=== PATIENT | female | born 1940 | race Caucasian/White ===

== ENCOUNTER → 2023-09-13 08:55 | Outpatient (REF) | payer OTHER, SELFPAY | LOC: RAD 08:55 | PROVIDERS: ATTENDING PHYSICIAN Internal Medicine Geriatric Medicine | DX: R74.8 Abnormal levels of other serum enzymes (principal) | CPT/HCPCS: 78306; A9503 ==

== ENCOUNTER → 2023-11-28 10:27 | Outpatient (REF) | payer OTHER, SELFPAY | LOC: RAD 10:27 | PROVIDERS: ATTENDING PHYSICIAN Internal Medicine Rheumatology; FAMILY PHYSICIAN Internal Medicine Geriatric Medicine | DX: M81.0 Age-related osteoporosis without current pathological fracture (principal) | CPT/HCPCS: 77080 ==

== ENCOUNTER → 2024-02-20 12:57 | Outpatient (REF) | payer OTHER, SELFPAY | LOC: WDC 12:57 | PROVIDERS: ATTENDING PHYSICIAN Internal Medicine Geriatric Medicine | DX: Z12.31 Encounter for screening mammogram for malignant neoplasm of breast (principal) | CPT/HCPCS: 77063; 77067 ==

== ENCOUNTER → 2024-06-10 14:03 | Outpatient (REF) | payer OTHER, SELFPAY | LOC: RAD 14:03 | PROVIDERS: ATTENDING PHYSICIAN Internal Medicine Geriatric Medicine | DX: N94.9 Unspecified condition associated with female genital organs and menstrual cycle (principal); I10 Essential (primary) hypertension; I25.10 Atherosclerotic heart disease of native coronary artery without angina pectoris; K21.9 Gastro-esophageal reflux disease without esophagitis; M31.6 Other giant cell arteritis; I35.1 Nonrheumatic aortic (valve) insufficiency; I25.5 Ischemic cardiomyopathy; M81.0 Age-related osteoporosis without current pathological fracture; I34.0 Nonrheumatic mitral (valve) insufficiency; E55.9 Vitamin D deficiency, unspecified; Z13.31 Encounter for screening for depression | CPT/HCPCS: 72193; Q9967 ==

== ENCOUNTER → 2025-01-02 12:07 | Outpatient (REF) | payer OTHER, SELFPAY | LOC: REG 12:07 | PROVIDERS: ATTENDING PHYSICIAN Nurse Practitioner Family; FAMILY PHYSICIAN Internal Medicine Geriatric Medicine | DX: M54.2 Cervicalgia (principal); M41.9 Scoliosis, unspecified; Z12.31 Encounter for screening mammogram for malignant neoplasm of breast | CPT/HCPCS: 72052; 72072 ==

== ENCOUNTER 2025-02-06 06:58 | Inpatient (IN) | payer OTHER, SELFPAY ==
[2025-02-05] VITALS (8 sets, daily range): BP systolic 94–118; BP diastolic 49–71; BMI 20.8
[2025-02-05 10:16] LABS: Hematocrit 33.2 % (37.0-47.0); Hemoglobin 10.6 g/dL (12.0-16.0); Mean Corp Hgb Conc. 31.9 g/dL (33.0-37.0); Mean Corpuscular Volume 84.9 fL (81.0-99.0); Nucleated Red Blood Cells % 0 %; Platelet Count 254 10^3/uL (130-400); Red Cell Dist. Width 14.5 % (11.5-14.5)
--- NOTE | 2025-02-05 10:41 | ED.GENMED ---
History of Present Illness
General
Chief Complaint: Chest Pain
Source: patient and spouse
Time Seen by Provider: 02/05/25 10:21
History of Present Illness
History of Present Illness:
84-year-old female presents emergency department with generalized weakness and nausea that started yesterday and continues today. who is bedside and is a retired cardiac nurse feels that patient is dehydrated, states that patient generally
has poor fluid intake. He noted that she was tachycardic last night although not today. Patient denies fever, chills, abdominal pain, vomiting. She does note that when she tries to lay flat she feels dyspneic sometimes followed by chest
discomfort radiating to the left arm. They are both confident that this is related to her scoliosis which is severe. However, patient states that she has had increasing dyspnea on exertion and chest discomfort with activity over the last few
weeks, greater than baseline. She last saw her agency director about 6 to 7 months ago and reportedly had an echocardiogram and other tests that were unremarkable. She denies new leg swelling and does state that she had a recent procedure on her
right lower extremity. She has a dry cough which she thinks may be related to allergies.
Past History
Past History
ED Past Medical History: Arrthythmia (Atrial fib, SVT), CAD, Cancer (Uterine), Fibromyalgia, GERD, HTN, Hypercholesterolemia, UT and Other (pancreatic mass vs cyst that they are watching, Diverticulitis, Scoliosis, temporal arteritis, Left floating
rib)
ED Past Surgical History: Appendectomy, Gynecological (Total hysterectomy) and Other (cataracts)
Social History
Tobacco: Non-smoker
Alcohol: None
Drug: None
Personal:
Living: with family
Employment: Retired
Family History
Family History: Hypertension
Phy Exam
Physical Exam
Physical Exam:
GENERAL: Alert , in no apparent distress
EYE: pupils equal and reactive
NECK: Supple, no significant adenopathy.
ENT: o/p clr, mmm.
CARDIAC: Regular rate and rhythm .
LUNGS: Equalbreath sounds bilaterally, no acute respiratory distress, no wheezes/rhonchi, ?sl fine rales at base bilat
ABDOMEN: Soft, without focal tenderness, no r/g, no cvat
NEUROLOGICAL: Alert and oriented, no focal neuro deficits
SKIN: Warm and dry, skin intact.
MUSCULOSKELETAL: No edema, well perfused. R LE with dressing intact (pt declines removal)
PSYCH: Normal and appropriate interaction.
Scores
Heart Score for Chest Pain Patients
STEMI patient?: Not applicable
Course
Orders/Labs/Results
Orders:
Orders
02/05/25 09:52
Electrocardiogram (*1) Urgent
Reason for Study: Chest Pain
EKG- Treatment ONCE
02/05/25 10:09
Complete Blood Count/With Diff Urgent
Comprehensive Metabolic Panel Urgent
NT-proBNP Urgent
Comment: ADD ON
Troponin I Urgent
02/05/25 10:39
Cardiac Monitoring- Treatment ONCE
02/05/25 10:40
CR Chest - 2 Views Urgent
Comment:
Reason For Exam: sob
02/05/25 10:41
Add On- LAB Urgent
Tests Added?: probnp
02/05/25 11:54
Aspirin 325 mg PO NOW STA
Furosemide [Lasix] 40 mg IV ONCE ONE
02/05/25 13:20
Admit/Transfer Patient As Directed
Co-Sign Provider:
Level of Care: Observation services
Assign to:: Telemetry
Physician / Group: vanessa
Diagnosis: acute chf exacerbation
Reason for Telemetry: Arrhythmia
Date to Stop Telemetry: 02/08/25
Time to Stop Telemetry: 11:00
PRN Pain Medication Management As Directed
May give lesser potent ordered pain med per pt: Yes
preference::
Protocol:: Medication orders for pain may be administered in a
manner that supports deferring to patient preference
when the pt is:
- Requesting an ordered lesser potent pain medication.
Least to most potent pain medications are defined
as: acetaminophen < NSAID < tramadol < opioids
(morphine, oxycodone, hydromorphone).
- Requesting a lesser dose of the same medication IF
ORDERED.
- Requesting a less intrusive route of administration
if both routes are prescribed by the provider (PO <
IV).
02/05/25 13:21
Code Status As Directed
Resuscitation Status: Do not resuscitate
Reached after discussion with pt or family/Healthcare POA: Yes
DNR Bracelet Application ONCE
02/05/25 14:13
Lidocaine [Lidocaine 4% Patch] 1 patch TOPICAL DAILYPRN PRN left hip
Apply Lidocaine patch(s) to:: LEFT HIP
02/05/25 14:13
Echo 2D MMode Color/Doppler Routine
Reason for Study: chf
CARDIOLOGY CONSULT Routine
Consulting Provider: Anthony Trujillo
Was physician already notified: Yes
Activity As Directed
Activity Level: As Tolerated
I/O [Intake/ Output] As Directed
Frequency: q12h
Vital Signs As Directed
Frequency: Per unit guidelines
Weight As Directed
Frequency: Daily
DX Deep Vein Thrombosis Video Routine
02/05/25 14:38
Butalb/Acetaminophen/Caffeine [Fioricet] 1 tab PO DAILYPRN PRN
02/05/25 Dinner
Cholesterol Lowering
At Your Request: Limited Participation
Cholesterol Lowering: Sodium, 2 Gram
Flush (0.9% Sodium Chloride) [Flush (Nss)] See Dose Instructions IV PER PROTOCOL
02/05/25 16:00
Troponin I Q6H
02/05/25 16:04
Furosemide [Lasix] 20 mg IV NOW STA
02/05/25 18:00
Atorvastatin [Lipitor] 20 mg PO QPM
02/05/25 20:00
Heparin 5,000 units SC Q12
Remove Patch [Remove Lidocaine Patch] See Dose Instructions REMOVE DAILY@1999
02/05/25 20:17
Troponin I Q6H
02/05/25 22:00
Melatonin 5 mg PO HS
02/06/25 04:18
Troponin I Q6H
02/06/25 08:00
Aspirin Low Dose EC [Aspir Low (Enteric Coated)] 81 mg PO DAILY
Calcium Carbonate/Vitamin D3 [Oscal 500 + D] 500 mg PO DAILY
Cyclobenzaprine HCl [Flexeril] 5 mg PO DAILY
Magnesium Oxide 200 mg PO DAILY
Metoprolol Xl [Toprol Xl] 25 mg PO DAILY
Multivitamin [Theragran] 1 tablet PO DAILY
Pantoprazole [Protonix] 40 mg PO DAILY
coenzyme Q10 [CoQ-10] 100 mg PO DAILY
milk thistle 300 mg PO DAILY
02/06/25 08:47
Complete Blood Count/With Diff IN AM
Comprehensive Metabolic Panel IN AM
Troponin I Q6H
02/08/25 11:00
DC Protocol for Telemetry ONCE
02/09/25 08:00
alendronate 70 mg PO MO
Abnormal Lab Results
02/05/25 02/05/25 02/05/25
10: 16:00 20:17
RBC 3.91 L 10^6/uL
(4.20-5.40)
Hgb 10.6 L g/dL
(12.0-16.0)
Hct 33.2 L %
(37.0-47.0)
MCHC 31.9 L g/dL
(33.0-37.0)
Absolute Lymphs (auto) 1.0 L 10^3/uL
(1.2-3.4)
Neutrophils % 78.4 H %
(42.2-75.2)
Lymphocytes % 12.3 L %
(20.5-51.1)
BUN 19 H mg/dl
(7-17)
Glucose 118 H mg/dl
(70-99)
Alkaline Phosphatase 141 H U/L
(38-126)
Troponin I 0.040 H* D ng/ml 0.066 H* D ng/ml
Total Protein 6.2 L g/dl
(6.3-8.2)
02/06/25
04:18
RBC
Hgb
Hct
MCHC
Absolute Lymphs (auto)
Neutrophils %
Lymphocytes %
BUN
Glucose
Alkaline Phosphatase
Troponin I 0.118 H* ng/ml
Total Protein
02/05/25 10:09
02/05/25 10:09
Vital Signs
Initial and Last Documented VS:
Initial Vital Signs
Temp Pulse Resp BP Pulse Ox
97.8 F 105 16 102/61 94
02/05/25 10:01 02/05/25 10:01 02/05/25 10:01 02/05/25 10:01 02/05/25 10:01
Last Documented Vital Signs
Temp Pulse Resp BP Pulse Ox
98.4 F 92 16 95/50 95
02/08/25 22:13 02/08/25 22:13 02/08/25 22:13 02/08/25 22:13 02/08/25 23:28
*Pulse Oximetry
SaO2: 94
Oxygen Mode of Delivery: Room air
Patient hypoxic: no
*Critical Care Note
Total Time (30-74mins, 75-104mins- exclusive of procedures): Not Applicable
Update Note
Update Note:
Patient presents to the Emergency Department with cp, sob, fatigue, n
Number and Complexity of Problems Addressed at the Encounter
� Chronic conditions affecting care:
� Acute Exacerbation and/or Progression of Chronic Illness:
� Differential Diagnosis includes:but not limited to chf, dehydration, acs, lyte abnl, etc etc
Amount and/or Complexity of Data to be Reviewed and Analyzed
� I performed an independent evaluation of and my interpretation is:
EKG:
CT:
Xrays:
Laboratory Studies:hgb 10.6 which is approx 1 gm drop from prior (no hx active bleed, black stool, etc).
Other:
� Review of other/old records reveals:
� Clinical information was obtained by an independent historian:
� Prescriptions/Medications Considered but not given:
� Further testing considered but not performed:
Risk of Complications and/or Morbidity or Mortality of Patient Management
� Social determinants of health affecting care:
� Discussion with other providers (PCP, Hospitalists, Consultants, etc):
� Escalation of care including admission/observation vs risk of discharge considered:
ED Attending Note
-
Portions of this chart may have been created with voice recognition software.� Occasional wrong word or��sound alike� substitutions may have occurred due to the inherent limitations of voice recognition software.
Discharge Plan
Departure
Patient Disposition: Admit
Date of Disposition: 02/05/25
Time of Disposition: 11:54
Admit to: Telemetry
Presentation/result/management discussed w/ accepting MD/DO: Hospitalist
Condition: Fair
Discharge Problem:
Chest pain
Interventions
Interventions:
*Risk Screen - Suicide Last Done: 02/05/25 10:01
*General Assessment Last Done: 02/05/25 13:03
*Neglect/Abuse Screening Last Done: 02/05/25 10:01
*ED- Fall Risk Assessment Last Done: 02/05/25 14:14
*ED COVID-19 Vaccine History Last Done: 02/05/25 13:03
*ED Influenza Vaccine History Last Done: 02/05/25 13:03
*Nursing Disposition Last Done: 02/05/25 14:14
ED- Cardiac Assessment Last Done: 02/05/25 13:15
Discharge Date and Time
Discharge Date/Time: 02/05/25 14:17
[2025-02-05 10:49] LABS: Troponin I 0.026 ng/ml
[2025-02-05] MEDS: ASPIRIN 325 MG PO (12:08)
[2025-02-05 13:05] LABS: ALT (SGPT) 29 U/L (0-35); AST (SGOT) 36 U/L (14-36); Albumin 3.8 g/dl (3.5-5.0); Alkaline Phosphatase 141 U/L (38-126); Blood Urea Nitrogen 19 mg/dl (7-17); Calcium 9.6 mg/dl (8.4-10.2); Carbon Dioxide 30 mmol/L (22-30); Chloride 101 mmol/L (98-107); Glucose 118 mg/dl (70-99); Potassium 4.3 mmol/L (3.5-5.1); Sodium 136 mmol/L (135-145); Total Protein 6.2 g/dl (6.3-8.2); eGFR > 60.00
--- NOTE | 2025-02-05 13:26 | HPS.HSE ---
Family Physician
-
Family Physician: Kelby Souza
Chief Complaint
-
shortness of breath
History of Present Illness
84-year-old female past medical history of CAD, SVT, hypertension, scoliosis, uterine cancer status post hysterectomy, hyperlipidemia, osteoporosis, presenting with generalized weakness and nausea and poor p.o. intake. who is a retired
cardiac nurse feels the patient is dehydrated. She has had decreased p.o. intake. He knows she was tachycardic last night but not today. She denies any fevers or chills or abdominal pain or vomiting.
When she tries to lay down flat she feels shortness of breath followed by chest discomfort radiating to her left arm. The pain has been ongoing for a year and the shortness of breath ongoing for few months. They feel this is related to pain from
her scoliosis and resulting restrictive lung disease which is severe. She sees Dr. Merly Leyva. No weight gain. She does have some trace swelling in her left lower extremity.
She denies some loose stools earlier in the week but this is resolved.
She had skin cancer surgery 2 weeks ago on her right lower extremity. She followed up with the doctor yesterday who did not notice any infection.
She has had increasing shortness of breath with exertion chest discomfort with activity over the past 2 weeks greater than baseline. She saw director communications 6 months ago had an echocardiogram and other tests which were unremarkable. She has a dry
cough.
She does not smoke or drink alcohol.
Medical History
Past Medical History
Past Medical History: Reports Other (CAD, SVT, hypertension, scoliosis, uterine cancer status post hysterectomy, hyperlipidemia, osteoporosis)
Past Surgical History: Reports Other ( Appendectomy, Gynecological (Total hysterectomy) and Other (cataracts))
Social History
Tobacco: Non-smoker
Alcohol: None
Drug: None
Family History
Family History: Not pertinent
Allergies / Home Medications
Allergies reflects when Allergies were last updated in [facility].
Home Medications with original date entered in [facility]
Allergy/Medication List:
Allergies
Allergy/AdvReac Type Severity Reaction Status Date / Time
amoxicillin (From Augmentin) Allergy Nausea Verified 02/05/25 10:01
clavulanic acid (From Allergy Nausea Verified 02/05/25 10:01
Augmentin)
iron Allergy Unknown Verified 02/05/25 10:01
Sulfa (Sulfonamide Allergy Rash Verified 02/05/25 10:01
Antibiotics)
(Sulfa(Sulfonamide
Antibiotics))
tocilizumab (From Actemra) Allergy Syncopal Verified 02/05/25 10:01
episode
codeine (Codeine) AdvReac Intermediate nausea Verified 02/05/25 10:01
Home Medications
aspirin 81 mg tablet,delayed release 81 mg PO DAILY 12/06/11
atorvastatin 40 mg tablet 20 mg PO QPM 02/11/21
utlyekwyxr-yxfqqlj-ieieuxzs 50 mg-325 mg-40 mg capsule 1 cap PO DAILYPRN PRN migraines 06/23/22
alendronate 70 mg/75 mL oral solution 70 mg PO MO 04/30/23
coenzyme Q10 100 mg capsule (CoQ-10) 100 mg PO DAILY 04/30/23
omeprazole 40 mg capsule,delayed release 40 mg PO DAILY 04/30/23
calcium 500 mg (as carbonate)-vitamin D3 10 mcg (400 unit) tablet (Calcium 500 + D) 1 tab PO DAILY 02/05/25
cyclobenzaprine 5 mg tablet 5 mg PO DAILY 02/05/25
lidocaine 5 % topical patch 1 patch topical DAILYPRN PRN left hip 02/05/25
lisinopril 20 mg tablet 20 mg PO DAILY 02/05/25
magnesium oxide 200 mg PO DAILY 02/05/25
metoprolol succinate 25 mg tablet,extended release 24 hr (Toprol XL) 25 mg PO DAILY 02/05/25
milk thistle 150 mg capsule 300 mg PO DAILY 02/05/25
therapeutic multivitamin 1 tab PO DAILY 02/05/25
Review of Systems
-
Constitutional: Reports No Symptoms
EENT: Reports No Symptoms
Respiratory: Reports See HPI
Cardiac: Reports See HPI
Abdomen/GI: Reports No Symptoms
: Reports No Symptoms
Musculoskeletal: Reports No Symptoms
Skin: Reports No Symptoms
Neurological: Reports No Symptoms
Endocrine: Reports No Symptoms
Hematologic/Lymphatic: Reports No Symptoms
Psych: Reports No Symptoms
Physical Exam
Vital Signs
Vital Signs
Temp Pulse Resp BP Pulse Ox
97.8 F 101 18 99/56 94
02/05/25 10:01 02/05/25 13:00 02/05/25 13:00 02/05/25 13:00 02/05/25 10:45
Physical Exam
General: Well Developed, Well Nourished and No Apparent Distress
HEENT: NormoCephalic, Moist mucous membranes and Atraumatic
Respiratory: Clear
Cardiac: S1/S2, Regular Rhythm and Peripheral Edema; No Murmur or Rub
GI: Soft, Non Tender, Non Distended and Normal Bowel Sounds; No Organomegaly
Rectal: Deferred by Provider
Musculoskeletal: No Clubbing, No Cyanosis and No Edema
Skin: No Rash
Neuro: Nonfocal/grossly intact
Laboratory Results
-
02/05/25 10:09
02/05/25 10:09
Laboratory Results
Total Bilirubin 0.5 mg/dl (0.2-1.3) 02/05/25 10:09
AST 36 U/L (14-36) 02/05/25 10:09
ALT 29 U/L (0-35) 02/05/25 10:09
Alkaline Phosphatase 141 U/L (38-126) H 02/05/25 10:09
Troponin I 0.026 ng/ml 02/05/25 10:09
Data Reviewed
-
Lab Data: Labs Reviewed by me
Old Records: Reviewed
Impression/Plan
-
IMPRESSION:
PLAN:
# Acute CHF exacerbation
- Cardiac BNP of 6800
- Chest x-ray unremarkable
- Check I's and O's, daily weights
-Lasix attempted to be given however blood pressure 90s and heart rate of 110 so held off
-Hold lisinopril so diuresis can be attempted
- Check echo
-Some element of dyspnea could be secondary to restrictive lung disease secondary to severe scoliosis
- Cardiology consulted
# Nonischemic myocardial injury
- Troponin 0.026
- Trend troponins
# Ongoing back pain radiating to left arm likely secondary to severe scoliosis
- Given aspirin however unlikely to be cardiac
Chronic anemia
- Hemoglobin of 10.6 from 11.6
History of CAD
- Continue aspirin, statin
- Continue metoprolol
History of SVT
Essential hypertension
-Hold lisinopril
Severe scoliosis
Uterine cancer status post hysterectomy
Hyperlipidemia
Osteoporosis
- Continue alendronate
History of polymyalgia rheumatica/giant cell arteritis
DNR/DNI
DVT prophylaxis�heparin
Cardiac diet
--- NOTE | 2025-02-05 14:32 | CON.CAR ---
Addendum entered and electronically signed by Anthony Trujillo MD 02/05/25 18:29:
84-year-old woman with history of METHODS SPECIALIST of LAD with preserved systolic LV function with scoliosis, admitted for the evaluation of left shoulder/arm and chest discomfort. Not exertional, associated with 'not' over left trapezius. Also with some
orthopnea over the last month with discontinuation of hydrochlorothiazide for hypertension. Echocardiography in 1999 and and notable for mild to moderate mitral regurgitation with pulmonary artery systolic pressure of 35-40 mmHg and EF of 55%.
proBNP
PMH/PSH: METHODS SPECIALIST of LAD 2011 with preserved EF, scoliosis, hypertension, hyperlipidemia, GCA/PMR, history of COVID
Current meds: Subcu heparin, aspirin 81 mg a day, atorvastatin 20 mg a day, Flexeril 5 mg a day, mag oxide, metoprolol ER 25 mg a day, pantoprazole 40 mg a day, lidocaine patch, melatonin
109/65, pulse 109, respiratory rate 16, afebrile, pleasant, petite and frail, head neck exam unremarkable, crackles in left base greater than right, JVD not dramatically elevated, probable S3 gallop, MR murmur that is soft, abdomen benign, right leg
wrapped following dermatologic surgery with some edema, 1+ to 2+ edema on left
Hemoglobin is 10.6, white count is 8.2, BUN and creatinine are 19 and 0.8, proBNP is 6810, initial troponin is 0.040
Chest x-ray with scoliosis, uncoiled aorta, pulmonary vasculature probably normal
ECG sinus tachycardia, left atrial enlargement, possible septal NC, left axis deviation, LVH
Echo 02/05/2025: Global hypokinesis, EF 25-30%, severe hypokinesis in the anteroseptal, anterior, apical and inferolateral segments, severe MR, pulmonary artery systolic pressure 59 mmHg, severe TR, dilated atria
Impression:
Acute heart failure with reduced EF
Chest pain/shoulder pain with detectable troponin
Severe mitral regurgitation
Moderate pulmonary hypertension
CAD, known METHODS SPECIALIST LAD
Hypertension
Hyperlipidemia
Giant cell arteritis/Jessica myalgia rheumatica
History of COVID
Scoliosis
Plan:
She presents with shoulder, chest, and arm symptoms that sound musculoskeletal, and without acute EKG changes, but LV function has dramatically decreased compared to 2022, she has severe mitral and tricuspid regurgitation with pulmonary artery
pressures of 59 mmHg, her proBNP is 6810 and she has a detectable troponin. Symptoms of dyspnea worsened when hydrochlorothiazide was stopped recently. Her resting sinus tachycardia is a concern in the setting of severe LV dysfunction.
It does not seem that she has ACS at present. Suspect troponin is related to non-ACS myocardial injury related to heart failure with underlying CAD.
Based on dramatic changes on her echo associated with symptoms and other findings, will need to consider cardiac catheterization.
We will begin optimization of GDMT in the setting of newly discovered LV dysfunction. Start IV Lasix, will need RYLIE/ARB/beta christine, likely spironolactone and possibly an SGLT 2 antagonist and/or Entresto.
Original Note:
Consultation
Consultation Request
Date/Time Consultation Performed: 02/05/25
Requesting Provider: Dr. Basilio
Performing Provider: Sandra Sutton PA-C for Dr. ALANIS Trujillo
Reason for Consultation: CP
Medical History
-
Chief Complaint: CP
History of Present Illness:
Patient is an 84-year-old female with past medical history of CAD with occluded LAD from 2011 with collaterals, scoliosis, hypertension, hyperlipidemia, giant cell arteritis, PMR who presents to [facility] for evaluation of neck and chest pain. Occasional
radiation down L arm. She reports she was initially evaluated for this in September 2024 with her primary head stock operator, and was felt to be musculoskeletal secondary to her scoliosis as cardiology workup was felt to be unremarkable. She reports since that
time her discomfort has become more frequent. She reports it starts in her left shoulder and radiates down into her chest. She states she then becomes short of breath as a result. She reports she is unable to lay flat due to this or sleep on her
left side. She has been sleeping in a recliner, but even with this has been sleeping poorly especially the last 2 nights. She states ~2 years ago in the setting of COVID she developed giant cell arteritis and was treated with steroids. Reportedly
in the setting of this she has lost approximately 20 pounds and continues with poor appetite. She reports 2 months ago because of hypotension her lisinopril-HCTZ combo pill was changed to just lisinopril 20 mg daily. She reports even with this her
blood pressures have been on the low side as an outpatient. She does report lower extremity edema the last day or 2. She had removal of a squamous cell in her right leg several weeks ago and has bandages in place
PMH:
CAD with occluded LAD from 2011 with collaterals
Scoliosis
Hypertension
Hyperlipidemia
Giant cell arteritis status posttreatment
PMR
Past Medical History
Past Medical History: Other (in HPI)
Social History
Tobacco: Non-Smoker
Alcohol: None
Personal:
Living: With Family
Employment: Retired
Family History
Family History: CAD and Hypertension
Allergies / Home Medications
Allergy/AdvReac Type Severity Reaction Status Date / Time
amoxicillin (From Augmentin) Allergy Nausea Verified 02/05/25 10:01
clavulanic acid (From Allergy Nausea Verified 02/05/25 10:01
Augmentin)
iron Allergy Unknown Verified 02/05/25 10:01
Sulfa (Sulfonamide Allergy Rash Verified 02/05/25 10:01
Antibiotics)
(Sulfa(Sulfonamide
Antibiotics))
tocilizumab (From Actemra) Allergy Syncopal Verified 02/05/25 10:01
episode
codeine (Codeine) AdvReac Intermediate nausea Verified 02/05/25 10:01
�Medication �Instructions �Recorded �Confirmed �Type
aspirin 81 mg tablet,delayed 81 mg PO DAILY 12/06/11 02/05/25 History
release
atorvastatin 40 mg tablet 20 mg PO QPM 02/11/21 02/05/25 History
cqlrfquqdz-eaxwrga-kupugpqb 50 1 cap PO DAILYPRN PRN migraines 06/23/22 02/05/25 History
mg-325 mg-40 mg capsule
alendronate 70 mg/75 mL oral 70 mg PO MO 04/30/23 02/05/25 History
solution
coenzyme Q10 100 mg capsule 100 mg PO DAILY 04/30/23 02/05/25 History
(CoQ-10)
omeprazole 40 mg capsule,delayed 40 mg PO DAILY 04/30/23 02/05/25 History
release
calcium 500 mg (as 1 tab PO DAILY 02/05/25 02/05/25 History
carbonate)-vitamin D3 10 mcg (400
unit) tablet (Calcium 500 + D)
cyclobenzaprine 5 mg tablet 5 mg PO DAILY 02/05/25 02/05/25 History
lidocaine 5 % topical patch 1 patch topical DAILYPRN PRN left 02/05/25 02/05/25 History
hip
lisinopril 20 mg tablet 20 mg PO DAILY 02/05/25 02/05/25 History
magnesium oxide 200 mg PO DAILY 02/05/25 02/05/25 History
metoprolol succinate 25 mg 25 mg PO DAILY 02/05/25 02/05/25 History
tablet,extended release 24 hr
(Toprol XL)
milk thistle 150 mg capsule 300 mg PO DAILY 02/05/25 02/05/25 History
therapeutic multivitamin 1 tab PO DAILY 02/05/25 02/05/25 History
Review of Systems
-
History Source: Patient and Family
All other systems: Negative unless noted
Physical Exam
Vital Signs
Temp Pulse Resp BP Pulse Ox
97.8 F 101 18 99/56 94
02/05/25 10:01 02/05/25 13:00 02/05/25 13:00 02/05/25 13:00 02/05/25 10:45
Lab Results
02/05/25 10:09
02/05/25 10:09
Troponin I 0.026 ng/ml 02/05/25 10:09
Ftw-Y-Onaeudwjnyt Pept Cancelled 02/05/25 10:39
Physical Exam
General: No Apparent Distress and Comfortable
HEENT: Normocephalic, Anicteric and Moist Mucous Membranes
Respiratory: Clear and Non Labored Respirations
Cardiac: S1/S2 and Regular Rhythm
GI: Soft, Non Tender, Non Distended and Normal Bowel Sounds
Musculoskeletal: No Clubbing, No Cyanosis and Edema (1+ of B/L LE)
Skin: Warm, Dry and Other (dressing to RLE)
Impression / Plan
-
Primary Methods Specialist: Dr. Merly Herrera
Assessment:
Presentation with L chest/shoulder pain
Elevated proBNP
CAD with occluded LAD from 2011 with collaterals
Scoliosis
Hypertension
Hyperlipidemia
Giant cell arteritis status posttreatment
PMR
Removal of squamous cell of RLE
Osteoporosis
ECHO 09/28/2022: EF 55%, mild hypokinesis of apical septum, apical inferior segment, and apex, grade 1 diastolic dysfunction, mild to moderate MR, mild AR, mild TR, PAP 35 to 40 mmHg
Plan:
- Patient presents with increasing frequency of left shoulder discomfort which radiates to her left chest and at times down her left arm. She has a history of significant scoliosis which did not improve with epidural or injections
- Cardiology consulted as concern for cardiac etiology of chest/shoulder pain. Initial troponin 0.026, trend
- EKG sinus tach with evidence of prior septal infarct
- She has history of CAD with occluded LAD with collaterals since 2011
- Continue aspirin, statin, beta-christine
- Check echo, last from 2022 with results as above
- Suspicion is that discomfort is secondary to scoliosis/musculoskeletal issues. Defer treatment to primary service
- Blood pressures have also been overall on the low side, and patient reports 20 pound weight loss in the last 2 years. She had been on regimen of Toprol, lisinopril/HCTZ combo pill, however approximately 2 months HCTZ was stopped due to relative
hypotension. She does have some lower extremity edema on exam today and proBNP 6810, but is not grossly volume overloaded and chest x-ray is without acute heart failure.
- Would consider decreasing/stopping lisinopril and resuming HCTZ 12.5 mg daily.
- Of note she does have history of palpitations in past, with brief A. tach by an outpatient monitor. Would continue outpatient Toprol
- Daughter has asked for something to help her sleep. Will order melatonin and defer any additional medications to medical service
- Discussed with patient and family at bedside
Data Reviewed
-
EKG: Tracing Personally Visualized and interpreted
Radiology: Report Reviewed by me
Medical Tests (Nuc Med, Echo etc): Report Reviewed by me
Labs: Labs Reviewed by me
Old Records: Reviewed
--- NOTE | 2025-02-05 15:14 | TRANSFER ---
pt arrived from ED via stretcher accompanied by staff. pt ambulated from stretcher to bed without assistance. VSS, pt AAOx3. call terry within reach.
--- NOTE | 2025-02-05 15:54 | CM ---
Patient seen at bedside with daughter and in ED. Patient here as OBS/BANDA. Form reviewed with patient and signed form placed on chart. Patient states that she lives with her in a 2 story home with no steps to enter and 11 steps to
2nd floor. Patient PCP is Dr. Souza and she uses [facility]. Patient daughter Fede also a nurse and supportive, is a nurse so patient feels that she has good home supports. Patient is anxious about her stay in the hospital due to
complex history per patient . CM will continue to follow for discharge planning needs.
Plan;home with no needs vs home with VN; watch for medical treatment plan.
[2025-02-05 16:46] LABS: Troponin I 0.040 ng/ml
[2025-02-05] MEDS: LIPITOR 20 MG PO (17:42)
[2025-02-05] MEDS: LASIX 20 MG IV (17:45)
[2025-02-05] MEDS: HEPARIN 5000 UNITS SC (19:47)
[2025-02-05] MEDS: REMOVE LIDOCAINE PATCH REMOVE (19:51)
[2025-02-05 20:57] LABS: Troponin I 0.066 ng/ml
[2025-02-05] MEDS: MELATONIN 5 MG PO (21:39)
[2025-02-06] VITALS (23 sets, daily range): BP systolic 86–127; BP diastolic 51–73; BMI 20.4
[2025-02-06 05:03] LABS: Troponin I 0.118 ng/ml
[2025-02-06] MEDS: LIDOCAINE 4% PATCH 1 PATCH TOPICAL (08:05)
[2025-02-06] MEDS: ASPIR LOW (ENTERIC COATED) 81 MG PO (08:05)
[2025-02-06] MEDS: TOPROL XL 25 MG PO (08:08)
[2025-02-06] MEDS: HEPARIN 5000 UNITS SC ×2 (08:09→19:58)
[2025-02-06] MEDS: MAGNESIUM OXIDE PO (08:12)
[2025-02-06] MEDS: OSCAL 500 + D PO (08:12)
[2025-02-06] MEDS: THERAGRAN PO (08:12)
[2025-02-06] MEDS: PROTONIX PO (08:19)
--- NOTE | 2025-02-06 08:26 | W.PN.CARDCBS ---
Today's Communication / Plan
-
Cardiac catheterization
Impression / Plan
-
Primary Triple Drum Operator: Dr. Merly Herrera
Assessment:
Presentation with L chest/shoulder pain
Acute HFrEF
CAD with occluded LAD from 2011 with collaterals
Scoliosis
Hypertension
Hyperlipidemia
Giant cell arteritis
Squamous cell of RLE
Osteoporosis
Resting sinus tachycardia
ECHO 09/28/2022: EF 55%, mild hypokinesis of apical septum, apical inferior segment, and apex, grade 1 diastolic dysfunction, mild to moderate MR, mild AR, mild TR, PAP 35 to 40 mmHg
Echo 02/05/2025: Global hypokinesis, EF 25-30%, severe hypokinesis in the anteroseptal, anterior, apical and inferolateral segments, severe MR, pulmonary artery systolic pressure 59 mmHg, severe TR, dilated atria
ECG today: Pending
Plan:
She appears relatively comfortable, but remains tachycardic. Her troponin has risen to 0.118. ECG is pending. TSH is pending given resting sinus tachycardia
Her echo shows surprising decline in LV function with worsening of MR and pulmonary hypertension. In retrospect, her symptoms of chest discomfort, which sound musculoskeletal may impart be exertional and could be anginal. She also has had symptoms
of CRISTOBAL and orthopnea.
Best option is to proceed with cardiac catheterization. Discussed with patient and daughter who are in agreements.
Patient will also likely need transesophageal echocardiography.
Currently not on GDMT, which may be difficult to optimize given relatively low blood pressure. Will await cardiac catheterization and adjust meds appropriately thereafter.
Progress Note - Triple Drum Operator
Subjective
Date of Service: February 06, 2025:
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 Not exertional, associated with 'not' over left trapezius. Also with some
orthopnea over the last month with discontinuation of hydrochlorothiazide for hypertension. Echocardiography in 1999 and and notable for mild to moderate mitral regurgitation with pulmonary artery systolic pressure of 35-40 mmHg and EF of 55%.
proBNP
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
Current meds: Subcu heparin, aspirin 81 mg a day, atorvastatin 20 mg a day, magnesium, metoprolol ER 25 mg a day, Protonix 40 mg a day, tramadol
118/63, pulse 114, respiratory rate 18, afebrile, weight is 45.9 kg, down 0.8 kg, received furosemide 40 mg IV x 1 yesterday, lungs are relatively clear, MR murmur is surprisingly soft, possible S3, she remains somewhat tachycardic, daughter at
bedside, neck veins okay, right leg is wrapped, edema in left leg is improved
Peak troponin is 0.118, follow-up is pending, was 0.035 on admission, proBNP was 6810
Labs today are pending, BUN and creatinine were 19 and 0.8 yesterday with potassium 4.3, TSH pending
Echo 02/05/2025: Global hypokinesis, EF 25-30%, severe hypokinesis in the anteroseptal, anterior, apical and inferolateral segments, severe MR, pulmonary artery systolic pressure 59 mmHg, severe TR, dilated atria
ECG today: Pending
Objective
Labs:
Labs
Hgb 10.6 g/dL (12.0-16.0) L 02/05/25 10:09
Hct 33.2 % (37.0-47.0) L 02/05/25 10:09
Plt Count 254 10^3/uL (130-400) 02/05/25 10:09
Sodium 136 mmol/L (135-145) 02/05/25 10:09
Potassium 4.3 mmol/L (3.5-5.1) 02/05/25 10:09
BUN 19 mg/dl (7-17) H 02/05/25 10:09
Creatinine 0.8 mg/dL (0.6-1.0) 02/05/25 10:09
Glucose 118 mg/dl (70-99) H 02/05/25 10:09
Troponins
02/05/25 02/05/25 02/05/25
10: 16:00 20:17
Troponin I 0.026 0.040 H* D 0.066 H* D
02/06/25
04:18
Troponin I 0.118 H*
Vital Signs and I&O:
Vital Signs
Temp Pulse Resp BP Pulse Ox
36.6 C 114 18 118/63 93
02/06/25 03:04 02/06/25 03:04 02/06/25 03:04 02/06/25 03:04 02/06/25 03:04
Vital Signs
Temp Pulse Resp BP Pulse Ox
36.6 C 114 18 118/63 93
02/06/25 03:04 02/06/25 03:04 02/06/25 03:04 02/06/25 03:04 02/06/25 03:04
Intake & Output
02/04/25 02/05/25 02/06/25 02/07/25
07:59 07:59 07:59 07:59
Intake Total 720 / 720
Output Total 985 / 985
Balance -265 / -265
Physical Exam
Physical Exam
See above
[2025-02-06 08:59] LABS: Hematocrit 34.0 % (37.0-47.0); Hemoglobin 11.1 g/dL (12.0-16.0); Mean Corp Hgb Conc. 32.6 g/dL (33.0-37.0); Mean Corpuscular Volume 85.0 fL (81.0-99.0); Nucleated Red Blood Cells % 0 %; Platelet Count 259 10^3/uL (130-400); Red Cell Dist. Width 14.5 % (11.5-14.5)
--- NOTE | 2025-02-06 09:21 | W.PN.HOSP.TC ---
Today's Communication/Plan
-
.
Assessment / Plan
Assessment / Plan
Physical Exam
General: Well Developed, Well Nourished and No Apparent Distress
HEENT: NormoCephalic, Moist mucous membranes and Atraumatic
Respiratory: Clear
Cardiac: S1/S2, Regular Rhythm and Peripheral Edema; No Murmur or Rub
GI: Soft, Non Tender, Non Distended and Normal Bowel Sounds; No Organomegaly
Rectal: Deferred by Provider
Musculoskeletal: No Clubbing, No Cyanosis and No Edema
Skin: No Rash
Neuro: Nonfocal/grossly intact
# Acute HFrEF, new onset
# History of CAD
- Continue aspirin, statin
- Continue metoprolol
Positive troponin, possible non ischemic
Plan for [facility], agree and will know more about troponin elevation if NH or non ischemic?
-She irby snot have sob or chest pain
Main complaint is is cervical radiculopathy
Echo on o 02/05/2025: LV Global hypokinesis, EF 25-30%, severe hypokinesis in the anteroseptal, anterior, apical and inferolateral segments, severe MR, pulmonary artery systolic pressure 59 mmHg, severe TR, dilated atria
Appreciate cardiology input
Primary customer service sales consultant Dr Merly Herrera
# Cervical radiculopathy
Upon exam and reviewing prior X ray
d/w pt, doubt Lidocaine patch will help much
I believe it is important to give her some relief at this point, she reports chronic lack of sleep and comfort
Will do Tylenol 1 gm TID
Add HS dose of Tramadol.
Educated about healthy posture
Will follow
# Anemia of chronic disease? at baseline
- Hemoglobin of 10.6 from 11.6
History of SVT
Essential hypertension
-Hold lisinopril
Severe scoliosis
Uterine cancer status post hysterectomy
Hyperlipidemia
Osteoporosis
History of polymyalgia rheumatica/giant cell arteritis
DNR/DNI
DVT prophylaxis�heparin
Cardiac diet
Total time spent to see the patient, examine the patient, review data and lab result, discuss treatment plan with patient, daughter, nursing staff around 55 minutes
Anticipated Discharge: > 48 hours
Subjective/Interval History
-
Date of Service: February 06, 2025
No chest pain
No sob
Chronic neck/ shoulder pain on left side
Objective Data
-
Labs:
Laboratory Results
02/06/25
08:47
WBC 7.6
Hgb 11.1 L
Hct 34.0 L
Plt Count 259
Sodium Pending
Potassium Pending
Chloride Pending
Carbon Dioxide Pending
BUN Pending
Creatinine Pending
Glucose Pending
Calcium Pending
Total Bilirubin Pending
AST Pending
ALT Pending
Alkaline Phosphatase Pending
Vital Signs:
Vital Signs
Temp Pulse Resp BP Pulse Ox
97.5 F 115 16 115/73 96
02/06/25 08:26 02/06/25 08:26 02/06/25 08:26 02/06/25 08:26 02/06/25 08:26
I&O
02/05/25 02/06/25 02/07/25
06:59 06:59 06:59
Intake Total 720 / 720
Output Total 985 / 985
Balance -265 / -265
[2025-02-06 09:30] LABS: Troponin I 0.202 ng/ml
[2025-02-06 09:46] LABS: ALT (SGPT) 27 U/L (0-35); AST (SGOT) 33 U/L (14-36); Albumin 4.0 g/dl (3.5-5.0); Alkaline Phosphatase 144 U/L (38-126); Blood Urea Nitrogen 21 mg/dl (7-17); Calcium 9.5 mg/dl (8.4-10.2); Carbon Dioxide 28 mmol/L (22-30); Chloride 99 mmol/L (98-107); Estimated Creatinine Clearance 36 ml/min; Glucose 98 mg/dl (70-99); Potassium 4.2 mmol/L (3.5-5.1); Sodium 136 mmol/L (135-145); Total Protein 6.7 g/dl (6.3-8.2); eGFR > 60.00
--- NOTE | 2025-02-06 11:47 | CM ---
Chart reviewed. Plan for cardiac cath today
PT attempted eval, will follow up when appropriate
Plan: Anticipate home w/ family support. Will watch for any home care needs
--- NOTE | 2025-02-06 13:45 | PTCARENOTE ---
Report given to label tacker RN's, pt transported to label tacker.
--- NOTE | 2025-02-06 15:44 | ITS.CL.CATH ---
Personal Lines Agent - Catheterization
Cardiac Catheterization
Procedure Report:
LEFT HEART CATHETERIZATION
Date of Procedure: February 06, 2025
Referring: Dr. Anthony Trujillo
PROCEDURES:
1. Left heart catheterization with coronary and single-plane left ventriculography
2. Attempted right heart catheterization with development of rapid SVT associated with profound hypoxia and hypotension. SVT required IV adenosine to break with hinduism of sinus rhythm
3. Abdominal aortography with iliofemoral runoff
INDICATION: This is an 84-year-old female with a prior history of coronary artery disease and known chronically occluded proximal LAD just beyond the first septal clearance center manager by coronary angiogram from December 2011. The distal LAD was noted to fill
via right to left collaterals. She was free of significant anginal symptoms and has been treated medically since that time. She is now admitted with a significant change in exercise capacity and exertional dyspnea. Her troponin was mildly
elevated. She had an echocardiogram performed earlier today notable for severe mitral regurgitation with left atrial dilation. She is referred for right and left heart catheterization.
ACCESS: No right radial pulse. Arterial access was obtained in the right common femoral artery using ultrasound guidance and placement of a 6 Br[place] sheath. Venous access was obtained in the right common femoral vein using ultrasound guidance with
placement of a 6 [place] sheath.
HEMODYNAMICS : (mmHg)
Note: We attempted to perform a right heart catheterization and advanced a [place]-Jonny catheter from the right common femoral vein to the right atrium. The patient developed a supraventricular tachycardia with heart rates of 160-180 bpm. She became
profoundly hypotensive and hypoxic with oxygen saturations falling to the low 70s. Vagal maneuvers and coughing did not improve the SVT and 6 mg of adenosine were administered with hinduism of sinus rhythm. Over the next several minutes
patient's respiratory insufficiency slowly improved and the decision was made to abort additional attempts at obtaining right sided pressures.
AO (s/d) : 105/54, 75
LV (s/d) : 106/21
LVEDP : 34
CORONARY FINDINGS
DOMINANCE: Right
LEFT MAIN: Normal
LEFT ANTERIOR DESCENDING: The LAD arises normally from the left main and becomes 100% occluded just beyond the first septal clearance center manager as was noted on the angiograms from 2012. There are well-developed right to left collaterals noted filling a
medium caliber LAD proximally to the occluded segment.
CIRCUMFLEX: The circumflex is a medium caliber nondominant vessel with a 50% proximal stenosis. The first obtuse marginal branch is large and a 90% proximal stenosis with GONZALO II-GONZALO-3 flow into the distal vessel. The AV continuation of the
circumflex terminates in a moderate-sized posterolateral branch.
RIGHT CORONARY ARTERY: Moderate pressure dampening with engagement of a 6 [place] diagnostic catheter with 40% ostial to proximal RCA stenosis. There is a large RV marginal branch supplying collaterals to the LAD. The mid RCA just beyond the RV
marginal branch has a hazy 80% stenosis with angiographic appearance of a ruptured plaque. The mid to distal RCA has minor irregularities with no focal obstructive stenosis.
VENTRICULOGRAPHY: Left ventriculography is performed in an ROBLEDO projection. The digital single-plane left ventricular ejection fraction is estimated at 30% with severe anterolateral hypokinesis noted. The apex is akinetic. The diaphragmatic
portion of the inferior wall is severely hypokinetic. Mitral regurgitation is +2
ABDOMINAL AORTOGRAPHY WITH ILIOFEMORAL RUNOFF: A pigtail catheter was positioned in the distal abdominal aorta. A small distal abdominal aortic saccular aneurysm is noted. Both the right and left common iliac arteries are widely patent. The
external iliac to common femoral vessels have minor irregularities but no focal obstructive stenosis.
SEDATION: 62 minutes of procedural sedation was utilized. An independent medical engineer was present to assist with and help manage the patient's level of consciousness and physiologic status.
RADIATION SUMMARY: Fluoro Time (min): 6.2, Dose (mGy): 171, DAP (Gy.cm2) : 11.5
Closure Device: None
CONCLUSIONS
1. Severe multivessel coronary artery disease with chronically occluded LAD from angiogram in 2012 and new high-grade mid RCA and OM1 stenosis as described above
2. Moderate left ventricular dysfunction. The estimated ejection fraction is 30%.
3. 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
4. Elevated left ventricular filling pressures
RECOMMENDATIONS
1. Consult CT surgery to consider surgical revascularization of LAD, diagonal, obtuse marginal branch, and distal RCA
2. She tolerated SVT very poorly. I discontinued tjdjdydxis-cnrzqos-fnebwjfj and started amiodarone 200mg bid given drug-drug interaction. I am hopeful we can maintain sinus rhythm
3. IV diuresis with furosemide 40mg IV bid.
4. Planned VIOLA to reassess mitral regurgitation
Copy to: Dr. Merly Herrera
--- NOTE | 2025-02-06 16:16 | PTCARENOTE ---
assumed care of pt, pt oriented to room. rn explained restrictions. pt is ST on the monitor, hr in the 120s, vss. pt right groin is CDI. pt offers no complaints at this time. pt educated on plan of care and pt tolerated well. pt resting in bed
comfortably. call terry within reach.
[2025-02-06] MEDS: LASIX 40 MG IV (17:09)
--- NOTE | 2025-02-06 17:18 | CONSULT.CT ---
Patient History
Physicians
Family Physician: Kelby Souza
Outpatient Banana Carrier: Dr. Merly Herrera
Inpatient Banana Carrier: Dr. Merly Herrera
History of Present Illness
84-year-old female with past medical history of HTN, SERVICES HOST of LAD scoliosis, and remote COVID presented to [facility] with left shoulder and chest discomfort. She was found to have elevated troponins in the emergency room and was taken to the cardiac Cath
Lab today.
Of note, patient had some orthopnea over the past month after discontinuation of hydrochlorothiazide and patient was noted to have shortness of breath in December. Overall, patient is fairly active although reports that the SOB since december has slowed
her down.
Past Medical History
Past Medical History: Other
Acute heart failure with reduced EF
Chest pain/shoulder pain with detectable troponin
Severe mitral regurgitation
Moderate pulmonary hypertension
CAD, known SERVICES HOST LAD
Hypertension
Hyperlipidemia
Giant cell arteritis/Jessica myalgia rheumatica
History of COVID
Scoliosis
Past Surgical History
MOHs of RLE
Cataracts
Dental History
last dental visit in october
Family History
Father: Cause of (NM)
Family Medical History: CAD
Social History
Alcohol: None
Drug: None
Tobacco: Non-Smoker
Personal:
Living: With Family
Employment: Retired
Allergies
Allergy/AdvReac Type Severity Reaction Status Date / Time
amoxicillin (From Augmentin) Allergy Nausea Verified 02/05/25 10:01
clavulanic acid (From Allergy Nausea Verified 02/05/25 10:01
Augmentin)
iron Allergy Unknown Verified 02/05/25 10:01
Sulfa (Sulfonamide Allergy Rash Verified 02/05/25 10:01
Antibiotics)
(Sulfa(Sulfonamide
Antibiotics))
tocilizumab (From Actemra) Allergy Syncopal Verified 02/05/25 10:01
episode
codeine (Codeine) AdvReac Intermediate nausea Verified 02/05/25 10:01
Home Medications
�Medication �Instructions �Recorded �Confirmed �Type
aspirin 81 mg tablet,delayed 81 mg PO DAILY Blood Clot 12/06/11 02/05/25 History
release Prevention/Tx
atorvastatin 40 mg tablet 20 mg PO QPM High Cholesterol 02/11/21 02/05/25 History
ybhjjrexsu-azjixwl-cydnukvw 50 1 cap PO DAILYPRN PRN migraines 06/23/22 02/05/25 History
mg-325 mg-40 mg capsule
alendronate 70 mg/75 mL oral 70 mg PO MO BONE 04/30/23 02/05/25 History
solution
coenzyme Q10 100 mg capsule 100 mg PO DAILY Supplement 04/30/23 02/05/25 History
(CoQ-10)
omeprazole 40 mg capsule,delayed 40 mg PO DAILY GERD 04/30/23 02/05/25 History
release
calcium 500 mg (as 1 tab PO DAILY Supplement 02/05/25 02/05/25 History
carbonate)-vitamin D3 10 mcg (400
unit) tablet (Calcium 500 + D)
cyclobenzaprine 5 mg tablet 5 mg PO DAILY Muscle Spasms 02/05/25 02/05/25 History
lidocaine 5 % topical patch 1 patch topical DAILYPRN PRN left 02/05/25 02/05/25 History
hip
lisinopril 20 mg tablet 20 mg PO DAILY Blood Pressure 02/05/25 02/05/25 History
magnesium oxide 200 mg PO DAILY Supplement 02/05/25 02/05/25 History
metoprolol succinate 25 mg 25 mg PO DAILY Blood Pressure 02/05/25 02/05/25 History
tablet,extended release 24 hr
(Toprol XL)
milk thistle 150 mg capsule 300 mg PO DAILY Supplement 02/05/25 02/05/25 History
therapeutic multivitamin 1 tab PO DAILY Supplement 02/05/25 02/05/25 History
Review of Systems
-
History Source: Patient
General: Reports Fatigue
Respiratory: Reports SOB
Cardiac: Reports Chest Pain and Edema (LE)
Abdomen/GI: Reports No Symptoms
: Reports No Symptoms
Musculoskeletal: Reports Edema
Skin: Reports No Symptoms
Neurological: Reports No Symptoms
Vascular: Reports No Symptoms
Physical Exam
Vital Signs
Temp 97.6 F 02/06/25 15:49
Temp route: Oral 02/06/25 15:49
Pulse 98 02/06/25 15:49
Rhythm: Sinus tachycardia 02/06/25 08:00
Resp Rate 18 02/06/25 15:49
Blood pressure 110/64 02/06/25 11:50
Blood pressure extremity used: Left upper arm 02/06/25 15:49
Position: Lying 02/06/25 15:49
MAP (cuff-Gaby Monitor) 70 02/05/25 13:00
SaO2 99 02/06/25 15:49
Nasal Cannula flow liters per minute 3 02/06/25 15:49
Oxygen Mode of Delivery Room air 02/06/25 11:50
Can the patient verbally communicate their pain? Yes 02/05/25 20:00
Pain scale ratin 02/05/25 20:00
Actual Weight 45.87 kg 02/06/25 06:00
Body Mass Index (BMI) 20.4 02/06/25 06:00
Labs
02/06/25 08:47
02/06/25 08:47
Troponin I 0.202 ng/ml H* D 02/06/25 08:47
Tmp-O-Xiziiwnhadk Pept Cancelled 02/05/25 10:39
Exam
General: Well Developed and Well Nourished
HEENT: Normocephalic
Respiratory: Clear
Cardiac: S1/S2
GI: Soft
Rectal: Deferred by Provider
Skin: Warm and Dry
Neuro: AO x 3
Extremities: Lower Level Edema
Lymph: No Lymphadenopathy
Psych: Calm
Assessment / Plan
-
84 y/o female with PMHx listed above presents to the [facility] with complaints of SOB. She was found to have elevated troponins. [facility] today revealed MVD and CT surgery was consulted for surgical evaluation.
#CAD
#Severe MR
#Severe TR
#Mod AR
- Patient's case will be discussed with attending physician. Further details regarding surgical timing intervention will be determined after attending physicians full evaluation
- Routine preoperative cardiothoracic surgery orders will be initiated.
- STS risk stratification score will be calculated after preoperative testing is complete
- Continue heparin gtt per cardiology
- Repeat VIOLA Sunday
- Continue diureses over the weekend
[2025-02-06] MEDS: TYLENOL 1000 MG PO (19:58)
[2025-02-06] MEDS: LIPITOR 20 MG PO (19:58)
[2025-02-06] MEDS: REMOVE LIDOCAINE PATCH REMOVE (19:59)
[2025-02-06] MEDS: PACERONE 200 MG PO (20:55)
[2025-02-06] MEDS: ULTRAM 25 MG PO (20:55)
[2025-02-06] MEDS: MELATONIN 5 MG PO (20:56)
[2025-02-06] MEDS: TYLENOL PO (20:56)
[2025-02-07] VITALS (13 sets, daily range): BP systolic 92–117; BP diastolic 49–74; PULSE 106–122; O2SAT 95–99; BMI 20.3
[2025-02-07 00:54] LABS: Urine Character Clear (Clear)
[2025-02-07 01:02] LABS: Urine Red Blood Cell 0-2 /HPF (0-2); Urine Squamous Cell 0-2 /LPF (Few); Urine White Cell 0-2 /HPF (0-5)
[2025-02-07 05:23] LABS: Hematocrit 33.5 % (37.0-47.0); Hemoglobin 10.8 g/dL (12.0-16.0); Mean Corp Hgb Conc. 32.2 g/dL (33.0-37.0); Mean Corpuscular Volume 83.5 fL (81.0-99.0); Platelet Count 241 10^3/uL (130-400); Red Cell Dist. Width 14.5 % (11.5-14.5)
[2025-02-07 05:33] LABS: INR 0.94; PT 12.9 Sec (11.4-14.6)
[2025-02-07 05:34] LABS: APTT 37.4 Sec (23.4-35.0)
[2025-02-07 05:52] LABS: ALT (SGPT) 27 U/L (0-35); AST (SGOT) 49 U/L (14-36); Albumin 4.0 g/dl (3.5-5.0); Alkaline Phosphatase 131 U/L (38-126); Blood Urea Nitrogen 27 mg/dl (7-17); Calcium 9.1 mg/dl (8.4-10.2); Carbon Dioxide 25 mmol/L (22-30); Chloride 98 mmol/L (98-107); Estimated Creatinine Clearance 32 ml/min; Glucose 90 mg/dl (70-99); Potassium 4.6 mmol/L (3.5-5.1); Sodium 136 mmol/L (135-145); Total Protein 6.5 g/dl (6.3-8.2); eGFR > 60.00
--- NOTE | 2025-02-07 07:14 | PTCARENOTE ---
Assumed care on pt at 1900, aaox3, able to make needs known.ST on tele, with HR 110 at rest and 137 with ambulation and activities. O2 at 2L via NC, CRISTOBAL. R groin cath site, CDI, free or bruising or swelling, + pulses. Voiding with no issues clear
yellow urine, sample for UA sent to lab. Call terry within reach, updated on POC and in agreement.
--- NOTE | 2025-02-07 07:42 | W.PN.CARDCBS ---
Addendum entered and electronically signed by Leo Herrera MD 02/07/25 15:42:
Discussed with the CT surgery
Will plan for transesophageal echo on Sunday to better evaluate mitral valve.
Addendum entered and electronically signed by Leo Herrera MD 02/07/25 12:02:
Patient seen, interviewed and examined by me.
Well-appearing, no acute distress
Regular rate and rhythm with normal S1 and S2, no S3 no S4. There is a grade 1/6 apical holosystolic murmur and no rubs. PMI is normally placed.
Lungs are clear to auscultation bilaterally without wheezes rales or rhonchi.
Abdomen soft nontender nondistended with normoactive bowel sounds
Extremities show trace pretibial edema bilaterally no clubbing or cyanosis.
Neurologic exam is grossly nonfocal.
Multivessel coronary artery disease as well as severe mitral regurgitation and recent decline in left ventricular systolic function.
CT surgical evaluation has been initiated.
Continue attempts at diuresis as blood pressure tolerates.
Original Note:
Today's Communication / Plan
-
Ongoing attempts at diuresis, LVEDP was 34 by cath yesterday
Hypotension limiting attempts at optimizing GDMT
CABG evaluation
Impression / Plan
-
PCP: Dr. Souza
Primary Atg Architect: Dr. Merly Herrera
Assessment:
Presentation with L chest/shoulder pain 02/05/25
Acute HFrEF
CAD
s/p cath with occluded LAD and collaterals 2011
MV CAD with chronically occluded LAD from angiogram in 2011 and new high-grade mid RCA and OM1 stenosis by cardiac cath 02/06/25
ICM EF 25-30% by echo 02/05/25
Severe MR by echo 02/05/25
SVT treated with adenosine at time of cardiac cath 02/06/2025
Scoliosis
Hypertension
Hyperlipidemia
Giant cell arteritis
Squamous cell of RLE
Osteoporosis
Resting sinus tachycardia
PMR
ECHO 09/28/2022: EF 55%, mild hypokinesis of apical septum, apical inferior segment, and apex, grade 1 diastolic dysfunction, mild to moderate MR, mild AR, mild TR, PAP 35 to 40 mmHg
Echo 02/05/2025: Global hypokinesis, EF 25-30%, severe hypokinesis in the anteroseptal, anterior, apical and inferolateral segments, severe MR, pulmonary artery systolic pressure 59 mmHg, severe TR, dilated atria
Plan:
- Patient was admitted with new CRISTOBAL and change in exercise capacity along with elevated troponin prompting echocardiogram that showed newly reduced EF and severe MR. Cardiac cath showed MV CAD and patient is now being evaluated for possible CABG.
-No recurrence of chest pain, troponin is high 0.2 at last check on 02/06/2025, will recheck troponin in a.m., orders placed by me.
-Outpatient doses of aspirin 81 mg daily has been continued. Patient was not given Plavix or Brilinta
-Check CVE, ordered by me, outpatient dose of atorvastatin 20 mg daily has been continued
-Echo from was reviewed by me and is outlined above, EF is now 25 to 30% with WMA as described.
-Outpatient dose of Toprol XL 25 mg daily has been continued
-Outpatient dose of lisinopril 20 mg daily is on hold due to hypotension
-Patient is not a candidate for cardiac rehab as she is not revascularized yet
-Weight is down as much as 3 lbs this admission with Lasix 20 mg IV BID. Patient was not taking a diuretic prior to admission, HCTZ was stopped 12/2024 due to hypotension
-LVEDP was 34 at cath on 02/06/2025
-EF was 55% in 2022 and is now 25 to 30%, this is presumably ischemic
-GDMT as outlined above
-Consideration for eventual aldosterone antagonist and SGLT2 therapies following possible CABG
-Telemetry reviewed by me on 02/07/2025 and appears to be sinus tachycardia. Beck Tender report from 02/06/2025 reviewed by me and patient had an episode of SVT that required adenosine.
-TSH was low at 0.43, but free T4 was normal at 1.62 on my review of labs 02/07/2025
Progress Note - Atg Architect
Subjective
Date of Service: February 07, 2025
No recurrence of chest pain
Objective
Labs:
02/07/25 05:07
02/07/25 05:07
Labs
Hgb 10.8 g/dL (12.0-16.0) L 02/07/25 05:07
Hct 33.5 % (37.0-47.0) L 02/07/25 05:07
Plt Count 241 10^3/uL (130-400) 02/07/25 05:07
PT 12.9 Sec (11.4-14.6) 02/07/25 05:07
INR 0.94 02/07/25 05:07
APTT 37.4 Sec (23.4-35.0) H 02/07/25 05:07
Sodium 136 mmol/L (135-145) 02/07/25 05:07
Potassium 4.6 mmol/L (3.5-5.1) 02/07/25 05:07
BUN 27 mg/dl (7-17) H 02/07/25 05:07
Creatinine 0.9 mg/dL (0.6-1.0) 02/07/25 05:07
Glucose 90 mg/dl (70-99) 02/07/25 05:07
Troponins
02/05/25 02/05/25 02/05/25
10:09 16:00 20:17
Troponin I 0.026 0.040 H* D 0.066 H* D
02/06/25 02/06/25
04:18 08:47
Troponin I 0.118 H* 0.202 H* D
Vital Signs and I&O:
Vital Signs
Temp Pulse Resp BP Pulse Ox
98.5 F 113 20 102/55 94
02/07/25 06:41 02/07/25 01:00 02/07/25 06:41 02/06/25 21:52 02/07/25 06:41
Vital Signs
Temp Pulse Resp BP Pulse Ox
98.5 F 113 20 102/55 94
02/07/25 06:41 02/07/25 01:00 02/07/25 06:41 02/06/25 21:52 02/07/25 06:41
Intake & Output
02/05/25 02/06/25 02/07/25 02/08/25
06:59 06:59 06:59 06:59
Intake Total 720 / 720 720 / 720
Output Total 985 / 985 600 / 600
Balance -265 / -265 120 / 120
Physical Exam
Physical Exam
GEN: AAOx3
HEENT: EOMI
LUNGS: RA. No wheeze
CV: Sinus tach on tele. Reg, S1/S2, 1/6 AHSM
EXT: Right groin without hematoma or ecchymosis. Trace left greater than right B/L LE edema
NEURO: Gross non-focal
SKIN: No rash
[2025-02-07] MEDS: LASIX 20 MG IV ×2 (08:06→16:57)
[2025-02-07] MEDS: THERAGRAN 1 TABLET PO (08:07)
[2025-02-07] MEDS: HEPARIN 5000 UNITS SC ×2 (08:07→20:47)
[2025-02-07] MEDS: PACERONE 200 MG PO ×2 (08:08→20:51)
[2025-02-07] MEDS: MAGNESIUM OXIDE 200 MG PO (08:08)
[2025-02-07] MEDS: TOPROL XL 25 MG PO (08:08)
[2025-02-07] MEDS: ASPIR LOW (ENTERIC COATED) 81 MG PO (08:08)
[2025-02-07] MEDS: PROTONIX 40 MG PO (08:08)
[2025-02-07] MEDS: OSCAL 500 + D 500 MG PO (08:08)
[2025-02-07] MEDS: TYLENOL 1000 MG PO ×2 (08:09→22:45)
[2025-02-07 08:43] LABS: HDL Cholesterol 55 mg/dl; LDL Cholesterol, Calculated 62 mg/dl; Very Low Density Lipoprotein 18 mg/dl (0-30)
--- NOTE | 2025-02-07 09:01 | W.PN.HOSP.TC ---
Today's Communication/Plan
-
.
Assessment / Plan
Assessment / Plan
Physical Exam
General: Well Developed, Well Nourished and No Apparent Distress
HEENT: Normocephalic, Moist mucous membranes and Atraumatic
Respiratory: Clear
Cardiac: S1/S2, Regular Rhythm and Peripheral Edema; + Murmur
GI: Soft, Non Tender, Non Distended and Normal Bowel Sounds;
Musculoskeletal: No Clubbing, No Cyanosis and No Edema
Skin: No Rash
Neuro: Nonfocal/grossly intact
# Acute HFrEF, new onset
# History of CAD
S/P LHC with multiple vessel disease, consulted CT surgery
- Continue aspirin, statin
- Continue metoprolol
Reduce dose of Lasix due to Low BP.
Echo on o 02/05/2025: LV Global hypokinesis, EF 25-30%, severe hypokinesis in the anteroseptal, anterior, apical and inferolateral segments, severe MR, pulmonary artery systolic pressure 59 mmHg, severe TR, dilated atria
Appreciate cardiology input
Primary pets and pet supplies salesperson Dr Merly Herrera
# SVT
Symptomatic during [facility]
Started on amiodarone
# Cervical radiculopathy
She slept well, less pain
Upon exam and reviewing prior X ray
d/w pt, doubt Lidocaine patch will help much
c/w Tylenol 1 gm TID, HS dose of Tramadol.
Educated about healthy posture
# Anemia of chronic disease? at baseline
- Hemoglobin of 10.6 from 11.6
History of SVT
Essential hypertension
-Hold lisinopril
Severe scoliosis
Uterine cancer status post hysterectomy
Hyperlipidemia
Osteoporosis
History of polymyalgia rheumatica/giant cell arteritis
DNR/DNI
DVT prophylaxis�heparin
Cardiac diet
Total time spent to see the patient, examine the patient, review data and lab result, discuss treatment plan with patient, daughter, nursing staff around 55 minutes
Anticipated Discharge: > 48 hours
Subjective/Interval History
-
Date of Service: February 07, 2025
No chest pain
No sob
Slept well
Objective Data
-
Labs:
Laboratory Results
02/07/25
05:07
WBC 6.4
Hgb 10.8 L
Hct 33.5 L
Plt Count 241
PT 12.9
INR 0.94
APTT 37.4 H
Sodium 136
Potassium 4.6
Chloride 98
Carbon Dioxide 25
BUN 27 H
Creatinine 0.9
Glucose 90
Calcium 9.1
Total Bilirubin 0.8
AST 49 H
ALT 27
Alkaline Phosphatase 131 H
Vital Signs:
Vital Signs
Temp Pulse Resp BP Pulse Ox
98.5 F 128 20 109/57 95
02/07/25 06:41 02/07/25 07:45 02/07/25 06:41 02/07/25 06:41 02/07/25 06:41
I&O
02/06/25 02/07/25 02/08/25
06:59 06:59 06:59
Intake Total 720 / 720 720 / 720
Output Total 985 / 985 600 / 600
Balance -265 / -265 120 / 120
[2025-02-07 12:20] LABS: Glycohemoglobin (HgbA1c) 6.1 % (4.0-5.6)
[2025-02-07] MEDS: LIPITOR 20 MG PO (16:58)
[2025-02-07] MEDS: ULTRAM 25 MG PO (20:46)
[2025-02-07] MEDS: REMOVE LIDOCAINE PATCH REMOVE (20:47)
[2025-02-07] MEDS: MELATONIN 5 MG PO (22:45)
[2025-02-08] VITALS (11 sets, daily range): BP systolic 91–115; BP diastolic 47–65; BMI 20.1
--- NOTE | 2025-02-08 03:56 | PTCARENOTE ---
Assumed care on pt at change of shift, resting in bed at the time with no c/o cp or SOB, at bedside. ST/SR on the tele monitor, HR 95-115, bp remains soft, denied dizziness or lightheadedness. C/o pain from RLE and lower back, salon receptionist STAFF ASSISTANT
made aware and x1 dose of tramadol 25 mg and ES Tylenol given. Call terry within reach, continuing with POC.
[2025-02-08 04:28] LABS: Troponin I 2.300 ng/ml
--- NOTE | 2025-02-08 07:02 | W.PN.UPDATE ---
Update Note
Progress Note Update
Received TT from RN, this morning troponin resulted at 2.3, (previously on 05/09 was 0.202). Vital signs stable. Patient with no complaints of chest pain.
TT'd on-call Filler Spreader, Dr. Leo Herrera to update on troponin result. EKG ordered. He will see patient early this AM.
[2025-02-08] MEDS: LASIX 20 MG IV (08:57)
[2025-02-08] MEDS: PROTONIX 40 MG PO (08:58)
[2025-02-08] MEDS: HEPARIN 5000 UNITS SC ×2 (08:58→20:21)
[2025-02-08] MEDS: MAGNESIUM OXIDE 200 MG PO (08:58)
[2025-02-08] MEDS: THERAGRAN 1 TABLET PO (08:58)
[2025-02-08] MEDS: PACERONE 200 MG PO ×2 (08:58→20:22)
[2025-02-08] MEDS: TOPROL XL 25 MG PO ×2 (08:58→10:14)
[2025-02-08] MEDS: OSCAL 500 + D 500 MG PO (08:58)
[2025-02-08] MEDS: ASPIR LOW (ENTERIC COATED) 81 MG PO (08:58)
[2025-02-08] MEDS: TYLENOL 1000 MG PO ×2 (08:59→22:16)
--- NOTE | 2025-02-08 09:02 | W.PN.UPDATE ---
Update Note
Progress Note Update
I had a long discussion with Mrs. Estevez and her daughter. I quoted her an approximate 10% mortality risk. She is very functional at baseline up until recently. Plan to be to move back with her daughter in the perioperative period. I reviewed the
plan of care which would likely include coronary artery bypass scan x 3-4, possible mitral valve repair replacement, tricuspid valve repair and very likely placement of direct aortic 5 5 Impella for perioperative support given her severely depressed
left ventricular function. I did also discuss hospice with her with the idea that we could potentially try transcatheter interventions to optimize her as best we could to get her home and help to preserve as much quality of life for as long as we
can. She will discuss with her daughter in terms of what their decision making would be. Regardless, she will need a VIOLA tomorrow to inspect her valves. I suspect that her mitral valve is functional in nature and would likely respond to simply a
ring with revascularization and temporary offloading with a 5.5 Impella. I will [place] back around tomorrow after office. If shared decision making is surgery, he would likely be Sunday or with me.
--- NOTE | 2025-02-08 09:02 | W.PN.CARDCBS ---
Today's Communication / Plan
-
Trend troponins
Increase beta-christine
Maintain IV heparin
Plan for VIOLA to evaluate mitral valve tomorrow
Impression / Plan
-
PCP: Dr. Souza
Primary Retail Cosmetics Sales Beauty Advisor: Dr. Merly Herrera
Assessment:
Presentation with L chest/shoulder pain 02/05/25
Acute HFrEF
CAD
s/p cath with occluded LAD and collaterals 2011
MV CAD with chronically occluded LAD from angiogram in 2011 and new high-grade mid RCA and OM1 stenosis by cardiac cath 02/06/25
ICM EF 25-30% by echo 02/05/25
Severe MR by echo 02/05/25
SVT treated with adenosine at time of cardiac cath 02/06/2025
Scoliosis
Hypertension
Hyperlipidemia
Giant cell arteritis
Squamous cell of RLE
Osteoporosis
Resting sinus tachycardia
PMR
ECHO 09/28/2022: EF 55%, mild hypokinesis of apical septum, apical inferior segment, and apex, grade 1 diastolic dysfunction, mild to moderate MR, mild AR, mild TR, PAP 35 to 40 mmHg
Echo 02/05/2025: Global hypokinesis, EF 25-30%, severe hypokinesis in the anteroseptal, anterior, apical and inferolateral segments, severe MR, pulmonary artery systolic pressure 59 mmHg, severe TR, dilated atria
Patient was admitted with new CRISTOBAL and change in exercise capacity along with elevated troponin prompting echocardiogram that showed newly reduced EF and severe MR. Cardiac cath showed MV CAD and patient is now being evaluated for possible CABG as
well as MV intervention given finding of severe MR.
Plan:
Multivessel coronary artery disease and non-ST segment elevation myocardial infarction.
She presented with unstable coronary syndrome and on coronary angiography found to have multivessel coronary artery disease. During the catheterization it was noted that she developed SVT accompanied by hypotension, converted with adenosine. Since
that event there were no further troponins checked until this morning with troponin value of 2.3.
She has had no recurrence of chest pain or shortness of breath both of which prompted her initial evaluation
Her ECG this morning shows no new ST or T abnormality/changes
She remained hemodynamically stable.
It is possible this elevated troponin value is related to her hypotensive event during her coronary angiography.
Will continue to check serial troponin values today to assess trend and if trending upward will initiate intravenous nitroglycerin
Continue IV heparin
Continue aspirin 81 mg, continue beta-christine, continue statin.
RYLIE inhibitor on hold due to borderline blood pressures.
Outpatient doses of aspirin 81 mg daily has been continued. Patient was not given Plavix or Brilinta
She admits to significant anxiety regarding her clinical situation and is mildly tachycardic this morning
Will increase beta-christine, metoprolol to tartrate 25 mg now and then also increase metoprolol succinate to 25 mg twice daily
TSH was low at 0.43, but free T4 was normal at 1.62
She has been evaluated by CT surgery and is planned for transesophageal echocardiogram tomorrow to further assess mitral valve before planning CT surgical intervention
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
Continue metoprolol succinate, increasing dose to 25 mg twice daily
Holding on RYLIE inhibitor/ARB due to relative hypotension
Clinically not volume overloaded, will discontinue Lasix
Consideration for eventual aldosterone antagonist and SGLT2 therapies following possible CABG
Discussed with IVU nursing.
Discussed with hospitalist.
Discussed with patient and all of her questions have been answered.
Total time spent today was 52 minutes in preparing to see the patient, seeing the patient and coordination of care. This included review of recent laboratory evaluations, cardiact testing, imaging studies, primary care rtecords, specialty
consultations, hospital records, as well as personally interviewing and examining the patient, which included discussion of their tests, review/ordering medications, and communicating with other healthcare professionals and also treatment planning
as well as counseling.
Total time does not include separately billed tests performed on this date of service.
Progress Note - Retail Cosmetics Sales Beauty Advisor
Subjective
Date of Service: February 08, 2025
She denies chest pain and shortness of breath. No recurrence of the symptoms that brought her in for evaluation.
He does admit to being a bit anxious about the possibility/likelihood of cardiac surgery
Objective
Labs:
02/07/25 05:07
02/07/25 05:07
Labs
Hgb 10.8 g/dL (12.0-16.0) L 02/07/25 05:07
Hct 33.5 % (37.0-47.0) L 02/07/25 05:07
Plt Count 241 10^3/uL (130-400) 02/07/25 05:07
PT 12.9 Sec (11.4-14.6) 02/07/25 05:07
INR 0.94 02/07/25 05:07
APTT 37.4 Sec (23.4-35.0) H 02/07/25 05:07
Sodium 136 mmol/L (135-145) 02/07/25 05:07
Potassium 4.6 mmol/L (3.5-5.1) 02/07/25 05:07
BUN 27 mg/dl (7-17) H 02/07/25 05:07
Creatinine 0.9 mg/dL (0.6-1.0) 02/07/25 05:07
Glucose 90 mg/dl (70-99) 02/07/25 05:07
Troponins
02/05/25 02/05/25 02/05/25
10:09 16:00 20:17
Troponin I 0.026 0.040 H* D 0.066 H* D
02/06/25 02/06/25 02/08/25
04:18 08:47 03:37
Troponin I 0.118 H* 0.202 H* D 2.300 H*
Vital Signs and I&O:
Vital Signs
Temp Pulse Resp BP Pulse Ox
97.6 F 105 15 107/53 95
02/08/25 06:56 02/08/25 07:30 02/08/25 06:56 02/08/25 06:58 02/08/25 06:56
Vital Signs
Temp Pulse Resp BP Pulse Ox
97.6 F 105 15 107/53 95
02/08/25 06:56 02/08/25 07:30 02/08/25 06:56 02/08/25 06:58 02/08/25 06:56
Intake & Output
02/06/25 02/07/25 02/08/25 02/09/25
06:59 06:59 06:59 06:59
Intake Total 720 / 720 720 / 720
Output Total 985 / 985 600 / 600 350 / 350
Balance -265 / -265 120 / 120 -350 / -350
Physical Exam
Physical Exam
Well-appearing but somewhat anxious appearing resting comfortably in no distress
Regular rate and rhythm normal S1 and S2 no S3 no S4 there is a grade 2/6 apical holosystolic murmur no rubs. PMI is normally placed.
Lungs clear to auscultation bilaterally without wheezes rales or rhonchi
Abdomen soft nontender nondistended with normoactive bowel sounds
Extremities show no clubbing cyanosis or edema
--- NOTE | 2025-02-08 09:25 | W.PN.HOSP.TC ---
Today's Communication/Plan
-
NPO after midnight
Assessment / Plan
Assessment / Plan
84-year-old woman with a past medical history of
CAD,
SVT,
essential hypertension,
scoliosis,
uterine cancer status post hysterectomy,
hyperlipidemia,
osteoporosis,
presents with generalized weakness and nausea and poor p.o. intake. 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 When she tries to lay down flat she feels shortness of breath followed by chest discomfort radiating to her
left arm. The pain has been ongoing for a year and the shortness of breath ongoing for few months. No weight gain.
She had skin cancer surgery 2 weeks ago on her right lower extremity. She has had increasing shortness of breath with exertion chest discomfort with activity over the past 2 weeks greater than baseline. She saw brand recorder 6 months ago had an
echocardiogram and other tests which were unremarkable. She has a dry cough. She does not smoke or drink alcohol.
A/P:
1. Acute HFrEF, new onset, complicated by History of CAD, now with troponin of 2.30
S/P [facility] with multiple vessel disease, consulted CT surgery
- Continue aspirin, statin
- Continue metoprolol
Reduced dose of Lasix due to Low BP.
Echo on o 02/05/2025:
LV Global hypokinesis,
EF 25-30%, severe hypokinesis in the anteroseptal, anterior, apical and inferolateral segments,
severe MR, pulmonary artery systolic pressure 59 mmHg, severe TR, dilated atria
Appreciate cardiology input
Primary brand recorder Dr Merly Herrera, cardiology plan:
Rate control
Ongoing attempts at diuresis, LVEDP was 34 by cath
Hypotension limiting attempts at optimizing GDMT
CABG evaluation
Esophageal echo on 02/09/25
2. SVT
Symptomatic during [facility]
Started on amiodarone
3. Cervical radiculopathy
c/w Tylenol 1 gm TID,
HS dose of Tramadol.
4. Anemia of chronic disease? at baseline
- Hemoglobin of 10.6 from 11.6, now 10.8
5. Essential hypertension
-Hold lisinopril
Other PMH to keep in mind
6. Severe scoliosis
7. Uterine cancer status post hysterectomy
8. Hyperlipidemia
9. Osteoporosis
10. History of polymyalgia rheumatica/giant cell arteritis
DNR/DNI
DVT prophylaxis�heparin
Cardiac diet, npo after MN for echo tomorrow
Total time spent to see the patient, examine the patient, review data and lab result, discuss treatment plan with patient, nursing staff around 55 minutes
Anticipated Discharge: > 48 hours
Subjective/Interval History
-
Date of Service: February 08, 2025
Feels well. No pain, no complaints.
Objective Data
-
Vital Signs:
Vital Signs
Temp Pulse Resp BP Pulse Ox
97.6 F 105 15 107/53 95
02/08/25 06:56 02/08/25 07:30 02/08/25 06:56 02/08/25 06:58 02/08/25 06:56
I&O
02/07/25 02/08/25 02/09/25
06:59 06:59 06:59
Intake Total 720 / 720
Output Total 600 / 600 350 / 350
Balance 120 / 120 -350 / -350
Review of Systems
-
History Source: Patient
All other systems: Reviewed and negative
Constitutional: Reports No Symptoms
Psych: Reports Anxious
Physical Exam
-
General: Well Developed, Well Nourished, No Apparent Distress, Comfortable and Conversant
HEENT: Normocephalic, Atraumatic, Moist Mucous Membranes, Nose Appears Normal and Ears Appear Normal
Respiratory: Crackles
Cardiac: Regular Rhythm, S1/S2 and Tachycardic
GI: Soft, Nontender and Nondistended
Musculoskeletal: No Clubbing, No Cyanosis and No Edema
Skin: Warm, Dry and Other (bandaged right leg)
Neuro: Awake, Alert and Oriented
Psych: Calm
Data Reviewed
-
Labs: Labs Reviewed by me
--- NOTE | 2025-02-08 09:55 | W.PN.UPDATE ---
Update Note
Progress Note Update
She has been running mildly tachycardic, sinus tachycardia
Will increase Toprol XL to 50 mg twice daily starting this morning
[2025-02-08 10:38] LABS: Troponin I 1.830 ng/ml
[2025-02-08 16:14] LABS: Troponin I 1.660 ng/ml
[2025-02-08] MEDS: TYLENOL PO (17:07)
[2025-02-08] MEDS: LIPITOR 20 MG PO (17:07)
[2025-02-08] MEDS: TOPROL XL 50 MG PO (20:22)
[2025-02-08] MEDS: REMOVE LIDOCAINE PATCH REMOVE (20:23)
[2025-02-08] MEDS: MELATONIN 5 MG PO (22:16)
--- NOTE | 2025-02-08 23:22 | PTCARENOTE ---
Rec'd pt at change of shift. PT AAO*3, VSS, and Stach on tele monitor. PT denies any pain or discomfort, however states that she if feeling 'anxious' about upcoming procedures and testing. PT now resting with call terry in reach. See MAR and
flowchart for full pt care and assessment.
Pt asked question about medication that was given around 3-4AM 02/08. MAR, Active, and discontinued medications reviewed with pt. Pt verbalized that medication given was Ultram for pain and requested medication again. Upon administration pt stated
'I would rather wait for right now.' Medication returned with second RN witness.
[2025-02-09] VITALS (17 sets, daily range): BP systolic 71–109; BP diastolic 37–73; BMI 20.1
[2025-02-09 04:37] LABS: Hematocrit 32.0 % (37.0-47.0); Hemoglobin 10.5 g/dL (12.0-16.0); Mean Corp Hgb Conc. 32.8 g/dL (33.0-37.0); Mean Corpuscular Volume 81.8 fL (81.0-99.0); Platelet Count 286 10^3/uL (130-400); Red Cell Dist. Width 14.5 % (11.5-14.5)
[2025-02-09 05:07] LABS: Blood Urea Nitrogen 40 mg/dl (7-17); Calcium 9.3 mg/dl (8.4-10.2); Carbon Dioxide 26 mmol/L (22-30); Chloride 98 mmol/L (98-107); Estimated Creatinine Clearance 26 ml/min; Glucose 100 mg/dl (70-99); Magnesium 2.2 mg/dl (1.6-2.3); Potassium 4.3 mmol/L (3.5-5.1); Sodium 135 mmol/L (135-145); eGFR 49.86
[2025-02-09 05:20] LABS: Troponin I 1.750 ng/ml
--- NOTE | 2025-02-09 07:40 | PTCARENOTE ---
Morning troponin resilted at 1.75 NAIN Serrano notified and made aware. No new orders at this time.
[2025-02-09] MEDS: PACERONE 200 MG PO ×2 (09:17→21:45)
[2025-02-09] MEDS: PROTONIX 40 MG PO (09:17)
[2025-02-09] MEDS: MAGNESIUM OXIDE 200 MG PO (09:19)
[2025-02-09] MEDS: OSCAL 500 + D 500 MG PO (09:19)
[2025-02-09] MEDS: ASPIR LOW (ENTERIC COATED) 81 MG PO (09:19)
[2025-02-09] MEDS: TYLENOL 1000 MG PO ×2 (09:20→21:31)
[2025-02-09] MEDS: THERAGRAN 1 TABLET PO (09:20)
--- NOTE | 2025-02-09 10:15 | W.PN.HOSP.TC ---
Today's Communication/Plan
-
VIOLA today
will need OMFS
wound consult
apprec cards/CT surg
Assessment / Plan
Assessment / Plan
84-year-old woman with shortness of breath followed by chest discomfort radiating to her left arm with trying to lie flat
She had skin cancer surgery 2 weeks ago on her right lower extremity. She has had increasing shortness of breath with exertion chest discomfort with activity over the past 2 weeks greater than baseline. She saw integrity specialist 6 months ago had an
echocardiogram and other tests which were unremarkable. She has a dry cough. She does not smoke or drink alcohol.
Acute HFrEF, new onset, complicated by History of CAD with peak troponin of 2.30 now downtrending--S/P [facility] with multiple vessel disease, apprec cards and CT surgery- Continue aspirin, statin- Continue metoprolol--Reduced dose of Lasix due to Low
BP--ECHO with LV Global hypokinesis, EF 25-30%, severe hypokinesis in the anteroseptal, anterior, apical and inferolateral segments, severe MR, pulmonary artery systolic pressure 59 mmHg, severe TR, dilated atria--Hypotension limiting attempts at
optimizing GDMT--for VIOLA today
dental abscess--noted on panorex by CT surgery--spoke with them--they will order OMFS
recent skin cancer surgery right leg (Moh's with Dr. Noguera)--consult wound care --still with open wound
SVT--Symptomatic during [facility]--Started on amiodarone
Cervical radiculopathy--c/w Tylenol 1 gm TID, HS dose of Tramadol.
Anemia of chronic disease? at baseline - Hemoglobin of 10.6 from 11.6, now 10.8
Essential hypertension--Hold lisinopril
Severe scoliosis
Uterine cancer status post hysterectomy
Hyperlipidemia--on atorvastatin
Osteoporosis
History of polymyalgia rheumatica/giant cell arteritis
DNR/DNI
DVT prophylaxis�heparin
Anticipated Discharge: > 48 hours
Subjective/Interval History
-
Date of Service: February 09, 2025
pt leaning towards surgery
Objective Data
-
Labs:
Laboratory Results
02/09/25
03:34
WBC 6.9
Hgb 10.5 L
Hct 32.0 L
Plt Count 286
Sodium 135
Potassium 4.3
Chloride 98
Carbon Dioxide 26
BUN 40 H
Creatinine 1.1 H
Glucose 100 H
Calcium 9.3
Vital Signs:
max temp for 24 hours
02/08/25
22:13
Temp 98.4 F
Vital Signs
Temp Pulse Resp BP Pulse Ox
98.3 F 92 17 105/56 94
02/09/25 08:13 02/09/25 09:19 02/09/25 08:13 02/09/25 09:19 02/09/25 08:13
I&O
02/08/25 02/09/25 02/10/25
06:59 06:59 06:59
Intake Total 240 / 240
Output Total 350 / 350 500 / 500
Balance -350 / -350 -260 / -260
Review of Systems
-
All other systems: Reviewed and negative
Physical Exam
-
General: No Apparent Distress and Other (frail appearing female)
HEENT: Normocephalic and Atraumatic; Negative Oxygen
Respiratory: Crackles
Cardiac: Regular Rhythm, S1/S2 and Murmur
GI: Soft, Nontender, Nondistended and Normal Bowel Sounds
Musculoskeletal: No Clubbing, No Cyanosis and No Edema
Neuro: Awake and Alert
Psych: Calm
--- NOTE | 2025-02-09 10:27 | W.PN.CARDCBS ---
Addendum entered and electronically signed by Paddy Richard MD 02/09/25 10:52:
I saw and examined the patient.
The [employer] or PA's note was reviewed and I agree with the note.
Comment: General: Well developed, well nourished in NAD.
Neck: Supple, no JVD, HJR, carotids +2 B/L, no bruits bilaterally.
Heart: Non displaced PMI, RRR, 2/6 apical systolic murmur, No S3, S4, no rubs.
Lungs: Scattered rhonchi
Extremities: No clubbing, cyanosis or edema bilaterally.
Neuro: Grossly nonfocal, awake, alert and oriented x3.
Stable cardiology status. Await CT surgery input after VIOLA to assess degree of MR and whether mitral valve repair will be needed. Discussed with patient and granddaughter at bedside.
Original Note:
Today's Communication / Plan
-
VIOLA today
Follow BP on higher dose Toprol-XL
Impression / Plan
-
PCP: Dr. Souza
Primary Surgical Training Specialist: Dr. Merly Herrera
Assessment:
Presentation with L chest/shoulder pain 02/05/25
Acute HFrEF
CAD
s/p cath with occluded LAD and collaterals 2011
MV CAD with chronically occluded LAD from angiogram in 2011 and new high-grade mid RCA and OM1 stenosis by cardiac cath 02/06/25
ICM EF 25-30% by echo 02/05/25
Severe MR by echo 02/05/25
SVT treated with adenosine at time of cardiac cath 02/06/2025
Scoliosis
Hypertension
Hyperlipidemia
Giant cell arteritis
Squamous cell of RLE
Osteoporosis
Resting sinus tachycardia
PMR
Hyperglycemia and prediabetes
ECHO 09/28/2022: EF 55%, mild hypokinesis of apical septum, apical inferior segment, and apex, grade 1 diastolic dysfunction, mild to moderate MR, mild AR, mild TR, PAP 35 to 40 mmHg
Echo 02/05/2025: Global hypokinesis, EF 25-30%, severe hypokinesis in the anteroseptal, anterior, apical and inferolateral segments, severe MR, pulmonary artery systolic pressure 59 mmHg, severe TR, dilated atria
Patient was admitted with new CRISTOBAL and change in exercise capacity along with elevated troponin prompting echocardiogram that showed newly reduced EF and severe MR. Cardiac cath showed MV CAD and patient is now being evaluated for possible CABG as
well as MV intervention given finding of severe MR.
Plan:
-Patient was admitted with new CRISTOBAL and change in exercise capacity along with elevated troponin prompting echocardiogram that showed newly reduced EF and severe MR. Cardiac cath showed MV CAD and patient is now being evaluated for possible CABG.
Echo showed severe MR and now VIOLA is planned
-No recurrence of chest pain, troponin peaked at 2.3
-EF was newly reduced to 25 to 30% by echo on 02-28, there is also severe hypokinesis in the anteroseptal, anterior, apical and inferolateral segments
-Outpatient dose of aspirin 81 mg daily has been continued. Patient was not given Plavix or Brilinta
-LDL 62, outpatient dose of atorvastatin 20 mg daily has been continued
-Outpatient dose of Toprol XL was increased to 50 mg BID
-Outpatient dose of lisinopril 20 mg daily is on hold due to hypotension
-Patient is not a candidate for cardiac rehab as she is not revascularized yet
-HgbA1c was elevated at 6.1% which is consistent with prediabetes
-CT surgery team has evaluated the patient and recommended a VIOLA to assess severe MR that was seen on TTE, VIOLA scheduled for 02/09/2025 and coordinated by me.
-There was an attempt at diuresis earlier this admission, but patient only diuresed as much as 2-3 lbs this admission with Lasix 20 mg IV BID and this has now been stopped. Patient was not taking a diuretic prior to admission, HCTZ was stopped as
an outpatient 12/2024 due to hypotension
-LVEDP was 34 at cath on 02/06/2025
-EF was 55% in 2022 and is now 25 to 30%, this is presumably ischemic
-GDMT as outlined above
-Consideration for eventual aldosterone antagonist and SGLT2 therapies following possible CABG
-Patient developed SVT at time of cardiac cath and required adenosine, she was hypotensive at that time.
-Patient was started on amiodarone 200 mg BID following cath on 02/06/2025, QTc 485 ms on ECG reviewed by me 02/09/2025
-Telemetry reviewed by me 02/09/2025 and no recurrence of SVT, but continues with sinus tachycardia.
-TSH was low at 0.43, but free T4 was normal at 1.62 on my review of labs 02/07/2025
Progress Note - Surgical Training Specialist
Subjective
Date of Service: February 09, 2025
Anxious awaiting VIOLA, but overall in agreement with plan for CABG and possible mitral valve intervention pending results
Objective
Labs:
02/09/25 03:34
02/09/25 03:34
Labs
Hgb 10.5 g/dL (12.0-16.0) L 02/09/25 03:34
Hct 32.0 % (37.0-47.0) L 02/09/25 03:34
Plt Count 286 10^3/uL (130-400) 02/09/25 03:34
PT 12.9 Sec (11.4-14.6) 02/07/25 05:07
INR 0.94 02/07/25 05:07
APTT 37.4 Sec (23.4-35.0) H 02/07/25 05:07
Sodium 135 mmol/L (135-145) 02/09/25 03:34
Potassium 4.3 mmol/L (3.5-5.1) 02/09/25 03:34
BUN 40 mg/dl (7-17) H 02/09/25 03:34
Creatinine 1.1 mg/dL (0.6-1.0) H 02/09/25 03:34
Glucose 100 mg/dl (70-99) H 02/09/25 03:34
Troponins
02/08/25 02/08/25 02/08/25
03:37 10:02 15:35
Troponin I 2.300 H* 1.830 H* 1.660 H*
02/09/25
03:34
Troponin I 1.750 H*
Vital Signs and I&O:
Vital Signs
Temp Pulse Resp BP Pulse Ox
98.3 F 92 17 105/56 94
02/09/25 08:13 02/09/25 09:19 02/09/25 08:13 02/09/25 09:19 02/09/25 08:13
Vital Signs
Temp Pulse Resp BP Pulse Ox
98.3 F 92 17 105/56 94
02/09/25 08:13 02/09/25 09:19 02/09/25 08:13 02/09/25 09:19 02/09/25 08:13
Intake & Output
02/07/25 02/08/25 02/09/25 02/10/25
06:59 06:59 06:59 06:59
Intake Total 720 / 720 240 / 240
Output Total 600 / 600 350 / 350 500 / 500
Balance 120 / 120 -350 / -350 -260 / -260
Physical Exam
Physical Exam
GEN: AAOx3
HEENT: EOMI
LUNGS: RA. No wheeze
CV: Sinus tach on tele.
[2025-02-09] MEDS: TOPROL XL PO ×2 (10:37→11:45)
[2025-02-09] MEDS: HEPARIN 5000 UNITS SC (12:12)
--- NOTE | 2025-02-09 12:30 | WOUNDNOTE ---
BOBBY RN NOTE: Patient off floor for VIOLA, asked nurse Kayla to TT me when returned.
--- NOTE | 2025-02-09 12:40 | W.PN.UPDATE ---
Update Note
Progress Note Update
Scheduled dose of Toprol-XL 50 mg BID was not given this morning due to hypotension, BP 99/42. Will decrease to Toprol XL 25 mg BID and follow BP and telemetry. Orders placed by me.
--- NOTE | 2025-02-09 15:37 | WOUNDNOTE ---
R MEDIAL LOWER LEG
--- NOTE | 2025-02-09 15:40 | WOUNDNOTE ---
BOBBY RN note: Patient admitted with chest pain.
See H&P for complete history.
PMH: Past Medical History: Reports Other (CAD, SVT, hypertension, scoliosis, uterine cancer status post hysterectomy, hyperlipidemia, osteoporosis)
Past Surgical History: Reports Other ( Appendectomy, Gynecological (Total hysterectomy) and Other (cataracts))
Wound Location and type/assessment: Patient admitted with: Healing R medial lower leg full thickness surgical wound s/p Moh's procedure by Dr. Noguera, 3 wks ago. Base red, no odor, serous drainage. Unna boot and dressing has been changed weekly at
Dr. Noguera's office and next apt is . Wound care has been Vaseline, Telfa and gauze under unna boot. Daughter at bedside confirmed the above and notified Dr. Noguera's office of her admission, will re schedule after surgery. Patient able to
turn self to side, sacrum and heels are intact, blanchable.
Appetite: Good.
Pressure redistribution devices in place: On Accumax, patient is ad jose. Pillow placed under calves.
Plan: Cleaned R leg and moisturized. Cleaned wound with saline, skin prep to periwound, Vaseline to base of wound, adaptic, abd pad and trey. Nirav wrap knee high. Applied protective heel foams and offloaded. Pressure ulcer prevention measures
reviewed with patient and family, states they understand.
Will confirm orders with hospitalist and updated nurse Kayla. TT Dr. Noguera to confirm the above.
Updated care plan and will follow as needed.
Note to case management of equipment requested for discharge: TBD.
Recommend follow up with Dr. Noguera.
[2025-02-09] MEDS: TOPROL XL 25 MG PO ×2 (15:46→21:44)
[2025-02-09] MEDS: SENOKOT PO (16:55)
[2025-02-09] MEDS: TYLENOL PO (18:07)
[2025-02-09] MEDS: LIPITOR PO (18:07)
--- NOTE | 2025-02-09 18:21 | PTCARENOTE ---
pt st on the monitor, hr in the 100s, vss. pt offers no complaints throughout the day. pt back and forth for testing and stefania. pt now off unit to OR. at bedside. both educated on plan of care for the evening and verbalized understanding. call
terry within reach.
--- NOTE | 2025-02-09 18:22 | PTCARENOTE ---
pt asked rn to be a full code. notified hospitalist. dnr bracelet removed.
--- NOTE | 2025-02-09 19:37 | CON.ORS ---
Consultation - Oral Surgery
Subjective
84 year old female with plan for TAVR. Consult for apical abscess found on panorex. Patient reports recent discomfort from the teeth. Patient denies symptoms of acute infection. No nausea, vomiting, fever or chills.
Past Medical History
Past Medical History: Other (chart reviewed)
Past Surgical History: Other (chart reviewed)
Family History: Not Pertinent
Alcohol: None
Drug: None
Tobacco: Non-smoker
Medications / Allergies
Allergies
Allergy/AdvReac Type Severity Reaction Status Date / Time
amoxicillin (From Augmentin) Allergy Nausea Verified 02/05/25 10:01
clavulanic acid (From Allergy Nausea Verified 02/05/25 10:01
Augmentin)
iron Allergy Unknown Verified 02/05/25 10:01
Sulfa (Sulfonamide Allergy Rash Verified 02/05/25 10:01
Antibiotics)
(Sulfa(Sulfonamide
Antibiotics))
tocilizumab (From Actemra) Allergy Syncopal Verified 02/05/25 10:01
episode
codeine (Codeine) AdvReac Intermediate nausea Verified 02/05/25 10:01
Active Medications
Generic Name Dose Route Start Last Admin
Trade Name Freq PRN Reason Stop Dose Admin
Acetaminophen 1,000 mg 02/07/25 22:00 02/09/25 18:07
Acetaminophen 500 Mg Tablet PO 03/07/25 21:59 Not Given
TID AIDEE
Amiodarone HCl 200 mg 02/06/25 20:00 02/09/25 09:17
Amiodarone 200 Mg Tablet PO 03/06/25 19:59 200 mg
BID AIDEE Administration
Aspirin 81 mg 02/06/25 08:00 02/09/25 09:19
Aspirin 81 Mg (Enteric Coated) Tablet PO 03/06/25 07:59 81 mg
DAILY AIDEE Administration
Atorvastatin Calcium 20 mg 02/05/25 18:00 02/09/25 18:07
Atorvastatin (Lipitor) 20 Mg Tablet PO 03/05/25 17:59 Not Given
QPM AIDEE
Calcium/Vitamin D 500 mg 02/06/25 08:00 02/09/25 09:19
Calcium Carbonate 500 Mg/Vitamin D 5 Mcg (200 Units) Tablet PO 03/06/25 07:59 500 mg
DAILY AIDEE Administration
Fentanyl Citrate 25 mcg 02/09/25 16:45
Fentanyl (50 Mcg/Ml) 100 Mcg/2 Ml Ampul IV 02/10/25 16:45
[id number] PRN
shivers
Heparin Sodium 5,000 units 02/05/25 20:00 02/09/25 12:12
Heparin 5,000 Units/Ml 1 Ml Vial SC 03/05/25 19:59 5,000 units
Q12 AIDEE Administration
Hydromorphone HCl 0.25 mg 02/09/25 16:45
Hydromorphone 0.25 Mg/0.5 Ml Syringe IV 02/10/25 16:45
PACU-Q5MPRN PRN
severe pain
Parenteral Electrolytes 1,000 mls @ 100 mls/hr 02/09/25 16:45
Normosol-R/Plasmalyte-A IV 02/10/25 16:45
PER PROTOCOL AIDEE
Lidocaine 1 patch 02/05/25 14:13 02/06/25 08:05
Lidocaine 4% Topical Patch TOPICAL 03/05/25 14:12 1 patch
DAILYPRN PRN Administration
left hip
Protocol
Magnesium Oxide 200 mg 02/06/25 08:00 02/09/25 09:19
Magnesium Oxide 400 Mg Tablet PO 03/06/25 07:59 200 mg
DAILY AIDEE Administration
Melatonin 5 mg 02/05/25 22:00 02/08/25 22:16
Melatonin 5 Mg Tablet PO 03/05/25 21:59 5 mg
HS AIDEE Administration
Metoprolol Succinate 25 mg 02/09/25 13:00 02/09/25 15:46
Metoprolol 25 Mg Extended Release Tablet PO 03/09/25 12:59 25 mg
BID AIDEE Administration
Morphine Sulfate 1 mg 02/09/25 16:45
Morphine 2 Mg/Ml Syringe IV 02/10/25 16:45
PACU-Q5MPRN PRN
moderate pain
Multivitamins Therapeutic 1 tablet 02/06/25 08:00 02/09/25 09:20
Multivitamin Tablet PO 03/06/25 07:59 1 tablet
DAILY AIDEE Administration
Ondansetron HCl 4 mg 02/09/25 16:45
Ondansetron 4 Mg/2 Ml Vial IV 02/10/25 16:45
PACU-ONCEPRN PRN
nausea/vomiting
Pantoprazole Sodium 40 mg 02/06/25 08:00 02/09/25 09:17
Pantoprazole 40 Mg Delayed Release Tablet PO 03/06/25 07:59 40 mg
DAILY AIDEE Administration
Patch Removal 0 patch 02/05/25 20:00 02/08/25 20:23
Remove Lidocaine Patch REMOVE 03/05/25 19:59 Not Given
DAILY@2000 AIDEE
Prochlorperazine Edisylate 5 mg 02/09/25 16:45
Prochlorperazine 10 Mg/2 Ml Vial IV 02/10/25 16:45
PACU-ONCEPRN PRN
nausea/vomiting
Sennosides 8.6 mg 02/09/25 12:00 02/09/25 16:55
Sennosides (Senokot) 8.6 Mg Tablet PO 03/09/25 11:59 Not Given
BID AIDEE
Sodium Chloride 0 flush 02/05/25 15:00
Sodium Chloride 0.9% (Flush) Syringe IV 03/05/25 14:59
PER PROTOCOL AIDEE
Tramadol HCl 25 mg 02/08/25 10:16
Tramadol Hcl 50 Mg Tablet PO 03/08/25 10:15
Q6HPRN PRN
back pain
Review of Systems
Constitutional: Reports No Symptoms
Eyes: Reports No Symptoms
ENT: Reports No Symptoms
Cardiovascular: Reports No Symptoms
Respiratory: Reports No Symptoms
Gastrointestinal: Reports No Symptoms
Genitourinary: Reports No Symptoms
Musculoskeletal: Reports No Symptoms
Neurological: Reports No Symptoms
Psychological: Reports No Symptoms
Endocrine: Reports No Symptoms
Hematological: Reports No Symptoms
Vital Signs
Temp Pulse Resp BP Pulse Ox
97.3 F 92 13 96/53 99
02/09/25 15:10 02/09/25 19:30 02/09/25 19:30 02/09/25 19:30 02/09/25 19:30
Physical Exam
General: Awake, Alert and Oriented x 3
Extra-oral Exam: Other (tenderness to palpation #30,31 area)
Intra-oral Exam: Other (tenderness to palpation #30,31 area)
Imaging Results
Panorex shows apical abscess #30,31
Assessment / Plan
84 year old female consulted for pre TAVR dental extractions Based on physical and radiographic examination, I have recommended extraction of teeth #30,31. We have discussed all risks, benefits, complications and alternatives including but not
limited to bleeding, pain, infection, swelling, oroantral communication, temporary or permanent damage to inferior alveolar nerve resulting in paresthesia, hypoesthesia, anesthesia, dysesthesia, or loss of taste, fracture of jaw, damage to adjacent
teeth or tissues, dislodgement of adjacent crowns or fillings etc. Patient is aware and understands all risks and complications. Consent signed and in chart.
- Encouraged oral hygiene maintenance daily
- Recommended extraction of teeth #30,31 today
Data Reviewed
Diagnostic Imaging: Image personally visualized and interpreted, Report Reviewed by me and Discussed with Patient
--- NOTE | 2025-02-09 19:42 | OR.RPT ---
Operative Report
Operative Report
Pre-op Diagnosis: Periapical Abscess
Post-op Diagnosis: Same
Anesthesia: MAC Sedation with local
Procedure: Extraction of teeth #30,31
Procedure details: The patient was identified in the holding area and transported to the OR where she was transferred to the OR table and monitors attached. Sedation was initiated by the anesthesia staff and local anesthetic was administered in the
standard fashion. A throat screen was placed. Teeth #30,31 were then extracted surgically in the standard fashion. The sockets were curetted and irrigated. They were then packed with gelfoam and closed with 3-0 chromic. Hemostasis was achieved. She
tolerated the procedure well and was transported to the PACU in stable condition.
Primary Surgeon:Saulo Parra DMD, MD, FACS
Assisting Surgeons: none
Specimen: None
Cultures: None
Complications / Blood Loss: None
Findings: periapical abscess
[2025-02-09] MEDS: MELATONIN 5 MG PO (21:44)
[2025-02-09] MEDS: SENOKOT 8.6 MG PO (21:45)
[2025-02-09] MEDS: REMOVE LIDOCAINE PATCH REMOVE (21:47)
[2025-02-09] MEDS: ULTRAM 25 MG PO (23:48)
[2025-02-10] VITALS (7 sets, daily range): BP systolic 93–111; BP diastolic 48–71; BMI 20.2
[2025-02-10 04:41] LABS: Hematocrit 30.7 % (37.0-47.0); Hemoglobin 9.9 g/dL (12.0-16.0); Mean Corp Hgb Conc. 32.2 g/dL (33.0-37.0); Mean Corpuscular Volume 84.1 fL (81.0-99.0); Platelet Count 255 10^3/uL (130-400); Red Cell Dist. Width 14.6 % (11.5-14.5)
[2025-02-10 05:08] LABS: ALT (SGPT) 26 U/L (0-35); AST (SGOT) 39 U/L (14-36); Albumin 3.7 g/dl (3.5-5.0); Alkaline Phosphatase 110 U/L (38-126); Blood Urea Nitrogen 43 mg/dl (7-17); Calcium 9.1 mg/dl (8.4-10.2); Carbon Dioxide 23 mmol/L (22-30); Chloride 98 mmol/L (98-107); Estimated Creatinine Clearance 26 ml/min; Glucose 67 mg/dl (70-99); Magnesium 2.3 mg/dl (1.6-2.3); Potassium 4.4 mmol/L (3.5-5.1); Sodium 135 mmol/L (135-145); Total Protein 6.2 g/dl (6.3-8.2); eGFR 49.86
--- NOTE | 2025-02-10 05:15 | PTCARENOTE ---
Pt returned from procedure. Pt AAOx 4, VSS. NSR on monitor. C/o mild pain on surgical side. PRN meds given, ice applied. Pt ambulates with x 1 assist. Call terry within reach
[2025-02-10] MEDS: TYLENOL 1000 MG PO ×2 (07:16→21:26)
[2025-02-10] MEDS: TOPROL XL 25 MG PO ×2 (07:57→20:18)
[2025-02-10] MEDS: PROTONIX 40 MG PO (07:59)
[2025-02-10] MEDS: PACERONE 200 MG PO ×2 (07:59→20:19)
[2025-02-10] MEDS: MAGNESIUM OXIDE 200 MG PO (07:59)
[2025-02-10] MEDS: ASPIR LOW (ENTERIC COATED) 81 MG PO (07:59)
[2025-02-10] MEDS: OSCAL 500 + D 500 MG PO (08:00)
[2025-02-10] MEDS: THERAGRAN 1 TABLET PO (08:00)
[2025-02-10] MEDS: SENOKOT 8.6 MG PO ×2 (08:00→20:18)
--- NOTE | 2025-02-10 08:35 | W.PN.HOSP.TC ---
Addendum entered and electronically signed by Beti Schuler MD 02/10/25 13:26:
pt had NSTEMI with elevated troponins and cath supporting multivessel disease--for CABG
creatinine clinically insignificant in my view with decreased EF and need for CABG--would NOT call CARLO in this setting
Original Note:
Today's Communication/Plan
-
for CT surgery
Assessment / Plan
Assessment / Plan
84-year-old woman with shortness of breath followed by chest discomfort radiating to her left arm with trying to lie flat
Acute HFrEF, new onset, complicated by History of CAD with peak troponin of 2.30 now downtrending--S/P LHC with multiple vessel disease, apprec cards and CT surgery- Continue aspirin, statin- Continue metoprolol--Reduced dose of Lasix due to Low
BP--ECHO with LV Global hypokinesis, EF 25-30%, severe hypokinesis in the anteroseptal, anterior, apical and inferolateral segments, severe MR, pulmonary artery systolic pressure 59 mmHg, severe TR, dilated atria--Hypotension limiting attempts at
optimizing GDMT--s/p VIOLA and carotid US
dental abscess--noted on panorex by CT surgery--spoke with them--apprec OMFS s/p 2 teeth removal
recent skin cancer surgery right leg (Moh's with Dr. Noguera)--apprec wound care --still with open wound
SVT--Symptomatic during [facility]--Started on amiodarone
Cervical radiculopathy--c/w Tylenol 1 gm TID, HS dose of Tramadol.
Anemia of chronic disease? at baseline - Hemoglobin of 10.6 from 11.6, now 10.8
Essential hypertension--Hold lisinopril
Severe scoliosis
Uterine cancer status post hysterectomy
Hyperlipidemia--on atorvastatin
Osteoporosis
History of polymyalgia rheumatica/giant cell arteritis
DNR/DNI
DVT prophylaxis�heparin
Anticipated Discharge: > 48 hours
Subjective/Interval History
-
Date of Service: February 10, 2025
pt had [address] surgery
Objective Data
-
Labs:
Laboratory Results
02/10/25
03:59
WBC 6.5
Hgb 9.9 L
Hct 30.7 L
Plt Count 255
Sodium 135
Potassium 4.4
Chloride 98
Carbon Dioxide 23
BUN 43 H
Creatinine 1.1 H
Glucose 67 L
Calcium 9.1
Total Bilirubin 0.6
AST 39 H
ALT 26
Alkaline Phosphatase 110
Vital Signs:
max temp for 24 hours
02/09/25
20:24
Temp 98.4 F
Vital Signs
Temp Pulse Resp BP Pulse Ox
97.9 F 81 16 108/53 94
02/10/25 06:43 02/10/25 07:59 02/10/25 06:43 02/10/25 07:59 02/10/25 06:43
I&O
02/09/25 02/10/25 02/11/25
06:59 06:59 06:59
Intake Total 240 / 240 200 / 200
Output Total 500 / 500
Balance -260 / -260 200 / 200
Review of Systems
-
All other systems: Reviewed and negative
Physical Exam
-
General: Well Developed, Well Nourished and No Apparent Distress
HEENT: Normocephalic and Atraumatic; Negative Oxygen
Respiratory: Crackles
Cardiac: Regular Rhythm, S1/S2 and Murmur
GI: Soft, Nontender, Nondistended and Normal Bowel Sounds
Musculoskeletal: No Clubbing, No Cyanosis and No Edema
Neuro: Awake
Psych: Calm
--- NOTE | 2025-02-10 08:41 | W.PN.CARDCBS ---
Addendum entered and electronically signed by Paddy Richard MD 02/10/25 10:27:
I saw and examined the patient.
The DIE KEEPER or PA's note was reviewed and I agree with the note.
Comment: General: Well developed, well nourished in NAD.
Neck: Supple, no JVD, HJR, carotids +2 B/L, no bruits bilaterally.
Heart: Non displaced PMI, RRR, no murmurs, No S3, S4, no rubs.
Lungs: Clear to auscultation bilaterally, no wheeze, rhonchi, rubs bilaterally,
normal expiratory phase.
Abdomen: Normal bowel sounds, soft, non-tender, non-distended.
Extremities: No clubbing, cyanosis or edema bilaterally.
Neuro: Grossly nonfocal, awake, alert and oriented x3.
Stable cardiology status. For CABG and likely mitral valve ring repair later this week. Timing to be decided by CT surgery
Original Note:
Today's Communication / Plan
-
CABG +/- MV ring repair later this week
Impression / Plan
-
PCP: Dr. Souza
Primary Feather Mixer: Dr. Merly Herrera
Assessment:
Presentation with L chest/shoulder pain 02/05/25
Acute HFrEF
CAD
s/p cath with occluded LAD and collaterals 2011
MV CAD with chronically occluded LAD from angiogram in 2011 and new high-grade mid RCA and OM1 stenosis by cardiac cath 02/06/25
ICM EF 25-30% by echo 02/05/25
Severe MR by echo 02/05/25
SVT treated with adenosine at time of cardiac cath 02/06/2025
Scoliosis
Hypertension
Hyperlipidemia
Giant cell arteritis
Squamous cell of RLE
Osteoporosis
Resting sinus tachycardia
PMR
Hyperglycemia and prediabetes
Dental extractions x2 02/09/25
ECHO 09/28/2022: EF 55%, mild hypokinesis of apical septum, apical inferior segment, and apex, grade 1 diastolic dysfunction, mild to moderate MR, mild AR, mild TR, PAP 35 to 40 mmHg
Echo 02/05/2025: Global hypokinesis, EF 25-30%, severe hypokinesis in the anteroseptal, anterior, apical and inferolateral segments, severe MR, pulmonary artery systolic pressure 59 mmHg, severe TR, dilated atria
Plan:
-Patient was admitted with new CRISTOBAL and change in exercise capacity along with elevated troponin prompting echocardiogram that showed newly reduced EF and severe MR. Cardiac cath showed MV CAD and patient is now being evaluated for possible CABG.
Echo showed severe MR and now VIOLA is planned
-No recurrence of chest pain, troponin peaked at 2.3
-EF was newly reduced to 25 to 30% by echo on 02/05/25, there is also severe hypokinesis in the anteroseptal, anterior, apical and inferolateral segments
-Outpatient dose of aspirin 81 mg daily has been continued. Patient was not given Plavix or Brilinta
-LDL 62, outpatient dose of atorvastatin 20 mg daily has been continued
-Outpatient dose of Toprol XL was increased to 50 mg BID, but patient was hypotensive on 02/09/2025 and dose lowered to 25 mg BID with hold parameters for SBP less than 95. Patient was taking Toprol XL 25 mg daily prior to admission.
-Outpatient dose of lisinopril 20 mg daily is on hold due to hypotension
-Patient is not a candidate for cardiac rehab as she is not revascularized yet
-HgbA1c was elevated at 6.1% which is consistent with prediabetes
-CT surgery team is following and plan is for CABG and possible MV ring repair this week.
-Patient had dental extractions x 2 on 02/09/2025
-There was an attempt at diuresis earlier this admission, but patient only diuresed as much as 2-3 lbs this admission with Lasix 20 mg IV BID and this has now been stopped. Patient was not taking a diuretic prior to admission, HCTZ was stopped as
an outpatient 12/2024 due to hypotension
-Cre 1.1 on my review of labs 02/10/25
-LVEDP was 34 at cath on 02/06/2025
-EF was 55% in 2022 and is now 25 to 30%, this is presumably ischemic
-GDMT as outlined above
-Consideration for eventual aldosterone antagonist and SGLT2 therapies following possible CABG
-Patient developed SVT at time of cardiac cath and required adenosine, she was hypotensive at that time.
-Patient was started on amiodarone 200 mg BID following cath on 02/06/2025, QTc 485 ms on ECG 02/09/2025
-Telemetry reviewed by me 02/10/2025 and no recurrence of SVT, but continues with sinus tachycardia.
-TSH was low at 0.43, but free T4 was normal at 1.62 on my review of labs 02/07/2025
Progress Note - Feather Mixer
Subjective
Date of Service: February 10, 2025
Mouth pain following dental extractions
Objective
Labs:
02/10/25 03:59
02/10/25 03:59
Labs
Hgb 9.9 g/dL (12.0-16.0) L 02/10/25 03:59
Hct 30.7 % (37.0-47.0) L 02/10/25 03:59
Plt Count 255 10^3/uL (130-400) 02/10/25 03:59
PT 12.9 Sec (11.4-14.6) 02/07/25 05:07
INR 0.94 02/07/25 05:07
APTT 37.4 Sec (23.4-35.0) H 02/07/25 05:07
Sodium 135 mmol/L (135-145) 02/10/25 03:59
Potassium 4.4 mmol/L (3.5-5.1) 02/10/25 03:59
BUN 43 mg/dl (7-17) H 02/10/25 03:59
Creatinine 1.1 mg/dL (0.6-1.0) H 02/10/25 03:59
Glucose 67 mg/dl (70-99) L 02/10/25 03:59
Troponins
02/08/25 02/08/25 02/08/25
03:37 10:02 15:35
Troponin I 2.300 H* 1.830 H* 1.660 H*
02/09/25
03:34
Troponin I 1.750 H*
Vital Signs and I&O:
Vital Signs
Temp Pulse Resp BP Pulse Ox
97.9 F 81 16 108/53 94
02/10/25 06:43 02/10/25 07:59 02/10/25 06:43 02/10/25 07:59 02/10/25 06:43
Vital Signs
Temp Pulse Resp BP Pulse Ox
97.9 F 81 16 108/53 94
02/10/25 06:43 02/10/25 07:59 02/10/25 06:43 02/10/25 07:59 02/10/25 06:43
Intake & Output
02/08/25 02/09/25 02/10/25 02/11/25
06:59 06:59 06:59 06:59
Intake Total 240 / 240 200 / 200
Output Total 350 / 350 500 / 500
Balance -350 / -350 -260 / -260 200 / 200
Physical Exam
Physical Exam
GEN: AAOx3
HEENT: EOMI
LUNGS: RA. No wheeze
CV: Sinus tach on tele.
[2025-02-10] MEDS: LIDOCAINE 4% PATCH 1 PATCH TOPICAL (11:59)
--- NOTE | 2025-02-10 13:15 | PN.CDI ---
CDI
- -
CDI:
Physician Documentation Request
Admit Date: 02/06/25 06:58
Dear Doctor Ganga,
Patient admitted for new onset systolic heart failure complicated by history of CAD.
Cariology progress note states '...new CRISTOBAL and change in exercise capacity along with elevated troponin prompting echocardiogram that showed newly reducted EF and severe MR.
Please provide a diagnosis that supports the elevated troponin and additional evaluation/ monitoring:
Nonischemic myocardial injury
Type II PR demand ischemia
Other
Use of terms such as suspected, likely, concern for, or probable (associated with a specific diagnosis that is being evaluated, monitored, or treated as if it exists) are acceptable and can be coded in the inpatient setting, when documented at the
time of discharge.
Thank you,
Martha Garay RN, BSN
CDI Specialist
tiger text
Please use your independent medical judgment in providing your response.
--- NOTE | 2025-02-10 13:20 | PN.CDI ---
CDI
- -
CDI:
Physician Documentation Request
Admit Date: 02/06/25 06:58
Dear Doctor Ganga,
Patient admitted with new onset HFrEF.
Creatinine results:
Laboratory Tests
02/06/25 02/07/25 02/09/25
08:47 05:07 03:34
Creatinine 0.8 0.9 1.1 H
02/10/25
03:59
Creatinine 1.1 H
Please provide a diagnosis that supports the above lab abnormalities and additional evaluation/ monitoring:
CARLO
Abnormal lab value clinically insignificant
Other
Use of terms such as suspected, likely, concern for, or probable (associated with a specific diagnosis that is being evaluated, monitored, or treated as if it exists) are acceptable and can be coded in the inpatient setting, when documented at the
time of discharge.
Thank you,
Martha Garay RN, BSN
CDI Specialist
tiger text
Please use your independent medical judgment in providing your response.
--- NOTE | 2025-02-10 16:35 | CM ---
spoke to pt in room, we discussed preop instructions including driving and lifting restrictions, she is prev indep, lives with her husb in a 2 story home with no steps to enter. she has the ct surgery book. she is agreeable to a f/u visit form the
ct transitional care nurses after dc. cm role explained and all questions answered. plan is for dc to home when medically stable.
[2025-02-10] MEDS: TYLENOL PO (16:38)
--- NOTE | 2025-02-10 16:42 | PTCARENOTE ---
Pt AAOx3, ambulatory in room. Awaiting CABG, pain 2/2 tooth extraction minimal. Continue to monitor.
[2025-02-10] MEDS: LIPITOR 20 MG PO (17:21)
[2025-02-10] MEDS: REMOVE LIDOCAINE PATCH 1 PATCH REMOVE (20:28)
[2025-02-10] MEDS: MELATONIN PO (23:06)
[2025-02-10] MEDS: COLACE 100 MG PO (23:08)
[2025-02-10] MEDS: XANAX 0.25 MG PO (23:08)
[2025-02-11] VITALS (14 sets, daily range): BP systolic 75–131; BP diastolic 44–74; BMI 20.3
--- NOTE | 2025-02-11 00:36 | PTCARENOTE ---
Assumed care of patient at change of shift w/ family at bedside. Tele monitor NSR. Ambulates self in room. C/o SOB w/ exertion. SOB alleviates after resting in bed after a few mins. Pulse ox 96-97% RA. Offered O2 for comfort, patient refused. Pt w/
crackles 1/2 up on left posterior and bilateral crackles in the bases. Melisa GALLAGHER aware and at bedside. Patient c/o right shoulder discomfort. Scheduled Tylenol administered. Reviewed plan of care w/ patient. Patient anxious with upcoming
surgery. Emotional support provided. Melisa GALLAGHER ordered a one time dose of Xanax 0.25mg PO, administered at 23:08. Call terry in reach.
[2025-02-11 05:12] LABS: Hematocrit 30.7 % (37.0-47.0); Hemoglobin 10.2 g/dL (12.0-16.0); Mean Corp Hgb Conc. 33.2 g/dL (33.0-37.0); Mean Corpuscular Volume 82.1 fL (81.0-99.0); Platelet Count 248 10^3/uL (130-400); Red Cell Dist. Width 14.3 % (11.5-14.5)
[2025-02-11 05:36] LABS: ALT (SGPT) 20 U/L (0-35); AST (SGOT) 32 U/L (14-36); Albumin 3.6 g/dl (3.5-5.0); Alkaline Phosphatase 105 U/L (38-126); Blood Urea Nitrogen 58 mg/dl (7-17); Calcium 8.9 mg/dl (8.4-10.2); Carbon Dioxide 24 mmol/L (22-30); Chloride 97 mmol/L (98-107); Estimated Creatinine Clearance 18 ml/min; Glucose 86 mg/dl (70-99); Magnesium 2.5 mg/dl (1.6-2.3); Potassium 4.1 mmol/L (3.5-5.1); Sodium 132 mmol/L (135-145); Total Protein 6.2 g/dl (6.3-8.2); eGFR 31.80
[2025-02-11] MEDS: PROTONIX 40 MG PO (08:35)
[2025-02-11] MEDS: MAGNESIUM OXIDE 200 MG PO (08:35)
[2025-02-11] MEDS: THERAGRAN 1 TABLET PO (08:36)
[2025-02-11] MEDS: TYLENOL 1000 MG PO ×3 (08:36→22:36)
[2025-02-11] MEDS: SENOKOT 8.6 MG PO (08:36)
[2025-02-11] MEDS: OSCAL 500 + D 500 MG PO (08:36)
[2025-02-11] MEDS: PACERONE 200 MG PO ×2 (08:36→20:28)
[2025-02-11] MEDS: TOPROL XL 25 MG PO (08:36)
[2025-02-11] MEDS: ASPIR LOW (ENTERIC COATED) 81 MG PO (08:36)
[2025-02-11] MEDS: COLACE 100 MG PO ×2 (08:36→20:29)
--- NOTE | 2025-02-11 09:01 | W.PN.HOSP.TC ---
Today's Communication/Plan
-
consult nephro--CARLO possible due to intermittent hypotension
Assessment / Plan
Assessment / Plan
84-year-old woman with shortness of breath followed by chest discomfort radiating to her left arm with trying to lie flat
Acute HFrEF, new onset, complicated by History of CAD with peak troponin of 2.30 now downtrending--S/P LHC with multiple vessel disease, apprec cards and CT surgery- Continue aspirin, statin- Continue metoprolol--Reduced dose of Lasix due to Low
BP--ECHO with LV Global hypokinesis, EF 25-30%, severe hypokinesis in the anteroseptal, anterior, apical and inferolateral segments, severe MR, pulmonary artery systolic pressure 59 mmHg, severe TR, dilated atria--Hypotension limiting attempts at
optimizing GDMT--s/p VIOLA with EF 30-35%, global hypokinesis, mod mitral regurg and carotid US < 50% stenosis bilaterally--for CT surgery likely tomorrow....
dental abscess--noted on panorex by CT surgery--spoke with them--apprec OMFS s/p 2 teeth removal
CARLO--previously did not feel the creat bump to 1.1 qualified BUT NOW creat 1.6, therefore CARLO--no diuretics, no RYLIE, no ARBs--will consult nephrology
recent skin cancer surgery right leg (Moh's with Dr. Noguera)--apprec wound care --still with open wound
SVT--Symptomatic during [facility]--Started on amiodarone
Cervical radiculopathy--c/w Tylenol 1 gm TID, HS dose of Tramadol.
Anemia of chronic disease? at baseline - Hemoglobin of 10.6 from 11.6, now 10.8
Essential hypertension--Hold lisinopril
Severe scoliosis
Uterine cancer status post hysterectomy
Hyperlipidemia--on atorvastatin
Osteoporosis
History of polymyalgia rheumatica/giant cell arteritis
DNR/DNI
DVT prophylaxis�heparin
Anticipated Discharge: > 48 hours
Subjective/Interval History
-
Date of Service: February 11, 2025
pt getting ECHO
Objective Data
-
Labs:
Laboratory Results
02/11/25
04:56
WBC 6.1
Hgb 10.2 L
Hct 30.7 L
Plt Count 248
Sodium 132 L
Potassium 4.1
Chloride 97 L
Carbon Dioxide 24
BUN 58 H
Creatinine 1.6 H
Glucose 86
Calcium 8.9
Total Bilirubin 0.8
AST 32
ALT 20
Alkaline Phosphatase 105
Vital Signs:
max temp for 24 hours
02/10/25
19:24
Temp 98.6 F
Vital Signs
Temp Pulse Resp BP Pulse Ox
97.8 F 85 16 104/74 98
02/11/25 07:20 02/11/25 08:00 02/11/25 07:20 02/11/25 07:21 02/11/25 07:20
I&O
02/10/25 02/11/25 02/12/25
06:59 06:59 06:59
Intake Total 200 / 200 360 / 360
Balance 200 / 200 360 / 360
Review of Systems
-
All other systems: Reviewed and negative
Physical Exam
-
General: Well Developed, Well Nourished and No Apparent Distress
HEENT: Normocephalic and Atraumatic
Respiratory: Clear to Auscultation; Negative Wheezes or Rhonchi
Cardiac: Regular Rhythm and S1/S2; Negative Murmur
GI: Soft, Nontender, Nondistended and Normal Bowel Sounds
Musculoskeletal: No Clubbing, No Cyanosis and No Edema
Neuro: Awake
--- NOTE | 2025-02-11 09:11 | W.PN.CARDCBS ---
Today's Communication / Plan
-
Remains compensated for CABG and likely MV ring repair 02/12/2025 AM
Reviewed cath with multivessel CAD
No recurrent cp, trop peak at 2.3
Reviewed EF newly reduced to 25 to 30% by echo on 02/05/25, with severe hypokinesis in the anteroseptal, anterior, apical and inferolateral segments
Cont ASA, pt did not receive Plavix or Brilinta
Continue GDMT:
Cont atorvastatin, LDL 62.
Continue Toprol 25 mg twice daily (was taking 25 mg daily prior to admission)
Outpatient dose of lisinopril 20 mg daily is on hold due to hypotension
Impression / Plan
-
.
PCP: Dr. Souza
Primary Parts Product Analyst: Dr. Merly Herrera
Impression:
Presentation with L chest/shoulder pain 02/05/25
Acute HFrEF
Multivessel CAD
s/p cath with occluded LAD and collaterals 2011
MV CAD with chronically occluded LAD from angiogram in 2011 and new high-grade mid RCA and OM1 stenosis by cardiac cath 02/06/25
ICM EF 25-30% by echo 02/05/25
Moderate MR by VIOLA 02/09/2025 and severe MR by echo 02/05/25
SVT treated with adenosine at time of cardiac cath 02/06/2025
Scoliosis
Hypertension
Hyperlipidemia
Giant cell arteritis
Squamous cell of RLE
Osteoporosis
Resting sinus tachycardia
PMR
Hyperglycemia and prediabetes
Dental extractions x2 02/09/25
ECHO 09/28/2022: EF 55%, mild hypokinesis of apical septum, apical inferior segment, and apex, grade 1 diastolic dysfunction, mild to moderate MR, mild AR, mild TR, PAP 35 to 40 mmHg
Echo 02/05/2025: Global hypokinesis, EF 25-30%, severe hypokinesis in the anteroseptal, anterior, apical and inferolateral segments, severe MR, pulmonary artery systolic pressure 59 mmHg, severe TR, dilated atria
VIOLA Feb 09 2025: SUMMARY
1. Moderate to severely reduced left ventricular systolic function with estimated ejection fraction of 30 to 35%.
2. Global hypokinesis with more prominent apical, anterior, anteroseptal and septal hypokinesis.
3. Moderate mitral regurgitation.
4. Mild to moderate tricuspid regurgitation.
5. Mild aortic regurgitation.
Plan:
-HPI: Patient was admitted with new CRISTOBAL and change in exercise capacity along with elevated troponin prompting echocardiogram that showed newly reduced EF and severe MR. Cardiac cath showed MV CAD and patient is now being evaluated for possible
CABG. Echo showed severe MR and pt to undergo VIOLA
Remains compensated for CABG and likely MV ring repair 02/12/2025 AM
Reviewed cath with multivessel CAD
No recurrent cp, trop peak at 2.3
Reviewed EF newly reduced to 25 to 30% by echo on 02/05/25, with severe hypokinesis in the anteroseptal, anterior, apical and inferolateral segments
Cont ASA, pt did not receive Plavix or Brilinta
Continue GDMT:
Cont atorvastatin, LDL 62.
Continue Toprol 25 mg twice daily (was taking 25 mg daily prior to admission)
Outpatient dose of lisinopril 20 mg daily is on hold due to hypotension
HgbA1c was elevated at 6.1% which is consistent with prediabetes
Additional hx:
-Patient had dental extractions x 2 on 02/09/2025
-There was an attempt at diuresis earlier this admission, but patient only diuresed as much as 2-3 lbs this admission with Lasix 20 mg IV BID and this has now been stopped. Patient was not taking a diuretic prior to admission, HCTZ was stopped as
an outpatient 12/2024 due to hypotension
-LVEDP was 34 at cath on 02/06/2025
-EF was 55% in 2022 and is now 25 to 30%, this is presumably ischemic
-Consideration for eventual aldosterone antagonist and SGLT2 therapies following possible CABG
-Patient developed SVT at time of cardiac cath and required adenosine, she was hypotensive at that time.
-Patient was started on amiodarone 200 mg BID following cath on 02/06/2025, QTc 485 ms on ECG 02/09/2025
Progress Note - Parts Product Analyst
Subjective
Date of Service: February 11, 2025
Pt seen and examined. No complaints. No chest pain or shortness of breath.
Objective
Labs:
02/11/25 04:56
02/11/25 04:56
Labs
Hgb 10.2 g/dL (12.0-16.0) L 02/11/25 04:56
Hct 30.7 % (37.0-47.0) L 02/11/25 04:56
Plt Count 248 10^3/uL (130-400) 02/11/25 04:56
PT 12.9 Sec (11.4-14.6) 02/07/25 05:07
INR 0.94 02/07/25 05:07
APTT 37.4 Sec (23.4-35.0) H 02/07/25 05:07
Sodium 132 mmol/L (135-145) L 02/11/25 04:56
Potassium 4.1 mmol/L (3.5-5.1) 02/11/25 04:56
BUN 58 mg/dl (7-17) H 02/11/25 04:56
Creatinine 1.6 mg/dL (0.6-1.0) H 02/11/25 04:56
Glucose 86 mg/dl (70-99) 02/11/25 04:56
Troponins
02/08/25 02/08/25 02/09/25
10:02 15:35 03:34
Troponin I 1.830 H* 1.660 H* 1.750 H*
Vital Signs and I&O:
Vital Signs
Temp Pulse Resp BP Pulse Ox
97.8 F 85 16 104/74 99
02/11/25 07:20 02/11/25 08:00 02/11/25 07:20 02/11/25 07:21 02/11/25 08:00
Vital Signs
Temp Pulse Resp BP Pulse Ox
97.8 F 85 16 104/74 99
02/11/25 07:20 02/11/25 08:00 02/11/25 07:20 02/11/25 07:21 02/11/25 08:00
Intake & Output
02/09/25 02/10/25 02/11/25 02/12/25
06:59 06:59 06:59 06:59
Intake Total 240 / 240 200 / 200 360 / 360
Output Total 500 / 500
Balance -260 / -260 200 / 200 360 / 360
Physical Exam
Physical Exam
General: No acute distress, AAOX3
Neck: Negative JVD
Heart: Regular, Negative S3 positive S1/S2, Negative S4, No murmur
Lungs: CTA b/l, negative wheezes/rales/rhonchi
Abd: Positive BS, NT/ND, neg rebound/rigidity/guarding
Ext: Negative cyanosis/clubbing/edema
Neuro: nonfocal
--- NOTE | 2025-02-11 11:40 | W.CON.NEPH ---
Consultation
-
Date/Time Consultation Requested: 02/11/25 0712
Date/Time Consultation Performed: 02/11/25 1130
Requesting Provider: Beti Sigala
Performing Provider: Juany Rosen
Reason for Consultation: CARLO
Medical History
-
Chief Complaint: SOB
History of Present Illness:
84-year-old female past medical history of CAD on Asa, SVT, hypertension on metoprolol, lisinopril, scoliosis, uterine cancer status post hysterectomy, hyperlipidemia on statin, osteoporosis on Fosamax, giant cell arteritis, presenting on 02/05 with
generalized weakness , also shortness of breath followed by chest discomfort radiating to her left arm on climbing stairs. NOted with acute CHF with r EF 30-35%, and LHC on 02/06 shows MVD. Seen by CT surg and plan to have CABG tomorrow. Due ot
soft Bps her GDMT and lasix dosing is limited. Meantime her cr on was at 0.8 now up trended to 1.6 hence nephrology consulted. She offers no dysuria. No vomiting but poor appetite. She has lost wt in last months. No active CP ro sob. No abd pain. No
edema.
She had skin cancer surgery 2 weeks ago on her right lower extremity. Has some swelling from it.
Past Medical History
CAD, SVT, hypertension, scoliosis, uterine cancer status post hysterectomy, hyperlipidemia, osteoporosis
Past Surgical History: Other (Appendectomy, Gynecological (Total hysterectomy) and Other (cataracts)), rigth leg skin cancer surg)
Social History
Tobacco: Non-Smoker
Alcohol: None
Drug: None
Personal:
Living: With Family
Family History
no CKD
Family History: Not Pertinent
Allergies / Home Medications
Allergy/AdvReac Type Severity Reaction Status Date / Time
amoxicillin (From Augmentin) Allergy Nausea Verified 02/05/25 10:01
clavulanic acid (From Allergy Nausea Verified 02/05/25 10:01
Augmentin)
iron Allergy Unknown Verified 02/05/25 10:01
Sulfa (Sulfonamide Allergy Rash Verified 02/05/25 10:01
Antibiotics)
(Sulfa(Sulfonamide
Antibiotics))
tocilizumab (From Actemra) Allergy Syncopal Verified 02/05/25 10:01
episode
codeine (Codeine) AdvReac Intermediate nausea Verified 02/05/25 10:01
�Medication �Instructions �Recorded �Confirmed �Type
aspirin 81 mg tablet,delayed 81 mg PO DAILY Blood Clot 12/06/11 02/05/25 History
release Prevention/Tx
atorvastatin 40 mg tablet 20 mg PO QPM High Cholesterol 02/11/21 02/05/25 History
pfipxhuniy-nlmyhwh-[id number] 50 1 cap PO DAILYPRN PRN migraines 06/23/22 02/05/25 History
mg-325 mg-40 mg capsule
alendronate 70 mg/75 mL oral 70 mg PO MO BONE 04/30/23 02/05/25 History
solution
coenzyme Q10 100 mg capsule 100 mg PO DAILY Supplement 04/30/23 02/05/25 History
(CoQ-10)
omeprazole 40 mg capsule,delayed 40 mg PO DAILY GERD 04/30/23 02/05/25 History
release
calcium 500 mg (as 1 tab PO DAILY Supplement 02/05/25 02/05/25 History
carbonate)-vitamin D3 10 mcg (400
unit) tablet (Calcium 500 + D)
cyclobenzaprine 5 mg tablet 5 mg PO DAILY Muscle Spasms 02/05/25 02/05/25 History
lidocaine 5 % topical patch 1 patch topical DAILYPRN PRN left 02/05/25 02/05/25 History
hip
lisinopril 20 mg tablet 20 mg PO DAILY Blood Pressure 02/05/25 02/05/25 History
magnesium oxide 200 mg PO DAILY Supplement 02/05/25 02/05/25 History
metoprolol succinate 25 mg 25 mg PO DAILY Blood Pressure 02/05/25 02/05/25 History
tablet,extended release 24 hr
(Toprol XL)
milk thistle 150 mg capsule 300 mg PO DAILY Supplement 02/05/25 02/05/25 History
therapeutic multivitamin 1 tab PO DAILY Supplement 02/05/25 02/05/25 History
Review of Systems
-
All other systems: Negative unless noted
Physical Exam
Vital Signs
Vital Signs
Temp Pulse Resp BP Pulse Ox
97.8 F 85 26 104/74 97
02/11/25 11:12 02/11/25 08:00 02/11/25 11:12 02/11/25 07:21 02/11/25 11:12
Lab Results
WBC 6.1 10^3/uL (4.8-10.8) 02/11/25 04:56
RBC 3.74 10^6/uL (4.20-5.40) L 02/11/25 04:56
Hgb 10.2 g/dL (12.0-16.0) L 02/11/25 04:56
Hct 30.7 % (37.0-47.0) L 02/11/25 04:56
Plt Count 248 10^3/uL (130-400) 02/11/25 04:56
Sodium 132 mmol/L (135-145) L 02/11/25 04:56
Potassium 4.1 mmol/L (3.5-5.1) 02/11/25 04:56
Chloride 97 mmol/L (98-107) L 02/11/25 04:56
Carbon Dioxide 24 mmol/L (22-30) 02/11/25 04:56
BUN 58 mg/dl (7-17) H 02/11/25 04:56
Creatinine 1.6 mg/dL (0.6-1.0) H 02/11/25 04:56
eGFR 31.80 02/11/25 04:56
Glucose 86 mg/dl (70-99) 02/11/25 04:56
Calcium 8.9 mg/dl (8.4-10.2) 02/11/25 04:56
Fng-X-Zmkifpjymkr Pept Cancelled 02/05/25 10:39
Albumin 3.6 g/dl (3.5-5.0) 02/11/25 04:56
Physical Exam
General: Awake, Alert, Oriented, AOx3 and No Distress
HEENT: Anicteric, Conjunctivae Clear and Facial Symmetry
Respiratory: Crackels, Normal Excursion, Nonlabored Respirations and Other
Cardiac: S1/S2 and Regular Rate/Rhythm
Breast: Deferred by me
Abdomen: Soft, Nontender and Nondistended
Musculoskeletal: Other (rt leg edema, left none)
Skin: No Rash
Neuro: Nonfocal/Grossly Intact
Psych: Mood/afflect pleasant, Insight/judgement good and Appropriate
Data Reviewed
-
Labs: Labs Reviewed by me, Discussed with Patient and Discussed with Family
Assessment/Plan
-
IMP:
CARLO
Acute HFrEF, new onset
CAD multiple vessel disease
dental abscess--OMFS s/p 2 teeth removal
recent skin cancer surgery right leg (Moh's with Dr. Noguera)
SVT--Symptomatic during [facility]-- on amiodarone
Moderate MR by [facility] 02/09/2025 and severe MR by echo 02/05/25
Cervical radiculopathy
Anemia of chronic disease
Essential hypertension
Severe scoliosis
Uterine cancer status post hysterectomy
Hyperlipidemia
Osteoporosis
History of polymyalgia rheumatica/giant cell arteritis
mild hyponatremia
Echo 02/05/2025: Global hypokinesis, EF 25-30%, severe hypokinesis in the anteroseptal, anterior, apical and inferolateral segments, severe MR, pulmonary artery systolic pressure 59 mmHg, severe TR, dilated atria
PLan:
A/w new CHD, [facility] shows MVD now plan CABG tomorrow
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
baselien UA bland, recheck UA with FEna
also check bladder scan
risk of further CARLO with planned CABG also discussed
no sig vol overload currently, holding lasix
avoid nephrotoxins and hold ACEI
avoid hypotension, on low dose BB
d/w pt, family and surg
--- NOTE | 2025-02-11 14:09 | PTCARENOTE ---
Patient comfortable at rest. AO X3. NSR, VSS, murmur. Appetite fair, recent right tooth extraction. Tylenol given earlier with relief of pain in right jaw. Voiding in the bathroom, yellow urine. Call terry in reach
[2025-02-11 15:52] LABS: Urine Character Clear (Clear)
[2025-02-11 16:00] LABS: Urine Red Blood Cell 0-2 /HPF (0-2); Urine Squamous Cell 0-2 /LPF (Few); Urine White Cell 0-2 /HPF (0-5)
[2025-02-11] MEDS: LACTATED RINGERS 250 IV (16:31)
[2025-02-11] MEDS: LIPITOR 20 MG PO (17:50)
--- NOTE | 2025-02-11 18:35 | PTCARENOTE ---
LR bolus infused. New IV placed in right forearm, BMP collected
[2025-02-11 19:08] LABS: Blood Urea Nitrogen 58 mg/dl (7-17); Calcium 9.0 mg/dl (8.4-10.2); Carbon Dioxide 27 mmol/L (22-30); Chloride 95 mmol/L (98-107); Estimated Creatinine Clearance 17 ml/min; Glucose 131 mg/dl (70-99); Potassium 3.6 mmol/L (3.5-5.1); Sodium 131 mmol/L (135-145); eGFR 29.57
--- NOTE | 2025-02-11 20:10 | PTCARENOTE ---
Tsf patient to room 2265. Report given to CHRIS Coleman. Personal belongings sent to new room. Family at bedside.
[2025-02-11] MEDS: DOBUTREX 500 MG 250 IV (20:27)
[2025-02-11] MEDS: TOPROL XL PO (20:29)
[2025-02-11] MEDS: SENOKOT PO (20:29)
[2025-02-11] MEDS: REMOVE LIDOCAINE PATCH REMOVE (20:29)
--- NOTE | 2025-02-11 21:00 | PTCARENOTE ---
Report received from IVU nurse. Pt transported to room 2265 from IVU. Pt and family oriented to new room. AAOx3. SR on the tele monitor. HR 80s. BP 90-100s/50s-60s. Palpable pulses throughout. Trace B/L LE edema. Fine crackles auscultated in B/L
bases. Diminished throughout. 96% on RA. Abdomen soft/nontender. +BSx4. Pt voiding. RYLIE wrap w/ mohs procedure dressing underneath intact. Right groin cath site [employer]. R forearm 22 intact. Dobutamine started upon arrival to CVICU. Pt clipped and given
full CHG bath. Gown/linens changed. Updated w/ plan. See worklist for full nursing assessment and interventions. Call terry within reach.
--- NOTE | 2025-02-11 22:15 | W.PN.UPDATE ---
Update Note
Progress Note Update
-preop B-christine is contraindicated due to hypotension. Currently, on Dobutamine. Reviewed with Dr. Cochran.
[2025-02-11] MEDS: XANAX 0.25 MG PO (22:36)
[2025-02-12] VITALS (19 sets, daily range): BP systolic 32–111; BP diastolic 20–65; BMI 20.3
[2025-02-12] MEDS: LR 250 IV (01:38)
--- NOTE | 2025-02-12 01:48 | PTCARENOTE ---
Dobut increased to 2.5 ~2330 for soft BPs. HR tolerated. HR 70-80s. BP remains soft, 80-90s/40-50s. CT PA aware. 250 LR bolus ordered. Assessment otherwise unchanged. NPO starting at midnight. Call terry within reach.
[2025-02-12 05:24] LABS: ALT (SGPT) 16 U/L (0-35); AST (SGOT) 26 U/L (14-36); Albumin 3.3 g/dl (3.5-5.0); Alkaline Phosphatase 96 U/L (38-126); Blood Urea Nitrogen 52 mg/dl (7-17); Calcium 8.7 mg/dl (8.4-10.2); Carbon Dioxide 26 mmol/L (22-30); Chloride 99 mmol/L (98-107); Estimated Creatinine Clearance 19 ml/min; Glucose 85 mg/dl (70-99); Magnesium 2.4 mg/dl (1.6-2.3); Potassium 3.6 mmol/L (3.5-5.1); Sodium 135 mmol/L (135-145); Total Protein 5.6 g/dl (6.3-8.2); eGFR 34.36
--- NOTE | 2025-02-12 05:24 | PTCARENOTE ---
No change in assessment. Labs drawn and sent. VSS. CHG bath #2 complete. Gown/linens changed. Pt OOB to void and then repositioned back into bed. B/L BP's complete. Updated w/ plan for AM. NPO since midnight. Dressing on R lower leg from Mohs
procedure left intact per CTPA. Call terry within reach.
[2025-02-12 06:05] LABS: Hematocrit 30.5 % (37.0-47.0); Hemoglobin 10.2 g/dL (12.0-16.0); Mean Corp Hgb Conc. 33.4 g/dL (33.0-37.0); Mean Corpuscular Volume 84.0 fL (81.0-99.0); Platelet Count 237 10^3/uL (130-400); Red Cell Dist. Width 14.5 % (11.5-14.5)
[2025-02-12] MEDS: PROTONIX 40 MG PO (06:24)
[2025-02-12] MEDS: KCL 40 MEQ PO (06:24)
[2025-02-12] MEDS: BACTROBAN 2% OINTMENT 1 APPLIC NASAL ×2 (06:25→20:32)
[2025-02-12] MEDS: MAGNESIUM OXIDE 400 MG PO (06:25)
--- NOTE | 2025-02-12 06:32 | W.CVOR.SURPR ---
CVOR Surgeon Immed Pre Op
-
I have examined this patient prior to performance of the scheduled procedure.
The patient's condition is unchanged from the time of the dictated/written History and
Physical and the patient is able to undergo the scheduled procedure.
Seems to be responding to inotropic support, raising BP, and some volume overnight. I believe her CARLO is multi factorial and there is some component of HF here and soft BPs adding to the picture. I discussed this with her and her family. Plan is to
move forward.
[2025-02-12 07:34] LABS: Urine Character Clear (Clear)
[2025-02-12 07:41] LABS: ACT+ - POC 109 Seconds (82-134)
--- NOTE | 2025-02-12 07:50 | W.PN.UPDATE ---
Update Note
Progress Note Update
Pt having CT surgery. Transferring to CT surg service.
[2025-02-12 08:15] LABS: Urine Red Blood Cell 0-2 /HPF (0-2); Urine White Cell 0-2 /HPF (0-5)
--- NOTE | 2025-02-12 08:25 | CM ---
Reviewed chart. Mrs. Estevez is in the operating room today. Prior to admission she resides with her spouse in a two a She has story home without any steps to enter. She has eleven steps to the second floor. Prior to admission she was independent
with ambulation and adls. She has a prescription plan and uses [facility]. Will need to see her functional status after surgery to see if she will have any skilled care needs. Medical work-up in progress. The discharge plan is to return home
with her spouse and a home visit by the Transitional Care Nurse when medically stable.
[2025-02-12 09:04] LABS: ACT+ - POC 599 Seconds (82-134)
[2025-02-12 09:49] LABS: B.E. - POC 0.4 mmol/L; Glucose - POC 83 mg/dl (70-99); HCO3 - POC 26 mmol/L (21-28); Hematocrit - POC 25 % PCV (37-47); Hemodilution- POC No; Hemoglobin Calculated - POC 8.4; Ionized Calcium - POC 1.16 mmol/L (1.15-1.33); Lactate - POC < 0.30 mmol/L (0.36-0.75); O2 Saturation %Calculated-POC 99.9 % (94-98); PCO2 - POC 44 mmHg (35-48); PO2 - POC 337 mmHg (83-108); POC Comment PRE; Potassium - POC 3.3 mmol/L (3.5-5.1); Sodium - POC 134 mmol/L (136-145); Specimen Type - POC Arterial; pH - POC 7.37 (7.35-7.45)
[2025-02-12 09:51] LABS: ACT+ - POC 555 Seconds (82-134)
[2025-02-12 10:10] LABS: ACT+ - POC 510 Seconds (82-134)
[2025-02-12 10:32] LABS: B.E. - POC -5.2 mmol/L; Glucose - POC 171 mg/dl (70-99); HCO3 - POC 23 mmol/L (21-28); Hematocrit - POC 25 % PCV (37-47); Hemodilution- POC Yes; Hemoglobin Calculated - POC 8.5; Ionized Calcium - POC 1.00 mmol/L (1.15-1.33); Lactate - POC < 0.30 mmol/L (0.36-0.75); O2 Saturation %Calculated-POC 100.0 % (94-98); PCO2 - POC 56 mmHg (35-48); PO2 - POC 473 mmHg (83-108); POC Comment CPB; Potassium - POC 4.9 mmol/L (3.5-5.1); Sodium - POC 134 mmol/L (136-145); Specimen Type - POC Arterial; pH - POC 7.21 (7.35-7.45)
[2025-02-12 10:33] LABS: B.E. - POC 2.7 mmol/L; Glucose - POC 174 mg/dl (70-99); HCO3 - POC 27 mmol/L (21-28); Hematocrit - POC 21 % PCV (37-47); Hemodilution- POC Yes; Hemoglobin Calculated - POC 7.3; Ionized Calcium - POC 0.97 mmol/L (1.15-1.33); Lactate - POC < 0.30 mmol/L (0.36-0.75); O2 Saturation %Calculated-POC 100.0 % (94-98); PCO2 - POC 38 mmHg (35-48); PO2 - POC 378 mmHg (83-108); POC Comment CPB; Potassium - POC 4.5 mmol/L (3.5-5.1); Sodium - POC 133 mmol/L (136-145); Specimen Type - POC Arterial; pH - POC 7.46 (7.35-7.45)
[2025-02-12 10:43] LABS: ACT+ - POC 654 Seconds (82-134)
[2025-02-12 11:12] LABS: B.E. - POC -0.1 mmol/L; Glucose - POC 186 mg/dl (70-99); HCO3 - POC 24 mmol/L (21-28); Hematocrit - POC 27 % PCV (37-47); Hemodilution- POC Yes; Hemoglobin Calculated - POC 9.3; Ionized Calcium - POC 0.97 mmol/L (1.15-1.33); Lactate - POC 1.01 mmol/L (0.36-0.75); O2 Saturation %Calculated-POC 99.9 % (94-98); PCO2 - POC 37 mmHg (35-48); PO2 - POC 307 mmHg (83-108); POC Comment CPB; Potassium - POC 4.6 mmol/L (3.5-5.1); Sodium - POC 131 mmol/L (136-145); Specimen Type - POC Arterial; pH - POC 7.42 (7.35-7.45)
[2025-02-12 11:39] LABS: B.E. - POC -0.9 mmol/L; Glucose - POC 144 mg/dl (70-99); HCO3 - POC 24 mmol/L (21-28); Hematocrit - POC 26 % PCV (37-47); Hemodilution- POC Yes; Hemoglobin Calculated - POC 8.9; Ionized Calcium - POC 0.95 mmol/L (1.15-1.33); Lactate - POC 1.36 mmol/L (0.36-0.75); O2 Saturation %Calculated-POC 99.9 % (94-98); PCO2 - POC 38 mmHg (35-48); PO2 - POC 257 mmHg (83-108); POC Comment CPB; Potassium - POC 4.3 mmol/L (3.5-5.1); Sodium - POC 135 mmol/L (136-145); Specimen Type - POC Arterial; pH - POC 7.40 (7.35-7.45)
[2025-02-12] MEDS: ASPIR LOW (ENTERIC COATED) PO (11:40)
[2025-02-12] MEDS: COLACE PO (11:40)
[2025-02-12] MEDS: PROTONIX PO (11:41)
[2025-02-12] MEDS: THERAGRAN PO (11:41)
[2025-02-12] MEDS: PACERONE PO ×3 (11:41→21:28)
[2025-02-12] MEDS: MAGNESIUM OXIDE PO (11:41)
[2025-02-12] MEDS: SENOKOT PO ×2 (11:41→19:44)
[2025-02-12] MEDS: TYLENOL PO ×4 (11:41→21:28)
[2025-02-12] MEDS: OSCAL 500 + D PO (11:41)
[2025-02-12 11:53] LABS: ACT+ - POC 571 Seconds (82-134)
[2025-02-12 12:40] LABS: B.E. - POC -1.2 mmol/L; Glucose - POC 129 mg/dl (70-99); HCO3 - POC 21 mmol/L (21-28); Hematocrit - POC 27 % PCV (37-47); Hemodilution- POC Yes; Hemoglobin Calculated - POC 9.3; Ionized Calcium - POC 0.94 mmol/L (1.15-1.33); Lactate - POC 1.82 mmol/L (0.36-0.75); O2 Saturation %Calculated-POC 100.0 % (94-98); PCO2 - POC 28 mmHg (35-48); PO2 - POC 344 mmHg (83-108); POC Comment WARM; Potassium - POC 4.6 mmol/L (3.5-5.1); Sodium - POC 137 mmol/L (136-145); Specimen Type - POC Arterial; pH - POC 7.50 (7.35-7.45)
[2025-02-12 12:44] LABS: ACT+ - POC 189 Seconds (82-134)
[2025-02-12 13:09] LABS: B.E. - POC -3.3 mmol/L; Glucose - POC 121 mg/dl (70-99); HCO3 - POC 22 mmol/L (21-28); Hematocrit - POC 25 % PCV (37-47); Hemodilution- POC Yes; Hemoglobin Calculated - POC 8.5; Ionized Calcium - POC 1.11 mmol/L (1.15-1.33); Lactate - POC 2.43 mmol/L (0.36-0.75); O2 Saturation %Calculated-POC 99.9 % (94-98); PCO2 - POC 42 mmHg (35-48); PO2 - POC 378 mmHg (83-108); POC Comment POST; Potassium - POC 4.2 mmol/L (3.5-5.1); Sodium - POC 135 mmol/L (136-145); Specimen Type - POC Arterial; pH - POC 7.34 (7.35-7.45)
[2025-02-12 13:09] LABS: ACT+ - POC 140 Seconds (82-134)
[2025-02-12 13:26] LABS: B.E. - POC -4.5 mmol/L; Glucose - POC 117 mg/dl (70-99); HCO3 - POC 23 mmol/L (21-28); Hematocrit - POC 26 % PCV (37-47); Hemodilution- POC Yes; Hemoglobin Calculated - POC 8.7; Ionized Calcium - POC 1.00 mmol/L (1.15-1.33); Lactate - POC 2.54 mmol/L (0.36-0.75); O2 Saturation %Calculated-POC 99.9 % (94-98); PCO2 - POC 51 mmHg (35-48); PO2 - POC 380 mmHg (83-108); POC Comment POST; Potassium - POC 3.8 mmol/L (3.5-5.1); Sodium - POC 137 mmol/L (136-145); Specimen Type - POC Arterial; pH - POC 7.26 (7.35-7.45)
--- NOTE | 2025-02-12 14:05 | W.PN.CT.SURG ---
CT Surgery Operative Note
-
CARDIAC SURGERY OPERATIVE REPORT
Preoperative Diagnosis: NSTEMI with heart failure and severe functional mitral valve insufficiency with acute on chronic congestive heart failure with depressed EF of 20%
Postoperative Diagnosis: Same
Procedure(s) Performed:
1. Standard sternotomy with aortic and bicaval cannulation
2. Direct aortic 5.5 Impella LVAD placement via 10 mm straight graft tunneled to the left supraclavicular region
3. Coronary artery bypass grafting x 3 [initially the ADAMS was grafted to a very atretic LAD that required patch repair, ultimately there was significant hemorrhaging from here and I opted to ligate the ADAMS and perform a vein patch repair of the
RV/anastomosis, Ao to RSVG to OM 1, RSVG off of the rdz of OM1 to a large diagonal vessel, Ao to RSVG to mid to distal RCA]
4. Chordal sparing mitral valve replacement [27 mm bioprosthesis]
5. Left atrial appendage exclusion [35 mm device]
6. Placement of temporary atrial ventricular pacing wires
7. Transesophageal echocardiography
8. Endoscopic left and right thigh vein harvest
Date of Surgery: 02/12/2025
Comorbidities:
1. NSTEMI with cath on this admission
2. Multivessel coronary disease
3. Acute on chronic congestive heart failure with LVEF of 20%
4. Functional mitral valve insufficiency, type IIIb, severe
5. Functional tricuspid valve insufficiency, moderate to severe
6. Malnourished
7. SVT
8. CARLO
9. Osteoporosis
10. History of chronic steroid use
11. Hypertension
Attending Surgeon: Otto Cochran MD, MS
Assistants: Otto Jarrett PA-C (present and necessary to restaurant assistant manager, retraction, suction, exposure, suture management, and wound closure under my direction)
Anesthesiology: Goldy Pearson MD and Amarilys Goldstein CRNA
Scrub and Circulating RNs: Mariya Calvin, CHRIS, Evelyne Anderson RN
Pediatric Critical Care Nurse: Corey Rick CCP
Anesthesia: GETA
EBL: per perfusion records
Products: 5 PRBCS and 3 plts
CPB Time: 171 minutes
Aortic Cross Clamp Time: 150 minutes
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 She also has new multivessel disease involving the proximal RCA and proximal circumflex. She came into the hospital with an NSTEMI was found to be in acute
heart failure with a EF 20% and severe mitral valve insufficiency. Given her multivessel coronary disease and functional severe MR, CT surgery was consulted for possible surgical intervention. Her PCI options were limited. Given her robust
baseline functional status and independence, shared decision making between cardiology, myself, the patient and her family was to pursue high risk intervention.
Mitral Valve Description: Thickened and scarred leaflets, there was retraction of the cords towards the papillary muscle heads, I ultimately decided to replace this valve as I felt he would not be a durable repair and she could not withstand a
second pump run.
Findings: Of note, tissue was extremely friable. Her left ventricular ejection fraction preoperatively was 20% with severe LV dysfunction and dilation. There was global hypokinesis. RV function was normal RV size was normal. Following surgery EF
was approximate 10% with no new regional wall motion abnormalities. I initially had performed a total of 4 distal bypass grafts, the ADAMS itself was of good quality. The LAD was I initially thought good quality until I attempted to dissected out.
Attempts at gaining intraluminal access was difficult and ultimately ended up in the RV resulting in a long laceration. Once I was able to identify the lumen of the vessel, multiple tacking sutures were placed in order to splayed open. I had
spatulated the ADAMS graft to approximately 3 cm I performed a very long distal anastomosis with 7-0 Prolene. Upon removal of the bulldog clamp, there was significant dissection of the rdz of the graft and hemorrhaging around the anastomosis. This
was not acceptable and so a piece of vein of approximate 3.5 cm was spatulated and sewn over top as a patch repair over the RV. A second attempt at removal of the bulldog clamp resulted in good hemostasis however there was a spreading hematoma
underneath the patch along the RV side. I ultimately decided to ligate the ADAMS graft and placed a hemostatic topical patch with biological glue to secure this area. This was fortunately effective. The other distals were performed uneventfully
and test dosing antegrade cardioplegia down the grafts yielded good hemostasis and flow. Ultimately she has a vein graft that leads to the large diagonal vessel, a vein graft that leads to a large bifurcating OM, and a vein graft at least to the
distal RCA which is collateralized to the grand traverse LAD. The mitral valve was thickened and scarred and despite its 3B appearance and functional nature, I felt that the repair here would not be durable especially with an EF of 20%. I ultimately
decided to perform a chordal sparing mitral valve replacement after transecting the anterior leaflet at its base I relocated the cords to the posterior annulus as part of plication of the leaflet. A total of 10 pledgeted 2 Ethibond sutures were
placed from LV through leaflet tissue then through annulus through atrial tissue and sewing cuff of a 27 mm bioprosthesis. This was oriented in order to not obstruct the LVOT with the struts. At the beginning of the case I had sewn a 10 limited
graft using a partial clamp that was tunneled out to the left supraclavicular fossa. After completing the proximal anastomoses I then threaded under direct vision and through a small aortotomy the 5.5 LVAD Impella into the LV across the grand traverse
aortic valve. Given that she was small in stature and already anemic starting off, we preemptively gave her to units of blood on pump and ultimately she received a total of 5 units of PRBCs and 3 of platelets. Flow probe assessment of the graft
demonstrated a mean flow of 25 cc a minute down the graft leading to the OM as well as the diagonal with a low pulsatility index. The vein graft leading to the RCA had a mean flow of 30 cc a minute with a pulse index of 1.8. Cardiac index was
around 2.0 however this is likely erroneous. She required P6-P7 support on the Impella device was also required troubleshooting mid case as the maps were falsely low. She is ultimately transferred to the ICU in stable but guarded condition. The
left atrial appendage was verified to be free of any thrombus or debris preoperatively and found to be totally occlusive postoperatively. I ultimately did not intervene on the tricuspid valve as it had a moderate degree of insufficiency and I felt
it was functional. I also wanted to reduce pump time and felt that this was not necessary.
Specimen(s): None.
Prosthesis:
1. 27 mm Srivastava Mitris Resilia mitral valve, serial #[id number]
2. 10 mm Hemashield [place] graft, serial #[id number]
3. 35 mm left atrial appendage clip, serial #[id number]
4. Biological glue adhesive, serial number [id number]
5. 5.5 Impella LVAD serial #[id number]
Description of Procedure: The patient was taken to the operating room. Their identity and procedure to be performed were verified and they were positioned supine on the operating table. Induction via general anesthesia with endotracheal intubation
was performed and central venous access and arterial monitoring were inserted. A preoperative transesophageal echocardiogram was performed to assess cardiac function and valvular function. The patient was then prepped and draped from chin to feet in
a sterile fashion. A preoperative time-out was performed with all members of the team present. A midline chest incision was performed along with median sternotomy. After obtaining bone hemostasis, Rultract retractor was placed in order to elevate
the left hemidiaphragm. The ADAMS graft was harvested in a skeletonized fashion and transected after placing 2 clips and giving 5000 heparin. Simultaneous access to the right and left lower extremities were performed in order to obtain endoscopic
vein harvest. The ADAMS had excellent flow and it was doubly clipped and placed inside a papaverine soaked Ray-Lyndsay back to the left hemithorax. The Rultract was then exchanged for a median sternotomy retractor. The innominate vein was isolated.
Full heparinization was given (a total of 40,000 units). We created a pericardial well. The aortic cannulation site was chosen where it was soft, pliable, and free of calcium. This was done high up in the mid arch. With a partial clamp I then
clamped the distal ascending thoracic aorta and then performed a small aortotomy and enlarged it with a 4.0 mm punch. The 10 mm graft was then beveled accordingly and the distal anastomosis was sewn with 4-0 Prolene in a running fashion.
Biological glue was then placed around the base of the graft and the graft was tunneled out to the left supraclavicular fossa. Cannulation was performed with an arterial cannula in the ascending aorta using VIOLA guided Seldinger technique with
serial dilations, angled metal tip cannular in the superior vena cava and straight bendable cannula in the inferior vena cava. The arterial cannula line had an appropriate bounce and correlating pressures. Next, a root vent/antegrade cannula was
inserted into the ascending aorta. The ACT was confirmed to be over 400 and retrograde autologous priming was performed before commencing cardiopulmonary bypass. The pulmonary artery was away from the aorta to facilitate a clamp site.
Sondergaard�s groove was developed after creating the oblique sinus. The aortic cross-clamp was placed after decreasing the flow on the bypass and mean arterial pressure. A total of 1.2L initial dose of antegrade Del-Nido cardioplegia solution was
given and planned for re-dosing every 60 minutes as necessary. There was rapid electro-mechanical arrest of the heart at 410 cc of cardioplegia. The left ventricle was observed for distention on echocardiogram and manual palpation. Cold slush was
placed into a lap on the RV and we systemically cooled to 34 degrees centigrade.
Once I was fully arrested is rotated medially and the left atrial appendage was ligated. The first distal anastomosis was performed prepared in the OM graft. This was done with a Nobles blade and a small coronary pterion was then created with
large with Mendoza scissors. The vein graft was then beveled at the distal end and an end-to-side anastomosis was created 7-0 Prolene. Test dose of antegrade cardioplegia demonstrated good flow and acceptable hemostasis. It was then measured to
length of the aorta and then cut. A diagonal vessel was then identified in a similar fashion was prepared. The vein graft was then beveled and an end to side anastomosis was created with yielded acceptable flows. The LAD was then dissected
initially I thought that I was intraluminal however found that the vessel was very atretic and actually was intraventricular I then attempted to spatulate the vessel and tack it back into place. A very long distal anastomosis was graded with 7-0
Prolene using the ADAMS graft. This however resulted in significant hemorrhaging and dissection of the rdz of the ADAMS graft and so we ultimately abandoned this vessel after performing a vein patch over top and securing the area with biological
glue and EVARREST topical hemostatic agent. I then turned my attention towards the distal RCA. This vessel was identified and prepared in a similar fashion. The end of the vein graft was then beveled and end to side anastomosis was created with
7-0 Prolene. This was met the length to reach the ascending thoracic aorta. I then used carbon dioxide was used to flood the field. The mitral valve was access via the Sondergaard's groove followed by valve analysis. The mitral valve was replaced
as described above. Deairing maneuvers were performed while the left atrium was closed with a 3-0 prolene in a single layer.
The aortic root was then filled up and 2 aortotomies were then performed and enlarged with 4.0 mm punches. The arm graft was then sewn onto here with 6-0 Prolene and the RCA graft was also sewn in a similar fashion. The diagonal graft was very
small and so I opted to perform a vein to vein anastomosis with 7-0 Prolene off of the OM occluded. A small 1.5 to 2 cm aortotomy was then performed in the ascending thoracic aorta and the 5.5 Impella was inserted under direct vision across the
aortic valve. There was significant torquing in the line and required multiple attempts manipulation oriented directed in the appropriate position. The aortotomy was closed in 2 layers with 4-0 Prolene in a running fashion.
Additional de-airing maneuvers were performed and temporary bipolar ventricular pacing wires were placed on the base of the right ventricle along with temporary atrial pacing wires at the SVC right atrial junction. The patient was placed in a
Trendelenburg position and flows on bypass were lowered. The aortic cross clamp was removed and flows were slowly brought back up. Simultaneous increase in Impella support was performed to a level of P5 and escalated accordingly.. The left atrial
suture line was hemostatic. Transesophageal echocardiography revealed no evidence of paravalvular leak across the mitral valve prosthesis. Flows in all grafts were verified. The ADAMS was ligated as I described above. It took several attempts in
order to position the Impella device with the tip directed towards the apex. Once this was done the device was secured in the place. Once de-airing was satisfactory the root vent was removed. After verifying acceptable parameters, we initiated
weaning from cardiopulmonary bypass with slight escalation of the Impella support. There was a discrepancy between flows and arterial tracings at the radial, our aortic line, and Impella device using Seldinger technique and ultrasound guidance, the
left common femoral artery was with micropuncture and ultimately a 5 [place] sheath. This had much better tracing. We did look at the ascending arch and ascending thoracic aorta and there was no dissection . Once we were off cardiopulmonary bypass,
the venous cannulas was clamped and removed sequentially. A test dose of protamine was administered and the patient was monitored for any adverse reaction before resuming protamine. Once half of the protamine dose was delivered, pump suckers were
turned off and the systolic blood pressure was lowered for aortic decannulation. The aortic cannula was removed and purse strings were tied down. All cannulation sites were oversewn with a 4-0 prolene. The left atrial suture line was inspected and
hemostasis was confirmed. Mediastinal hemostasis was obtained. Two #24 Dereje drains were placed within the pericardium and 2 #19 Dereje drains into each hemithorax. The sternum was approximated with 4 #7 single and 3 #8 double stainless steel wires.
Fascia was approximated with #1 vicryl suture. The subcutaneous, dermis and epidermis were closed in layers in a running fashion. The skin wound was cleansed and dressed.
All instrument, sponge, and needle counts were confirmed to be correct x 2 at the end of the operation. The patient was transferred to the cardiac intensive care unit in critical but stable condition.
I, Dr. Otto Cochran, was present, scrubbed for, and performed all critical elements of this procedure.
Otto Cochran MD, MS
Cardiothoracic Surgeon
[facility]
This dictation was created using the [employer] dictation system. Please excuse any grammatical, typographical, or 'sound alike' errors
[2025-02-12] MEDS: NSS 500 IV (14:10)
[2025-02-12 14:29] LABS: Glucose - Point of Care 160 mg/dl (70-99)
--- NOTE | 2025-02-12 14:30 | PTCARENOTE ---
Received patient from [facility] at 1410. Patient intubated and sedated. SR BBB on CM, rates 90's-100's, pulses weakly palpable, no edema noted, heart tones audible, rub heard over Impella, capillary refill <2 seconds. Impella 5.5 to ascending aorta via
the L neck, dressing CDI, 'Impella position unknown' message showing on monitor; Dr. Cochran aware, 3 point fixation intact, per Dr. Cochran keep MAPs > 50. Initially the patient's pressures were 50's/40's and then with some improvement were 60-70/50-60.
Initially no BP cuff able to be obtained. 8.0 ETT 21@ the R lip, SIMV on ventilator, see worklist for settings, lungs clear anteriorly, no cough. Abdomen SNT, normoactive BS. Coulter catheter in place draining clear, yellow urine, UOP sufficient. All
surgical sites CD; skin friable, MSI TARUN, B/L knee with reanna wrap intact, R lower leg squamous cell removal site with dressing under the reanna, CDI; R groin oozing, no hematoma, 4x4 gauze placed over the site. RIJ cordis/[place]-kristian cath @ 40, L femoral
art line, R forearm PIV; all applicable lines leveled, zeroed and flushed. See nursing worklist or additional intervention details.
[2025-02-12 14:46] LABS: Hematocrit 31.3 % (37.0-47.0); Hemoglobin 10.9 g/dL (12.0-16.0); Platelet Count 155 10^3/uL (130-400)
[2025-02-12 14:49] LABS: B.E. -3.1 mmol/L; HCO3 24.0 mmol/L (21-28); O2 Saturation % 99.3 % (94-98); PCO2 51 mmHg (32-35); PO2 150 mmHg (83-108); Potassium 3.8 mMOL/L (3.5-5.1); Sodium 136 mMOL/L (136-145)
[2025-02-12 14:50] LABS: INR 2.02; O2 Therapy vent/40%; PT 23.3 Sec (11.4-14.6)
[2025-02-12 14:51] LABS: APTT 48.1 Sec (23.4-35.0)
[2025-02-12 14:57] LABS: ACT+ - POC > 1003 Seconds (82-134)
--- NOTE | 2025-02-12 15:05 | CON.INTV ---
Consultation
Consultation Request
Date/Time Consultation Requested: 02/12/2025
Date/Time Consultation Performed: 02/12/2025
Requesting Provider: Dr. Cochran
Performing Provider: Dr. Frank Weiss
Reason for Consultation: Status post coronary artery bypass, mitral valve replacement
Medical History
-
History of Present Illness:
84-year-old woman with past medical history significant for coronary artery disease, SVT, hypertension, uterine cancer status post hysterectomy, hyperlipidemia, osteoporosis who presents initially to the hospital on 02/05/2025 for evaluation of
progressive shortness of breath-ultimately found to be on heart failure with increased proBNP. Also mild troponin leak.
On echocardiogram this admission found to be an acute heart failure-global hypokinesis, ejection fraction significantly decreased from prior down to 25-30% with severe TR and pulmonary hypertension.
Underwent cardiac catheterization 02/06/2025: Demonstrated multivessel severe coronary artery disease.
Patient was stabilized medically initially. Subsequently seen by Dr. Otto Cochran from CT surgery.
Ultimately underwent coronary artery bypass, mitral valve replacement and Impella LVAD placement on 02/12/2025.
Currently in the critical care unit, intubated mechanical ventilation.
Records reviewed.
Past Medical History
Past Medical History: Other (See assessment and plan)
Social History
Tobacco: Non-smoker
Alcohol: None
Drug: None
Family History
Family History: Unable to Obtain
Allergies / Home Medications
Allergies
Allergy/AdvReac Type Severity Reaction Status Date / Time
amoxicillin (From Augmentin) Allergy Nausea Verified 02/05/25 10:01
clavulanic acid (From Allergy Nausea Verified 02/05/25 10:01
Augmentin)
iron Allergy Unknown Verified 02/05/25 10:01
Sulfa (Sulfonamide Allergy Rash Verified 02/05/25 10:01
Antibiotics)
(Sulfa(Sulfonamide
Antibiotics))
tocilizumab (From Actemra) Allergy Syncopal Verified 02/05/25 10:01
episode
codeine (Codeine) AdvReac Intermediate nausea Verified 02/05/25 10:01
Home Medications
�Medication �Instructions �Recorded �Confirmed �Last Taken �Type
aspirin 81 mg tablet,delayed 81 mg PO DAILY Blood Clot 12/06/11 02/05/25 02/04/25 History
release Prevention/Tx
atorvastatin 40 mg tablet 20 mg PO QPM High Cholesterol 02/11/21 02/05/25 02/04/25 History
ybgajdkwbe-[id number]-buckdpcj 50 1 cap PO DAILYPRN PRN migraines 06/23/22 02/05/25 02/01/25 History
mg-325 mg-40 mg capsule
alendronate 70 mg/75 mL oral 70 mg PO MO BONE 04/30/23 02/05/25 02/02/25 History
solution
coenzyme Q10 100 mg capsule 100 mg PO DAILY Supplement 04/30/23 02/05/25 02/04/25 History
(CoQ-10)
omeprazole 40 mg capsule,delayed 40 mg PO DAILY GERD 04/30/23 02/05/25 02/04/25 History
release
calcium 500 mg (as 1 tab PO DAILY Supplement 02/05/25 02/05/25 02/04/25 History
carbonate)-vitamin D3 10 mcg (400
unit) tablet (Calcium 500 + D)
cyclobenzaprine 5 mg tablet 5 mg PO DAILY Muscle Spasms 02/05/25 02/05/25 02/04/25 History
lidocaine 5 % topical patch 1 patch topical DAILYPRN PRN left 02/05/25 02/05/25 Unknown History
hip
lisinopril 20 mg tablet 20 mg PO DAILY Blood Pressure 02/05/25 02/05/25 02/04/25 History
magnesium oxide 200 mg PO DAILY Supplement 02/05/25 02/05/25 02/04/25 History
metoprolol succinate 25 mg 25 mg PO DAILY Blood Pressure 02/05/25 02/05/25 02/04/25 History
tablet,extended release 24 hr
(Toprol XL)
milk thistle 150 mg capsule 300 mg PO DAILY Supplement 02/05/25 02/05/25 02/04/25 History
therapeutic multivitamin 1 tab PO DAILY Supplement 02/05/25 02/05/25 02/04/25 History
Review of Systems
-
History Source: Patient
All other systems: Negative unless noted
Vitals / Labs / Diagnostic Testing
Vital Signs
Temp Pulse Resp BP Pulse Ox
96.1 F L 97 12 111/57 94
02/12/25 14:44 02/12/25 14:40 02/12/25 14:10 02/12/25 06:30 02/12/25 14:10
Laboratory Results
02/12/25
14:22
PT 23.3 H
INR 2.02
APTT 48.1 H
pH 7.28 L
pCO2 51 H
pO2 150 H
HCO3 24.0
O2 Delivery Level vent/40%
Diagnostic Testing:
Physical Exam
-
HEENT: Normocephalic and Other ( ET tube in place without secretion)
Cardiovascular: S1/S2
Respiratory: Non-Labored Respirations and Other (Chest tube in place without excessive drainage. No airleak)
GI: Soft
Neurology: Other (Sedated on mechanical ventilation)
Skin: Warm
General: Comfortable
Assessment
-
Status post: Dr. Cochran 02/12/2025-coronary artery bypass grafting x 3 [initially the ADAMS was grafted to a very atretic LAD that required patch repair, ultimately there was significant hemorrhaging from here and I opted to ligate the ADAMS and perform
a vein patch repair of the RV/anastomosis, Ao to RSVG to OM 1, RSVG off of the rdz of OM1 to a large diagonal vessel, Ao to RSVG to mid to distal RCA]
Chordal sparing mitral valve replacement
Impella LVAD placement
Postoperative mechanical ventilation
Conditions present prior admission:
Scoliosis
Chronic anemia
History of coronary artery disease
Moderate MR
History of SVT
Hypertension
Uterine cancer status post hysterectomy
Hyperlipidemia
Osteoporosis
History of polymyalgia rheumatica/giant cell arteritis
Recent skin cancer status post right leg Mohs surgery with Dr. Noguera
Cervical radiculopathy
Assessment and plan:
She is doing well postop-currently on mechanical ventilation and appears comfortable.
ABG reviewed:
Continue SIMV mode with no [id number] status should improve as sedation wears off.
Spontaneous breathing trial per protocol once sedation wears off.
Anemia noted-no evidence of acute bleeding
Follow H&H serially
Hemodynamics -currently Levophed/epinephrine and dobutamine-wean down as able
PA catheter in place will follow hemodynamics.
LVAD Impella device in place
Follow urinary output-Coulter in place
Creatinine has improved postsurgery.Likely had cardiorenal syndrome coming into surgery.
Chest tube with no excessive drainage-no air leak.
Chest x-ray reviewed: With no pneumothorax or fluid collections.
Remain nothing by mouth
Head of the bed elevation
Glycemic control per protocol
DVT prophylaxis when safe from the surgical perspective.
Critical care statement: A total of 32��minutes of critical care time was provided for this patient today. This includes management of unstable vital signs, evaluation of the patient at bedside, reviewing the patient�s pertinent medical records
including ventilator settings, arterial blood gases, radiographs, microbiology, laboratory evaluations and��discussion with primary team, critical care nursing, and respiratory therapy.
[2025-02-12 15:13] LABS: Blood Urea Nitrogen 37 mg/dl (7-17); Estimated Creatinine Clearance 29 ml/min; Glucose 146 mg/dl (70-99); Magnesium 3.0 mg/dl (1.6-2.3)
[2025-02-12 15:19] LABS: Glucose - Point of Care 233 mg/dl (70-99)
[2025-02-12] MEDS: ANCEF 10 IV ×2 (15:38→15:39)
[2025-02-12] MEDS: SODIUM BICARBONATE 50 MEQ IV (15:41)
[2025-02-12] MEDS: NEURONTIN PO ×2 (15:50→21:28)
[2025-02-12] MEDS: LIPITOR PO (15:56)
--- NOTE | 2025-02-12 15:57 | ECGCV ---
Addendum entered by Ines Naranjo RN 02/12/25 22:17:
EKG repeated after initial from OR because the tracing on pt tele appeared altered.
Original Note:
DIMITRI Pardo at the bedside when ECG critical value identified by electronic interpretation on ECG completed on 02/12/2025, at 1554.
[2025-02-12 16:04] LABS: Glucose - Point of Care 222 mg/dl (70-99)
--- NOTE | 2025-02-12 16:24 | W.PN.CARDCBS ---
Addendum entered and electronically signed by Sarwat Marshall MD 02/12/25 17:32:
I saw and examined the patient.
The Head Lineman's note was reviewed and I agree with the note.
Comment:
GEN: No distress, intubated/sedated
HEENT: supple, anicteric, mmm
LUNGS: CTA, no wheezes/rales
CV: Reg, S1/S2, no rub
ABD: soft, BS+, NT/ND
EXT: No edema
NEURO: Gross non-focal
SKIN: sternotomy
Plan:
Reviewed EKGs with Dr. Cochran. She has a left bundle branch block with persistent ST elevation in the anterior leads.
Reviewed coronary anatomy status post bypass. Unable to bypass with ADAMS. Saphenous vein graft to OM1, diagonal, and RCA
Clinically continues to remain stable. Wean pressors and follow rhythm.
Wean to extubate. Continue Impella support for today.
Creatinine overall stable at 1.0
Original Note:
Today's Communication / Plan
-
post op care
follow serial EKGs
Impression / Plan
-
PCP: Dr. Souza
Primary Binding Stitcher: Dr. Merly Herrera
Impression:
Presentation with L chest/shoulder pain 02/05/25
Acute HFrEF
CAD
s/p cath with occluded LAD and collaterals 2011
MV CAD with chronically occluded LAD from angiogram in 2011 and new high-grade mid RCA and OM1 stenosis by cardiac cath 02/06/25
ICM EF 25-30% by echo 02/05/25
Severe MR by echo 02/05/25
SVT treated with adenosine at time of cardiac cath 02/06/2025
Scoliosis
Hypertension
Hyperlipidemia
Giant cell arteritis
Squamous cell of RLE
Osteoporosis
Resting sinus tachycardia
PMR
Hyperglycemia and prediabetes
Dental extractions x2 02/09/25
ECHO 09/28/2022: EF 55%, mild hypokinesis of apical septum, apical inferior segment, and apex, grade 1 diastolic dysfunction, mild to moderate MR, mild AR, mild TR, PAP 35 to 40 mmHg
Echo 02/05/2025: Global hypokinesis, EF 25-30%, severe hypokinesis in the anteroseptal, anterior, apical and inferolateral segments, severe MR, pulmonary artery systolic pressure 59 mmHg, severe TR, dilated atria
VIOLA Feb 09 2025: SUMMARY
1. Moderate to severely reduced left ventricular systolic function with estimated ejection fraction of 30 to 35%.
2. Global hypokinesis with more prominent apical, anterior, anteroseptal and septal hypokinesis.
3. Moderate mitral regurgitation.
4. Mild to moderate tricuspid regurgitation.
5. Mild aortic regurgitation.
Plan:
- Presented with dyspnea on exertion and elevated troponin (peak 2.3) with echocardiogram that showed newly reduced EF and severe MR. Cardiac catheterization showed multivessel CAD and underwent VIOLA with moderate MR
- She underwent difficult case including CABG x 3 with attempted ADAMS graft requiring patch repair with significant hemorrhage status post ligation and vein patch repair, ao to RSVG to OM1, RSVG off of the rdz of OM1 to large diagonal, AO to RSVG
to mid to distal RCA, chordal sparing bioprosthetic MVR, AXEL clip 02/12/2025
- critically ill
- Impella 5.[address] at P8
- Currently on 4 of epi and 5 of dobutamine with CI 1.4 and blood pressures on low side by invasive monitoring but unable to obtain cuff pressure. She has just been weaned off of levo. If blood pressures remain low, would consider restarting
- post op EKGs with some anterior ST elevation noted, also noted to lesser degree on prior EKGs. Will follow clinically, felt to be most likely due to attempted ADAMS graft, plan for medical mgmt
- hgb 10.9. eventual asa, plavix given NSTEMI presentation
- was on toprol 25mg BID and lisinopril 20mg daily prior to admission, resume post op as able. consider addition of SGLT2 and aldactone as able given ICM.
- LDL 62. continue lipitor
- HgbA1c 6.1% consistent with prediabetes
- of note, patient developed SVT at time of cardiac cath and required adenosine, she was hypotensive at that time. Patient was started on amiodarone 200 mg BID following cath, continue post op. follow QTc
- continue post op care
- will have echo prior to DC to reeval MR. will also need follow up echo as OP at 3 month christiano to reeval EF
- d/w nursing
Progress Note - Binding Stitcher
Subjective
Date of Service: February 12, 2025
intubated, sedated
Objective
Labs:
02/12/25 14:22
Labs
Hgb 10.9 g/dL (12.0-16.0) L 02/12/25 14:22
Hct 31.3 % (37.0-47.0) L 02/12/25 14:22
Plt Count 155 10^3/uL (130-400) D 02/12/25 14:22
PT 23.3 Sec (11.4-14.6) H 02/12/25 14:22
INR 2.02 02/12/25 14:22
APTT 48.1 Sec (23.4-35.0) H 02/12/25 14:22
Sodium 135 mmol/L (135-145) 02/12/25 04:45
Potassium 3.6 mmol/L (3.5-5.1) 02/12/25 04:45
BUN 37 mg/dl (7-17) H 02/12/25 14:22
Creatinine 1.0 mg/dL (0.6-1.0) 02/12/25 14:22
Glucose 146 mg/dl (70-99) H 02/12/25 14:22
Vital Signs and I&O:
Vital Signs
Temp Pulse Resp BP Pulse Ox
97.2 F 103 16 32/20 96
02/12/25 16:00 02/12/25 16:20 02/12/25 16:15 02/12/25 15:31 02/12/25 16:15
Vital Signs
Temp Pulse Resp BP Pulse Ox
97.2 F 103 16 32/20 96
02/12/25 16:00 02/12/25 16:20 02/12/25 16:15 02/12/25 15:31 02/12/25 16:15
Intake & Output
02/10/25 02/11/25 02/12/25 02/13/25
07:59 07:59 07:59 07:59
Intake Total 200 / 200 360 / 360 1250.1 / 1250.1 1289.6 / 1289.6
Output Total 1025 / 1025 245 / 245
Balance 200 / 200 360 / 360 225.1 / 225.1 1044.6 / 1044.6
Physical Exam
Physical Exam
GEN: No distress, intubated, sedated. on zach hugger
HEENT: supple, mmm
LUNGS: CTA B/L, no wheezes/rales
CV: Reg, S1/S2, no murmur
ABD: soft, ND
EXT: No cyanosis, clubbing, edema
NEURO: Gross non-focal
SKIN: Warm, pink, dry. No rash. Sternotomy incision c/d/i. CTs in place.
: dianna
--- NOTE | 2025-02-12 16:44 | W.PN.NEPH.PH ---
Today's Communication / Plan
-
follow labs
Assessment/Plan
-
IMP:
CARLO
Acute HFrEF, new onset
CAD multiple vessel disease
s/p Coronary artery bypass grafting x 3 [initially the ADAMS was grafted to a very atretic LAD that required patch repair, ultimately there was significant hemorrhaging from here and ligate the ADAMS s/p a vein patch repair of the RV/anastomosis 02/12
dental abscess--OMFS s/p 2 teeth removal
recent skin cancer surgery right leg (Moh's with Dr. Noguera)
SVT--Symptomatic during [facility]-- on amiodarone
Moderate MR by VIOLA 02/09/2025 and severe MR by echo 02/05/25
Cervical radiculopathy
Anemia of chronic disease
Essential hypertension
Severe scoliosis
Uterine cancer status post hysterectomy
Hyperlipidemia
Osteoporosis
History of polymyalgia rheumatica/giant cell arteritis
mild hyponatremia
Echo 02/05/2025: Global hypokinesis, EF 25-30%, severe hypokinesis in the anteroseptal, anterior, apical and inferolateral segments, severe MR, pulmonary artery systolic pressure 59 mmHg, severe TR, dilated atria
PLan:
A/w new CHF, [facility] shows MVD now s/p CABGx3 today , complex case
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
UA bland, low FEna
noted labs cr 1 post multiple transfusions
pressors to keep MAP>65
hyponatremia better this am
possible extubation today
cont supportive care as per post op care
d/w nursing and family
-
-
Date of Service: February 12, 2025
CC / HPI / ROS
-
Chief Complaint:
CARLO
History of Present Illness:
cr better at 1 post op today
on pressors for hypotension-already weaning post op
complex CABG today s/p 5 PRBC and 3Plts
pressors-epi , dobutamine on , off levo
Review of Systems:
intuabated and sedated
FIo2 40%
on wram blanket
Labs
-
Labs:
WBC 5.4 10^3/uL (4.8-10.8) 02/12/25 05:42
RBC 3.63 10^6/uL (4.20-5.40) L 02/12/25 05:42
Sodium 135 mmol/L (135-145) 02/12/25 04:45
Potassium 3.6 mmol/L (3.5-5.1) 02/12/25 04:45
Chloride 99 mmol/L (98-107) 02/12/25 04:45
Carbon Dioxide 26 mmol/L (22-30) 02/12/25 04:45
BUN 37 mg/dl (7-17) H 02/12/25 14:22
Creatinine 1.0 mg/dL (0.6-1.0) 02/12/25 14:22
eGFR 34.36 02/12/25 04:45
Glucose 146 mg/dl (70-99) H 02/12/25 14:22
Calcium 8.7 mg/dl (8.4-10.2) 02/12/25 04:45
Gon-S-Eomdtfbmfiq Pept Cancelled 02/05/25 10:39
Albumin 3.3 g/dl (3.5-5.0) L 02/12/25 04:45
Physical Exam
-
Vital Signs:
Vital Signs
Temp Pulse Resp BP Pulse Ox
97.2 F 105 16 97
02/12/25 16:00 02/12/25 16:35 02/12/25 16:15 02/12/25 15:31 02/12/25 16:35
Cardiovascular:: Regular rate and rhythm
Respiratory:: Bilateral: Coarse
Lung Excursion:: Abnormal
Abdomen:: Nontender and Soft
Extremity Edema:: None: Bilateral:
Coulter Catheter: Yes
[2025-02-12 17:05] LABS: Glucose - Point of Care 162 mg/dl (70-99)
--- NOTE | 2025-02-12 17:50 | PTCARENOTE ---
Patient awake, following commands, eyes open to voice, respiratory at bedside attempting CPAP
[2025-02-12 18:02] LABS: Hematocrit 25.6 % (37.0-47.0); Hemoglobin 8.9 g/dL (12.0-16.0); Platelet Count 139 10^3/uL (130-400)
[2025-02-12 18:06] LABS: B.E. 2.3 mmol/L; HCO3 27.8 mmol/L (21-28); O2 Saturation % 100.0 % (94-98); PCO2 47 mmHg (32-35); PO2 125 mmHg (83-108); Potassium 3.6 mMOL/L (3.5-5.1); Sodium 139 mMOL/L (136-145)
[2025-02-12 18:19] LABS: Glucose - Point of Care 126 mg/dl (70-99)
--- NOTE | 2025-02-12 18:29 | PTCARENOTE ---
Patient unable to tolerate CPAP and was placed back on SIMV. Reattempt CPAP at 1825
[2025-02-12] MEDS: CALCIUM GLUCONATE 100 IV (18:59)
[2025-02-12 19:06] LABS: Glucose - Point of Care 109 mg/dl (70-99)
[2025-02-12 19:10] LABS: B.E. 1.4 mmol/L; HCO3 26.6 mmol/L (21-28); O2 Saturation % 98.6 % (94-98); PCO2 44 mmHg (32-35); PO2 87 mmHg (83-108)
--- NOTE | 2025-02-12 19:26 | PTCARENOTE ---
Patient extubated to 6LNC without incident at 1925
[2025-02-12] MEDS: OFIRMEV 100 IV (19:50)
--- NOTE | 2025-02-12 20:05 | PTCARENOTE ---
Pt desatting to 87-88% on 6LNC, placed on midflow by RT.
[2025-02-12] MEDS: ANCEF 5 IV (20:30)
[2025-02-12] MEDS: KCL 50 IV ×2 (20:42→21:49)
[2025-02-12 21:06] LABS: Glucose - Point of Care 87 mg/dl (70-99)
[2025-02-12] MEDS: ASPIRIN 300 MG RECTAL (21:29)
[2025-02-12] MEDS: DILAUDID 0.5 MG IV (21:29)
[2025-02-12 23:09] LABS: Glucose - Point of Care 95 mg/dl (70-99)
--- NOTE | 2025-02-12 23:50 | PTCARENOTE ---
Addendum entered by Rachael Godinez RN 02/13/25 02:37:
Impella is at P8
Original Note:
assumed care of pt from previous shift RN, sinus tachycardia w BBB on tele w HR 102, + peripheral pulses, no edema noted. Left radial arleen and left femoral arleen leveled and zeroed, BP 71/66 (67), goal MAP 50. Lungs diminished, pox 98% on 8L
midflow. Coughing and deep breathing encouraged. Right IJ cordis w swan floated to 40, CO 2.73 CI 1.45, PAP 24/13, CVP 12. PIV flush easily. MSI approximated w surgical glue intact, bilateral legs w RYLIE wraps. Impella 5.[address] w minimal
amount of red drainage, bustamante draining yellow.
DRIPS:
Dobutamine 5mcg/kg/min
Epi 4mcg/min
Insulin titrated per glycemic protocol
[2025-02-13] VITALS (10 sets, daily range): BP systolic 33–69; BP diastolic 13–60; PULSE 101; BMI 23.3
--- NOTE | 2025-02-13 00:32 | PTCARENOTE ---
CI reported to CT VERA. Instructed to maintained dobutamine 5mcg and epi 4mcg/min.
[2025-02-13 01:05] LABS: Glucose - Point of Care 97 mg/dl (70-99)
--- NOTE | 2025-02-13 01:06 | W.PN.CT ---
Addendum entered and electronically signed by Otto Cochran MD 02/14/25 11:27:
I saw and examined the patient.
The PA's note was reviewed and I agree with the note.
Comment:
DAILY IMPELLA MANAGEMENT NOTE:
Maintained at P8 overnight, marginal improvement in MAPS, urine output continues to be low. No Suction alarms, still waiting to see some pulsatility over the pump.
- down to P7, given her BSA and BMI, doesn't need 4.5L of flow support, and concern will be causing RV failure.
- Start 2 of Bumex GTT and see response
- keep Hgb > 9 and Plt count >100k
- Bipap if needed - aggressive pulm toilet
- Maintain DTX at 5, epi can come down if tolerates
Critical Care Time: 35mins
Original Note:
Today's Communication / Plan
-
Impella 5.5 setting of P8 =�4.5 liters flow�
Blood products given 5 RBC, 3�PLats,�3�FFP��
Drips:�Epi @ 4 Dobutamine @�5�with Map goal > 50, with SBP < 110�
Extubated�to 8�mid�flow, wean�to�maintain�O2 Sat�>�90�
Maintain cordis and�2�AV wires��
CT =� CT *2�=�70/145 (480)�PL*2�=�170/195 (365)�in�04/29��
Voided�=�175/305 (480)�
Echo for AM��
Assessment / Plan
-
S/P coronary artery bypass grafting x 3 [initially the ADAMS was grafted to a very atretic LAD that required patch repair, ultimately there was significant hemorrhaging from here and I opted to ligate the ADAMS and perform a vein patch repair of the
RV/anastomosis, Ao to RSVG to OM 1, RSVG off of the rdz of OM1 to a large diagonal vessel, Ao to RSVG to mid to distal RCA], Chordal sparing mitral valve replacement, Impella LVAD placement POD 1
PMH:�
ICM EF 25-30%,�
Scoliosis
Chronic anemia
CAD
Severe�MR
Hx�of SVT
HTN
Uterine cancer status hysterectomy�
Hyperlipidemia�
Osteoporosis�
Hx�of�polymyalgia�rheumatica/giant cell arteritis�skin cancer�(right leg Mohs surgery)�
Cervical radiculopathy�
Subjective
-
Date of Service: February 13, 2025
Objective Data
-
PT 23.3 Sec (11.4-14.6) H 02/12/25 14:22
INR 2.02 02/12/25 14:22
APTT 48.1 Sec (23.4-35.0) H 02/12/25 14:22
Vital Signs
Vital Signs
Temp Pulse Resp BP Pulse Ox
99.5 F 101 23 63/51 98
02/13/25 00:00 02/13/25 00:15 02/13/25 00:15 02/12/25 21:37 02/13/25 00:55
CT Intake/Output/Weight
02/12/25 02/12/25 02/13/25
06:59 18:59 06:59
Intake Total 280.1 / 1250.1 1386.1 / 1950.1 564.0 / 1950.1
Output Total 575 / 1025 415 / 790 375 / 790
Balance -294.9 / 225.1 971.1 / 1160.1 189.0 / 1160.1
SaO2: 98
Physical Exam
-
General: Awake
Cardiovascular: Regular rate & rhythm
Respiratory: Clear and Equal
Sternum: Stable
Incision: Clean, Dry and Intact
Extremities: Edema +1
--- NOTE | 2025-02-13 01:13 | PTCARENOTE ---
pt c/o extremely dry mouth, mouth care preformed, mouth moisturizer utilized and petroleum jelly applied to lips. Ice chips provided.
--- NOTE | 2025-02-13 01:15 | PTCARENOTE ---
pox 98% on 8L midflow, weaned to 6L midflow.
[2025-02-13] MEDS: DILAUDID 0.25 MG IV (02:20)
--- NOTE | 2025-02-13 02:37 | PTCARENOTE ---
pt medicated for pain, mouth care repeated.
[2025-02-13 03:17] LABS: Glucose - Point of Care 111 mg/dl (70-99)
[2025-02-13 03:36] LABS: Hematocrit 26.1 % (37.0-47.0); Hemoglobin 9.2 g/dL (12.0-16.0); Mean Corp Hgb Conc. 35.2 g/dL (33.0-37.0); Mean Corpuscular Volume 84.2 fL (81.0-99.0); Platelet Count 152 10^3/uL (130-400); Red Cell Dist. Width 14.9 % (11.5-14.5)
[2025-02-13 04:07] LABS: Blood Urea Nitrogen 41 mg/dl (7-17); Calcium 9.1 mg/dl (8.4-10.2); Carbon Dioxide 29 mmol/L (22-30); Chloride 105 mmol/L (98-107); Estimated Creatinine Clearance 22 ml/min; Glucose 88 mg/dl (70-99); Magnesium 3.0 mg/dl (1.6-2.3); Potassium 4.9 mmol/L (3.5-5.1); Sodium 139 mmol/L (135-145); eGFR 40.80
[2025-02-13] MEDS: ADRENALIN 250 IV ×2 (04:07→23:15)
[2025-02-13] MEDS: ANCEF 5 IV ×2 (04:11→12:18)
[2025-02-13] MEDS: TYLENOL PO ×3 (04:11→23:17)
--- NOTE | 2025-02-13 04:26 | PTCARENOTE ---
pt tolerated ice chips, ekg and routine labs obtained.
[2025-02-13 05:12] LABS: Glucose - Point of Care 71 mg/dl (70-99)
[2025-02-13] MEDS: ZOFRAN 4 MG IV (05:23)
[2025-02-13] MEDS: ALBUMIN 5% 250 IV (05:46)
[2025-02-13] MEDS: DILAUDID 0.5 MG IV (06:24)
[2025-02-13 06:25] LABS: Glucose - Point of Care 89 mg/dl (70-99)
[2025-02-13 07:01] LABS: INR 1.37; PT 17.4 Sec (11.4-14.6)
[2025-02-13 07:02] LABS: APTT 33.6 Sec (23.4-35.0)
[2025-02-13 07:06] LABS: LDH 473 U/L (120-246)
[2025-02-13 07:10] LABS: Glucose - Point of Care 102 mg/dl (70-99)
[2025-02-13 08:00] LABS: Glucose - Point of Care 98 mg/dl (70-99)
--- NOTE | 2025-02-13 08:00 | PTCARENOTE ---
Patient received from roll tube setter resting in bed, sleepy but arousable, AAO x 3. Daughter at bedside. RIJ Cordis/Norman-Jonny catheter, L radial arterial line, L femoral arterial lines present - leveled, flushed, and calibrated. Impella 5.5 via L neck
at P7. Dr. Cochran bedside, P-level adjusted, echo at bedside. Mediastinal chest tubes x 2, L and R pleural chest tubes, to separate pleurevacs - no air leaks appreciated on -20cm suction. Coulter catheter to gravity. All procedural sites stable. See
work list for full assessment, interventions performed, and intravenous infusions and titrations.
--- NOTE | 2025-02-13 08:03 | W.PN.ANS.POP ---
Anesthesia Post Operative
- Anesthesia Post Op Note
Vital Signs Stable-See Nursing Note: Yes (impella in situ)
Airway Patent: Yes
Adequate Pain Control: Yes
Change in Mental Status: No
Current Postoperative Nausea & Vomiting: No
Anesthesia Complications: No
General Anesthetic Recall: No
Unplanned Admission: No
Post Op Hydration Adequate: Yes
--- NOTE | 2025-02-13 08:40 | PN.DE.MGMTRT ---
Insulin Management
- -
02/13/2025: Diabetes Management Consult
84 year old female with PMH: CAD, SVT, HTN, HLD, Uterine cancer s/p hysterectomy and Osteoporosis who presents initially to the hospital on 02/05/2025 for evaluation of progressive shortness of breath-ultimately found to be on heart failure with
increased proBNP. Was found to be in acute HF with global hypokinesis, EF significantly decreased to 25-30% with severe TR and pulmonary hypertension. Patient underwent cardiac catheterization 02/06/2025: Demonstrated multivessel severe coronary
artery disease, was stabilized medically initially. Subsequently underwent CABG x 3, mitral valve replacement and Impella LVAD placement on 02/12/2025. A1C 6.1%, Cr 1.3, eGFR 40.80. 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
Patient awake, alert, oriented, resting in bed, c/o thirst and asking for water. Dtr at bedside, very supportive, providing ice chips.
POD # 1 s/p CABG x3. Currently on the critical care glycemic protocol. Glucose range 71 to 111, requiring 0.1 to 2.3 units of insulin/hr
Will cont insulin infusion today and reassess in AM for readiness to transition off drip.
Discussed with Nurse. Will cont to monitor
Diabetes History
- -
Pre-Admission Diabetes Regimen
02/12/25 02/13/25
14:22 03:12
Creatinine 1.0 1.3 H
Lab Results
Hemoglobin A1c 6.1 % (4.0-5.6) H 02/07/25 05:07
Insulin Pump Settings
IP Diabetes Regimen
02/12/25 02/12/25 02/12/25
14:19 14:22 15:17
Glucose 146 H
POC Glucose 160 H 233 H
02/12/25 02/12/25 02/12/25
16:03 17:04 18:18
Glucose
POC Glucose 222 H 162 H 126 H
02/12/25 02/12/25 02/12/25
19:02 21:05 23:08
Glucose
POC Glucose 109 H 87 95
02/13/25 02/13/25 02/13/25
01:04 03:11 03:12
Glucose 88
POC Glucose 97 111 H
02/13/25 02/13/25 02/13/25
05:09 06:20 07:08
Glucose
POC Glucose 71 89 102 H
02/13/25
07:59
Glucose
POC Glucose 98
Patient Education
--- NOTE | 2025-02-13 08:52 | W.PN.NEPH.PH ---
Today's Communication / Plan
-
follow BMP
Assessment/Plan
-
IMP:
CARLO
Acute HFrEF, new onset
CAD multiple vessel disease
s/p Coronary artery bypass grafting x 3 [initially the ADAMS was grafted to a very atretic LAD that required patch repair, ultimately there was significant hemorrhaging from here and ligate the ADAMS s/p a vein patch repair of the RV/anastomosis 02/12
dental abscess--OMFS s/p 2 teeth removal
recent skin cancer surgery right leg (Moh's with Dr. Noguera)
SVT--Symptomatic during [facility]-- on amiodarone
Moderate MR by VIOLA 02/09/2025 and severe MR by echo 02/05/25
Cervical radiculopathy
Anemia of chronic disease
Essential hypertension
Severe scoliosis
Uterine cancer status post hysterectomy
Hyperlipidemia
Osteoporosis
History of polymyalgia rheumatica/giant cell arteritis
mild hyponatremia
Echo 02/05/2025: Global hypokinesis, EF 25-30%, severe hypokinesis in the anteroseptal, anterior, apical and inferolateral segments, severe MR, pulmonary artery systolic pressure 59 mmHg, severe TR, dilated atria
Plan:
follow BMP trend
wean pressors as allowed
dobutamine per cardiology
lasix prn
diet to clears
maintain bustamante
prognosis guarded
d/w daughter (RN)
critical care time 31 minutes
-
-
Date of Service: February 13, 2025
CC / HPI / ROS
-
Chief Complaint:
CARLO
History of Present Illness:
Cr up at 1.3
critically ill in CVICU, on pressors
remains on Impella support
remains on dobutamine
good UOP
legs wrapped
Review of Systems:
? pain with swallowing
no CP/SOB
Labs
-
Labs:
eGFR 40.80 02/13/25 03:12
Hcf-V-Ryojwrxhwsn Pept Cancelled 02/05/25 10:39
Albumin 3.3 g/dl (3.5-5.0) L 02/12/25 04:45
Physical Exam
-
Vital Signs:
Vital Signs
Temp Pulse Resp BP Pulse Ox
98.4 F 97 19 36/22 92
02/13/25 08:00 02/13/25 08:00 02/13/25 08:00 02/13/25 06:04 02/13/25 08:35
Cardiovascular:: Regular rate and rhythm
Respiratory:: Bilateral: Coarse
Lung Excursion:: Normal
Abdomen:: Nontender and Soft
Bowel Sounds:: Decreased
Extremity Edema:: +3: Bilateral:
[2025-02-13] MEDS: FLEXBUMIN 100 IV ×2 (08:56→16:15)
[2025-02-13] MEDS: FLEXERIL 5 MG PO (08:57)
[2025-02-13] MEDS: OSCAL 500 + D 500 MG PO (08:57)
[2025-02-13] MEDS: SENOKOT 8.6 MG PO (08:57)
[2025-02-13] MEDS: FEOSOL 325 MG PO (08:57)
[2025-02-13] MEDS: VITAMIN C 500 MG PO (08:58)
[2025-02-13] MEDS: NEURONTIN 100 MG PO (08:58)
[2025-02-13] MEDS: PLAVIX 75 MG PO (08:58)
[2025-02-13] MEDS: LOW STRENGTH ASPIRIN 81 MG PO (08:58)
[2025-02-13] MEDS: MAGNESIUM OXIDE 400 MG PO (08:58)
[2025-02-13] MEDS: PROTONIX 40 MG PO (08:58)
[2025-02-13] MEDS: PACERONE 200 MG PO ×3 (08:58→23:17)
[2025-02-13] MEDS: THERAGRAN 1 TABLET PO (08:58)
[2025-02-13] MEDS: LIDOCAINE 4% PATCH TOPICAL (08:59)
[2025-02-13] MEDS: BACTROBAN 2% OINTMENT 1 APPLIC NASAL ×2 (08:59→23:19)
[2025-02-13 09:08] LABS: Glucose - Point of Care 98 mg/dl (70-99)
--- NOTE | 2025-02-13 09:11 | W.PN.CARDCBS ---
Addendum entered and electronically signed by Sarwat Marshall MD 02/13/25 11:23:
I saw and examined the patient.
The Zigzag Elastic Attacher's note was reviewed and I agree with the note.
Comment:
GEN: Anxious, awake, Ox3
HEENT: supple, anicteric, mmm
LUNGS: rhonchi
CV: Reg, S1/S2, 1/6 syst LSB, + rub
ABD: soft, BS+, NT/ND
EXT: No edema
NEURO: Gross non-focal
SKIN: No rash
Plan:
Awake and remains on multiple pressors including dobutamine and epinephrine. Continues with Impella support at P8
Creatinine at 1.3. I suspect she is somewhat volume overloaded and agree with IV Lasix.
For repeat echo over next 24 hours.
She does have a rub on exam suggesting some level of pericarditis.
EKG with persistent anterior ST elevation which is in the setting of left bundle branch block.
Hemoglobin at 9.2.
Continue supportive care. Remains critically ill.
Original Note:
Today's Communication / Plan
-
continue post op care
in SR
echo in AM
follow EKG
Impression / Plan
-
PCP: Dr. Souza
Primary Ssrs Report Developer: Dr. Merly Herrera
Impression:
Presentation with L chest/shoulder pain 02/05/25
Acute HFrEF
CAD
s/p cath with occluded LAD and collaterals 2011
MV CAD with chronically occluded LAD from angiogram in 2011 and new high-grade mid RCA and OM1 stenosis by cardiac cath 02/06/25
ICM EF 25-30% by echo 02/05/25
Severe MR by echo 02/05/25
SVT treated with adenosine at time of cardiac cath 02/06/2025
Scoliosis
Hypertension
Hyperlipidemia
Giant cell arteritis
Squamous cell of RLE
Osteoporosis
Resting sinus tachycardia
PMR
Hyperglycemia and prediabetes
Dental extractions x2 02/09/25
ECHO 09/28/2022: EF 55%, mild hypokinesis of apical septum, apical inferior segment, and apex, grade 1 diastolic dysfunction, mild to moderate MR, mild AR, mild TR, PAP 35 to 40 mmHg
Echo 02/05/2025: Global hypokinesis, EF 25-30%, severe hypokinesis in the anteroseptal, anterior, apical and inferolateral segments, severe MR, pulmonary artery systolic pressure 59 mmHg, severe TR, dilated atria
VIOLA Feb 09 2025: SUMMARY
1. Moderate to severely reduced left ventricular systolic function with estimated ejection fraction of 30 to 35%.
2. Global hypokinesis with more prominent apical, anterior, anteroseptal and septal hypokinesis.
3. Moderate mitral regurgitation.
4. Mild to moderate tricuspid regurgitation.
5. Mild aortic regurgitation.
Plan:
- Presented with dyspnea on exertion and elevated troponin (peak 2.3) with echocardiogram that showed newly reduced EF and severe MR. Cardiac catheterization showed multivessel CAD and underwent VIOLA with moderate MR
- She underwent difficult case including CABG x 3 with attempted ADAMS graft requiring patch repair with significant hemorrhage status post ligation and vein patch repair, ao to RSVG to OM1, RSVG off of the rdz of OM1 to large diagonal, AO to RSVG
to mid to distal RCA, chordal sparing bioprosthetic MVR, AXEL clip 02/12/2025
-Extubated overnight. Wean supplemental oxygen as able
- Main complaint this morning is feeling as though she cannot swallow. She is swallowing water. We discussed this was likely secondary to intubation as well as presence of Cordis and inflammation.
- Remains critically ill on Impella 5.5 at P8
- on dobut@5, epi@3, insulin@0.5
- Hemoglobin 9.2 on 02/13. Status post 5 units packed red blood cells, 3 platelets, 3 FFP thus far. eventual asa, plavix given NSTEMI presentation
- EKG 02/13 reviewed by me, appears similar to yesterday. Continue to monitor
- Plan for echo in a.m. per CT surgical notes
- was on toprol 25mg BID and lisinopril 20mg daily prior to admission, resume post op as able. consider addition of SGLT2 and aldactone as able given ICM.
- LDL 62. continue lipitor
- HgbA1c 6.1% consistent with prediabetes
- of note, patient developed SVT at time of cardiac cath and required adenosine, she was hypotensive at that time. Patient was started on amiodarone 200 mg BID following cath, continue post op. follow QTc
- continue post op care
- will also need follow up echo as OP at 3 month christiano to reeval EF
- d/w nursing. d/w daughter at bedside. 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
Progress Note - Ssrs Report Developer
Subjective
Date of Service: February 13, 2025
reports feeling as though she cannot swallow.
Objective
Labs:
Labs
Hgb 9.2 g/dL (12.0-16.0) L 02/13/25 03:12
Hct 26.1 % (37.0-47.0) L 02/13/25 03:12
Plt Count 152 10^3/uL (130-400) 02/13/25 03:12
PT 17.4 Sec (11.4-14.6) H 02/13/25 06:20
PT Cancelled 02/13/25 06:20
INR 1.37 02/13/25 06:20
INR Cancelled 02/13/25 06:20
APTT 33.6 Sec (23.4-35.0) 02/13/25 06:20
Sodium 139 mmol/L (135-145) 02/13/25 03:12
Potassium 4.9 mmol/L (3.5-5.1) D 02/13/25 03:12
BUN 41 mg/dl (7-17) H 02/13/25 03:12
Creatinine 1.3 mg/dL (0.6-1.0) H 02/13/25 03:12
Glucose 88 mg/dl (70-99) 02/13/25 03:12
Vital Signs and I&O:
Vital Signs
Temp Pulse Resp BP Pulse Ox
98.4 F 97 19 73/65 92
02/13/25 08:00 02/13/25 08:58 02/13/25 08:00 02/13/25 08:58 02/13/25 08:35
Vital Signs
Temp Pulse Resp BP Pulse Ox
98.4 F 97 19 73/65 92
02/13/25 08:00 02/13/25 08:58 02/13/25 08:00 02/13/25 08:58 02/13/25 08:35
Intake & Output
02/11/25 02/12/25 02/13/25 02/14/25
07:59 07:59 07:59 07:59
Intake Total 360 / 360 1250.1 / 1250.1 2916.2 / 2975.3 59.1 / 59.1
Output Total 1025 / 1025 1130 / 1180 50 / 50
Balance 360 / 360 225.1 / 225.1 1786.2 / 1795.3 9.1 / 9.1
Physical Exam
Physical Exam
GEN: No distress, awake but lethargic, oriented x3. Frail. On supplemental oxygen
HEENT: supple, anicteric, mmm
LUNGS: CTA bilaterally, no wheezes/rales
CV: Reg, S1/S2, no murmur, + rub
ABD: soft, BS+, NT/ND
EXT: No cyanosis, clubbing, edema
NEURO: Gross non-focal
SKIN: Warm, pink, dry. No rash. Sternotomy incision c/d/i. CTs in place. cordis in place.
[2025-02-13 10:04] LABS: Glucose - Point of Care 97 mg/dl (70-99)
--- NOTE | 2025-02-13 10:13 | PTCARENOTE ---
L femoral arterial line d/c'd by VERA, hemostasis achieved. Patient repositioned. VERA updated to hemodynamics.
[2025-02-13] MEDS: MYLICON 80 MG PO (10:17)
[2025-02-13] MEDS: NOVOLIN R INSULIN INFUSION 100 IV (10:17)
[2025-02-13] MEDS: LASIX 40 MG IV (10:17)
[2025-02-13] MEDS: DOBUTREX 500 MG 250 IV (11:24)
--- NOTE | 2025-02-13 12:00 | CM ---
Reviewed chart. Briefly met with Mrs. Estevez to review discharge plans. Case Management with continue to follow to assist with any discharge planning needs. Will need to see her fuctional level when ready to see if she will have any skilled care.
If she need any inpatient rehab. she will need pre-cert with her insurance. Prior to admission she resides with her spouse in a two a She has story home without any steps to enter. She has eleven steps to the second floor. Prior to admission she
was independent with ambulation and adls. She has a prescription plan and uses [facility]. Medical work-up in progress. The discharge plan is undetermined at this time. Home with spouse and home visit by the Transitional Care Nurse verses
some level of inpatient rehab. when medically stable.
[2025-02-13 12:02] LABS: Glucose - Point of Care 97 mg/dl (70-99)
[2025-02-13] MEDS: ROXICODONE 2.5 MG PO ×2 (12:05→18:12)
--- NOTE | 2025-02-13 12:15 | PTCARENOTE ---
VERA, Surgeon updated to hemodynamics. Assessment stable. Family at bedside. Impella remains at P7.
[2025-02-13] MEDS: REGLAN 5 MG IV ×2 (12:18→18:12)
[2025-02-13] MEDS: NSS 500 IV (12:18)
[2025-02-13 13:14] LABS: Hematocrit 23.6 % (37.0-47.0); Hemoglobin 8.0 g/dL (12.0-16.0); Mean Corp Hgb Conc. 33.9 g/dL (33.0-37.0); Mean Corpuscular Volume 85.5 fL (81.0-99.0); Red Cell Dist. Width 15.7 % (11.5-14.5)
[2025-02-13 13:21] LABS: Blood Urea Nitrogen 42 mg/dl (7-17); Calcium 8.4 mg/dl (8.4-10.2); Carbon Dioxide 28 mmol/L (22-30); Chloride 102 mmol/L (98-107); Estimated Creatinine Clearance 19 ml/min; Glucose 92 mg/dl (70-99); LDH 440 U/L (120-246); Potassium 4.8 mmol/L (3.5-5.1); Sodium 137 mmol/L (135-145); eGFR 34.36
[2025-02-13 13:38] LABS: Platelet Count 111 10^3/uL (130-400)
[2025-02-13] MEDS: SODIUM BICARBONATE 1025 MEQ INF CATH (13:59)
[2025-02-13 14:01] LABS: Glucose - Point of Care 120 mg/dl (70-99)
[2025-02-13] MEDS: TYLENOL 975 MG PO (14:34)
--- NOTE | 2025-02-13 14:34 | PTCARENOTE ---
Dr. Cochran to bedside, updated to hemodynamics. Repeat echo performed. Impella decreased to P5 by surgeon.
--- NOTE | 2025-02-13 14:47 | W.PN.INTV ---
Today's Communication / Plan
Recommendations
Continue hemodynamic support
Wean down vasopressors as able
Follow hemoglobin and transfuse as necessary.
Impella device in place
Daily chest x-ray
Follow hemoglobin
Analgesia as able
Incentive spirometry
Assessment
-
Status post: Dr. Cochran 02/12/2025-coronary artery bypass grafting x 3 [initially the ADAMS was grafted to a very atretic LAD that required patch repair, ultimately there was significant hemorrhaging from here and I opted to ligate the ADAMS and perform
a vein patch repair of the RV/anastomosis, Ao to RSVG to OM 1, RSVG off of the rdz of OM1 to a large diagonal vessel, Ao to RSVG to mid to distal RCA]
Chordal sparing mitral valve replacement
Impella LVAD placement
Postoperative mechanical ventilation
dental abscess--OMFS s/p 2 teeth removal-this admission
Conditions present prior admission:
Scoliosis
Chronic anemia
History of coronary artery disease
Moderate MR
History of SVT
Hypertension
Uterine cancer status post hysterectomy
Hyperlipidemia
Osteoporosis
History of polymyalgia rheumatica/giant cell arteritis
Recent skin cancer status post right leg Mohs surgery with Dr. Noguera
Cervical radiculopathy
Assessment and plan:
Postoperative day 1
Extubated to mid flow oxygen
Encourage incentive spirometry
Increase activity per protocol-when able.
-
Anemia noted-no evidence of acute bleeding
Transfuse as necessary
Follow H&H serially
Hemodynamics -remains on multiple vasoactive drugs-dobutamine/epinephrine.
Impella support in place
PA catheter in place will follow hemodynamics.
Echocardiogram to be repeated
Follow urinary output-Coulter in place
Follow renal function
Nephrology following as well
Continue hemodynamic support
Chest tube with no excessive drainage-no air leak.
Chest x-ray reviewed: With no pneumothorax or fluid collections.
Advance diet as able
Head of the bed elevation
Glycemic control per protocol
DVT prophylaxis when safe from the surgical perspective.
Critical care statement: A total of 31��minutes of critical care time was provided for this patient today. This includes management of unstable vital signs, evaluation of the patient at bedside, reviewing the patient�s pertinent medical records
including ventilator settings, arterial blood gases, radiographs, microbiology, laboratory evaluations and��discussion with primary team, critical care nursing, and respiratory therapy.
Subjective Dataa
Subjective Data
Date of Service:
Date of Service: February 13, 2025
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
Subjective:
Extubated to mid flow
Pain is relatively controlled
Remains on multiple vasoactive drug
Objective Data
Data Reviewed
Vital Signs / I&O / Oxygen:
Vital Signs
Temp Pulse Resp BP Pulse Ox
98.5 F 96 17 75/68 96
02/13/25 14:00 02/13/25 14:05 02/13/25 14:05 02/13/25 10:17 02/13/25 14:05
Intake and Output
02/12/25 02/13/25 02/14/25
06:59 06:59 06:59
Intake Total 1250.1 / 1250.1 2878.0 / 2916.2 932.1 / 932.1
Output Total 1025 / 1025 1090 / 1130 325 / 325
Balance 225.1 / 225.1 1788.0 / 1786.2 607.1 / 607.1
SaO2 [CPAP/PSV] 97
SaO2 [SIMV] 96
SaO2 96
Nasal Cannula flow liters per 4
minute
Physical Exam
General: Comfortable
HEENT: Normocephalic
Cardiovascular: S1-S2
Respiratory: Clear and Chest Tube (No excessive drainage, no air leak)
GI: Soft and Non Distended
Neurology: Awake
Skin: Warm
Labs/Micro/Reports
Laboratory Results
02/12/25 02/12/25 02/12/25
14:22 17:57 19:04
PT 23.3 H
INR 2.02
APTT 48.1 H
pH 7.28 L 7.38 7.39
pCO2 51 H 47 H 44 H
pO2 150 H 125 H 87
HCO3 24.0 27.8 26.6
O2 Delivery Level vent/40%
02/13/25 02/13/25 02/13/25
06:20 06:20 06:20
PT 17.4 H Cancelled
INR 1.37 Cancelled
APTT 33.6
pH
pCO2
pO2
HCO3
O2 Delivery Level
[2025-02-13] MEDS: PITRESSIN 100 IV (14:53)
[2025-02-13] MEDS: HEPARIN 25000 UNITS/250 ML IV (15:47)
[2025-02-13 16:03] LABS: Glucose - Point of Care 94 mg/dl (70-99)
[2025-02-13] MEDS: NEURONTIN PO ×2 (16:17→20:15)
[2025-02-13] MEDS: BUMEX 100 IV (16:17)
[2025-02-13] MEDS: OASIS 2 SPRAY PO (16:34)
[2025-02-13] MEDS: SOLU-CORTEF 150 MG IV (17:13)
[2025-02-13 18:02] LABS: Glucose - Point of Care 97 mg/dl (70-99)
[2025-02-13 18:09] LABS: B.E. -1.2 mmol/L; HCO3 25.2 mmol/L (21-28); O2 Saturation % 99.5 % (94-98); PCO2 49 mmHg (32-35); PO2 132 mmHg (83-108); Potassium 4.7 mMOL/L (3.5-5.1); Sodium 134 mMOL/L (136-145)
[2025-02-13] MEDS: LIPITOR 20 MG PO (18:12)
[2025-02-13 18:26] LABS: Hematocrit 27.5 % (37.0-47.0); Hemoglobin 9.4 g/dL (12.0-16.0); Mean Corp Hgb Conc. 34.2 g/dL (33.0-37.0); Mean Corpuscular Volume 85.7 fL (81.0-99.0); Platelet Count 109 10^3/uL (130-400); Red Cell Dist. Width 15.3 % (11.5-14.5)
[2025-02-13] MEDS: CALCIUM GLUCONATE 100 IV (18:32)
[2025-02-13 18:34] LABS: Blood Urea Nitrogen 42 mg/dl (7-17); Calcium 8.4 mg/dl (8.4-10.2); Carbon Dioxide 26 mmol/L (22-30); Chloride 101 mmol/L (98-107); Estimated Creatinine Clearance 16 ml/min; Glucose 86 mg/dl (70-99); LDH 417 U/L (120-246); Potassium 4.8 mmol/L (3.5-5.1); Sodium 136 mmol/L (135-145); eGFR 27.61
--- NOTE | 2025-02-13 19:00 | PTCARENOTE ---
Assumed care of patient @ 1900. recieved pt laying in bed
Neuro-Aox3. Pupils equal round and reactive, moves all extremeties. Very anxious, c/o dry mouth. ice chips and mouth care provided.
CV- St in the low 100s, BP very low, map goal >50. currently 60, BPs 70s/50s, whole team is aware of low BP, hold off on levo per Dr. Cochran. CVP ~ 10, PAPs 30s/20s. Cardiac index is ~ 1.3, team aware. Pulses found on doppler, very weak but legs and
feet are warm and well perfused. AV wires are insulated. 5.5 impella is present through ascending aorta and right neck on p6 with good placement and motor signals, no alarms.
Lungs- Lungs are diminished throughout with scattered rhonci. ABG showed respiratory acidocis so pt was started on NIPV shortly before shift change. satting mid 90s on mask. 4 chest tubes are present to wall suction draining serosang fluid, no air
leak, tidaling or crepitus noted.
GI- Poor appetite reportedly. BS are present but hypoactive.
- Temp sensing bustamante draining low amounts of clear yellow urine. CT team is aware of UO trending down
Skin- Sternum is DIRECTOR OF VIDEO ANALYTICS and aproximated with surgical glue. B/L knees and groin sites are CDI and DIRECTOR OF VIDEO ANALYTICS.
Lines- R IJ cordis with [place], L radial a line, PIV x2 all patent. central lines zeroed, flushed.
Meds-Recieved on 4 of epi, 5 dobut, heparin at 500, insulin per protocol. precedex started to help anxiety and to help tolerate mask
[2025-02-13] MEDS: PRECEDEX 100 IV (19:37)
[2025-02-13 19:54] LABS: Glucose - Point of Care 90 mg/dl (70-99)
[2025-02-13] MEDS: SENOKOT PO (20:14)
[2025-02-13] MEDS: REMOVE LIDOCAINE PATCH REMOVE (20:15)
[2025-02-13 21:02] LABS: B.E. -1.6 mmol/L; HCO3 24.7 mmol/L (21-28); O2 Saturation % 97.8 % (94-98); PCO2 48 mmHg (32-35); PO2 83 mmHg (83-108); Potassium 4.6 mMOL/L (3.5-5.1); Sodium 134 mMOL/L (136-145)
[2025-02-13 21:14] LABS: INR 2.61; PT 27.9 Sec (11.4-14.6)
[2025-02-13 21:15] LABS: APTT 90.8 Sec (23.4-35.0)
--- NOTE | 2025-02-13 21:30 | PTCARENOTE ---
1 unit of platelets hanging per order
[2025-02-13 21:58] LABS: ALT (SGPT) 18 U/L (0-35); AST (SGOT) 90 U/L (14-36); Albumin 3.7 g/dl (3.5-5.0); Alkaline Phosphatase 57 U/L (38-126); Total Protein 5.4 g/dl (6.3-8.2)
[2025-02-13 22:35] LABS: Glucose - Point of Care 107 mg/dl (70-99)
[2025-02-13 23:16] LABS: B.E. -2.9 mmol/L; HCO3 22.7 mmol/L (21-28); O2 Saturation % 99.4 % (94-98); PCO2 42 mmHg (32-35); PO2 102 mmHg (83-108)
[2025-02-13] MEDS: OASIS 1 SPRAY PO (23:18)
--- NOTE | 2025-02-13 23:39 | PTCARENOTE ---
Addendum entered by Franck Felton RN 02/13/25 23:40:
1st unit of FFP also hanging
Original Note:
pt having trouble tolerating mask even with precedex infusion. Pt took break from mask for ~ 45 minutes, ABG rechecked and gas looks good. OK to keep mask off for now per CTPA and to recheck ABG.
[2025-02-14] VITALS (7 sets, daily range): BP systolic 61–95; BP diastolic 48–66; PULSE 2–105; BMI 24.4
--- NOTE | 2025-02-14 | PTCARENOTE ---
pt with >100 out from pleural chest tubes in one hour, CTPA notified. Drainage is very thin watery serosang, possibly diuresing from chest tubes per ctpa. will monitor
[2025-02-14 00:09] LABS: Glucose - Point of Care 106 mg/dl (70-99)
[2025-02-14] MEDS: FLEXBUMIN 100 IV (00:17)
[2025-02-14] MEDS: SOLU-CORTEF 50 MG IV ×4 (00:17→23:48)
[2025-02-14] MEDS: REGLAN 5 MG IV ×4 (00:17→17:50)
--- NOTE | 2025-02-14 00:45 | PTCARENOTE ---
2nd unit of FFP hanging
[2025-02-14 00:58] LABS: B.E. -1.5 mmol/L; HCO3 23.7 mmol/L (21-28); O2 Saturation % 100.0 % (94-98); PCO2 41 mmHg (32-35); PO2 175 mmHg (83-108); Potassium 4.7 mMOL/L (3.5-5.1)
[2025-02-14] MEDS: CALCIUM GLUCONATE 100 IV ×2 (01:13→21:42)
[2025-02-14 01:48] LABS: Hematocrit 24.7 % (37.0-47.0); Hemoglobin 8.5 g/dL (12.0-16.0); Mean Corp Hgb Conc. 34.4 g/dL (33.0-37.0); Mean Corpuscular Volume 84.9 fL (81.0-99.0); Platelet Count 122 10^3/uL (130-400); Red Cell Dist. Width 15.7 % (11.5-14.5)
[2025-02-14 02:02] LABS: INR 1.65; PT 19.7 Sec (11.4-14.6)
[2025-02-14 02:02] LABS: Glucose - Point of Care 90 mg/dl (70-99)
[2025-02-14 02:03] LABS: APTT 52.8 Sec (23.4-35.0)
[2025-02-14 02:08] LABS: Blood Urea Nitrogen 44 mg/dl (7-17); Calcium 9.5 mg/dl (8.4-10.2); Carbon Dioxide 27 mmol/L (22-30); Chloride 101 mmol/L (98-107); Estimated Creatinine Clearance 15 ml/min; Glucose 91 mg/dl (70-99); LDH 406 U/L (120-246); Potassium 4.4 mmol/L (3.5-5.1); Sodium 139 mmol/L (135-145); eGFR 25.88
[2025-02-14] MEDS: OFIRMEV 100 IV (03:05)
[2025-02-14] MEDS: BUMEX 100 IV (03:18)
[2025-02-14] MEDS: VENTOLIN NEBULES 2.5 MG INH ×2 (03:41→14:21)
[2025-02-14] MEDS: MUCOMYST 20% 2 ML INH ×2 (03:41→14:21)
--- NOTE | 2025-02-14 03:50 | PTCARENOTE ---
pt with increased work of breathing, lungs with loud rhonci all throughout. pt c/o not being able to breathe. CTPA at bedside, RT texted to come provide treatment. RR >40 and pt is becoming more tachycardic. 02 sat remains 99-100
[2025-02-14 04:09] LABS: B.E. -1.5 mmol/L; HCO3 23.7 mmol/L (21-28); O2 Saturation % 99.8 % (94-98); PCO2 41 mmHg (32-35); PO2 180 mmHg (83-108); Potassium 4.2 mMOL/L (3.5-5.1)
[2025-02-14 04:14] LABS: Glucose - Point of Care 88 mg/dl (70-99)
[2025-02-14] MEDS: DILAUDID 0.25 MG IV (04:54)
[2025-02-14] MEDS: ZOFRAN 4 MG IV (04:57)
--- NOTE | 2025-02-14 05:11 | PTCARENOTE ---
pt still c/o not being able to breathe, moist cough not able to bring anything up. decision made to place patient back on BIPAP 02/08, pt agreeable but anxious, Dilaudid given pre to help with anxiety about mask and severe back pain.
[2025-02-14 06:17] LABS: Glucose - Point of Care 99 mg/dl (70-99)
[2025-02-14 06:33] LABS: B.E. -2.9 mmol/L; HCO3 23.6 mmol/L (21-28); O2 Saturation % 98.9 % (94-98); PCO2 48 mmHg (32-35); PO2 105 mmHg (83-108); Potassium 4.6 mMOL/L (3.5-5.1); Sodium 134 mMOL/L (136-145)
[2025-02-14 06:38] LABS: Hematocrit 26.3 % (37.0-47.0); Hemoglobin 8.8 g/dL (12.0-16.0); Mean Corp Hgb Conc. 33.5 g/dL (33.0-37.0); Mean Corpuscular Volume 86.8 fL (81.0-99.0); Platelet Count 128 10^3/uL (130-400); Red Cell Dist. Width 15.9 % (11.5-14.5)
[2025-02-14 06:41] LABS: INR 1.97; PT 22.6 Sec (11.4-14.6)
[2025-02-14 06:42] LABS: APTT 64.1 Sec (23.4-35.0)
[2025-02-14 06:44] LABS: D-Dimer 0.50 ug/mlFEU (0.00-0.50)
[2025-02-14 07:03] LABS: ALT (SGPT) 24 U/L (0-35); AST (SGOT) 101 U/L (14-36); Albumin 3.9 g/dl (3.5-5.0); Alkaline Phosphatase 72 U/L (38-126); Blood Urea Nitrogen 46 mg/dl (7-17); Calcium 9.5 mg/dl (8.4-10.2); Carbon Dioxide 25 mmol/L (22-30); Chloride 101 mmol/L (98-107); Estimated Creatinine Clearance 13 ml/min; Glucose 88 mg/dl (70-99); LDH 403 U/L (120-246); Magnesium 2.9 mg/dl (1.6-2.3); Potassium 4.8 mmol/L (3.5-5.1); Sodium 137 mmol/L (135-145); Total Protein 5.7 g/dl (6.3-8.2); eGFR 21.70
[2025-02-14] MEDS: TYLENOL PO ×2 (07:32→22:09)
[2025-02-14] MEDS: PACERONE 200 MG PO ×2 (08:39→16:49)
[2025-02-14] MEDS: ROBITUSSIN 100 MG PO ×3 (08:39→17:50)
[2025-02-14] MEDS: NEURONTIN 100 MG PO (08:39)
[2025-02-14] MEDS: PLAVIX 75 MG PO (08:39)
[2025-02-14] MEDS: LOW STRENGTH ASPIRIN 81 MG PO (08:39)
[2025-02-14] MEDS: PROTONIX 40 MG PO (08:39)
[2025-02-14] MEDS: FEOSOL PO (08:40)
[2025-02-14] MEDS: MIRALAX TUBE (08:40)
[2025-02-14] MEDS: LIDOCAINE 4% PATCH 1 PATCH TOPICAL (08:40)
[2025-02-14] MEDS: BACTROBAN 2% OINTMENT 1 APPLIC NASAL ×2 (08:40→20:39)
[2025-02-14] MEDS: VITAMIN C PO (08:41)
[2025-02-14] MEDS: THERAGRAN PO (08:41)
[2025-02-14] MEDS: SENOKOT PO ×2 (08:41→21:02)
[2025-02-14] MEDS: OSCAL 500 + D PO (08:41)
[2025-02-14] MEDS: OASIS 1 SPRAY PO ×2 (08:41→16:49)
--- NOTE | 2025-02-14 08:43 | W.PN.CARDCBS ---
Today's Communication / Plan
-
Remains critically ill and volume overloaded with creatinine rising
Agree with increasing BiPAP and continuing diuresis
Wean Impella, pressors as tolerated
Impression / Plan
-
PCP: Dr. Souza
Primary Education Program Associate: Dr. Merly Herrera
Impression:
Presentation with L chest/shoulder pain 02/05/25
Acute HFrEF
CAD
s/p cath with occluded LAD and collaterals 2011
MV CAD with chronically occluded LAD from angiogram in 2011 and new high-grade mid RCA and OM1 stenosis by cardiac cath 02/06/25
ICM EF 25-30% by echo 02/05/25
Severe MR by echo 02/05/25
SVT treated with adenosine at time of cardiac cath 02/06/2025
Scoliosis
Hypertension
Hyperlipidemia
Giant cell arteritis
Squamous cell of RLE
Osteoporosis
Resting sinus tachycardia
PMR
Hyperglycemia and prediabetes
Dental extractions x2 02/09/25
ECHO 09/28/2022: EF 55%, mild hypokinesis of apical septum, apical inferior segment, and apex, grade 1 diastolic dysfunction, mild to moderate MR, mild AR, mild TR, PAP 35 to 40 mmHg
Echo 02/05/2025: Global hypokinesis, EF 25-30%, severe hypokinesis in the anteroseptal, anterior, apical and inferolateral segments, severe MR, pulmonary artery systolic pressure 59 mmHg, severe TR, dilated atria
Limited echo 02/13/2025: Normal LV size, Impella present, EF 20-25% by visual estimation, normal RV size and function, no pericardial effusion.
VIOLA Feb 09 2025: SUMMARY
1. Moderate to severely reduced left ventricular systolic function with estimated ejection fraction of 30 to 35%.
2. Global hypokinesis with more prominent apical, anterior, anteroseptal and septal hypokinesis.
3. Moderate mitral regurgitation.
4. Mild to moderate tricuspid regurgitation.
5. Mild aortic regurgitation.
Plan:
- Presented with dyspnea on exertion and elevated troponin (peak 2.3) with echocardiogram that showed newly reduced EF and severe MR. Cardiac catheterization showed multivessel CAD and underwent VIOLA with moderate MR
- She underwent difficult case including CABG x 3 with attempted ADAMS graft requiring patch repair with significant hemorrhage status post ligation and vein patch repair, ao to RSVG to OM1, RSVG off of the rdz of OM1 to large diagonal, AO to RSVG
to mid to distal RCA, chordal sparing bioprosthetic MVR, AXEL clip 02/12/2025
- BiPAP overnight and intermittently through the day, wean supplemental oxygen as able
- Remains critically ill on Impella 5.5 at P6
- on dobut@5, epi@3, insulin@0.5
- Hemoglobin 9.2 on 02/13, stable at 8.8 today 02/14/2025. Status post 5 units packed red blood cells, 3 platelets, 3 FFP thus far. eventual asa, plavix given NSTEMI presentation
- was on toprol 25mg BID and lisinopril 20mg daily prior to admission, resume post op as able. consider addition of SGLT2 and aldactone as able given ICM.
- LDL 62. continue lipitor
- HgbA1c 6.1% consistent with prediabetes
- of note, patient developed SVT at time of cardiac cath and required adenosine, she was hypotensive at that time. Patient was started on amiodarone 200 mg BID following cath, continue post op. follow QTc
- continue post op care
- will also need follow up echo as OP at 3 month christiano to reeval EF
- d/w nursing. d/w CT surgical ETYMOLOGY PROFESSOR
Progress Note - Education Program Associate
Subjective
Date of Service: February 14, 2025
Patient seen and examined this morning. Placed on BiPAP overnight. Reports shortness of breath. Denies chest pain, palpitations, weakness. Telemetry shows sinus rhythm/sinus tachycardia.
Objective
Labs:
02/14/25 06:08
02/14/25 06:08
Labs
Hgb 8.8 g/dL (12.0-16.0) L 02/14/25 06:08
Hct 26.3 % (37.0-47.0) L 02/14/25 06:08
Plt Count 128 10^3/uL (130-400) L 02/14/25 06:08
PT 22.6 Sec (11.4-14.6) H 02/14/25 06:08
INR 1.97 02/14/25 06:08
APTT 64.1 Sec (23.4-35.0) H 02/14/25 06:08
Sodium 137 mmol/L (135-145) 02/14/25 06:08
Potassium 4.8 mmol/L (3.5-5.1) 02/14/25 06:08
BUN 46 mg/dl (7-17) H 02/14/25 06:08
Creatinine 2.2 mg/dL (0.6-1.0) H 02/14/25 06:08
Glucose 88 mg/dl (70-99) 02/14/25 06:08
Vital Signs and I&O:
Vital Signs
Temp Pulse Resp BP Pulse Ox
100.5 F H 116 33 66/59 96
02/14/25 07:00 02/14/25 07:15 02/14/25 07:15 02/13/25 21:16 02/14/25 07:15
Vital Signs
Temp Pulse Resp BP Pulse Ox
100.5 F H 116 33 66/59 96
02/14/25 07:00 02/14/25 07:15 02/14/25 07:15 02/13/25 21:16 02/14/25 07:15
Intake & Output
02/12/25 02/13/25 02/14/25 02/15/25
06:59 06:59 06:59 06:59
Intake Total 1250.1 / 1250.1 2878.0 / 2916.2 2640.1 / 2694.4 54.3 / 54.3
Output Total 1025 / 1025 1090 / 1130 1480 / 1490 10
Balance 225.1 / 225.1 1788.0 / 1786.2 1160.1 / 1204.4 44.3 / 44.3
Physical Exam
Physical Exam
GEN: No distress, awake but lethargic, oriented x3. Frail, ill-appearing. On supplemental oxygen
HEENT: supple, anicteric, mmm
LUNGS: Bilateral rales, rhonchi
CV: Reg, S1/S2, no murmur, + rub
ABD: soft, BS+, NT/ND
EXT: No cyanosis, clubbing; trace lower extremity edema, right lower extremity ulceration
NEURO: Gross non-focal
SKIN: Warm, pink, dry. No rash. Sternotomy incision c/d/i. CTs in place. cordis in place.
[2025-02-14 08:44] LABS: Glucose - Point of Care 101 mg/dl (70-99)
--- NOTE | 2025-02-14 09:06 | W.PN.CT ---
Today's Communication / Plan
-
-pod #2
-mVO2 64.3. Drips: Epi 4, Dobut 5, Heparin 400 u/hr, Bumex 2, Precedex 0.1-0.3, Insulin
-CT outputs: 2 meds 105/230, 2 pleur 730/910 (serosang.) in 12/24 hrs
-c/o of difficulty breathing, although, O2 sat was 99-100 on ABG overnight
-tried Mucomyst with acapella, IS, chest PT for thick secretions. Difficulty to clear secretions d/t pain/frailty. Will need percussion chest PT. Started Robitussin qid
-difficulty tolerating CPAP or biPAP mask d/t claustrophobia, required Precedex
-remains hypotensive, on Impella support
-2FFPs and 1 platelet overnight for coagulopathy/thrombocytopenia
-Cr is trending up - 2.2 today (1.5-1.8 on 02/13, 1.5 preop). Nephrology following
-no significant response to Bumex drip overnight - UO 145/340 in 12/24 hrs
-per Dr. Cochran, pw will need to be cut at discharge
-appreciate everyone's input
-continue IS, acapella, chest PT
Assessment / Plan
-
S/P coronary artery bypass grafting x 3 [initially the ADAMS was grafted to a very atretic LAD that required patch repair, ultimately there was significant hemorrhaging from here and I opted to ligate the ADAMS and perform a vein patch repair of the
RV/anastomosis, Ao to RSVG to OM 1, RSVG off of the rdz of OM1 to a large diagonal vessel, Ao to RSVG to mid to distal RCA], Chordal sparing mitral valve replacement, Impella LVAD placement by Dr. Cochran on 02/12/25, pod #2
PMH:�
ICM EF 25-30%,�
Scoliosis
Chronic anemia
CAD
Severe�MR
Hx�of SVT
HTN
Uterine cancer status hysterectomy�
Hyperlipidemia�
Osteoporosis�
Hx�of�polymyalgia�rheumatica/giant cell arteritis�skin cancer�(right leg Mohs surgery)�
Cervical radiculopathy�
Acute postop blood loss anemia
CARLO on CKD
Acute postop coagulopathy/thrombocytopenia
Acute postop atelectasis/ pulmonary insufficiency
Acute postop hypovolemia with subsequent hypervolemia
Acute postop cardiogenic shock, requiring Impella and inotropic support
Discussed patient care with: Nursing and Care Team
Subjective
-
Date of Service: February 14, 2025
Objective Data
-
Lab Results
02/14/25 06:08
02/14/25 06:08
PT 22.6 Sec (11.4-14.6) H 02/14/25 06:08
INR 1.97 02/14/25 06:08
APTT 64.1 Sec (23.4-35.0) H 02/14/25 06:08
Vital Signs
Vital Signs
Temp Pulse Resp BP Pulse Ox
99.9 F 104 25 66/59 95
02/14/25 08:00 02/14/25 08:45 02/14/25 08:45 02/13/25 21:16 02/14/25 08:45
CT Intake/Output/Weight
02/13/25 02/14/25 02/14/25
18:59 06:59 18:59
Intake Total 1206.3 / 2694.4 1433.8 / 2694.4 148.8 / 148.8
Output Total 500 / 1490 980 / 1490 45 / 45
Balance 706.3 / 1204.4 453.8 / 1204.4 103.8 / 103.8
SaO2: 95
Physical Exam
-
General: Awake and AOx3
Cardiovascular: Regular rate & rhythm, No Murmurs and No Rub
Respiratory: Decreased Breath Sounds
Sternum: Stable
Incision: Clean, Dry and Intact
Extremities: Edema +1 (DPs by Doppler) and Other
Abdomen: soft, decreased bowel sounds
Data Reviewed
-
Lab Results: Results Reviewed
Medications: Active Meds Reviewed
Chest X-Ray: Report Reviewed and Image Reviewed
ECG: Report Reviewed and Image Reviewed
--- NOTE | 2025-02-14 09:16 | PTCARENOTE ---
assumed care of pt from previous shift RN, sinus tachycardia on tele w HR 102, epicardial pacing wire insulated, lungs course throughout, pox 94% on 4L midflow. Pt transitioned to bipap 12/5/6L, pox 95%, RR 18-22. Left radial arleen leveled and
zeroed, BP 73/59. Right IJ cordis w swan floated to 40, CO/CI 2.95/ 1.56, CVP 21, PAP 36/22. CT x4 w minimal amount of drainage, bustamante draining minimal amount of yellow. PIV x2 to right arm. CT dressing changed, right leg dressing changed. Foam
placed on sacrum, MSI approximated w surgical glue intact. Bustamante care, mouth care and CHG bath completed. Pt tolerated turning from side to side with max assist. Plan of care reviewed w the pt and questions encouraged.
--- NOTE | 2025-02-14 09:59 | W.PN.NEPH.PH ---
Today's Communication / Plan
-
CRRT
Assessment/Plan
-
IMP:
CARLO
Acute HFrEF, new onset
CAD multiple vessel disease
s/p Coronary artery bypass grafting x 3 [initially the ADAMS was grafted to a very atretic LAD that required patch repair, ultimately there was significant hemorrhaging from here and ligate the ADAMS s/p a vein patch repair of the RV/anastomosis 02/12
dental abscess--OMFS s/p 2 teeth removal
recent skin cancer surgery right leg (Moh's with Dr. Noguera)
SVT--Symptomatic during [facility]-- on amiodarone
Moderate MR by VIOLA 02/09/2025 and severe MR by echo 02/05/25
Cervical radiculopathy
Anemia of chronic disease
Essential hypertension
Severe scoliosis
Uterine cancer status post hysterectomy
Hyperlipidemia
Osteoporosis
History of polymyalgia rheumatica/giant cell arteritis
mild hyponatremia
Echo 02/05/2025: Global hypokinesis, EF 25-30%, severe hypokinesis in the anteroseptal, anterior, apical and inferolateral segments, severe MR, pulmonary artery systolic pressure 59 mmHg, severe TR, dilated atria
Plan:
follow BMP trend
wean pressors as allowed
dobutamine per cardiology
maintain bustamante
d/w daughter Fede (RN, ). Pt will need CRRT at this time. She understands and agrees with starting CRRT. She says she is trying to decide how much should be pursued and is worried about undue suffering her mother may have to endure with
this complicated course.
critical care time 50 minutes
-
-
Date of Service: February 14, 2025
CC / HPI / ROS
-
Chief Complaint:
CARLO
History of Present Illness:
Cr up at 2.2
critically ill in CVICU, on pressors, slightly higher Epi dose
remains on Impella support
remains on dobutamine
oligoanuric despite bumex gtt 2mg/hr
legs wrapped
Review of Systems:
no CP/SOB
Labs
-
Labs:
WBC 9.4 10^3/uL (4.8-10.8) 02/14/25 06:08
RBC 3.03 10^6/uL (4.20-5.40) L 02/14/25 06:08
Hgb 8.8 g/dL (12.0-16.0) L 02/14/25 06:08
Hct 26.3 % (37.0-47.0) L 02/14/25 06:08
Plt Count 128 10^3/uL (130-400) L 02/14/25 06:08
Sodium 137 mmol/L (135-145) 02/14/25 06:08
Potassium 4.8 mmol/L (3.5-5.1) 02/14/25 06:08
Chloride 101 mmol/L (98-107) 02/14/25 06:08
Carbon Dioxide 25 mmol/L (22-30) 02/14/25 06:08
BUN 46 mg/dl (7-17) H 02/14/25 06:08
Creatinine 2.2 mg/dL (0.6-1.0) H 02/14/25 06:08
eGFR 21.70 02/14/25 06:08
Glucose 88 mg/dl (70-99) 02/14/25 06:08
Calcium 9.5 mg/dl (8.4-10.2) 02/14/25 06:08
Dos-E-Ioircphfoul Pept Cancelled 02/05/25 10:39
Albumin 3.9 g/dl (3.5-5.0) 02/14/25 06:08
Physical Exam
-
Vital Signs:
Vital Signs
Temp Pulse Resp BP Pulse Ox
99.8 F 105 23 66/59 95
02/14/25 09:00 02/14/25 09:04 02/14/25 09:04 02/13/25 21:16 02/14/25 09:23
Cardiovascular:: Regular rate and rhythm
Respiratory:: Bilateral: Coarse
Lung Excursion:: Normal
Abdomen:: Nontender and Soft
Bowel Sounds:: Normal
Extremity Edema:: +2: Bilateral:
--- NOTE | 2025-02-14 10:27 | W.PN.INTV ---
Today's Communication / Plan
Recommendations
Continue hemodynamic support
Nephrology recommending CRRT- to be started.
Wean off dobutamine and epinephrine as able.
Follow H&H
Follow chest tube output
Assessment
-
Status post: Dr. Cochran 02/12/2025-coronary artery bypass grafting x 3 [initially the ADAMS was grafted to a very atretic LAD that required patch repair, ultimately there was significant hemorrhaging from here and I opted to ligate the ADAMS and perform
a vein patch repair of the RV/anastomosis, Ao to RSVG to OM 1, RSVG off of the rdz of OM1 to a large diagonal vessel, Ao to RSVG to mid to distal RCA]
Chordal sparing mitral valve replacement
Impella LVAD placement
Postoperative mechanical ventilation
dental abscess--OMFS s/p 2 teeth removal-this admission
Conditions present prior admission:
Scoliosis
Chronic anemia
History of coronary artery disease
Moderate MR
History of SVT
Hypertension
Uterine cancer status post hysterectomy
Hyperlipidemia
Osteoporosis
History of polymyalgia rheumatica/giant cell arteritis
Recent skin cancer status post right leg Mohs surgery with Dr. Noguera
Cervical radiculopathy
Assessment and plan:
Postoperative day 2
Fortunately, complicated course with worsening renal failure, increased work of breathing
Claustrophobic-unable to tolerate BiPAP
Chest x-ray:Reviewed, postoperative changes.
-
Overnight on Bumex drip without significant response-possible cardiorenal syndrome
Remains on dobutamine/epinephrine-continue hemodynamic support.
CRRT may be needed
-
Extubated to mid flow oxygen
Continues to report difficulty breathing
Okay to continue nebulizers as needed
Incentive spirometry
Acapella
-
Acute kidney injury:
Follow urinary output-Coulter in place
Follow renal function
Nephrology following as well-correspondence reviewed recommending CRRT. - to be started today 02/14/2025
Family thinking about the.
Continue hemodynamic support
-
Anemia noted-no evidence of acute bleeding
Transfuse as necessary
Follow H&H serially
Hemodynamics -remains on multiple vasoactive drugs-dobutamine/epinephrine-unable to wean.
Impella support in place
PA catheter in place will follow hemodynamics.
Echocardiogram: 02/13/2025 normal LVEF. Impella device in place. Ejection fraction 20 to 25%. Right ventricular size and function normal. No pericardial effusion
Chest tube with no excessive drainage-no air leak.
Chest x-ray reviewed: With no pneumothorax or fluid collections.
Advance diet as able
Head of the bed elevation
Glycemic control per protocol
Prognosis guarded
DVT prophylaxis when safe from the surgical perspective.
Critical care statement: A total of 32��minutes of critical care time was provided for this patient today. This includes management of unstable vital signs, evaluation of the patient at bedside, reviewing the patient�s pertinent medical records
including ventilator settings, arterial blood gases, radiographs, microbiology, laboratory evaluations and��discussion with primary team, critical care nursing, and respiratory therapy.
Subjective Dataa
Subjective Data
Date of Service:
Date of Service: February 14, 2025
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
Subjective:
Complaining of difficulty breathing
Overnight did not tolerate BiPAP due to claustrophobia
Remains hypoxemic
Patient feels uncomfortable
Review of Systems
Cardiopulmonary: Dyspnea and Dyspnea on Exertion
GI: Abdominal Pain (n) and Nausea (n)
Objective Data
Data Reviewed
Vital Signs / I&O / Oxygen:
Vital Signs
Temp Pulse Resp BP Pulse Ox
99.7 F 101 14 66/59 95
02/14/25 10:00 02/14/25 10:00 02/14/25 10:00 02/13/25 21:16 02/14/25 10:22
Intake and Output
02/13/25 02/14/25 02/15/25
06:59 06:59 06:59
Intake Total 2878.0 / 2916.2 2640.1 / 2694.4 286.1 / 286.1
Output Total 1090 / 1130 1480 / 1490 110 / 110
Balance 1788.0 / 1786.2 1160.1 / 1204.4 176.1 / 176.1
SaO2 [CPAP/PSV] 97
SaO2 [SIMV] 96
SaO2 95
Nasal Cannula flow liters per 2
minute
Physical Exam
General: Comfortable
HEENT: Normocephalic
Cardiovascular: S1-S2
Respiratory: Clear and Chest Tube (No excessive drainage, no air leak)
GI: Soft and Non Distended
Neurology: Awake and Alert
Skin: Warm
Labs/Micro/Reports
Lab Data
02/14/25 06:08
02/14/25 06:08
Laboratory Results
02/13/25 02/13/25 02/13/25
17:58 20:56 23:06
PT 27.9 H
INR 2.61
APTT 90.8 H
pH 7.32 L 7.32 L 7.34 L
pCO2 49 H 48 H 42 H
pO2 132 H 83 102
HCO3 25.2 24.7 22.7
O2 Delivery Level
02/14/25 02/14/25 02/14/25
00:00 00:49 01:36
PT 19.7 H
INR 1.65
APTT 52.8 H
pH Cancelled 7.37
pCO2 Cancelled 41 H
pO2 Cancelled 175 H
HCO3 Cancelled 23.7
O2 Delivery Level Cancelled
02/14/25 02/14/25
04:01 06:08
PT 22.6 H
INR 1.97
APTT 64.1 H
pH 7.37 7.30 L
pCO2 41 H 48 H
pO2 180 H 105
HCO3 23.7 23.6
O2 Delivery Level
--- NOTE | 2025-02-14 10:30 | PTCARENOTE ---
pt switched to sport bed, moved from 2264 to 2263 in preparation for CRRT.
[2025-02-14] MEDS: NITROGLYCERIN PREMIX 250 IV (11:00)
--- NOTE | 2025-02-14 11:13 | PTCARENOTE ---
nitro initiated as ordered. Dialysis catheter placed by CT VERA and .
[2025-02-14 11:18] LABS: Glucose - Point of Care 103 mg/dl (70-99)
[2025-02-14 12:41] LABS: B.E. 0 mmol/L; HCO3 25.4 mmol/L (21-28); O2 Saturation % 96.4 % (94-98); PCO2 44 mmHg (32-35); PO2 70 mmHg (83-108); Potassium 4.4 mMOL/L (3.5-5.1); Sodium 135 mMOL/L (136-145)
--- NOTE | 2025-02-14 12:42 | W.PN.UPDATE ---
Update Note
Progress Note Update
Central line insertion A time-out was completed verifying correct patient, procedure, site, patient positioning, and special equipment. Patient was monitored with continuous bedside EKG, blood pressure, pulse ox readings.
The patient was placed in a dependent position appropriate for central line placement based on the vein to be cannulated. The patient's right chest was prepped and draped in sterile fashion using chlorhexidine, maximum barrier precautions, sterile
gloves, Gown drapes and mask.
1% Lidocaine was used to anesthetize the surrounding skin area. Ultrasound was used in real time to localize vein and guide introducer needle. An introducer needle was placed into the left internal jugular vein using ultrasound guidance. A
guidewire was introduced without resistance. Under ultrasound guidance, confirmation of guidewire in vein was performed before dilation. Dilation was done over guidewire without complications. The 7 Kiswahili 15cm Trialysis catheter was then threaded
smoothly over the guide wire and into the central venous system. The guidewire was removed and appropriate blood return was obtained from each lumen. Each lumen of the catheter was evacuated of any remaining air and flushed freely with sterile
saline. The catheter was then secured with a stat lock to the skin and a sterile occlusive dressing with Biopatch applied. An upright chest film was obtained after the procedure to assess for complications of insertion.
Estimated blood loss: 0 mL
Patient tolerated procedure well. Remains in critical condition.
Pre-procedure diagnosis acute kidney failure
post procedure diagnosis acute kidney failure
CPT code 22152
[2025-02-14 12:44] LABS: O2 Therapy nasal cannula
[2025-02-14 12:47] LABS: APTT 40.1 Sec (23.4-35.0); INR 2.20; PT 24.6 Sec (11.4-14.6)
[2025-02-14 12:50] LABS: Hematocrit 24.7 % (37.0-47.0); Hemoglobin 8.6 g/dL (12.0-16.0); Mean Corp Hgb Conc. 34.8 g/dL (33.0-37.0); Mean Corpuscular Volume 86.4 fL (81.0-99.0); Platelet Count 108 10^3/uL (130-400); Red Cell Dist. Width 16.0 % (11.5-14.5)
[2025-02-14 12:53] LABS: Magnesium 2.8 mg/dl (1.6-2.3)
[2025-02-14 13:18] LABS: Glucose - Point of Care 87 mg/dl (70-99)
--- NOTE | 2025-02-14 13:20 | PTCARENOTE ---
CRRT pump primed, therapy successfully initiated.
[2025-02-14] MEDS: TYLENOL 975 MG PO (13:29)
[2025-02-14] MEDS: NSS 500 IV (13:29)
[2025-02-14] MEDS: SODIUM BICARBONATE 1025 MEQ INF CATH (13:30)
--- NOTE | 2025-02-14 14:19 | PTCARENOTE ---
mediastinal CTs removed without incident.
[2025-02-14] MEDS: MYLICON 80 MG PO (14:25)
--- NOTE | 2025-02-14 15:18 | PTCARENOTE ---
Core temp dropping to 95.3 with initiation of CRRT. Barehugger applied.
--- NOTE | 2025-02-14 15:47 | W.PN.UPDATE ---
Addendum entered and electronically signed by Nikunj Gonzalez MD 02/14/25 15:50:
access right SC HD CVC
Original Note:
Update Note
Progress Note Update
Pt seen on CRRT. UF 100ml/hr. no machine issues
BP slightly better with less epi.
mediastinal chest tube removed
bumex gtt off
continue CRRT
--- NOTE | 2025-02-14 16:15 | PTCARENOTE ---
nitro restarted at 5mcg/min
[2025-02-14] MEDS: DOBUTREX 500 MG 250 IV (16:49)
[2025-02-14] MEDS: ADRENALIN 250 IV (17:02)
[2025-02-14 17:15] LABS: Glucose - Point of Care 126 mg/dl (70-99)
[2025-02-14 17:15] LABS: Glucose - Point of Care 119 mg/dl (70-99)
[2025-02-14 17:26] LABS: B.E. -4.2 mmol/L; HCO3 22.1 mmol/L (21-28); O2 Saturation % 96.7 % (94-98); PCO2 45 mmHg (32-35); PO2 75 mmHg (83-108); Potassium 4.0 mMOL/L (3.5-5.1); Sodium 135 mMOL/L (136-145)
[2025-02-14 17:34] LABS: Hematocrit 29.4 % (37.0-47.0); Hemoglobin 9.8 g/dL (12.0-16.0); Mean Corp Hgb Conc. 33.3 g/dL (33.0-37.0); Mean Corpuscular Volume 86.5 fL (81.0-99.0); Platelet Count 98 10^3/uL (130-400); Red Cell Dist. Width 15.7 % (11.5-14.5)
[2025-02-14 17:38] LABS: INR 2.53; PT 27.3 Sec (11.4-14.6)
[2025-02-14 17:40] LABS: APTT 62.0 Sec (23.4-35.0)
[2025-02-14 17:47] LABS: Magnesium 2.5 mg/dl (1.6-2.3)
[2025-02-14] MEDS: LIPITOR 20 MG PO (17:50)
[2025-02-14] MEDS: SODIUM BICARBONATE 50 MEQ IV (17:55)
--- NOTE | 2025-02-14 18:04 | PTCARENOTE ---
lab results reviewed w CT VERA, pt placed back on bipap by RT, bicarb & vit k administered as ordered.
[2025-02-14 18:05] LABS: ALT (SGPT) 22 U/L (0-35); AST (SGOT) 95 U/L (14-36); Albumin 3.6 g/dl (3.5-5.0); Alkaline Phosphatase 74 U/L (38-126); Blood Urea Nitrogen 41 mg/dl (7-17); Calcium 8.7 mg/dl (8.4-10.2); Carbon Dioxide 22 mmol/L (22-30); Chloride 103 mmol/L (98-107); Estimated Creatinine Clearance 15 ml/min; Glucose 117 mg/dl (70-99); Potassium 4.1 mmol/L (3.5-5.1); Sodium 138 mmol/L (135-145); Total Protein 5.4 g/dl (6.3-8.2); eGFR 24.33
[2025-02-14] MEDS: MEPHYTON 5 MG PO (18:11)
--- NOTE | 2025-02-14 18:51 | PTCARENOTE ---
Pt tachypneic and desating on bipap, switched to high flow 50L 100% pOX 94%. CXR ordered.
[2025-02-14 19:02] LABS: Glucose - Point of Care 103 mg/dl (70-99)
--- NOTE | 2025-02-14 19:30 | PTCARENOTE ---
Assumed care of the patient at 1900. Patient in bed, oriented but drowsy, downtrodden and anxious. SR with BBB on CM, rates 80's, radial pulses palpable, DP pulses present with Doppler, heart tones distant, AV wires insulated; Impella 5.5 via
ascending aorta present in the L neck at 32 cm, dressing CDI, see work list for hourly evaluations. Hi flow NC 50LPM 100% O2 present, O2 sats 95%+, lungs with coarse crackles and rhonchi bilateral throughout anteriorly, moist weak nonproductive
cough effort, CTx2 in L/R pleural to -20 cm wall suction, no air leak, tidaling, or crepitus noted. Abdomen distended and firm, nontender, hypoactive BS. Coulter present draining small amounts of cloudy yellow urine; CRRT currently being performed on
the patient via R subclavian nontunneled dialysis port, see work list for hourly readings and balances. RIJ cordis/Naila-kristian catheter @ 40, PIV x2, and subclavian port as previously mentioned; all applicable lines leveled, zeroed, and flushed. Pt
on Precedex, insulin, heparin, epi, dobut, and nitro. See nursing work list for titration details.
[2025-02-14] MEDS: SUBLIMAZE 55 MCG IV (20:12)
[2025-02-14] MEDS: VERSED 2 MG IV (20:12)
[2025-02-14] MEDS: SUBLIMAZE 100 IV (20:29)
--- NOTE | 2025-02-14 20:31 | W.PN.ANESINT ---
Anesthesia Intubation Note
- Intubation Note
Intubation Note:
Diagnosis: Respiratory Distress
Blade: MAC 3
Tube Size: 8.0
Depth: 21
Side Taped: Right
Drugs Used: Versed 2 mg IV, Rocuronium 50 mg IV, Levophed 16 mcg IV
Grade View: I
EtCO2 Present: Yes
Atraumatic: Yes
Attempts: 1
Insertion Start and Stop Time: 2013, 2014
SaO2 Pre: 98
SaO2 Post: 98
Glidescope Used: Yes
Other Airway Adjustments: None
Pre-Oxygenated: Yes
Portable Chest X-Ray: Pending
RSI: Yes
Suctioned: No
Bilateral Breath Sounds Confirmed: Yes
Vent Settings:
Settings per ICU Attending Physician
Levophed infusion initiated prior to induction meds at 5 mcg/min
[2025-02-14] MEDS: REMOVE LIDOCAINE PATCH 1 PATCH REMOVE (20:39)
[2025-02-14] MEDS: KCL 100 IV (20:44)
[2025-02-14] MEDS: CORDARONE 103 MG IV (21:00)
[2025-02-14 21:10] LABS: Glucose - Point of Care 110 mg/dl (70-99)
--- NOTE | 2025-02-14 21:24 | PTCARENOTE ---
Pt unstable. Leave ultrafiltration rate at 100 until stabilized her CVPA Ronald
[2025-02-14] MEDS: OASIS PO (21:54)
[2025-02-14] MEDS: PACERONE PO (21:55)
[2025-02-14 22:04] LABS: Magnesium 2.4 mg/dl (1.6-2.3)
[2025-02-14] MEDS: ROBITUSSIN PO (22:40)
[2025-02-14 23:09] LABS: Glucose - Point of Care 89 mg/dl (70-99)
[2025-02-14] MEDS: RFP-400 HD Soln (K+ 2 mEq/L) 5000 ML CRRT-IRR (23:22)
[2025-02-14] MEDS: SUBLIMAZE 50 MCG IV (23:54)
[2025-02-15] MEDS: PRECEDEX 100 IV ×3 (00:19→18:13)
--- NOTE | 2025-02-15 00:30 | PTCARENOTE ---
Addendum entered by Ines Naranjo RN 02/15/25 06:27:
OGT also inserted by anesthesia after intubation.
Original Note:
Pt switched from Hi Flow NC to BiPAP 15 L at 1940 - pt not tolerating. VERA discussed with pt and family about reintubation as patient has become increasingly fatigued. Anesthesia to bedside and reintubated patient with an 8.0 ETT 21 cm @ the R lip
at 2014. Prior to the procedure, pt received 2 of versed, 55 of Fentanyl, and 50 rocuronium per anesthesia. Pt became hypotensive to the 50/40's immediately following intubation; Levophed 16 mcgs IVP administered by anesthesia and titrated up to 12;
Impella switched to P8 and ultrafiltration paused on CRRT temporarily awaiting patient stabilization. At 2034, patient began to have ventricular bigeminy on CM; subsequently had a long run of SVT at 2043 rates 130-140s. At that time, Amiodarone 150
mg IVP administered, additional 150 mg bolus, and a drip at 1mg/min was initiated. K+ and Ca were repleted. Epi increased to 3 per CVPA. Pt appeared to be desatting on the monitor to the 80's, difficult to obtain a good pleth. EKG showed an
accelerated junctional rhythm, CVPA aware. Lidocaine bolus ordered but not administered per CVPA after ectopy improved following amio administration. CRRT restarted at an ultrafiltration rate of 100 at 2100. Increased to 150 at 2240, await to see if
patient tolerates. Pressures stabilized 60/60's - CRRT continued at a rate of 150 until 2300 and adjusted per flowsheet to 114. SpO2 reading 90% with a poor pleth. Amio, epi, dobut, heparin, fentanyl, and KVO continued, see work list for titration
details.
Patient fully alert at 2354 - oriented x3, answered questions accurately and appropriately. See MAR and flow sheet. Precedex restarted. Per CVPA, use Impella placement signal for more accurate BPs.
[2025-02-15 00:41] LABS: B.E. 0.1 mmol/L; HCO3 25.4 mmol/L (21-28); O2 Saturation % 99.9 % (94-98); PCO2 43 mmHg (32-35); PO2 159 mmHg (83-108); Potassium 4.5 mMOL/L (3.5-5.1); Sodium 135 mMOL/L (136-145)
[2025-02-15 00:51] LABS: Hematocrit 29.9 % (37.0-47.0); Hemoglobin 9.7 g/dL (12.0-16.0); Mean Corp Hgb Conc. 32.4 g/dL (33.0-37.0); Mean Corpuscular Volume 89.0 fL (81.0-99.0); Platelet Count 102 10^3/uL (130-400); Red Cell Dist. Width 15.9 % (11.5-14.5)
[2025-02-15 00:52] LABS: INR 1.88; PT 21.8 Sec (11.4-14.6)
[2025-02-15 00:53] LABS: APTT 64.3 Sec (23.4-35.0)
[2025-02-15] MEDS: TYLENOL PO (01:00)
[2025-02-15 01:06] LABS: Glucose - Point of Care 127 mg/dl (70-99)
[2025-02-15 01:11] LABS: Blood Urea Nitrogen 34 mg/dl (7-17); Calcium 8.9 mg/dl (8.4-10.2); Carbon Dioxide 27 mmol/L (22-30); Chloride 104 mmol/L (98-107); Estimated Creatinine Clearance 18 ml/min; Glucose 98 mg/dl (70-99); Magnesium 2.3 mg/dl (1.6-2.3); Potassium 4.6 mmol/L (3.5-5.1); Sodium 137 mmol/L (135-145); eGFR 31.80
[2025-02-15 01:58] LABS: LDH 366 U/L (120-246)
[2025-02-15] MEDS: SUBLIMAZE 50 MCG IV ×3 (03:01→10:11)
[2025-02-15 03:07] LABS: B.E. 0.2 mmol/L; HCO3 24.6 mmol/L (21-28); O2 Saturation % 98.9 % (94-98); PCO2 38 mmHg (32-35); PO2 93 mmHg (83-108)
[2025-02-15 03:08] LABS: Glucose - Point of Care 128 mg/dl (70-99)
[2025-02-15] MEDS: LEVOPHED 250 IV (04:00)
[2025-02-15] MEDS: CORDARONE 103 MG IV ×2 (04:52→09:07)
[2025-02-15 04:57] LABS: Glucose - Point of Care 70 mg/dl (70-99)
--- NOTE | 2025-02-15 05:15 | PTCARENOTE ---
Patient had additional vent bigeminy/PVCs on the monitor at 0100 - resolved without intervention. Labs drawn and sent, pt given fent bolus and gtt titrated up per protocol, see work list. Unable to get a SpO2 read with clip, but O2 on ABG
sufficient. Amio dose adjusted. Gtts continued as ordered. Impella position unknown since 2300 - CVPA aware. Levo titrated per protocol based on placement signal of Impella. More ectopy at 0437 - fentanyl reduced. Additional amio bolus given, gtt
increased back up to 1. 250 LR bolus per CVPA. Labs drawn and sent.
[2025-02-15 05:35] LABS: B.E. 2.0 mmol/L; HCO3 26.5 mmol/L (21-28); O2 Saturation % 98.4 % (94-98); PCO2 40 mmHg (32-35); PO2 79 mmHg (83-108); Potassium 4.1 mMOL/L (3.5-5.1); Sodium 134 mMOL/L (136-145)
[2025-02-15] MEDS: ALBUMIN 5% 250 IV (05:50)
[2025-02-15 05:52] LABS: Hematocrit 28.4 % (37.0-47.0); Hemoglobin 9.4 g/dL (12.0-16.0); Mean Corp Hgb Conc. 33.1 g/dL (33.0-37.0); Mean Corpuscular Volume 88.8 fL (81.0-99.0); Platelet Count 90 10^3/uL (130-400); Red Cell Dist. Width 15.8 % (11.5-14.5)
[2025-02-15 05:54] LABS: APTT 50.2 Sec (23.4-35.0)
[2025-02-15 05:56] LABS: D-Dimer 0.69 ug/mlFEU (0.00-0.50)
[2025-02-15 05:58] LABS: ALT (SGPT) 20 U/L (0-35); AST (SGOT) 81 U/L (14-36); Albumin 2.9 g/dl (3.5-5.0); Alkaline Phosphatase 56 U/L (38-126); Blood Urea Nitrogen 29 mg/dl (7-17); Calcium 8.5 mg/dl (8.4-10.2); Carbon Dioxide 26 mmol/L (22-30); Chloride 106 mmol/L (98-107); Estimated Creatinine Clearance 19 ml/min; Glucose 85 mg/dl (70-99); Magnesium 2.1 mg/dl (1.6-2.3); Potassium 4.0 mmol/L (3.5-5.1); Sodium 135 mmol/L (135-145); Total Protein 4.7 g/dl (6.3-8.2); eGFR 34.36
[2025-02-15 06:00] VITALS: BMI 24.9
[2025-02-15 06:51] LABS: B.E. -0.4 mmol/L; HCO3 24.1 mmol/L (21-28); O2 Saturation % 99.8 % (94-98); PCO2 38 mmHg (32-35); PO2 108 mmHg (83-108)
[2025-02-15 06:54] LABS: O2 Therapy peep 8, fiO2 70
[2025-02-15 07:03] LABS: Folate 13.7 ng/ml (2.76-20); Vitamin B12 826 pg/ml (239-931)
[2025-02-15 07:05] LABS: Glucose - Point of Care 89 mg/dl (70-99)
[2025-02-15 07:16] LABS: LDH 352 U/L (120-246)
[2025-02-15] MEDS: BACTROBAN 2% OINTMENT 1 APPLIC NASAL ×2 (07:53→20:19)
[2025-02-15] MEDS: PROTONIX PO (07:53)
[2025-02-15] MEDS: THERAGRAN PO (07:54)
[2025-02-15] MEDS: VITAMIN C PO (07:54)
--- NOTE | 2025-02-15 07:57 | W.PN.CT ---
Today's Communication / Plan
-
-pod #3
-current drips: Epi 2.5, Dobut 5, Levo 2, Amio 0.5, Heparin 350, Fentanyl is off, Precedex 0.8, Insulin
-Impella @ p6
-CRRT started 02/14 (output 2309 total). Gave 250 of LR and 250 Albumin this am for hypotension/suction alarm. Reviewed with Dr. Cochran
-intubated electively yesterday evening 02/14. AC 24/350/8/70% fiO2. ABG 7.41/38/108/24.1/99% O2 (pOx is inaccurate)
-SVT runs and frequent PVCs after intubation- tx with Amio boluses x3 total and drip, gave K and Ca
-INR 50.2 this am
-A-line is positional
-L pleur CT 235/285 in 12/24 hrs
-Cr improved - 1.5 today (peak 2.2 on 02/14 and 1.5 preop)
-follow platelets - 90K today, Hg is stable - 9.4
-Echo today per Dr. Cochran (spoke with supervisor sunglasses to arrange)
Assessment / Plan
-
S/P coronary artery bypass grafting x 3 [initially the ADAMS was grafted to a very atretic LAD that required patch repair, ultimately there was significant hemorrhaging from here and I opted to ligate the ADAMS and perform a vein patch repair of the
RV/anastomosis, Ao to RSVG to OM 1, RSVG off of the rdz of OM1 to a large diagonal vessel, Ao to RSVG to mid to distal RCA], Chordal sparing mitral valve replacement, Impella LVAD placement by Dr. Cochran on 02/12/25, pod #3
PMH:�
ICM EF 25-30%,�
Scoliosis
Chronic anemia
CAD
Severe�MR
Hx�of SVT
HTN
Uterine cancer status hysterectomy�
Hyperlipidemia�
Osteoporosis�
Hx�of�polymyalgia�rheumatica/giant cell arteritis�skin cancer�(right leg Mohs surgery)�
Cervical radiculopathy�
Pre-existing LBBB
SVT treated with adenosine at time of cardiac cath 02/06/2025
Acute postop blood loss anemia
CARLO on CKD
Acute postop coagulopathy/thrombocytopenia
Acute postop atelectasis/ pulmonary insufficiency
Acute postop hypovolemia with subsequent hypervolemia
Acute postop cardiogenic shock, requiring Impella and inotropic support
Intubated electively on 02/14 d/t increased work of breathing
CRRT started 02/14
Discussed patient care with: Nursing and Care Team
Subjective
-
Date of Service: February 15, 2025
Objective Data
-
PT 21.8 Sec (11.4-14.6) H 02/15/25 00:26
INR 1.88 02/15/25 00:26
APTT 50.2 Sec (23.4-35.0) H 02/15/25 05:27
Vital Signs
Vital Signs
Temp Pulse Resp BP Pulse Ox
96.2 F L 74 24 95/66 99
02/15/25 07:00 02/15/25 07:00 02/15/25 07:00 02/14/25 16:06 02/15/25 04:18
CT Intake/Output/Weight
02/14/25 02/15/25 02/15/25
18:59 06:59 18:59
Intake Total 1292.7 / 3283.3 1724.3 / 3283.3 266.3 / 266.3
Output Total 861 / 2952 2017 / 2 73 / 73
Balance 431.7 / 331.3 -293.7 / 331.3 193.3 / 193.3
SaO2: 99
Physical Exam
-
General: Other (intubated, sedated. Responds appropriately when wakes up)
Cardiovascular: Regular rate & rhythm, No Murmurs and No Rub
Respiratory: Decreased Breath Sounds
Sternum: Stable
Incision: Clean, Dry and Intact
Extremities: Edema +1
Data Reviewed
-
Lab Results: Results Reviewed
Medications: Active Meds Reviewed
Chest X-Ray: Report Reviewed and Image Reviewed
ECG: Report Reviewed and Image Reviewed
[2025-02-15 07:59] VITALS: BP 70/65
[2025-02-15] MEDS: LIDOCAINE 4% PATCH TOPICAL (08:10)
[2025-02-15] MEDS: FEOSOL PO (08:10)
--- NOTE | 2025-02-15 08:10 | PTCARENOTE ---
assumed care of pt from previous shift RN, afib on tele w HR 110-120 w occasional epicardial AV pacing, + doppler DP pulses, +1 edema to bilateral lower extremities. Right IJ cordis w swan floated to 40, CO/CI 2.29/ 1.21, CVP 32, PAP 43/25. Left
radial arleen w poor waveform, new line being placed by CT VERA. Right subclavian dialysis catheter w CCRT running. #8 ETT/22cm left lip, VENT SETTINGS: 70/350/24/+8, pox NANCY, ABGs being trended. Left chest impella set P6. PIV x2 flush easily. Pleural
CTs w minimal amount of drainage. Bustamante w minimal yellow urine output, +bs, OGT to LIS. Mouth and bustamante care completed. Pt does wake to tactile stimuli, CPOT 0, RASS-1.
DRIPS:
EPI 2.5 mcg/min
Dobutamine 5 mcg/kg/min
Amiodarone 0.5 mg/min
Levophed 4mcg/min
Precedex 0.1mcg/kg/hr
Insulin titrated per glycemic protocol
[2025-02-15] MEDS: ROBITUSSIN PO (08:11)
[2025-02-15 08:12] VITALS: BP 75/70
[2025-02-15] MEDS: VENTOLIN NEBULES 2.5 MG INH ×2 (08:17→17:46)
[2025-02-15] MEDS: MUCOMYST 20% 2 ML INH ×2 (08:17→17:46)
--- NOTE | 2025-02-15 09:11 | W.PN.CARDCBS ---
Today's Communication / Plan
-
Remains critically ill
Wean drips as tolerated
Replete electrolytes goal K greater than 4, mag greater than 2
Continue amiodarone; AF likely secondary to acute medical illness
Daily EKG
Impression / Plan
-
PCP: Dr. Souza
Primary Priming Mixture Carrier: Dr. Merly Herrera
Impression:
Presentation with L chest/shoulder pain 02/05/25
Acute HFrEF
CAD
s/p cath with occluded LAD and collaterals 2011
MV CAD with chronically occluded LAD from angiogram in 2011 and new high-grade mid RCA and OM1 stenosis by cardiac cath 02/06/25
Atrial fibrillation, paroxysmal, likely postoperative in the setting of acute medical illness
ICM EF 25-30% by echo 02/05/25
Severe MR by echo 02/05/25
SVT treated with adenosine at time of cardiac cath 02/06/2025
Scoliosis
Hypertension
Hyperlipidemia
Giant cell arteritis
Squamous cell of RLE
Osteoporosis
Resting sinus tachycardia
PMR
Hyperglycemia and prediabetes
Dental extractions x2 02/09/25
ECHO 09/28/2022: EF 55%, mild hypokinesis of apical septum, apical inferior segment, and apex, grade 1 diastolic dysfunction, mild to moderate MR, mild AR, mild TR, PAP 35 to 40 mmHg
Echo 02/05/2025: Global hypokinesis, EF 25-30%, severe hypokinesis in the anteroseptal, anterior, apical and inferolateral segments, severe MR, pulmonary artery systolic pressure 59 mmHg, severe TR, dilated atria
Limited echo 02/13/2025: Normal LV size, Impella present, EF 20-25% by visual estimation, normal RV size and function, no pericardial effusion.
VIOLA Feb 09 2025: SUMMARY
1. Moderate to severely reduced left ventricular systolic function with estimated ejection fraction of 30 to 35%.
2. Global hypokinesis with more prominent apical, anterior, anteroseptal and septal hypokinesis.
3. Moderate mitral regurgitation.
4. Mild to moderate tricuspid regurgitation.
5. Mild aortic regurgitation.
Plan:
- Presented with dyspnea on exertion and elevated troponin (peak 2.3) with echocardiogram that showed newly reduced EF and severe MR. Cardiac catheterization showed multivessel CAD and underwent VIOLA with moderate MR
- She underwent difficult case including CABG x 3 with attempted ADAMS graft requiring patch repair with significant hemorrhage status post ligation and vein patch repair, ao to RSVG to OM1, RSVG off of the rdz of OM1 to large diagonal, AO to RSVG
to mid to distal RCA, chordal sparing bioprosthetic MVR, AXEL clip 02/12/2025
- BiPAP overnight and intermittently through the day, wean supplemental oxygen as able
- Remains critically ill on Impella 5.5 at P6
- on dobut@5, epi@2.5, levo at 4 and Amio at 0.5; heparin drip and patient currently on CRRT
- Hemoglobin 9.2 on 02/13, stable at 8.8 today 02/14/2025. Status post 5 units packed red blood cells, 3 platelets, 3 FFP thus far. eventual asa, plavix given NSTEMI presentation
- was on toprol 25mg BID and lisinopril 20mg daily prior to admission, resume post op as able. consider addition of SGLT2 and aldactone as able given ICM.
- LDL 62. continue lipitor
- HgbA1c 6.1% consistent with prediabetes
� Echocardiogram pending for this morning
- of note, patient developed SVT at time of cardiac cath and required adenosine, she was hypotensive at that time. Patient was started on amiodarone 200 mg BID following cath, continue post op. follow QTc
- will also need follow up echo as OP at 3 month christiano to reeval EF
- d/w nursing. d/w CT surgical DIRECTOR OF PUBLIC RELATIONS
Progress Note - Priming Mixture Carrier
Subjective
Date of Service: February 15, 2025
Patient seen and examined. Yesterday, patient intubated due to respiratory function. Additionally, CRRT started due to worsening renal function and lack of diuresis. Patient remains critically ill with Impella in place. Overnight, patient with
episodes of sinus rhythm, sinus tach with PVCs. Additionally, in a.m., patient went into AF.
Objective
Labs:
Labs
Hgb 9.4 g/dL (12.0-16.0) L 02/15/25 05:28
Hct 28.4 % (37.0-47.0) L 02/15/25 05:28
Plt Count 90 10^3/uL (130-400) L 02/15/25 05:28
PT 21.8 Sec (11.4-14.6) H 02/15/25 00:26
INR 1.88 02/15/25 00:26
APTT 50.2 Sec (23.4-35.0) H 02/15/25 05:27
Sodium 135 mmol/L (135-145) 02/15/25 05:28
Potassium 4.0 mmol/L (3.5-5.1) 02/15/25 05:28
BUN 29 mg/dl (7-17) H 02/15/25 05:28
Creatinine 1.5 mg/dL (0.6-1.0) H 02/15/25 05:28
Glucose 85 mg/dl (70-99) 02/15/25 05:28
Vital Signs and I&O:
Vital Signs
Temp Pulse Resp BP Pulse Ox
96.0 F L 115 24 75/70 84
02/15/25 09:00 02/15/25 09:00 02/15/25 09:00 02/15/25 08:12 02/15/25 08:41
Vital Signs
Temp Pulse Resp BP Pulse Ox
96.0 F L 115 24 75/70 84
02/15/25 09:00 02/15/25 09:00 02/15/25 09:00 02/15/25 08:12 02/15/25 08:41
Intake & Output
02/13/25 02/14/25 02/15/25 02/16/25
06:59 06:59 06:59 06:59
Intake Total 2878.0 / 2916.2 2640.1 / 2694.4 3017.0 / 3283.3 710.6 / 710.6
Output Total 1090 / 1130 1480 / 1490 2879 / 2952 217 / 217
Balance 1788.0 / 1786.2 1160.1 / 1204.4 138.0 / 331.3 493.6 / 493.6
Physical Exam
Physical Exam
GEN: Intubated, sedated, mechanical ventilation frail, ill-appearing.
HEENT: supple, anicteric, mmm
LUNGS: Mechanical breath sounds, bilateral rales, rhonchi
CV: Reg, S1/S2, no murmur, + rub, Impella mechanical sound
ABD: soft, BS+, NT/ND
EXT: No cyanosis, clubbing; trace lower extremity edema, right lower extremity ulceration
NEURO: Gross non-focal
SKIN: Warm, pink, dry. No rash. Sternotomy incision c/d/i. CTs in place. cordis in place. Right subclavian CRRT line
[2025-02-15] MEDS: SENOKOT 8.6 MG PO ×2 (09:12→20:19)
[2025-02-15] MEDS: PACERONE 200 MG PO ×3 (09:12→22:59)
[2025-02-15] MEDS: MIRALAX 17 GRAMS TUBE (09:12)
[2025-02-15] MEDS: PLAVIX 75 MG PO (09:12)
[2025-02-15 09:13] LABS: Glucose - Point of Care 95 mg/dl (70-99)
[2025-02-15] MEDS: FLEXBUMIN 100 IV ×2 (09:13→16:06)
[2025-02-15] MEDS: LOW STRENGTH ASPIRIN 81 MG PO (09:13)
[2025-02-15] MEDS: OASIS PO ×3 (09:13→22:57)
--- NOTE | 2025-02-15 10:28 | PTCARENOTE ---
Pt cardioverted at beside with 200J to Paced rhythm at 70.
[2025-02-15] MEDS: VELETRI 50 MCG INH ×2 (11:15→21:37)
[2025-02-15] MEDS: VELETRI 50 ML INH ×2 (11:15→21:37)
[2025-02-15 11:19] LABS: Glucose - Point of Care 125 mg/dl (70-99)
--- NOTE | 2025-02-15 11:19 | PTCARENOTE ---
routine labs obtained, family at bedside, updated, emotional support provided. Flolan started by RT as ordered by CT VERA.
[2025-02-15 11:28] LABS: Hematocrit 26.3 % (37.0-47.0); Hemoglobin 9.0 g/dL (12.0-16.0); Mean Corp Hgb Conc. 34.2 g/dL (33.0-37.0); Mean Corpuscular Volume 86.5 fL (81.0-99.0); Platelet Count 127 10^3/uL (130-400); Red Cell Dist. Width 15.8 % (11.5-14.5)
[2025-02-15 11:29] LABS: B.E. 0.5 mmol/L; HCO3 25.4 mmol/L (21-28); O2 Saturation % 96.7 % (94-98); PCO2 41 mmHg (32-35); PO2 74 mmHg (83-108); Potassium 4.1 mMOL/L (3.5-5.1); Sodium 134 mMOL/L (136-145)
[2025-02-15 11:31] LABS: O2 Therapy nc
[2025-02-15 11:37] LABS: APTT 45.8 Sec (23.4-35.0)
--- NOTE | 2025-02-15 11:43 | RESPNOTE ---
at 11:30am epoprostenol started via continuous nebulizer. rate 4.32mL/hr.
[2025-02-15 11:59] LABS: Blood Urea Nitrogen 25 mg/dl (7-17); Calcium 8.6 mg/dl (8.4-10.2); Carbon Dioxide 24 mmol/L (22-30); Chloride 103 mmol/L (98-107); Estimated Creatinine Clearance 22 ml/min; Glucose 118 mg/dl (70-99); LDH 343 U/L (120-246); Magnesium 2.0 mg/dl (1.6-2.3); Potassium 4.0 mmol/L (3.5-5.1); Sodium 135 mmol/L (135-145); eGFR 40.80
[2025-02-15 12:14] LABS: B.E. -0.5 mmol/L; HCO3 24.2 mmol/L (21-28); O2 Saturation % 99.5 % (94-98); PCO2 39 mmHg (32-35); PO2 111 mmHg (83-108); Potassium 3.8 mMOL/L (3.5-5.1); Sodium 134 mMOL/L (136-145)
[2025-02-15 12:15] LABS: O2 Therapy vent
--- NOTE | 2025-02-15 13:30 | W.PN.INTV ---
Today's Communication / Plan
Recommendations
Continue mechanical ventilation without change
Continue hemodynamic support
Titrate epoprostenol as needed
Continue CRRT
Sedation to maintain RASS score 0 to -1
Follow chest tube output
Prognosis guarded
Assessment
-
Status post: Dr. Cochran 02/12/2025-coronary artery bypass grafting x 3 [initially the ADAMS was grafted to a very atretic LAD that required patch repair, ultimately there was significant hemorrhaging from here and I opted to ligate the ADAMS and perform
a vein patch repair of the RV/anastomosis, Ao to RSVG to OM 1, RSVG off of the rdz of OM1 to a large diagonal vessel, Ao to RSVG to mid to distal RCA]
Chordal sparing mitral valve replacement
Impella LVAD placement
Postoperative mechanical ventilation
dental abscess--OMFS s/p 2 teeth removal-this admission
Conditions present prior admission:
Scoliosis
Chronic anemia
History of coronary artery disease
Moderate MR
History of SVT
Hypertension
Uterine cancer status post hysterectomy
Hyperlipidemia
Osteoporosis
History of polymyalgia rheumatica/giant cell arteritis
Recent skin cancer status post right leg Mohs surgery with Dr. Noguera
Cervical radiculopathy
Assessment and plan:
Postoperative day 3
Overnight unfortunately reintubated 02/14/2025-increased work of breathing-hypercapnia.
Continue mechanical ventilation without change.
ABG 7.4/39/111. Adequate ventilation and oxygenation
Pulmonary mechanics acceptable
Chest x-ray 02/15/2025: Improved bibasilar atelectasis and effusions.
-
Continue sedation for RASS score 0 to -1.
-
Unfortunately remain on multiple vasoactive drugs
Levophed/dobutamine/epinephrine/amiodarone drip.
Impella device in place
Repeat VIOLA: Ejection fraction 20-25%. Moderate RV dysfunction. Severe TR.
Epoprostenol started for RV support
-
Atrial fibrillation-persistent. Amiodarone drip continues
Cardiology following patient.
-
Continue CRRT to hopefully achieve negative fluid balance
Follow renal function and electrolytes
-
Acute kidney injury:
Follow urinary output-Coulter in place
Follow renal function
Nephrology-CRRT continues started on 02/14/2025
-
Anemia noted-no evidence of acute bleeding
Transfuse as necessary
Follow H&H serially
Chest tube with no excessive drainage-no air leak.
Chest x-ray reviewed: With no pneumothorax or fluid collections.
N.p.o.-on mechanical ventilation.
Head of the bed elevation
Glycemic control per protocol
Prognosis guarded
DVT prophylaxis when safe from the surgical perspective.
Critical care statement: A total of 36�minutes of critical care time was provided for this patient today. This includes management of unstable vital signs, evaluation of the patient at bedside, reviewing the patient�s pertinent medical records
including ventilator settings, arterial blood gases, radiographs, microbiology, laboratory evaluations and��discussion with primary team, critical care nursing, and respiratory therapy.
Subjective Dataa
Subjective Data
Date of Service:
Date of Service: February 15, 2025
Chief Complaint: Human Services Manager Follow Up (Status post coronary artery bypass, mitral valve replacement)
Subjective:
Reintubated overnight due to increased work of breathing and hypercapnia
Remains in shock with multiple pressors
Impella device in place
Review of Systems
General: Unobtainable - Sedation
Objective Data
Data Reviewed
Vital Signs / I&O / Oxygen:
Vital Signs
Temp Pulse Resp BP Pulse Ox
98.5 F 81 24 75/70 84
02/15/25 13:00 02/15/25 13:20 02/15/25 13:20 02/15/25 08:12 02/15/25 13:00
Intake and Output
02/14/25 02/15/25 02/16/25
06:59 06:59 06:59
Intake Total 2640.1 / 2694.4 3017.0 / 3283.3 1292.8 / 1292.8
Output Total 1480 / 1490 2879 / 2952 513 / 513
Balance 1160.1 / 1204.4 138.0 / 331.3 779.8 / 779.8
SaO2 [A/C] 88
SaO2 [CPAP/PSV] 97
SaO2 [SIMV] 96
SaO2 84
Nasal Cannula flow liters per 50
minute
Physical Exam
General: Comfortable (On sedation)
HEENT: Normocephalic and Other (ET tube in place)
Cardiovascular: S1-S2
Respiratory: Clear and Chest Tube (No excessive drainage, no air leak)
GI: Soft and Non Distended
Neurology: Other (Sedated on mechanical ventilation)
Skin: Warm
Labs/Micro/Reports
Laboratory Results
02/14/25 02/14/25 02/15/25
17:11 17:12 00:23
PT 27.3 H
INR 2.53
APTT 62.0 H
pH 7.30 L 7.38
pCO2 45 H 43 H
pO2 75 L 159 H
HCO3 22.1 25.4
O2 Delivery Level
02/15/25 02/15/25 02/15/25
00:26 02:59 05:22
PT 21.8 H
INR 1.88
APTT 64.3 H
pH 7.42 7.43
pCO2 38 H 40 H
pO2 93 79 L
HCO3 24.6 26.5
O2 Delivery Level
02/15/25 02/15/25 02/15/25
05:27 06:27 07:20
PT
INR
APTT 50.2 H Cancelled
pH 7.41
pCO2 38 H
pO2 108
HCO3 24.1
O2 Delivery Level peep 8, fio2 70
02/15/25 02/15/25
11:11 12:01
PT
INR
APTT 45.8 H
pH 7.40 7.40
pCO2 41 H 39 H
pO2 74 L 111 H
HCO3 25.4 24.2
O2 Delivery Level nc vent
[2025-02-15] MEDS: SODIUM BICARBONATE 1025 MEQ INF CATH (13:43)
--- NOTE | 2025-02-15 13:44 | W.PN.NEPH.PH ---
Today's Communication / Plan
-
CRRT
Assessment/Plan
-
IMP:
CARLO
Acute HFrEF, new onset
CAD multiple vessel disease
s/p Coronary artery bypass grafting x 3 [initially the ADAMS was grafted to a very atretic LAD that required patch repair, ultimately there was significant hemorrhaging from here and ligate the ADAMS s/p a vein patch repair of the RV/anastomosis 02/12
dental abscess--OMFS s/p 2 teeth removal
recent skin cancer surgery right leg (Moh's with Dr. Noguera)
SVT--Symptomatic during [facility]-- on amiodarone
Moderate MR by VIOLA 02/09/2025 and severe MR by echo 02/05/25
Cervical radiculopathy
Anemia of chronic disease
Essential hypertension
Severe scoliosis
Uterine cancer status post hysterectomy
Hyperlipidemia
Osteoporosis
History of polymyalgia rheumatica/giant cell arteritis
mild hyponatremia
Echo 02/05/2025: Global hypokinesis, EF 25-30%, severe hypokinesis in the anteroseptal, anterior, apical and inferolateral segments, severe MR, pulmonary artery systolic pressure 59 mmHg, severe TR, dilated atria
Plan:
follow BMP trend q6h
wean pressors as allowed
dobutamine per cardiology
maintain bustamante
now on vent on more pressors.
overall prognosis is guarded
will continue CRRT for now, UF rate reduced to 75 after development of Afib yesterday
d/w daughter
critical care time 31 minutes
-
-
Date of Service: February 15, 2025
CC / HPI / ROS
-
Chief Complaint:
CARLO
History of Present Illness:
CARLO/Cr now on CRRT
critically ill in CVICU, on pressors, Epi, levo
remains on Impella support
remains on dobutamine
oligoanuric
now on vent since 02/14
Review of Systems:
no CP/SOB
Labs
-
Labs:
eGFR 40.80 02/15/25 11:11
Tav-B-Uufemvryaek Pept Cancelled 02/05/25 10:39
Albumin 2.9 g/dl (3.5-5.0) L 02/15/25 05:28
Physical Exam
-
Vital Signs:
Vital Signs
Temp Pulse Resp BP Pulse Ox
98.5 F 81 24 75/70 84
02/15/25 13:00 02/15/25 13:20 02/15/25 13:20 02/15/25 08:12 02/15/25 13:00
Cardiovascular:: Regular rate and rhythm
Respiratory:: Bilateral: Coarse
Lung Excursion:: Normal
Abdomen:: Nontender and Soft
Bowel Sounds:: None
Extremity Edema:: +2: Bilateral:
--- NOTE | 2025-02-15 13:49 | W.PN.UPDATE ---
Update Note
Progress Note Update
Seen on CRRT. minor alarm issues overnight.
remains on heparin gtt
UF 75ml/hr
Qb stable
unfortunately BP requiring more pressors at this time
Continue CRRT
Right SC HD CVC ok
[2025-02-15 13:59] LABS: Glucose - Point of Care 97 mg/dl (70-99)
[2025-02-15] MEDS: TYLENOL 975 MG PO ×2 (14:04→22:56)
[2025-02-15] MEDS: ROBITUSSIN 100 MG PO ×3 (14:04→22:57)
[2025-02-15] MEDS: NSS IV (15:09)
[2025-02-15 16:04] LABS: Glucose - Point of Care 96 mg/dl (70-99)
[2025-02-15] MEDS: LIPITOR 20 MG PO (16:06)
[2025-02-15 18:07] LABS: Glucose - Point of Care 101 mg/dl (70-99)
[2025-02-15] MEDS: ADRENALIN 250 IV (18:13)
[2025-02-15 18:16] LABS: B.E. 1.5 mmol/L; HCO3 25.9 mmol/L (21-28); O2 Saturation % 98.9 % (94-98); PCO2 39 mmHg (32-35); PO2 83 mmHg (83-108); Potassium 3.5 mMOL/L (3.5-5.1); Sodium 134 mMOL/L (136-145)
[2025-02-15 18:26] LABS: Hematocrit 25.9 % (37.0-47.0); Hemoglobin 8.8 g/dL (12.0-16.0); Mean Corp Hgb Conc. 34.0 g/dL (33.0-37.0); Mean Corpuscular Volume 86.3 fL (81.0-99.0); Platelet Count 117 10^3/uL (130-400); Red Cell Dist. Width 15.9 % (11.5-14.5)
[2025-02-15 18:28] LABS: APTT 45.2 Sec (23.4-35.0)
[2025-02-15 18:45] LABS: Blood Urea Nitrogen 21 mg/dl (7-17); Calcium 8.8 mg/dl (8.4-10.2); Carbon Dioxide 25 mmol/L (22-30); Chloride 103 mmol/L (98-107); Estimated Creatinine Clearance 24 ml/min; Glucose 94 mg/dl (70-99); LDH 278 U/L (120-246); Magnesium 2.0 mg/dl (1.6-2.3); Potassium 3.6 mmol/L (3.5-5.1); Sodium 134 mmol/L (135-145); eGFR 44.91
[2025-02-15] MEDS: REMOVE LIDOCAINE PATCH REMOVE (20:19)
[2025-02-15 20:23] LABS: Glucose - Point of Care 91 mg/dl (70-99)
--- NOTE | 2025-02-15 20:44 | PTCARENOTE ---
assumed care of pt from previous shift RN, Pt does wake to tactile stimuli, follows simple commands. CPOT 0, RASS-1. NSR on tele w HR 80s. A/V wires set to back up of DDI 60/10/15. +1 edema to bilateral lower extremities. + doppler DP pulses, R
radial & L brachial pulse + via doppler. Right IJ cordis w swan floated to 40, CO/CI 2.94/ 1.55, CVP 20s, PAP 30s/20s. Left radial arleen w poor waveform, all lines leveled, zeroed and flushed. Right subclavian dialysis catheter w CRRT running. #8
ETT/22cm left lip, VENT SETTINGS: 60/350/24/+5, pox 91%, lungs coarse and diminished throughout . Left chest impella set P6. PIV x2 flush easily. Pleural CTs w minimal amount of drainage. Bustamante w minimal yellow urine output, +bs, OGT to LIS. Mouth
and bustamante care completed. see worklist for full nursing assessment and interventions.
DRIPS:
Heparin 500 units/hr
EPI 2.5 mcg/min
Dobutamine 5 mcg/kg/min
Amiodarone 0.5 mg/min
Levophed 4mcg/min
Precedex 0.8 mcg/kg/hr
Insulin titrated per glycemic protocol
[2025-02-15] MEDS: CORDARONE 518 MG IV (21:12)
[2025-02-15] MEDS: POTASSIUM PHOSPHATE 259.0909 MEQ IV (21:19)
[2025-02-15 22:02] LABS: Glucose - Point of Care 87 mg/dl (70-99)
[2025-02-15] MEDS: ADRENALIN 258 MG IV (22:14)
[2025-02-15] MEDS: LEVOPHED 258 MG IV (22:16)
[2025-02-15] MEDS: DOBUTREX 250 MG IV (22:21)
[2025-02-15] MEDS: RFP-400 HD Soln (K+ 2 mEq/L) 5000 ML CRRT-IRR ×4 (22:47→22:50)
[2025-02-16 00:29] LABS: Glucose - Point of Care 101 mg/dl (70-99)
[2025-02-16 00:33] LABS: B.E. -0.8 mmol/L; HCO3 23.2 mmol/L (21-28); O2 Saturation % 98.6 % (94-98); PCO2 35 mmHg (32-35); PO2 88 mmHg (83-108); Potassium 4.2 mMOL/L (3.5-5.1); Sodium 133 mMOL/L (136-145)
--- NOTE | 2025-02-16 00:33 | PTCARENOTE ---
pt reassessed. no acute changed in assessment. NSR per tele monitor HR 80s. Vent settings unchanged pox 94%. Dialysate bags changed. Levo/Dobutamine/Epinephrine gtts changed to double concentrated. refer to flowsheet for VS, I&Os and nursing
interventions.
[2025-02-16 00:45] LABS: APTT 57.3 Sec (23.4-35.0)
[2025-02-16 00:47] LABS: Hematocrit 25.8 % (37.0-47.0); Hemoglobin 8.8 g/dL (12.0-16.0); Mean Corp Hgb Conc. 34.1 g/dL (33.0-37.0); Mean Corpuscular Volume 86.6 fL (81.0-99.0); Platelet Count 113 10^3/uL (130-400); Red Cell Dist. Width 15.9 % (11.5-14.5)
[2025-02-16 00:55] LABS: Blood Urea Nitrogen 17 mg/dl (7-17); Calcium 8.3 mg/dl (8.4-10.2); Carbon Dioxide 22 mmol/L (22-30); Chloride 103 mmol/L (98-107); Estimated Creatinine Clearance 26 ml/min; Glucose 92 mg/dl (70-99); LDH 267 U/L (120-246); Magnesium 1.9 mg/dl (1.6-2.3); Potassium 4.2 mmol/L (3.5-5.1); Sodium 134 mmol/L (135-145); eGFR 49.86
[2025-02-16] MEDS: CALCIUM GLUCONATE 130 MG IV (01:53)
[2025-02-16] MEDS: MAGNESIUM SULFATE 100 IV ×2 (02:02→18:10)
[2025-02-16 02:15] LABS: Glucose - Point of Care 90 mg/dl (70-99)
[2025-02-16] MEDS: FLEXBUMIN 100 IV ×2 (03:12→19:45)
[2025-02-16] MEDS: HEPARIN 25000 UNITS/250 ML IV (03:19)
[2025-02-16] MEDS: PRECEDEX 100 IV ×3 (03:56→21:14)
--- NOTE | 2025-02-16 04:00 | PTCARENOTE ---
Pt reassessed. no acute changes at this time. NSR per tele monitor HR 80s. Vent settings unchanged pox 98-100%. CRRT cartridge changed. Sputum culture sent.
[2025-02-16 04:20] LABS: Glucose - Point of Care 99 mg/dl (70-99)
[2025-02-16 06:00] VITALS: BMI 26.9
[2025-02-16 06:21] LABS: Glucose - Point of Care 94 mg/dl (70-99)
[2025-02-16] MEDS: TYLENOL 975 MG PO ×2 (06:22→13:12)
[2025-02-16 06:32] LABS: B.E. -0.1 mmol/L; HCO3 23.6 mmol/L (21-28); O2 Saturation % 99.6 % (94-98); PCO2 34 mmHg (32-35); PO2 111 mmHg (83-108); Potassium 3.6 mMOL/L (3.5-5.1); Sodium 133 mMOL/L (136-145)
[2025-02-16 06:52] LABS: APTT 73.2 Sec (23.4-35.0)
[2025-02-16 06:54] LABS: D-Dimer 1.10 ug/mlFEU (0.00-0.50)
[2025-02-16 07:15] LABS: ALT (SGPT) 18 U/L (0-35); AST (SGOT) 52 U/L (14-36); Alkaline Phosphatase 49 U/L (38-126); Blood Urea Nitrogen 16 mg/dl (7-17); Calcium 9.1 mg/dl (8.4-10.2); Carbon Dioxide 22 mmol/L (22-30); Chloride 104 mmol/L (98-107); Estimated Creatinine Clearance 31 ml/min; Glucose 87 mg/dl (70-99); LDH 277 U/L (120-246); Magnesium 2.1 mg/dl (1.6-2.3); Potassium 3.6 mmol/L (3.5-5.1); Sodium 135 mmol/L (135-145); eGFR 49.86
[2025-02-16 07:25] LABS: Albumin 3.6 g/dl (3.5-5.0); Total Protein 5.1 g/dl (6.3-8.2)
--- NOTE | 2025-02-16 07:28 | W.PN.INTV ---
Today's Communication / Plan
Recommendations
- Continue to wean pressors as tolerated
- Goals of care discussions, poor prognosis with biventricular failure.
Assessment
-
Status post: Dr. Cochran 02/12/2025-coronary artery bypass grafting x 3 [initially the ADAMS was grafted to a very atretic LAD that required patch repair, ultimately there was significant hemorrhaging from here and Dr. Cochran opted to ligate the ADAMS and
perform a vein patch repair of the RV/anastomosis, Ao to RSVG to OM 1, RSVG off of the rdz of OM1 to a large diagonal vessel, Ao to RSVG to mid to distal RCA]
NSTEMI with CAD, s/p CABG 02/2025
Severe MR, s/p Chordal sparing mitral valve replacement
s/p Impella LVAD placement
Respiratory failure, reintubated 02/14
Cardiogenic shock
Acute HFrEF, LV EF 24% with RV dysfunction and severe TR
dental abscess--OMFS s/p 2 teeth removal-this admission
Conditions present prior admission:
Scoliosis
Chronic anemia
History of coronary artery disease
Moderate MR
History of SVT
Hypertension
Uterine cancer status post hysterectomy
Hyperlipidemia
Osteoporosis
History of polymyalgia rheumatica/giant cell arteritis
Recent skin cancer status post right leg Mohs surgery with Dr. Noguera
Cervical radiculopathy
Assessment and plan:
Postoperative day 4
Reintubated 02/14/2025-increased work of breathing-hypercapnia.
Continue mechanical ventilation without change.
ABG 7.40 534/111, currently on volume assist-control 350/20/60%/5, peak pressure 26.
Pulmonary mechanics acceptable
Chest x-ray 02/15/2025: Improved bibasilar atelectasis and effusions.
-
Continue sedation for RASS score 0 to -1. Currently on Precedex at 0.8.
-
Unfortunately remain on multiple vasoactive drugs
Levophed 3/dobutamine 5/epinephrine 2.5/amiodarone drip.
Impella device in place @ 3.6 l/min
Repeat VIOLA: Ejection fraction 20-25%. Moderate RV dysfunction. Severe TR.
Epoprostenol started for RV support
CI 1.5, CO 2.9
Patient essentially in biventricular failure with decreased LVEF as well as RV dysfunction. Poor prognosis
-
Atrial fibrillation-persistent. Amiodarone drip continues
Cardiology following patient.
Heparin infusing
-
Continue CRRT to hopefully achieve negative fluid balance
Follow renal function and electrolytes
Current UF 125/h
-
Acute kidney injury:
Follow urinary output-Coulter in place
Follow renal function
Nephrology-CRRT continues started on 02/14/2025
-
Anemia noted-no evidence of acute bleeding
Transfuse as necessary
Follow H&H serially
Chest tube with no excessive drainage-no air leak.
Chest x-ray reviewed: With no pneumothorax or fluid collections.
N.p.o.-on mechanical ventilation.
Head of the bed elevation
Glycemic control per protocol
Prognosis guarded
DVT prophylaxis when safe from the surgical perspective.
Critical care statement: A total of 38�minutes of critical care time was provided for this patient today. This includes management of unstable vital signs, evaluation of the patient at bedside, reviewing the patient�s pertinent medical records
including ventilator settings, arterial blood gases, radiographs, microbiology, laboratory evaluations and��discussion with primary team, critical care nursing, and respiratory therapy.
Subjective Dataa
Subjective Data
Date of Service:
Date of Service: February 16, 2025
Chief Complaint: Equities Trader Follow Up (Status post coronary artery bypass, mitral valve replacement)
Subjective:
Patient currently intubated, mechanically ventilated and sedated
Review of Systems
General: Unobtainable - Sedation
Objective Data
Data Reviewed
Vital Signs / I&O / Oxygen:
Vital Signs
Temp Pulse Resp BP Pulse Ox
97 F 82 24 75/70 91
02/16/25 06:00 02/16/25 07:00 02/16/25 07:00 02/15/25 08:12 02/16/25 07:00
Intake and Output
02/15/25 02/16/25 02/17/25
06:59 06:59 06:59
Intake Total 3017.0 / 3283.3 3390.1 / 3459.6 69.5 / 69.5
Output Total 2879 / 2952 2465 / 2540 75 / 75
Balance 138.0 / 331.3 925.1 / 919.6 -5.5 / -5.5
SaO2 [A/C] 98
SaO2 [CPAP/PSV] 97
SaO2 [SIMV] 96
SaO2 91
Nasal Cannula flow liters per 84
minute
Physical Exam
General: Comfortable (On sedation)
HEENT: Normocephalic and Other (ET tube in place)
Cardiovascular: S1-S2 and Peripheral Edema
Respiratory: Rhonchi (bilateral) and Chest Tube (No excessive drainage, no air leak)
GI: Soft and Non Distended
Neurology: Other (Sedated on mechanical ventilation)
Skin: Warm
Labs/Micro/Reports
Laboratory Results
02/15/25 02/15/25 02/15/25
00:14 07:20 11:11
APTT Cancelled 45.8 H
pH Cancelled 7.40
pCO2 Cancelled 41 H
pO2 Cancelled 74 L
HCO3 Cancelled 25.4
O2 Delivery Level Cancelled nc
02/15/25 02/15/25 02/16/25
12:01 18:08 00:22
APTT 45.2 H 57.3 H
pH 7.40 7.43 7.43
pCO2 39 H 39 H 35
pO2 111 H 83 88
HCO3 24.2 25.9 23.2
O2 Delivery Level vent
02/16/25
06:23
APTT 73.2 H
pH 7.45
pCO2 34
pO2 111 H
HCO3 23.6
O2 Delivery Level
[2025-02-16] MEDS: VENTOLIN NEBULES 2.5 MG INH (07:34)
[2025-02-16] MEDS: MUCOMYST 20% 2 ML INH ×2 (07:34→19:26)
--- NOTE | 2025-02-16 07:46 | W.PN.CT ---
Today's Communication / Plan
-
-pod #4
-remains intubated, on CRRT and Impella. Pt is alert and oriented, responds appropriately.
-current drips: Epi 2.5, Dobut 5, Levo 3, Amio 0.5, Heparin 550, Precedex 0.8, Insulin and Aerosolized Epoprostenol (aEPO)
-Impella @ p6
-CRRT started 02/14. Filtration rate increased this am from 100 to 125 cc/hr by Dr. Cochran
-am labs pending. Sputum cx pending - follow
-intubated electively on 02/14. AC 24/350/5/60% fiO2. ABG at midnt: 7.43/35/88/23.2/98.6
-mVO2 58.0, CI 1.54, CO 2.90.
-b/l pleur CT 295/340 serosang in 12/24 hrs
-Cr is improving - 1.1 today (peak 2.2 on 02/14 and 1.5 preop)
-platelets stable - 113 K today, Hg is 8.8 today (8.8 on 02/15)
Assessment / Plan
-
S/P coronary artery bypass grafting x 3 [initially the ADAMS was grafted to a very atretic LAD that required patch repair, ultimately there was significant hemorrhaging from here and I opted to ligate the ADAMS and perform a vein patch repair of the
RV/anastomosis, Ao to RSVG to OM 1, RSVG off of the rdz of OM1 to a large diagonal vessel, Ao to RSVG to mid to distal RCA], Chordal sparing mitral valve replacement, Impella LVAD placement by Dr. Cochran on 02/12/25, pod #4
PMH:�
ICM EF 25-30%,�
Scoliosis
Chronic anemia
CAD
Severe�MR
Hx�of SVT
HTN
Uterine cancer status hysterectomy�
Hyperlipidemia�
Osteoporosis�
Hx�of�polymyalgia�rheumatica/giant cell arteritis�skin cancer�(right leg Mohs surgery)�
Cervical radiculopathy�
Pre-existing LBBB
SVT treated with adenosine at time of cardiac cath 02/06/2025
Acute postop blood loss anemia
CARLO on CKD- improving
Acute postop coagulopathy/thrombocytopenia
Acute postop atelectasis/ pulmonary insufficiency
Acute postop hypovolemia with subsequent hypervolemia
Acute postop cardiogenic shock, requiring Impella and inotropic support
Intubated electively on 02/14 d/t increased work of breathing
CRRT started 02/14
Echo 02/15/25:
1. Left ventricular ejection fraction is severely reduced with an ejection fraction of 24 % by Rodriguez's biplane method of discs.
2. Normal right ventricle size with moderately reduced function.
3. Severe tricuspid regurgitation by gross assessment.
4. Impella device is present.
5. When compared to prior study, tricuspid regurgitation and right ventricle dysfunction are now present.
Discussed patient care with: Nursing and Care Team
Subjective
-
Date of Service: February 16, 2025
Objective Data
-
PT 21.8 Sec (11.4-14.6) H 02/15/25 00:26
INR 1.88 02/15/25 00:26
APTT 57.3 Sec (23.4-35.0) H 02/16/25 00:22
Vital Signs
Vital Signs
Temp Pulse Resp BP Pulse Ox
99.0 F 88 22 75/70 97
02/16/25 03:00 02/16/25 03:10 02/16/25 03:10 02/15/25 08:12 02/16/25 03:10
CT Intake/Output/Weight
02/15/25 02/15/25 02/16/25
06:59 18:59 06:59
Intake Total 1724.3 / 3283.3 1871.2 / 3017.2 1146.0 / 3017.2
Output Total 2017 98 / 1989
Balance -293.7 / 331.3 869.2 / 1027.2 158.0 / 1027.2
SaO2: 97
Physical Exam
-
General: Other (intubated, sedated. Responds appropriately when wakes up)
Cardiovascular: Regular rate & rhythm, No Murmurs and No Rub
Respiratory: Decreased Breath Sounds
Sternum: Stable
Incision: Clean, Dry and Intact
Abdomen: soft, nontender, nondistended, + decreased bowel sounds
Extremities: Edema +2 b/l
Data Reviewed
-
Lab Results: Results Reviewed
Medications: Active Meds Reviewed
Chest X-Ray: Report Reviewed and Image Reviewed
ECG: Report Reviewed and Image Reviewed
[2025-02-16 07:55] LABS: Hematocrit 26.5 % (37.0-47.0); Hemoglobin 8.8 g/dL (12.0-16.0); Mean Corp Hgb Conc. 33.2 g/dL (33.0-37.0); Mean Corpuscular Volume 91.1 fL (81.0-99.0); Platelet Count 97 10^3/uL (130-400); Red Cell Dist. Width 16.5 % (11.5-14.5)
[2025-02-16 08:06] LABS: Glucose - Point of Care 92 mg/dl (70-99)
--- NOTE | 2025-02-16 08:09 | PN.DE.MGMTRT ---
Insulin Management
- -
02/16/2025: Diabetes Management Follow up
84 year old female with PMH: CAD, SVT, HTN, HLD, Uterine cancer s/p hysterectomy and Osteoporosis who presents initially to the hospital on 02/05/2025 for evaluation of progressive shortness of breath-ultimately found to be in acute HF with global
hypokinesis, EF significantly decreased to 25-30% with severe TR and pulmonary hypertension. Patient underwent cardiac catheterization 02/06/2025: Demonstrated multivessel severe coronary artery disease, was stabilized medically initially.
Subsequently underwent CABG x 3, mitral valve replacement and Impella LVAD placement on 02/12/2025.
A1C 6.1%, Cr 1.3, eGFR 40.80. 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
Patient was started on CRRT on 02/14 and intubated electively on 02/14.
She remains intubated, on Impella and CRRT, Cr 1.1, eGFR 49.86 today. Dtr and at bedside, very supportive.
POD # 4 s/p CABG x3. Currently on the critical care glycemic protocol. Glucose range 90 to 101, requiring 0.4 to 0.7 units of insulin/hr
Will transition off insulin infusion today. Give low dose Lantus 5 units now and drip off 1 hr after giving Lantus
start moderate corrective insulin Q6 hrs.
Discussed with Nurse. Will cont to monitor
Diabetes History
- -
Pre-Admission Diabetes Regimen
02/15/25 02/15/25 02/16/25
11:11 18:08 00:22
Creatinine 1.3 H 1.2 H 1.1 H
02/16/25
06:23
Creatinine 1.1 H
Lab Results
Hemoglobin A1c 6.1 % (4.0-5.6) H 02/07/25 05:07
Insulin Pump Settings
IP Diabetes Regimen
02/15/25 02/15/25 02/15/25
09:11 11:11 11:13
Glucose 118 H
POC Glucose 95 125 H
02/15/25 02/15/25 02/15/25
13:57 16:03 18:04
Glucose
POC Glucose 97 96 101 H
02/15/25 02/15/25 02/15/25
18:08 20:21 22:01
Glucose 94
POC Glucose 91 87
02/16/25 02/16/25 02/16/25
00:22 00:27 02:14
Glucose 92
POC Glucose 101 H 90
02/16/25 02/16/25 02/16/25
04:18 06:19 06:23
Glucose 87
POC Glucose 99 94
02/16/25
08:05
Glucose
POC Glucose 92
Meal type: Breakfast
Patient Education
[2025-02-16] MEDS: PROTONIX PO (08:21)
[2025-02-16] MEDS: OASIS PO ×3 (08:21→21:34)
[2025-02-16] MEDS: THERAGRAN PO (08:21)
[2025-02-16] MEDS: FEOSOL PO (08:22)
--- NOTE | 2025-02-16 08:22 | PTCARENOTE ---
Received pt from night time nanny RN; pt intubated and sedated; Pupils +1 and reactive; pt following verbal and simple commands, squeezes hands and moves toes; NSR on monitor and VSS; RIJ Cordis, [place] floated to 40, Left A-line, RIJ HD cath, and PIV x2;
all lines leveled and zeroed; Levo, Dobutamine, Insulin, Precedex, Epi, Amiodarone and Heparin infusing see flow sheet for details; Impella 5.5 at p6 marked at 32cm, in Left neck dressing C/D/I; Epicardial A/V wires connected to box and box turned
off; Lungs diminished/coarse throughout; ETT 8 22 @ Lip; A/C 50%/350/5/24; [place] infusing via vent see respiratory documentation for further details CT x2 to -20 wall suction, no air leak and no crepitus noted; Cast tube draining thick braswell sputum;
hypoactive bowel sounds; OGT to low intermittent suction marked at 55; Coulter Catheter draining minimal yellow urine; CRRT K 2 bath infusing through Right IJ HD catheter, dressing C/D/I, see flow sheet for details; pulses present via Doppler
throughout; +2 generalized edema; all surgical sites C/D/I; see nursing documentation for further details.
CI 1.59
CO 3.00
SVR 1279
[2025-02-16] MEDS: VELETRI 50 MCG INH ×2 (08:26→18:47)
[2025-02-16] MEDS: VELETRI 50 ML INH ×2 (08:26→18:47)
[2025-02-16] MEDS: SUBLIMAZE 50 MCG IV ×5 (09:00→23:22)
[2025-02-16] MEDS: MIRALAX 17 GRAMS TUBE (09:01)
[2025-02-16] MEDS: SENOKOT 8.6 MG PO (09:06)
[2025-02-16] MEDS: ROBITUSSIN 100 MG PO ×3 (09:06→16:59)
[2025-02-16] MEDS: LOW STRENGTH ASPIRIN 81 MG PO (09:06)
[2025-02-16] MEDS: PLAVIX 75 MG PO (09:06)
[2025-02-16] MEDS: VITAMIN C 500 MG PO (09:07)
[2025-02-16] MEDS: PACERONE 200 MG PO ×2 (09:07→16:48)
[2025-02-16] MEDS: LIDOCAINE 4% PATCH TOPICAL (09:07)
[2025-02-16] MEDS: BACTROBAN 2% OINTMENT 1 APPLIC NASAL (09:08)
--- NOTE | 2025-02-16 09:44 | PN.CDI ---
CDI
- -
CDI:
Physician Documentation Request
Admit Date: 02/06/25 06:[address] Team,
Please review the following and provide your response in the progress notes.
Clinical Indicators:
Pt status post CABG X 3.
02/15 [place]er Note: '...Overnight unfortunately reintubated 02/14/2025-increased work of breathing-hypercapnia. Continue mechanical ventilation without change...'
Laboratory Tests
02/14/25 02/14/25
06:08 17:12
pH 7.30 L 7.30 L
pCO2 48 H 45 H
pO2 105 75 L
Clarify which of the following accurately represents the patient's respiratory status:
Acute Hypercapnia respiratory failure
Acute Hypoxic respiratory failure
Acute postop pulmonary insufficiency only
Other
Additional information for Respiratory Failure:
Recognized criteria for Respiratory Failure (Source: Rodney Schmidt. 2018March 26.
Documentation tips: Acute Respiratory Failure, The Hospitalist.)
ABGs: (1 or more) Symptoms Please indicate type if known
1. p)2 <60 or RA SPO2 <91% on RA 1. Tachypnea, SOB, dyspnea Hypoxic
2. pCO2 >45 and pH <7.35 2. Use of accessory muscles Hypercapnic
3. pO2 decrease of pCO2 increase by 3. Pallor or cyanosis Hypoxic and Hypercapnic
10 mmHg from baseline if known 4. Anxiety or restlessness Unable to determine
4. P/F Ratio (pO2/FiO2)nless than 300 5. Unable to speak in full sentences
Use of terms such as suspected, likely, concern for, or probable (associated with a specific diagnosis that is being evaluated, monitored, or treated as if it exists) are acceptable and can be coded in the inpatient setting, when documented at the
time of discharge.
Thank you,
Vianey Amato RN, BSN
CDI Specialist
[place] [facility]
Please use your independent medical judgment in providing your response.
[2025-02-16 09:56] LABS: Urine Character Slightly Cloudy (Clear)
[2025-02-16 10:11] LABS: Urine Red Blood Cell 0-2 /HPF (0-2)
[2025-02-16 10:12] LABS: Urine White Cell 30-40 /HPF (0-5)
[2025-02-16 10:23] LABS: Glucose - Point of Care 93 mg/dl (70-99)
--- NOTE | 2025-02-16 10:31 | W.PN.UPDATE ---
Update Note
Progress Note Update
CDI query:
Acute Hypercapnia respiratory failure
--- NOTE | 2025-02-16 10:31 | W.PN.UPDATE ---
Update Note
Progress Note Update
#Acute Cardiogenic shock requiring MCS
#RV failure
- continue impella 5.5 @ P6
- continue dobutamine and epi
- Goal CI >1.5
- trend CO/CI and CVP
- uptitrate heparin for impella. target ptt 60-90
- continue inhaled epo; do not wean.
Critical Care time 63mins
CPT 74771
[2025-02-16] MEDS: RFP-400 HD Soln (K+ 2 mEq/L) 20000 ML CRRT-IRR (11:20)
--- NOTE | 2025-02-16 11:20 | CM ---
Chart reviewed. Patient remains in critical condition, intubated, on pressors, impella support and CRRT. Patient is independent of ADLS, lives with her in a 2 [address], 0 JAMEL, 0 DME. Patient will need functional assessment when stable to
determine discharge plan. Plan is for the patient to return home with CT Transitional RN vs Rehab. CM to follow
--- NOTE | 2025-02-16 11:24 | W.PN.NEPH.HD ---
Assessment
-
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
Progress Note - Hemodialysis
-
Date of Service: February 16, 2025
--- NOTE | 2025-02-16 11:25 | PTCARENOTE ---
Assessment unchanged; NSR on monitor and VSS; CRRT IV fluids changed; Dobutamine, Insulin, Heparin, Levo, Epi and Amiodarone infusing see flow sheet for details; labs collected; family at bedside and updated by MD.
--- NOTE | 2025-02-16 11:26 | W.PN.NEPH.PH ---
Today's Communication / Plan
-
FURNACE CARETAKER
Assessment/Plan
-
IMP:
CARLO
Acute HFrEF, new onset
CAD multiple vessel disease
s/p Coronary artery bypass grafting x 3 [initially the ADAMS was grafted to a very atretic LAD that required patch repair, ultimately there was significant hemorrhaging from here and ligate the ADAMS s/p a vein patch repair of the RV/anastomosis 02/12
dental abscess--OMFS s/p 2 teeth removal
recent skin cancer surgery right leg (Moh's with Dr. Noguera)
SVT--Symptomatic during [facility]-- on amiodarone
Moderate MR by VIOLA 02/09/2025 and severe MR by echo 02/05/25
Cervical radiculopathy
Anemia of chronic disease
Essential hypertension
Severe scoliosis
Uterine cancer status post hysterectomy
Hyperlipidemia
Osteoporosis
History of polymyalgia rheumatica/giant cell arteritis
mild hyponatremia
Echo 02/05/2025: Global hypokinesis, EF 25-30%, severe hypokinesis in the anteroseptal, anterior, apical and inferolateral segments, severe MR, pulmonary artery systolic pressure 59 mmHg, severe TR, dilated atria
Plan:
follow BMP trend q6h
wean pressors as allowed
dobutamine per cardiology
maintain bustamante
overall prognosis is guarded
will continue CRRT
Anuric
CVP 16
critical care time 31 minutes
-
-
Date of Service: February 16, 2025
CC / HPI / ROS
-
Chief Complaint:
CARLO
History of Present Illness:
CARLO/Cr now on CRRT
critically ill in CVICU, on pressors, Epi, levo
remains on Impella support
remains on dobutamine
oligoanuric
now on vent since 02/14
Review of Systems:
Vent support, 50% FiO2, CVP 16.
UF 2 L
Labs
-
Labs:
Sodium Cancelled 02/16/25 18:00
Potassium Cancelled 02/16/25 18:00
Chloride Cancelled 02/16/25 18:00
Carbon Dioxide Cancelled 02/16/25 18:00
BUN Cancelled 02/16/25 18:00
Creatinine Cancelled 02/16/25 18:00
eGFR Cancelled 02/16/25 18:00
Glucose Cancelled 02/16/25 18:00
Calcium Cancelled 02/16/25 18:00
Jrp-S-Jwavruohnkb Pept Cancelled 02/05/25 10:39
Albumin 3.6 g/dl (3.5-5.0) 02/16/25 06:23
Physical Exam
-
Vital Signs:
Vital Signs
Temp Pulse Resp BP Pulse Ox
97.4 F 85 24 75/70 94
02/16/25 11:00 02/16/25 11:00 02/16/25 11:00 02/15/25 08:12 02/16/25 11:00
[2025-02-16 11:29] LABS: B.E. -0.7 mmol/L; HCO3 22.3 mmol/L (21-28); O2 Saturation % 98.6 % (94-98); PCO2 30 mmHg (32-35); PO2 106 mmHg (83-108); Potassium 3.6 mMOL/L (3.5-5.1); Sodium 132 mMOL/L (136-145)
[2025-02-16] MEDS: NSS (PRESERVATIVE FREE) 10 ML IV (11:34)
[2025-02-16] MEDS: PROTONIX IV 40 MG IV (11:34)
[2025-02-16] MEDS: NOVOLOG FLEXPEN-LOW RESISTANCE SC ×2 (11:40→17:14)
[2025-02-16 11:42] LABS: Blood Urea Nitrogen 14 mg/dl (7-17); Calcium 8.8 mg/dl (8.4-10.2); Carbon Dioxide 24 mmol/L (22-30); Chloride 104 mmol/L (98-107); Estimated Creatinine Clearance 34 ml/min; Glucose 89 mg/dl (70-99); LDH 245 U/L (120-246); Magnesium 2.0 mg/dl (1.6-2.3); Potassium 3.5 mmol/L (3.5-5.1); Sodium 134 mmol/L (135-145); eGFR 55.90
[2025-02-16] MEDS: ROXICODONE 5 MG PO ×2 (11:46→18:17)
[2025-02-16 12:02] LABS: INR 1.67; PT 19.9 Sec (11.4-14.6)
--- NOTE | 2025-02-16 12:13 | PTCARENOTE ---
Tube feedings started per CTNP orders.
[2025-02-16 12:15] LABS: Glucose - Point of Care 89 mg/dl (70-99)
[2025-02-16] MEDS: LANTUS 0.05 UNITS SC (12:15)
[2025-02-16 12:39] LABS: APTT 49.7 Sec (23.4-35.0)
[2025-02-16] MEDS: DOBUTREX 250 MG IV (14:08)
[2025-02-16] MEDS: LEVOPHED 258 MG IV (14:09)
[2025-02-16] MEDS: SODIUM BICARBONATE 1025 MEQ INF CATH (14:09)
[2025-02-16] MEDS: ADRENALIN 258 MG IV (14:10)
[2025-02-16] MEDS: RFP-401 HD Soln (K+ 4 mEq/L) 20000 ML CRRT-IRR (14:15)
[2025-02-16] MEDS: NSS 500 IV (14:27)
--- NOTE | 2025-02-16 14:37 | PTCARENOTE ---
1 unit PRBCs infusing per CTNP order; CRRT IVF changed to 4 K Bath; assessment unchanged; NSR on monitor and VSS.
[2025-02-16] MEDS: LIPITOR 20 MG PO (16:48)
[2025-02-16 17:15] LABS: Glucose - Point of Care 139 mg/dl (70-99)
--- NOTE | 2025-02-16 17:20 | PTCARENOTE ---
Assessment unchanged; NSR on monitor and VSS; Dobutamine, Levo, Epi, Heparin and Precedex infusing see flow sheet for details; CRRT infusing without issues; labs collected; family at bedside.
[2025-02-16 17:26] LABS: B.E. -2.5 mmol/L; HCO3 21.4 mmol/L (21-28); O2 Saturation % 99.2 % (94-98); O2 Therapy vent; PCO2 33 mmHg (32-35); PO2 96 mmHg (83-108); Potassium 3.8 mMOL/L (3.5-5.1); Sodium 131 mMOL/L (136-145)
[2025-02-16 17:37] LABS: INR 1.62; PT 19.4 Sec (11.4-14.6)
[2025-02-16 17:38] LABS: APTT 96.6 Sec (23.4-35.0)
[2025-02-16 17:53] LABS: Blood Urea Nitrogen 14 mg/dl (7-17); Calcium 8.6 mg/dl (8.4-10.2); Carbon Dioxide 22 mmol/L (22-30); Chloride 104 mmol/L (98-107); Estimated Creatinine Clearance 34 ml/min; Glucose 131 mg/dl (70-99); LDH 299 U/L (120-246); Magnesium 1.9 mg/dl (1.6-2.3); Potassium 3.7 mmol/L (3.5-5.1); Sodium 132 mmol/L (135-145); eGFR 55.90
[2025-02-16] MEDS: SODIUM PHOSPHATE 260 MEQ IV (18:24)
[2025-02-16] MEDS: REMOVE LIDOCAINE PATCH REMOVE (19:46)
[2025-02-16] MEDS: SENNA SYRUP 8.8 MG TUBE (19:47)
--- NOTE | 2025-02-16 20:45 | PTCARENOTE ---
Assumed care of pt from previous shift RN. Pt following simple commands. SERRANO. Pupils +2 and reactive. CPOT 4. RASS-1. NSR on tele w HR 80s. A/V wires set to back up of DDI 60/10/15. Unplugged from box at this time. +1 edema to bilateral lower and
upper extremities. DP pulses weak on palpation, R radial & L brachial pulse + via Doppler. CO/CI 2.94/ 1.55, CVP 20s, PAP 40s/20s. Right IJ cordis w swan floated to 40, left radial arleen, and PIV x2 intact. All lines leveled, zeroed and flushed.
Right subclavian dialysis catheter w CRRT running intact - see worklist for settings. Impella 5.5 at p6 marked at 32cm, in Left neck C/D/I. #8 ETT/22cm left lip, VENT SETTINGS: 40/350/24/+5, pox 90%, lungs coarse and diminished throughout. Flolan
infusing via vent see respiratory documentation for further details. Pleural CTs w minimal amount of drainage. Abdomen round. +BS x4. Coulter w minimal yellow urine output. No BM. OGT w tube feeds running. Repositioned as documented. Fent boluses as
needed - see MAR. See worklist for full nursing assessment and interventions. CBC drawn and sent as ordered.
DRIPS:
EPI 2.5 mcg/min
Dobutamine 5 mcg/kg/min
Amiodarone 0.5 mg/min
Levophed 3mcg/min
Precedex 0.8 mcg/kg/hr
Heparin 600 units/hr
[2025-02-16 20:59] LABS: Hematocrit 29.4 % (37.0-47.0); Hemoglobin 9.7 g/dL (12.0-16.0); Mean Corp Hgb Conc. 33.0 g/dL (33.0-37.0); Mean Corpuscular Volume 89.4 fL (81.0-99.0); Platelet Count 81 10^3/uL (130-400); Red Cell Dist. Width 16.1 % (11.5-14.5)
[2025-02-16] MEDS: ROBITUSSIN 100 MG TUBE (21:34)
[2025-02-16] MEDS: TYLENOL 975 MG TUBE (21:34)
[2025-02-16] MEDS: PACERONE 200 MG TUBE (21:34)
[2025-02-16] MEDS: CORDARONE 518 MG IV (22:06)
[2025-02-16] MEDS: DILAUDID 0.25 MG IV (23:48)
--- NOTE | 2025-02-17 00:34 | PTCARENOTE ---
pt reassessed. no acute changes at this time. pt increasingly restless. see MAR for fentanyl bolus. NSR per tele monitor. Vent settings unchanged.
[2025-02-17 00:41] LABS: Glucose - Point of Care 163 mg/dl (70-99)
[2025-02-17 00:56] LABS: B.E. -1.3 mmol/L; HCO3 22.6 mmol/L (21-28); O2 Saturation % 98.7 % (94-98); PCO2 34 mmHg (32-35); PO2 97 mmHg (83-108); Potassium 3.7 mMOL/L (3.5-5.1); Sodium 131 mMOL/L (136-145)
[2025-02-17 00:59] LABS: O2 Therapy VENT
[2025-02-17] MEDS: NOVOLOG FLEXPEN-LOW RESISTANCE 1 UNITS SC ×4 (01:12→23:19)
[2025-02-17 01:17] LABS: INR 1.63; PT 19.6 Sec (11.4-14.6)
[2025-02-17 01:19] LABS: APTT 87.2 Sec (23.4-35.0)
[2025-02-17 01:24] LABS: Blood Urea Nitrogen 13 mg/dl (7-17); Calcium 8.6 mg/dl (8.4-10.2); Carbon Dioxide 24 mmol/L (22-30); Chloride 103 mmol/L (98-107); Estimated Creatinine Clearance 37 ml/min; Glucose 142 mg/dl (70-99); LDH 298 U/L (120-246); Magnesium 2.7 mg/dl (1.6-2.3); Potassium 3.6 mmol/L (3.5-5.1); Sodium 134 mmol/L (135-145); eGFR > 60.00
[2025-02-17] MEDS: KCL 100 IV (02:34)
[2025-02-17] MEDS: SODIUM BICARBONATE 50 MEQ IV (02:34)
[2025-02-17] MEDS: SUBLIMAZE 50 MCG IV ×4 (02:45→12:56)
[2025-02-17] MEDS: CALCIUM GLUCONATE 130 MG IV (02:50)
[2025-02-17] MEDS: DILAUDID 0.25 MG IV ×2 (03:21→23:07)
[2025-02-17] MEDS: PRECEDEX 100 IV ×2 (03:26→08:46)
[2025-02-17] MEDS: FLEXBUMIN 100 IV ×2 (03:53→12:11)
--- NOTE | 2025-02-17 04:10 | PTCARENOTE ---
pt reassessed. NSR per tele monitor HR 80s. Ultrafiltration reduced from 180 to 160 on CRRT. Tube feedings stopped at 0200. blood in ET tube, resp notified via tiger text. CTPA at bedside. pox stable throughout 95%, pt suctioned by CTPA.
--- NOTE | 2025-02-17 04:10 | PTCARENOTE ---
pt reassessed. NSR per tele monitor HR 80s. Impella maintained at P-6. CRRT running without issue. Ultrafiltration reduced from 180 to 160 per CTPA d/t low BPs. Dialysate bags changed. Minimal UO from Coulter. Tube feedings stopped at 0200. blood in
ET tube ~0450, resp notified via tiger text. CTPA at bedside. pox stable throughout 95%, pt suctioned by CTPA. all lines leveled,zeroed, flushed. Pt remains restless and tachypneic at times. Electrolytes replaced, See MAR.
[2025-02-17 04:40] VITALS: BMI 27.0
--- NOTE | 2025-02-17 05:27 | W.PN.CT ---
Addendum entered and electronically signed by NAIN Pagan 02/17/25 15:59:
CDI QUERY RESPONSE:
Hemoptysis is related to/associated with/exacerbated by Heparin
Original Note:
Today's Communication / Plan
-
Plan:
-Pt currently on intubated and receiving IV Fentanyl push PRN for agitation
-On Dobutamine @ 5, Levophed @ 2, Epinephrine @ 2.5, Heparin gtt currently on hold, Precedex @ 0.08, Amiodarone @ 0.5, Flolan @ 0.03
-Impella 5.5 intact @ P-6
-Developed hemoptysis at around 3 AM this AM. PTT note to be 12 this AM, Heparin gtt placed on hold. INR 1.64
-Weaning off Flolan, Pulm to bronch with plan to extubate post bronchoscopy
-Receiving CRRT, with ultrafiltration rate @ 160 currently. Creatinine has improved, 0.9, peaked to 2.2. 24hrs u/o 40 mL
-Monitor chest tube drainage: Left pleural 220/805
-Maintain bustamante catheter
Assessment / Plan
-
S/P coronary artery bypass grafting x 3 [initially the ADAMS was grafted to a very atretic LAD that required patch repair, ultimately there was significant hemorrhaging from here and I opted to ligate the ADAMS and perform a vein patch repair of the
RV/anastomosis, Ao to RSVG to OM 1, RSVG off of the rdz of OM1 to a large diagonal vessel, Ao to RSVG to mid to distal RCA], Chordal sparing mitral valve replacement, Impella LVAD placement by Dr. Cochran on 02/12/25, pod #5
PMH:�
ICM EF 25-30%,�
Scoliosis
Chronic anemia
CAD
Severe�MR
Hx�of SVT
HTN
Uterine cancer status hysterectomy�
Hyperlipidemia�
Osteoporosis�
Hx�of�polymyalgia�rheumatica/giant cell arteritis�skin cancer�(right leg Mohs surgery)�
Cervical radiculopathy�
Pre-existing LBBB
SVT treated with adenosine at time of cardiac cath 02/06/2025
Acute postop blood loss anemia
CARLO on CKD- improving
Acute postop coagulopathy/thrombocytopenia
Acute postop atelectasis/ pulmonary insufficiency
Acute postop hypovolemia with subsequent hypervolemia
Acute postop cardiogenic shock, requiring Impella and inotropic support
Intubated electively on 02/14 d/t increased work of breathing
CRRT started 02/14
Echo 02/15/25:
1. Left ventricular ejection fraction is severely reduced with an ejection fraction of 24 % by Rodriguez's biplane method of discs.
2. Normal right ventricle size with moderately reduced function.
3. Severe tricuspid regurgitation by gross assessment.
4. Impella device is present.
5. When compared to prior study, tricuspid regurgitation and right ventricle dysfunction are now present.
Discussed patient care with: Cardiology, Nursing, Respiratory Therapy, Pharmacy and Care Team
Subjective
-
Date of Service: February 17, 2025
Pt intubated and following simple commands
Objective Data
-
PT 19.6 Sec (11.4-14.6) H 02/17/25 00:33
INR 1.63 02/17/25 00:33
APTT 87.2 Sec (23.4-35.0) H 02/17/25 00:33
Vital Signs
Vital Signs
Temp Pulse Resp BP Pulse Ox
97.5 F 83 24 75/70 95
02/17/25 04:00 02/17/25 05:20 02/17/25 05:20 02/15/25 08:12 02/17/25 05:20
CT Intake/Output/Weight
02/16/25 02/16/25 02/17/25
06:59 18:59 06:59
Intake Total 1518.9 / 3459.6 1349.9 / 2865.5 1515.6 / 2865.5
Output Total 1463 / 2540 2287 / 4180 1893 / 4180
Balance 55.9 / 919.6 -937.1 / -1314.5 -377.4 / -1314.5
SaO2: 95 (CMV)
Physical Exam
-
General: Awake, Oriented and AOx3
Cardiovascular: Regular rate & rhythm, No Murmurs and No Gallop
Respiratory: Decreased Breath Sounds
Sternum: Stable
Incision: Clean, Dry, Intact and Dressing Intact
Extremities: Edema +2
Data Reviewed
-
Lab Results: Results Reviewed
Medications: Active Meds Reviewed
Chest X-Ray: Report Reviewed and Image Reviewed
ECG: Report Reviewed and Image Reviewed
[2025-02-17] MEDS: NOVOLOG FLEXPEN-LOW RESISTANCE SC (05:28)
[2025-02-17 05:29] LABS: Glucose - Point of Care 122 mg/dl (70-99)
[2025-02-17] MEDS: TYLENOL 975 MG TUBE ×3 (05:33→21:15)
[2025-02-17 05:43] LABS: INR 1.64; PT 19.6 Sec (11.4-14.6)
[2025-02-17 05:44] LABS: Fibrinogen 451 MG/DL (199-459); Hematocrit 27.6 % (37.0-47.0); Hemoglobin 9.4 g/dL (12.0-16.0); Mean Corp Hgb Conc. 34.1 g/dL (33.0-37.0); Mean Corpuscular Volume 86.8 fL (81.0-99.0); Platelet Count 76 10^3/uL (130-400); Red Cell Dist. Width 16.0 % (11.5-14.5)
[2025-02-17 05:47] LABS: D-Dimer 2.40 ug/mlFEU (0.00-0.50)
[2025-02-17 05:56] LABS: B.E. -0.8 mmol/L; HCO3 23.2 mmol/L (21-28); O2 Saturation % 97.9 % (94-98); PCO2 35 mmHg (32-35); PO2 85 mmHg (83-108); Potassium 4.6 mMOL/L (3.5-5.1); Sodium 132 mMOL/L (136-145)
[2025-02-17 06:01] LABS: ALT (SGPT) 15 U/L (0-35); AST (SGOT) 38 U/L (14-36); Albumin 3.8 g/dl (3.5-5.0); Alkaline Phosphatase 63 U/L (38-126); Blood Urea Nitrogen 12 mg/dl (7-17); Calcium 9.7 mg/dl (8.4-10.2); Carbon Dioxide 24 mmol/L (22-30); Chloride 104 mmol/L (98-107); Estimated Creatinine Clearance 37 ml/min; Glucose 116 mg/dl (70-99); LDH 285 U/L (120-246); Magnesium 2.6 mg/dl (1.6-2.3); Potassium 4.5 mmol/L (3.5-5.1); Sodium 135 mmol/L (135-145); Total Protein 5.5 g/dl (6.3-8.2); eGFR > 60.00
[2025-02-17 06:12] LABS: APTT 124.1 Sec (23.4-35.0)
--- NOTE | 2025-02-17 06:31 | PTCARENOTE ---
Flolan reduced to 0.02 by respiratory and heparin on hold d/t hemoptysis / blood in ETT per Dr. Cochran.
[2025-02-17] MEDS: SODIUM PHOSPHATE 260 MEQ IV (07:11)
--- NOTE | 2025-02-17 07:47 | W.PN.CARDCBS ---
Addendum entered and electronically signed by Maxwell Richardson MD 02/17/25 10:13:
I saw and examined the patient.
The Physical Education Professor's note was reviewed and I agree with the note.
Comment: Briefly, 84-year-old woman presenting in acute heart failure found to have newly reduced LVEF 25-30% and severe MR. With elevated troponin she was referred for left heart catheterization which showed multivessel CAD and elevated filling
pressures. Subsequently underwent CABG x 3, mitral valve replacement, left atrial appendage clip on 02/12/2025.
Seen in the CVICU where she remains intubated
Impella 5.[address] at P6
Requiring norepinephrine, epinephrine and dobutamine for hemodynamic support
Volume management via CRRT
Intermittent hemoptysis/bloody secretions while on triple therapy aspirin/Plavix/heparin. Plavix currently on hold. Would resume as able.
Continue high intensity statin
Blood pressure unable to tolerate additional GDMT for her cardiomyopathy
Agree with amiodarone to maintain sinus rhythm
Rest per Sandra Sutton
Original Note:
Today's Communication / Plan
-
continue post op care
bedside bronch today, hopeful extubation
wean pressors as able
remains critically ill
Impression / Plan
-
PCP: Dr. Souza
Primary Division Human Resources Manager: Dr. Merly Herrera
Impression:
Presentation with L chest/shoulder pain 02/05/25
Acute HFrEF
CAD
s/p cath with occluded LAD and collaterals 2011
MV CAD with chronically occluded LAD from angiogram in 2011 and new high-grade mid RCA and OM1 stenosis by cardiac cath 02/06/25
Atrial fibrillation, paroxysmal, likely postoperative in the setting of acute medical illness
ICM EF 25-30% by echo 02/05/25
Severe MR by echo 02/05/25
SVT treated with adenosine at time of cardiac cath 02/06/2025
Scoliosis
Hypertension
Hyperlipidemia
Giant cell arteritis
Squamous cell of RLE
Osteoporosis
Resting sinus tachycardia
PMR
Hyperglycemia and prediabetes
Dental extractions x2 02/09/25
ECHO 09/28/2022: EF 55%, mild hypokinesis of apical septum, apical inferior segment, and apex, grade 1 diastolic dysfunction, mild to moderate MR, mild AR, mild TR, PAP 35 to 40 mmHg
Echo 02/05/2025: Global hypokinesis, EF 25-30%, severe hypokinesis in the anteroseptal, anterior, apical and inferolateral segments, severe MR, pulmonary artery systolic pressure 59 mmHg, severe TR, dilated atria
Limited echo 02/13/2025: Normal LV size, Impella present, EF 20-25% by visual estimation, normal RV size and function, no pericardial effusion.
VIOLA Feb 09 2025: SUMMARY
1. Moderate to severely reduced left ventricular systolic function with estimated ejection fraction of 30 to 35%.
2. Global hypokinesis with more prominent apical, anterior, anteroseptal and septal hypokinesis.
3. Moderate mitral regurgitation.
4. Mild to moderate tricuspid regurgitation.
5. Mild aortic regurgitation.
echo 02/15/25: EF 24%, severe TR, impella in place
Plan:
- Presented with dyspnea on exertion and elevated troponin (peak 2.3) with echocardiogram that showed newly reduced EF and severe MR. Cardiac catheterization showed multivessel CAD and underwent VIOLA with moderate MR
- She underwent difficult case including CABG x 3 with attempted ADAMS graft requiring patch repair with significant hemorrhage status post ligation and vein patch repair, ao to RSVG to OM1, RSVG off of the rdz of OM1 to large diagonal, AO to RSVG
to mid to distal RCA, chordal sparing bioprosthetic MVR, AXEL clip 02/12/2025
- remains critically ill on impella 5.5 at P6
- Was reintubated 02/14. planned for extubation today, but for bedside bronch first this AM
- CI 1.59. Remains on dobutamine at 5, levo at 3, epi at 2.5
- In sinus rhythm on IV amiodarone at 0.5
- Started on CRRT this admission, with limited urine output
- echo 02/15 with EF 24%, severe TR, impella in place
- hgb 9.4. remains on DAPT. IV heparin presently on hold
- was on toprol 25mg BID and lisinopril 20mg daily prior to admission, resume post op as able. consider addition of SGLT2 and aldactone as able given ICM.
- LDL 62. continue lipitor
- HgbA1c 6.1% consistent with prediabetes
- of note, patient developed SVT at time of cardiac cath and required adenosine, she was hypotensive at that time. Patient was started on amiodarone 200 mg BID following cath, continue post op. follow QTc
- will also need follow up echo as OP at 3 month christiano to reeval EF
- prognosis guarded
- d/w nursing.
Progress Note - Division Human Resources Manager
Subjective
Date of Service: February 17, 2025
Intubated, however awake and squeezing hands, attempting to talk
Objective
Labs:
Labs
Hgb 9.4 g/dL (12.0-16.0) L 02/17/25 05:22
Hct 27.6 % (37.0-47.0) L 02/17/25 05:22
Plt Count 76 10^3/uL (130-400) L 02/17/25 05:22
PT 19.6 Sec (11.4-14.6) H 02/17/25 05:22
INR 1.64 02/17/25 05:22
APTT 124.1 Sec (23.4-35.0) H 02/17/25 05:22
Sodium 135 mmol/L (135-145) 02/17/25 05:22
Potassium 4.5 mmol/L (3.5-5.1) 02/17/25 05:22
BUN 12 mg/dl (7-17) 02/17/25 05:22
Creatinine 0.9 mg/dL (0.6-1.0) 02/17/25 05:22
Glucose 116 mg/dl (70-99) H 02/17/25 05:22
Vital Signs and I&O:
Vital Signs
Temp Pulse Resp BP Pulse Ox
97.6 F 84 26 75/70 97
02/17/25 07:00 02/17/25 07:05 02/17/25 07:05 02/15/25 08:12 02/17/25 07:05
Vital Signs
Temp Pulse Resp BP Pulse Ox
97.6 F 84 26 75/70 97
02/17/25 07:00 02/17/25 07:05 02/17/25 07:05 02/15/25 08:12 02/17/25 07:05
Intake & Output
02/14/25 02/15/25 02/16/25 02/17/25
07:59 07:59 07:59 07:59
Intake Total 2656.2 / 2752.0 3334.1 / 3334.1 3088.2 / 3157.7 3143.6 / 3143.6
Output Total 1450 / 1485 2942 / 3016 2596 / 2661 4475 / 4475
Balance 1206.2 / 1267.0 392.1 / 318.1 492.2 / 496.7 -1331.4 / -1331.4
Physical Exam
Physical Exam
GEN: No distress, awake, intubated
HEENT: supple, mmm
LUNGS: Decreased B/L bases, no wheezes
CV: Reg, S1/S2, no murmur
ABD: soft, BS+, NT/ND
EXT: No cyanosis, clubbing. 1+ edema of B/L LE
NEURO: sedated
SKIN: Warm, pink, dry. No rash. Sternotomy incision c/d/i
[2025-02-17] MEDS: MUCOMYST 20% INH (07:49)
--- NOTE | 2025-02-17 07:50 | PTCARENOTE ---
Received pt from evening or night nurse supervisor RN; pt intubated and sedated; Pupils +2 and reactive; pt respond to verbal commands, squeezes hands and moves feet; NSR on monitor and VSS; Morris Dukes floated to 40, Left A-line, HD tunnel cath in right upper chest
and PIV x2; all lines leveled and zeroed; Dobutamine, Levo, Epi, Precedex and Amiodarone infusing see flow sheet for details; Epicardial A/V wires in place and box off; Impella 5.5 in Left neck at p6, see flow sheet for details; lungs
diminished/coarse throughout; ETT 8 22 @ lip; vent settings A/C 40%/350/5/24; Flolan infusing per respiratory; CT x2 to -20 wall suction no air leak and no crepitus noted; hypoactive bowel sounds; OGT in place; Coulter catheter draining minimal UO;
CRRT infusing with 4 K bath see flow sheet for details; pulses present with Doppler throughout; +2 generalized edema; all surgical sites C/D/I; see nursing documentation for further details.
Dr Buckley at bedside Precedex titrated per protocol and Fentanyl bolus given; at Respiratory at bedside for Bronch.
--- NOTE | 2025-02-17 07:55 | PN.DE.MGMTRT ---
Insulin Management
- -
02/17/2025: Diabetes Management Follow up
84 year old female with PMH: CAD, SVT, HTN, HLD, Uterine cancer s/p hysterectomy and Osteoporosis who presents initially to the hospital on 02/05/2025 for evaluation of progressive shortness of breath-ultimately found to be in acute HF with global
hypokinesis, EF significantly decreased to 25-30% with severe TR and pulmonary hypertension. Patient underwent cardiac catheterization 02/06/2025: Demonstrated multivessel severe coronary artery disease, was stabilized medically initially.
Subsequently underwent CABG x 3, mitral valve replacement and Impella LVAD placement on 02/12/2025.
A1C 6.1%, Cr .9, eGFR >60 today. Was not taking any diabetes medications LIMOUSINE RENTAL CLERK.
Patient was started on CRRT on 02/14 and intubated electively on 02/14.
She remains intubated, on Impella and CRRT, Cr 1.1, eGFR 49.86 today. Had bronch today.
POD # 5 s/p CABG x3. Was transitioned from critical care glycemic protocol 02/16 with 5 units lantus and Q 6 hour moderate corrective insulin. HS glucose 163, fasting glucose today 116. Will make no change to current moderate corrective insulin.
Discussed with Nurse. Will cont to monitor
Diabetes History
- -
Pre-Admission Diabetes Regimen
02/16/25 02/16/25 02/16/25
11:14 12:00 17:14
Creatinine 1.0 Cancelled 1.0
02/16/25 02/17/25 02/17/25
18:00 00:33 05:22
Creatinine Cancelled 0.9 0.9
Lab Results
Hemoglobin A1c 6.1 % (4.0-5.6) H 02/07/25 05:07
Insulin Pump Settings
IP Diabetes Regimen
02/16/25 02/16/25 02/16/25
08:05 10:21 11:14
Glucose 89
POC Glucose 92 93
02/16/25 02/16/25 02/16/25
12:00 12:14 17:13
Glucose Cancelled
POC Glucose 89 139 H
02/16/25 02/16/25 02/17/25
17:14 18:00 00:33
Glucose 131 H Cancelled 142 H
POC Glucose
02/17/25 02/17/25 02/17/25
00:40 05:22 05:27
Glucose 116 H
POC Glucose 163 H 122 H
Patient Education
[2025-02-17] MEDS: PROTONIX IV 40 MG IV (08:05)
[2025-02-17] MEDS: NSS (PRESERVATIVE FREE) 10 ML IV (08:06)
[2025-02-17] MEDS: SUBLIMAZE 25 MCG IV (08:28)
[2025-02-17] MEDS: LIDOCAINE 4% PATCH TOPICAL (08:30)
--- NOTE | 2025-02-17 08:30 | PTCARENOTE ---
MD, Respiratory and RNs at bedside; Bronch preformed; specimen sent to lab; NSR on monitor and VSS; pain medication provided.
--- NOTE | 2025-02-17 08:38 | OR.RPT ---
Operative Report
Operative Report
Bronchoscopy and BAL
Indication: Persistent right lower lobe opacity, Hemoptysis
Consent: Verbal consent obtained from patient's spouse, Wan Villalba, via phone [phone]
Procedure: Patient was intubated, mechanically ventilated and sedated. FiO2 was increased to 100% to preoxygenated. Precedex was increased up to 1.5. Additional 50 mcg of fentanyl IV x 1 was given prior to procedure. After performing time out,
disposable bronchoscope was advanced through the ET tube. Lidocaine was sprayed at the christiane. Serosanguineous secretions were noted at the christiane which were suctioned. Endobronchial mucosa appeared erythematous throughout. Slow oozing of
sanguinous secretions was noted throughout but more so in the left lung. Suctioning was performed and all secretions were cleared. No active bleeding was noted, however minimal oozing with serosanguineous secretions were noted more so on the left
side. No mucous plug was observed. All segments of all lobes were patent without any mass, obstruction or purulent discharge. Scope was then advanced in the right lower lobe and wedged in place. 30 cc of saline was injected and a BAL was
performed. 15 mL of sanguinous effluent was collected and sent for microbiological studies.
Quick inspection was again performed and no active significant bleeding was noted. Scope was then withdrawn and procedure concluded. Patient stayed hemodynamically stable through the procedure. Minimum oxygen saturation during the procedure was
93%.
Time spent: 25 min
Complications: None
Date of service: 02/17/2025
[2025-02-17] MEDS: PULMICORT 0.5 MG INH ×2 (08:40→19:46)
[2025-02-17] MEDS: OASIS 1 SPRAY PO ×2 (08:46→16:25)
--- NOTE | 2025-02-17 08:49 | PTCARENOTE ---
Impella decreased to p5 per Dr Cochran orders. Heparin restarted at 600 units/hr; Tube Feedings resumed at previous rate; Fentanyl drip started per CTNP order; family at bedside and updated by CTNP.
[2025-02-17 08:52] LABS: Absolute Neutrophils -Man Diff 14.4 10^3/uL (1.4-6.5)
[2025-02-17 08:53] LABS: Acanthocytes Occasional; Anisocytosis 1+; Hypochromasia 1+; Normal RBC Morphology No; Platelets Checked Yes
[2025-02-17 08:54] LABS: Schistocytes Occasional
[2025-02-17 08:56] LABS: Basophilic Stippling Slight; Ovalocytes 1+
[2025-02-17 08:57] LABS: Polychromasia 1+; Total Cells Counted 100
[2025-02-17] MEDS: NSS IV (09:25)
[2025-02-17] MEDS: MIRALAX TUBE (09:26)
[2025-02-17] MEDS: ROBITUSSIN 100 MG TUBE ×4 (09:28→21:15)
[2025-02-17] MEDS: SENNA SYRUP 8.8 MG TUBE ×2 (09:28→21:15)
[2025-02-17] MEDS: THERAGRAN 1 TABLET TUBE (09:29)
[2025-02-17] MEDS: VITAMIN B1 100 MG TUBE (09:29)
[2025-02-17] MEDS: VITAMIN C 500 MG TUBE (09:29)
[2025-02-17] MEDS: PACERONE 200 MG TUBE ×3 (09:29→21:15)
[2025-02-17] MEDS: SUBLIMAZE 100 IV ×2 (09:49→23:08)
--- NOTE | 2025-02-17 10:02 | PTCARENOTE ---
CI 1.34 Co 2.35 SVR 1138; CTNP aware; Impella increased back to p6.
--- NOTE | 2025-02-17 10:26 | CM ---
Chart reviewed. Patient is still in critical condition, intubated with an impella on CRRT. Patient is independent of ADLS, lives with her in a 2 [address], 0 JAMEL, 0 DME. Patient will need functional assessment to determine discharge needs.
Plan is for the patient to return home with CT Transitional RN vs Rehab. CM to follow
--- NOTE | 2025-02-17 10:44 | W.PN.INTV ---
Today's Communication / Plan
Recommendations
- BAL performed right lower lobe, await final culture sensitivities
- Discontinue Mucomyst in view of erythematous airway wall
- Wean Flolan to eventually off
- Agree with current hold of heparin in view of hemoptysis
- Serial H&H
- Wean FiO2 and pressors as tolerated
- Follow-up chest x-ray and ABG in a.m.
Assessment
-
Status post: Dr. Cochran 02/12/2025-coronary artery bypass grafting x 3 [initially the ADAMS was grafted to a very atretic LAD that required patch repair, ultimately there was significant hemorrhaging from here and Dr. Cochran opted to ligate the ADAMS and
perform a vein patch repair of the RV/anastomosis, Ao to RSVG to OM 1, RSVG off of the rdz of OM1 to a large diagonal vessel, Ao to RSVG to mid to distal RCA]
NSTEMI with CAD, s/p CABG 02/2025
Severe MR, s/p Chordal sparing mitral valve replacement
s/p Impella LVAD placement
Respiratory failure, reintubated 02/14
Cardiogenic shock
Acute HFrEF, LV EF 24% with RV dysfunction and severe TR
Dental abscess--OMFS s/p 2 teeth removal-this admission
Hemoptysis 02/17/2025
Conditions present prior admission:
Scoliosis
Chronic anemia
History of coronary artery disease
Moderate MR
History of SVT
Hypertension
Uterine cancer status post hysterectomy
Hyperlipidemia
Osteoporosis
History of polymyalgia rheumatica/giant cell arteritis
Recent skin cancer status post right leg Mohs surgery with Dr. Noguera
Cervical radiculopathy
Overview 02/17: Patient currently intubated, mechanically ventilated and sedated. Overnight hemoptysis noted, heparin infusion on hold now. Current vent settings 350/24/40%/5, ABG 7.40 3/35/85. Chest x-ray with somewhat increased right lower lobe
opacity. Current infusions epinephrine, Precedex, amiodarone, dobutamine, Levophed. MAP of 64, saturating 96% on 40% FiO2. Pulmonary pressures 47/24, mean of 31.
Assessment and plan:
Postoperative day 5
Reintubated 02/14/2025-increased work of breathing-hypercapnia.
Continue mechanical ventilation without change.
Pulmonary mechanics acceptable
Chest x-ray 02/16/2025: Persistent right lower lobe opacity
-
Continue sedation for RASS score 0 to -1. Currently on Precedex infusion
-
Unfortunately remain on multiple vasoactive drugs
Levophed /dobutamine /epinephrine /amiodarone drip.
Impella device in place @ 3.6 l/min
Repeat VIOLA: Ejection fraction 20-25%. Moderate RV dysfunction. Severe TR.
Epoprostenol currently being weaned off
Patient essentially in biventricular failure with decreased LVEF as well as RV dysfunction. Poor prognosis
-
Bronchoscopy performed, diffuse erythema of airway tree with sanguinous secretions. BAL at RLL with sanguinous output. No significant active bleeding, however diffuse oozing with sanguinous secretions, more in L>R lung. Suspect in the setting of
ASA/Plavix/Heparin. Currently heparin on hold. D/c Mucomyst due to erythematous airway daniels. Agree with weaning off Flolane. Serial H/H.
-
Atrial fibrillation-persistent. Amiodarone drip continues
Cardiology following patient.
Heparin on hold in view of Hemoptysis
-
Continue CRRT to hopefully achieve negative fluid balance
Follow renal function and electrolytes
-
Acute kidney injury:
Follow urinary output-Coulter in place
Follow renal function
Nephrology-CRRT continues started on 02/14/2025
-
Anemia noted
Transfuse as necessary
Follow H&H serially
Chest tube with no excessive drainage-no air leak.
Chest x-ray reviewed: With no pneumothorax or fluid collections.
Tube feeding on hold for bronchoscopy.-on mechanical ventilation.
Head of the bed elevation
Glycemic control per protocol
Prognosis guarded
DVT prophylaxis. had been on heparin infusion
Critical care statement: A total of 42�minutes of critical care time was provided for this patient today. This includes management of unstable vital signs, evaluation of the patient at bedside, reviewing the patient�s pertinent medical records
including ventilator settings, arterial blood gases, radiographs, microbiology, laboratory evaluations and��discussion with primary team, critical care nursing, and respiratory therapy.
Subjective Dataa
Subjective Data
Date of Service:
Date of Service: February 17, 2025
Chief Complaint: Edge Sawyer Follow Up (Status post coronary artery bypass, mitral valve replacement)
Subjective:
Patient currently intubated, mechanically ventilated and sedated
Review of Systems
General: Unobtainable - Sedation
Objective Data
Data Reviewed
Vital Signs / I&O / Oxygen:
Vital Signs
Temp Pulse Resp BP Pulse Ox
97.7 F 84 24 75/70 98
02/17/25 10:00 02/17/25 10:00 02/17/25 10:00 02/15/25 08:12 02/17/25 10:00
Intake and Output
02/16/25 02/17/25 02/18/25
06:59 06:59 06:59
Intake Total 3390.1 / 3459.6 3150.6 / 3213.1 526.8 / 526.8
Output Total 2465 / 2540 4514 / 4679 737 / 737
Balance 925.1 / 919.6 -1363.4 / -1465.9 -210.2 / -210.2
SaO2 [A/C] 92
SaO2 [CPAP/PSV] 97
SaO2 [SIMV] 96
SaO2 98
Nasal Cannula flow liters per 93
minute
Physical Exam
General: Comfortable (On sedation)
HEENT: Normocephalic and Other (ET tube in place)
Cardiovascular: S1-S2
Respiratory: Rhonchi (Improving rhonchi. Blood-tinged mucus noted in ET tube suction catheter) and Chest Tube (No excessive drainage, no air leak)
GI: Soft and Non Distended
Neurology: Other (Sedated on mechanical ventilation)
Skin: Warm
Labs/Micro/Reports
Laboratory Results
02/16/25 02/16/25 02/16/25
11:14 17:14 17:15
PT 19.9 H 19.4 H
INR 1.67 1.62
APTT 49.7 H 96.6 H
pH 7.48 H 7.42
pCO2 30 L 33
pO2 106 96
HCO3 22.3 21.4
O2 Delivery Level vent
02/17/25 02/17/25 02/17/25
00:33 05:22 05:51
PT 19.6 H 19.6 H
INR 1.63 1.64
APTT 87.2 H 124.1 H
pH 7.43 7.43
pCO2 34 35
pO2 97 85
HCO3 22.6 23.2
O2 Delivery Level Vent
Microbiology
02/16/25 09:35 Urine Urine Culture - Final
NO GROWTH
02/16/25 04:02 Tracheal Aspirate Gram Stain - Preliminary
[2025-02-17 11:19] LABS: Glucose - Point of Care 154 mg/dl (70-99)
[2025-02-17 11:35] LABS: B.E. -1.4 mmol/L; HCO3 22.7 mmol/L (21-28); O2 Saturation % 99.1 % (94-98); PCO2 35 mmHg (32-35); PO2 134 mmHg (83-108); Potassium 4.2 mMOL/L (3.5-5.1); Sodium 131 mMOL/L (136-145)
[2025-02-17 11:45] LABS: INR 1.60; PT 19.3 Sec (11.4-14.6)
[2025-02-17 11:47] LABS: APTT 71.1 Sec (23.4-35.0)
--- NOTE | 2025-02-17 11:49 | PN.CDI ---
CDI
- -
CDI:
Physician Documentation Request
Admit Date: 02/06/25 06:[address] Team,
Please review the following and provide your response in the progress notes.
Clinical Indicators:
Pt status post CABG X 3.
02/17 Rn Practitioner Note: ' Overnight hemoptysis noted, heparin infusion on hold now.'
02/17 PTT result 124.1
Please clarify the relationship between these conditions:
Yes, Hemoptysis is related to/associated with/exacerbated by Heparin.
No, Hemoptysis is not related to/associated with/exacerbated by Heparin.
Other
Use of terms such as suspected, likely, concern for, or probable (associated with a specific diagnosis that is being evaluated, monitored, or treated as if it exists) are acceptable and can be coded in the inpatient setting, when documented at the
time of discharge.
Thank you,
Vianey Amato RN, BSN
CDI Specialist
[place] [facility]
Please use your independent medical judgment in providing your response.
[2025-02-17 11:57] LABS: Blood Urea Nitrogen 12 mg/dl (7-17); Calcium 8.8 mg/dl (8.4-10.2); Carbon Dioxide 23 mmol/L (22-30); Chloride 103 mmol/L (98-107); Estimated Creatinine Clearance 37 ml/min; Glucose 148 mg/dl (70-99); LDH 275 U/L (120-246); Magnesium 2.2 mg/dl (1.6-2.3); Potassium 4.1 mmol/L (3.5-5.1); Sodium 134 mmol/L (135-145); eGFR > 60.00
[2025-02-17] MEDS: ZOSYN 50 IV ×3 (12:56→23:14)
[2025-02-17] MEDS: REFRESH EYE DROPS (PF) 1 DROPS OPHTH (12:57)
--- NOTE | 2025-02-17 13:17 | PTCARENOTE ---
NSR on monitor and VSS; Fentanyl, Dobutamine, Epi, Amiodarone, Heparin, Levo Dobutamine and Precedex infusing see flow sheet for details; assessment unchanged; Fentanyl bolus given and drip titrated per protocol see flow sheet for details; pt
resting comfortably.
[2025-02-17] MEDS: SODIUM BICARBONATE 1025 MEQ INF CATH (13:46)
[2025-02-17] MEDS: ADRENALIN 258 MG IV (13:57)
[2025-02-17] MEDS: LEVOPHED 258 MG IV (13:57)
[2025-02-17] MEDS: CORDARONE 259 MG IV (15:15)
[2025-02-17] MEDS: DOBUTREX 250 IV (15:15)
[2025-02-17] MEDS: DIPRIVAN 100 IV (15:16)
[2025-02-17] MEDS: RFP-401 HD Soln (K+ 4 mEq/L) 20000 ML CRRT-IRR (15:17)
--- NOTE | 2025-02-17 15:22 | PTCARENOTE ---
CTNP at bedside; Impella decreased to p5; currently CI 1.47; check CI in 1 hour.
--- NOTE | 2025-02-17 15:28 | PTCARENOTE ---
all lines and pumps exchanged.
[2025-02-17 15:35] LABS: Triglycerides 48 mg/dl (10-149)
--- NOTE | 2025-02-17 16:08 | PTCARENOTE ---
NSR on monitor and VSS; assessment unchanged; pt resting comfortably; Levo, Dobutamine, Amiodarone, Heparin, Epi, Fentanyl and Prop infusing see flow sheet for details; See CRRT and Impella flow sheet for details; family at bedside all questions
answered and emotional support provided.
[2025-02-17] MEDS: HEPARIN 25000 UNITS/250 ML IV (17:05)
[2025-02-17] MEDS: LIPITOR 20 MG TUBE (17:06)
[2025-02-17 17:22] LABS: Glucose - Point of Care 158 mg/dl (70-99)
[2025-02-17 17:28] LABS: B.E. -2.0 mmol/L; HCO3 23.1 mmol/L (21-28); O2 Saturation % 98.9 % (94-98); PCO2 40 mmHg (32-35); PO2 109 mmHg (83-108); Potassium 4.2 mMOL/L (3.5-5.1); Sodium 132 mMOL/L (136-145)
[2025-02-17 17:32] LABS: Hematocrit 26.6 % (37.0-47.0); Hemoglobin 9.0 g/dL (12.0-16.0); Mean Corp Hgb Conc. 33.8 g/dL (33.0-37.0); Mean Corpuscular Volume 86.9 fL (81.0-99.0); Platelet Count 65 10^3/uL (130-400); Red Cell Dist. Width 16.8 % (11.5-14.5)
[2025-02-17 17:40] LABS: INR 1.60; PT 19.3 Sec (11.4-14.6)
[2025-02-17 17:42] LABS: APTT 98.8 Sec (23.4-35.0)
--- NOTE | 2025-02-17 17:46 | PTCARENOTE ---
Labs reviewed with CTNP; Heparin drip increased see flow sheet for details; awaiting platelets from lab.
[2025-02-17 17:48] LABS: Blood Urea Nitrogen 12 mg/dl (7-17); Calcium 8.8 mg/dl (8.4-10.2); Carbon Dioxide 23 mmol/L (22-30); Chloride 102 mmol/L (98-107); Estimated Creatinine Clearance 37 ml/min; Glucose 153 mg/dl (70-99); LDH 255 U/L (120-246); Magnesium 2.2 mg/dl (1.6-2.3); Potassium 4.0 mmol/L (3.5-5.1); Sodium 134 mmol/L (135-145); eGFR > 60.00
[2025-02-17 17:54] VITALS: BP 81/63
[2025-02-17] MEDS: REMOVE LIDOCAINE PATCH REMOVE (17:58)
--- NOTE | 2025-02-17 17:58 | PTCARENOTE ---
1 unit Plts infusing per CTNP order.
[2025-02-17 18:12] VITALS: BP 81/65
--- NOTE | 2025-02-17 18:20 | PTCARENOTE ---
CI 1.38, CO 2.61 and SVR 888; updated CTNP; Impella increased to p6; 1 unit Plts infusing without difficulties; NSR on monitor, MAP 56.
[2025-02-17 18:25] VITALS: BP 87/66
[2025-02-17] MEDS: VENTOLIN NEBULES 2.5 MG INH (19:46)
--- NOTE | 2025-02-17 20:30 | PTCARENOTE ---
Assumed care of pt from previous shift RN, Pt drowsy. Propofol and fentanyl infusing as documented. Following simple commands. SERRANO. Pupils +2 and reactive. CPOT 0. RASS-1. NSR on the tele monitor. HR 90s. Impella 5.5 in left neck, running at P6,
and secured in 3 spots, A/V wires intact, box set to backup DDI 60/10/15, wires unplugged from box. CO: 3.48, CI 1.84. PAs 50s/20s. CVP ~20s. BP 70s/50s. +1 B/L UE edema. +2 B/L LE edema. B/L DP pulses present via doppler. Right radial pulse present
and left brachial pulse present via doppler. Pt w/ 38 ETT, 22cm in the center of mouth. FiO2 45%. POX 99%. See worklist for full vent settings. Lung sounds diminished and course throughout. Secretions thick/braswell/bloody. R/L pleural CT to -20 suction,
no airleaks noted, and output minimal. Abdomen distended and firm. Hypoactive BS. No BM. Coulter catheter intact w/ minimal ricardo output. Right subclavian dialysis catheter w CRRT running intact. See worklist for further details. OGT w tube feeds
running. Right IJ cordis w swan floated to 40, left radial arleen, and PIV x2 intact. All lines leveled, zeroed and flushed. Pt repositioned as documented. All surgical sites stable, See worklist for full nursing assessment and interventions.
DRIPS:
EPI 2.5 mcg/min
Dobutamine 5 mcg/kg/min
Amiodarone 0.5 mg/min
Levophed 6 mcg/min
Propofol 5 mcg/kg/min
Fentanyl 75 mcg/hr
Heparin 500 units/hr
[2025-02-17] MEDS: OASIS PO (21:15)
[2025-02-17 23:19] LABS: Glucose - Point of Care 153 mg/dl (70-99)
--- NOTE | 2025-02-18 00:20 | PTCARENOTE ---
Pt reassessed. Neuro assessment unchanged. CPOT 1, RASS -1. NSR per tele monitor HR 90s. BPs 70s/60s Impella intact and remains at P-6. CO- 3.30 CI - 1.74 Fio2 to 40% per CTPA. Pox 98%. CTx2 assessment unchanged. GI/ assessment unchanged. CRRT
running w/o issue. All lines leveled, zeroed, flushed. Labs obtained. Repositioned as tolerated. Levo, dobut, heparin, prop, fent, epi, amio infusing as ordered.
[2025-02-18 00:28] LABS: B.E. 0.1 mmol/L; HCO3 24.7 mmol/L (21-28); O2 Saturation % 98.6 % (94-98); PCO2 39 mmHg (32-35); PO2 96 mmHg (83-108); Potassium 4.1 mMOL/L (3.5-5.1); Sodium 132 mMOL/L (136-145)
[2025-02-18 00:38] LABS: INR 1.42; PT 17.6 Sec (11.4-14.6)
[2025-02-18 00:40] LABS: APTT 71.4 Sec (23.4-35.0)
[2025-02-18 01:23] LABS: Blood Urea Nitrogen 13 mg/dl (7-17); Calcium 8.5 mg/dl (8.4-10.2); Carbon Dioxide 25 mmol/L (22-30); Chloride 104 mmol/L (98-107); Estimated Creatinine Clearance 37 ml/min; Glucose 137 mg/dl (70-99); LDH 366 U/L (120-246); Magnesium 2.1 mg/dl (1.6-2.3); Potassium 4.0 mmol/L (3.5-5.1); Sodium 135 mmol/L (135-145); eGFR > 60.00
[2025-02-18] MEDS: RFP-401 HD Soln (K+ 4 mEq/L) 5000 ML CRRT-IRR ×4 (01:44→01:47)
[2025-02-18] MEDS: SODIUM PHOSPHATE 260 MEQ IV (01:58)
[2025-02-18] MEDS: CORDARONE 259 MG IV (03:20)
[2025-02-18] MEDS: HEPARIN 25000 UNITS/250 ML IV (03:20)
[2025-02-18] MEDS: TYLENOL 650 MG TUBE (03:31)
--- NOTE | 2025-02-18 05:06 | PTCARENOTE ---
Pt reassessed. Neuro assessment unchanged. CPOT 1, RASS -1. Sinus tach per tele monitor. HR 100s. BPs 70-90s/50s. Impella intact and remains at P-6. CO- 3.66 CI - 1.93. ETT intact. Fio2 40%. Pox 98%. Suctioned by respiratory or CVPA as necessary.
Minimal bloody drainage. CTx2 assessment unchanged. Coulter catheter in place, draining minimal urine. Tube feeds on hold her CTPA. CRRT running w/o issue. Cartridge and bags changed. All lines leveled, zeroed, flushed. Pt w/ slight fever. Up to 100.6
degrees fahrenheit. PA made aware, PRN tylenol - see MAR. Repositioned as tolerated w/ continuous lateral rotation. Levo, dobut, heparin, prop, fent, epi, and amio infusing as charted. See worklist for full interventions.
[2025-02-18 05:42] VITALS: BMI 27.4
[2025-02-18 05:59] LABS: Glucose - Point of Care 152 mg/dl (70-99)
[2025-02-18 06:03] LABS: Glucose - Point of Care 153 mg/dl (70-99)
[2025-02-18] MEDS: NOVOLOG FLEXPEN-LOW RESISTANCE 1 UNITS SC (06:03)
[2025-02-18] MEDS: ZOSYN 50 IV (06:04)
[2025-02-18] MEDS: TYLENOL TUBE (06:05)
[2025-02-18 06:12] LABS: B.E. -1.3 mmol/L; HCO3 23.7 mmol/L (21-28); O2 Saturation % 99.2 % (94-98); PCO2 40 mmHg (32-35); PO2 107 mmHg (83-108); Potassium 3.9 mMOL/L (3.5-5.1); Sodium 133 mMOL/L (136-145)
--- NOTE | 2025-02-18 06:18 | W.PN.CT ---
Today's Communication / Plan
-
Plan:
-Pt currently on intubated and sedated. Lightening sedation, for CPAP trial today
-On Dobutamine @ 5, Levophed @ 4, Epinephrine @ 2.5, Heparin gtt @ 500 u/hr, Propofol @ 5, Fentanyl @ 25, and Amiodarone @ 0.5
-Impella 5.5 intact @ P-6
-Hemoptysis has resolved
-Current vent settings: CMV/350/24/5/40%, AB.38/40/107/23.7/99.2. Consider weaning of ventilator today
-Receiving CRRT, with ultrafiltration rate @ 150 currently. Creatinine has improved, 1.0, peaked to 2.2. 24hrs u/o 40 mL
-Monitor chest tube drainage: Left pleural 60/130
-Maintain bustamante catheter
-Maintain swan and a-line
-Encourage use of IS when extubated
-Wean Impella as tolerated
-Wean pressors/inotropes as tolerated
Assessment / Plan
-
S/P coronary artery bypass grafting x 3 [initially the ADAMS was grafted to a very atretic LAD that required patch repair, ultimately there was significant hemorrhaging from here and I opted to ligate the ADAMS and perform a vein patch repair of the
RV/anastomosis, Ao to RSVG to OM 1, RSVG off of the rdz of OM1 to a large diagonal vessel, Ao to RSVG to mid to distal RCA], Chordal sparing mitral valve replacement, Impella LVAD placement by Dr. Cochran on 02/12/25, pod #6
PMH:�
ICM EF 25-30%,�
Scoliosis
Chronic anemia
CAD
Severe�MR
Hx�of SVT
HTN
Uterine cancer status hysterectomy�
Hyperlipidemia�
Osteoporosis�
Hx�of�polymyalgia�rheumatica/giant cell arteritis�skin cancer�(right leg Mohs surgery)�
Cervical radiculopathy�
Pre-existing LBBB
SVT treated with adenosine at time of cardiac cath 02/06/2025
Acute postop blood loss anemia
CARLO on CKD- improving
Acute postop coagulopathy/thrombocytopenia
Acute postop atelectasis/ pulmonary insufficiency
Acute postop hypovolemia with subsequent hypervolemia
Acute postop cardiogenic shock, requiring Impella and inotropic support
Intubated electively on 02/14 d/t increased work of breathing
CRRT started 02/14
Acute postop hemoptysis S/p bronchoscopy 02/17
Echo 02/15/25:
1. Left ventricular ejection fraction is severely reduced with an ejection fraction of 24 % by Rodriguez's biplane method of discs.
2. Normal right ventricle size with moderately reduced function.
3. Severe tricuspid regurgitation by gross assessment.
4. Impella device is present.
5. When compared to prior study, tricuspid regurgitation and right ventricle dysfunction are now present.
Discussed patient care with: Cardiology, Nursing, Respiratory Therapy, Pharmacy and Care Team
Subjective
-
Date of Service: February 18, 2025
Pt intubated and sedated, yet follows commands
Objective Data
-
PT 17.6 Sec (11.4-14.6) H 02/18/25 00:15
INR 1.42 02/18/25 00:15
APTT 71.4 Sec (23.4-35.0) H 02/18/25 00:15
Vital Signs
Vital Signs
Temp Pulse Resp BP Pulse Ox
99.1 F 97 27 87/66 98
02/18/25 06:00 02/18/25 06:05 02/18/25 06:05 02/17/25 18:25 02/18/25 06:05
CT Intake/Output/Weight
02/17/25 02/17/25 02/18/25
06:59 18:59 06:59
Intake Total 1800.7 / 3213.1 2254.9 / 3754.4 1499.5 / 3754.4
Output Total 2227 / 4679 2377 / 3872 1495 / 3872
Balance -426.3 / -1465.9 -122.1 / -117.6 4.5 / -117.6
SaO2: 98 (CMV/350/24/5/40%)
Physical Exam
-
General: Awake, Oriented and AOx3
Cardiovascular: Regular rate & rhythm, No Murmurs, No Rub and No Gallop
Respiratory: Decreased Breath Sounds (at bases, otherwise clear)
Sternum: Stable
Incision: Clean, Dry, Intact and Dressing Intact
Extremities: Edema +2
Data Reviewed
-
Lab Results: Results Reviewed
Medications: Active Meds Reviewed
Chest X-Ray: Report Reviewed and Image Reviewed
ECG: Report Reviewed and Image Reviewed
[2025-02-18 06:24] LABS: INR 1.32; PT 16.7 Sec (11.4-14.6)
[2025-02-18 06:25] LABS: Fibrinogen 502 MG/DL (199-459)
[2025-02-18 06:26] LABS: APTT 63.6 Sec (23.4-35.0)
[2025-02-18] MEDS: NSS 500 IV (06:26)
[2025-02-18 06:39] LABS: ALT (SGPT) 13 U/L (0-35); AST (SGOT) 30 U/L (14-36); Albumin 3.1 g/dl (3.5-5.0); Alkaline Phosphatase 78 U/L (38-126); Blood Urea Nitrogen 14 mg/dl (7-17); Calcium 8.1 mg/dl (8.4-10.2); Carbon Dioxide 25 mmol/L (22-30); Chloride 103 mmol/L (98-107); Estimated Creatinine Clearance 34 ml/min; Glucose 139 mg/dl (70-99); LDH 325 U/L (120-246); Magnesium 1.8 mg/dl (1.6-2.3); Potassium 3.8 mmol/L (3.5-5.1); Sodium 135 mmol/L (135-145); Total Protein 4.9 g/dl (6.3-8.2); eGFR 55.90
[2025-02-18 06:44] LABS: D-Dimer 3.53 ug/mlFEU (0.00-0.50)
[2025-02-18 06:56] LABS: Hematocrit 26.3 % (37.0-47.0); Hemoglobin 8.9 g/dL (12.0-16.0); Mean Corp Hgb Conc. 33.8 g/dL (33.0-37.0); Mean Corpuscular Volume 90.7 fL (81.0-99.0); Platelet Count 56 10^3/uL (130-400); Red Cell Dist. Width 16.9 % (11.5-14.5)
[2025-02-18] MEDS: CALCIUM GLUCONATE 130 MG IV (07:37)
[2025-02-18] MEDS: PULMICORT 0.5 MG INH (07:37)
[2025-02-18] MEDS: VENTOLIN NEBULES 2.5 MG INH (07:38)
[2025-02-18] MEDS: MAGNESIUM SULFATE 100 IV (07:44)
[2025-02-18 07:59] LABS: Absolute Neutrophils -Man Diff 13.4 10^3/uL (1.4-6.5); Platelets Checked Yes
[2025-02-18 08:00] LABS: Acanthocytes 2+; Anisocytosis 1+; Hypochromasia 1+; Normal RBC Morphology No; Ovalocytes FEW; Polychromasia 1+; Schistocytes FEW; Target Cells FEW; Total Cells Counted 100
--- NOTE | 2025-02-18 08:00 | PTCARENOTE ---
pt received from previous RN, sedated on propofol and fentanyl gtts, CPOT 1. RASS 0/-1. nods appropriately. SERRANO. opens eyes spontaneously. SR on the monitor, HR 90s. Amiodarone gtt running as ordered. A&V wires in place. Impella 5.5 via L neck @32,
P-6. 3-point fixation in place. SBP 90-100s, MAPs >65. Levophed and Epi gtts running as ordered. PAP 50s/20s, CVP ~22, CI 1.8. Dobutamine gtt running as ordered. +2 generalized pitting edema. pulses verified by Doppler. pt mechanically ventilated,
ETT#8, 22@lip. SCMV 24, TV 350, PEEP 5, FIO2 40%. POX 99%. lungs coarse anteriorly. suctioned for thick, brownish blood tinged secretions. CTx2, no air leak or crepitus. pt abdomen round, hypoactive BS. Coulter in place, SUSTAINABILITY MANAGER aware of no output. R upper
chest Trialysis cath in place, CRRT running as ordered. OGT in place @52cm, connected to low intermittent suction. sternal incision TARUN, approximated. chest tube site c/d/i. R groin TARUN. RLE incision TARUN. L groin dressing in place. LLE incision TARUN.
foam pads on b/l heels. RIJ cordis/swan maintained. L radial Mirian zeroed, flushed, and calibrated. PIV x2. heparin gtt running as ordered. see worklist for VS, I&O, and assessment.
--- NOTE | 2025-02-18 08:33 | RESPNOTE ---
Respiratory: Patient placed on wean PSV 8/5 cmH2O @ 0815. Thus far patient tolerating well, RSBI has been 49-63.
--- NOTE | 2025-02-18 08:35 | PN.DE.MGMTRT ---
Insulin Management
- -
02/18/2025: Diabetes Management Follow up
84 year old female with PMH: CAD, SVT, HTN, HLD, Uterine cancer s/p hysterectomy and Osteoporosis who presents initially to the hospital on 02/05/2025 for evaluation of progressive shortness of breath-ultimately found to be in acute HF with global
hypokinesis, EF significantly decreased to 25-30% with severe TR and pulmonary hypertension. Patient underwent cardiac catheterization 02/06/2025: Demonstrated multivessel severe coronary artery disease, was stabilized medically initially.
Subsequently underwent CABG x 3, mitral valve replacement and Impella LVAD placement on 02/12/2025.
A1C 6.1%, Cr .9, eGFR >60 today. 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
Patient was started on CRRT on 02/14 and intubated electively on 02/14.
Patient has just been extubated, remains on Impella and CRRT, Cr 1, eGFR 55.90 today. No tube feeds at this time.
POD # 6 s/p CABG x3. Was transitioned from critical care glycemic protocol 02/16 with 5 units lantus and Q 6 hour moderate corrective insulin. Has not received further lantus. Q6 hour glucose 116 to 158 HS glucose 153.
Fasting glucose today 139. Will make no change to current moderate corrective insulin Q 6 hours.
Discussed with Nurse. Will cont to monitor
Diabetes History
- -
Pre-Admission Diabetes Regimen
02/17/25 02/17/25 02/18/25
11:21 17:21 00:15
Creatinine 0.9 0.9 0.9
02/18/25
05:55
Creatinine 1.0
Lab Results
Hemoglobin A1c 6.1 % (4.0-5.6) H 02/07/25 05:07
Insulin Pump Settings
IP Diabetes Regimen
02/17/25 02/17/25 02/17/25
11:18 11:21 17:20
Glucose 148 H
POC Glucose 154 H 158 H
02/17/25 02/17/25 02/18/25
17:21 23:17 00:15
Glucose 153 H 137 H
POC Glucose 153 H
02/18/25 02/18/25 02/18/25
05:55 05:58 06:01
Glucose 139 H
POC Glucose 152 H 153 H
Patient Education
[2025-02-18] MEDS: MIRALAX 17 GRAMS TUBE (08:56)
[2025-02-18] MEDS: VITAMIN B1 100 MG TUBE (08:56)
[2025-02-18] MEDS: SENNA SYRUP 8.8 MG TUBE (08:56)
[2025-02-18] MEDS: THERAGRAN 1 TABLET TUBE (08:56)
[2025-02-18] MEDS: VITAMIN C 500 MG TUBE (08:56)
[2025-02-18] MEDS: OASIS 1 SPRAY PO (08:57)
[2025-02-18] MEDS: PACERONE 200 MG TUBE (08:57)
[2025-02-18] MEDS: NSS (PRESERVATIVE FREE) 10 ML IV (08:58)
[2025-02-18] MEDS: LIDOCAINE 4% PATCH TOPICAL (08:58)
[2025-02-18] MEDS: REFRESH EYE DROPS (PF) 1 DROPS OPHTH (08:59)
[2025-02-18] MEDS: ROBITUSSIN 100 MG TUBE (08:59)
[2025-02-18] MEDS: PROTONIX IV 40 MG IV (08:59)
[2025-02-18 09:04] LABS: B.E. -0.5 mmol/L; HCO3 24.9 mmol/L (21-28); O2 Saturation % 99.4 % (94-98); PCO2 43 mmHg (32-35); PO2 104 mmHg (83-108); Potassium 3.9 mMOL/L (3.5-5.1); Sodium 132 mMOL/L (136-145)
--- NOTE | 2025-02-18 09:24 | RESPNOTE ---
Respiratory: patient extubated @0915 without incident. No stridor no wheeze.
[2025-02-18] MEDS: DILAUDID 0.25 MG IV (09:43)
[2025-02-18 09:55] LABS: B.E. -2.7 mmol/L; HCO3 23.2 mmol/L (21-28); O2 Saturation % 98.2 % (94-98); PCO2 44 mmHg (32-35); PO2 79 mmHg (83-108)
--- NOTE | 2025-02-18 10:30 | PTCARENOTE ---
pt placed on CPAP trial, ABG completed after 30min, THEATER TEACHER aware. Pt extubated @0915 to 6L MF, oriented x4, follows commands, voice hoarse. c/o sore throat. suctioned for large amount of thick braswell/brown blood tinged secretions. oral hygiene performed.
CTs dc'd as ordered.
--- NOTE | 2025-02-18 10:40 | W.PN.UPDATE ---
Update Note
Progress Note Update
was seen during CRRT
Dialysate 1.5lt/hr
UF 150cc/hr
bld flow 250-300cc/min
Bp are low despite on pressors limiting UF
change to SCUF
d/w nursing
--- NOTE | 2025-02-18 10:55 | W.PN.NEPH.PH ---
Today's Communication / Plan
-
change to SCUF
Assessment/Plan
-
IMP:
CARLO
Acute HFrEF, new onset
CAD multiple vessel disease
s/p Coronary artery bypass grafting x 3 [initially the ADAMS was grafted to a very atretic LAD that required patch repair, ultimately there was significant hemorrhaging from here and ligate the ADAMS s/p a vein patch repair of the RV/anastomosis 02/12
dental abscess--OMFS s/p 2 teeth removal
recent skin cancer surgery right leg (Moh's with Dr. Noguera)
SVT--Symptomatic during [facility]-- on amiodarone
Moderate MR by VIOLA 02/09/2025 and severe MR by echo 02/05/25
Cervical radiculopathy
Anemia of chronic disease
Essential hypertension
Severe scoliosis
Uterine cancer status post hysterectomy
Hyperlipidemia
Osteoporosis
History of polymyalgia rheumatica/giant cell arteritis
mild hyponatremia
Echo 02/05/2025: Global hypokinesis, EF 25-30%, severe hypokinesis in the anteroseptal, anterior, apical and inferolateral segments, severe MR, pulmonary artery systolic pressure 59 mmHg, severe TR, dilated atria
Plan:
extubated this am on mid flow O2
remains on pressors for hypotension, titrate for MAP>60
remains vol overload and anuric with coulter
given that metabolic parameters are stable will switch to SCUF
also once she start PT feeds could start midodrine
ok to remove coulter
poor prognosis
d/w nursing
CC time spent 31min
-
-
Date of Service: February 18, 2025
CC / HPI / ROS
-
Chief Complaint:
CARLO
History of Present Illness:
CARLO/Cr now on CRRT
critically ill in CVICU, on pressors, Epi, levo, dobutamine
remains on Impella support
anuric with coulter
extubated this am
reviewed high PASP 48
Review of Systems:
awake, on 8lit mid flow O2
last night fever, now on zach hugger
Labs
-
Labs:
eGFR 55.90 02/18/25 05:55
Qld-C-Aojshatsbad Pept Cancelled 02/05/25 10:39
Albumin 3.1 g/dl (3.5-5.0) L 02/18/25 05:55
Physical Exam
-
Vital Signs:
Vital Signs
Temp Pulse Resp BP Pulse Ox
97.2 F 90 26 107/63 84
02/18/25 10:00 02/18/25 10:05 02/18/25 10:05 02/18/25 08:57 02/18/25 09:30
Cardiovascular:: Regular rate and rhythm
Respiratory:: Bilateral: Coarse and Bilateral: Rhonchi
Lung Excursion:: Abnormal
Abdomen:: Nontender and Soft
Extremity Edema:: +3: Bilateral:
Coulter Catheter: Yes
--- NOTE | 2025-02-18 11:11 | CM ---
Chart reviewed. Patient is extubated, daughters at bedside. Patient is independent of ADLS, lives with her in a 2 [address], 0 JAMEL, 0 DME. Patient remains in critical condition. Patient will need a functional assessment to determine
discharge needs. CM to follow
[2025-02-18 11:22] VITALS: BP 66/54
[2025-02-18 11:25] VITALS: PULSE 2; PULSE 92
[2025-02-18 11:33] VITALS: BP 64/56
[2025-02-18 11:34] LABS: B.E. -5.2 mmol/L; HCO3 24.6 mmol/L (21-28); O2 Saturation % 59.0 % (94-98); Potassium 4.7 mMOL/L (3.5-5.1); Sodium 132 mMOL/L (136-145)
[2025-02-18 11:37] LABS: PCO2 74 mmHg (32-35); PO2 40 mmHg (83-108)
[2025-02-18] MEDS: CALCIUM CHLORIDE 10% SYRINGE 500 MG IV (11:46)
[2025-02-18] MEDS: LEVOPHED 258 MG IV (11:47)
--- NOTE | 2025-02-18 11:59 | W.PN.UPDATE ---
Update Note
Progress Note Update
Extubated 0915 to 6L NC. Initial ABG w/pO2 79, CO2 43. Copious secretions. Mucomyst/nebs scheduled. Dr Buckley at bedside. Upgraded to BiPAP. Spoke with daughters Fede and Helena (POA) who want patient to be made DNI. Required Levo to 30 for
hypotension. ABG on BiPAP profoundly acidotic. Received [address] and calcium. Dr Cochran at bedside. CXR confirmed Dobhoff in left lung>removed. Patient continued to decline and made DNR/comfort care by daughters. CRRT and pressors stopped.
Patient became bradycardiac asystolic. No breath/heart sounds auscultated. Impella off. Patient pronounced @ 1209.
[2025-02-18] MEDS: SODIUM BICARBONATE 50 MEQ IV ×3 (12:00→12:02)
--- NOTE | 2025-02-18 12:19 | PTCARENOTE ---
daughters at bedside. pt increasing work to breath, Dr. Buckley at bedside, pt placed on BiPAP. Levophed gtt titrating up, RIGGING LOFT MECHANIC aware. RIGGING LOFT MECHANIC at bedside to place Dobbhoff, pt SBP 50s-60s, unresponsive. +Doppler femoral pulse, pt bagged by RIGGING LOFT MECHANIC briefly. 1g
Calcium given, 3 amps bicarb given. XR called. Dobbhoff dc'd by RIGGING LOFT MECHANIC. per family pt DNR/DNI. family at bedside. pt lost pulse, ToD 1209.
--- NOTE | 2025-02-18 12:42 | W.PN.CARDCBS ---
Today's Communication / Plan
-
Patient with continued hypoxemia and hemodynamic compromise status post extubation
Family desires no reintubation and comfort care.
This is appropriate
Impression / Plan
-
PCP: Dr. Souza
Primary Cannery Worker: Dr. Merly Herrera
Impression:
Presentation with L chest/shoulder pain 02/05/25
Acute HFrEF
CAD
s/p cath with occluded LAD and collaterals 2011
MV CAD with chronically occluded LAD from angiogram in 2011 and new high-grade mid RCA and OM1 stenosis by cardiac cath 02/06/25
Atrial fibrillation, paroxysmal, likely postoperative in the setting of acute medical illness
ICM EF 25-30% by echo 02/05/25
Severe MR by echo 02/05/25
SVT treated with adenosine at time of cardiac cath 02/06/2025
Scoliosis
Hypertension
Hyperlipidemia
Giant cell arteritis
Squamous cell of RLE
Osteoporosis
Resting sinus tachycardia
PMR
Hyperglycemia and prediabetes
Dental extractions x2 02/09/25
ECHO 09/28/2022: EF 55%, mild hypokinesis of apical septum, apical inferior segment, and apex, grade 1 diastolic dysfunction, mild to moderate MR, mild AR, mild TR, PAP 35 to 40 mmHg
Echo 02/05/2025: Global hypokinesis, EF 25-30%, severe hypokinesis in the anteroseptal, anterior, apical and inferolateral segments, severe MR, pulmonary artery systolic pressure 59 mmHg, severe TR, dilated atria
Limited echo 02/13/2025: Normal LV size, Impella present, EF 20-25% by visual estimation, normal RV size and function, no pericardial effusion.
VIOLA Feb 09 2025: SUMMARY
1. Moderate to severely reduced left ventricular systolic function with estimated ejection fraction of 30 to 35%.
2. Global hypokinesis with more prominent apical, anterior, anteroseptal and septal hypokinesis.
3. Moderate mitral regurgitation.
4. Mild to moderate tricuspid regurgitation.
5. Mild aortic regurgitation.
echo 02/15/25: EF 24%, severe TR, impella in place
Plan:
- Presented with dyspnea on exertion and elevated troponin (peak 2.3) with echocardiogram that showed newly reduced EF and severe MR. Cardiac catheterization showed multivessel CAD and underwent VIOLA with moderate MR
- She underwent difficult case including CABG x 3 with attempted ADAMS graft requiring patch repair with significant hemorrhage status post ligation and vein patch repair, ao to RSVG to OM1, RSVG off of the rdz of OM1 to large diagonal, AO to RSVG
to mid to distal RCA, chordal sparing bioprosthetic MVR, AXEL clip 02/12/2025
- remains critically ill on impella 5.5 at P6
- Patient extubated today but failing with tachypnea and shortness of breath.
-Remains on multiple pressors including Levophed, and epinephrine.
-Family ultimately made patient comfort care which is appropriate
Progress Note - Cannery Worker
Subjective
Date of Service: February 18, 2025
Patient extubated.
Objective
Labs:
Labs
Hgb 8.9 g/dL (12.0-16.0) L 02/18/25 05:55
Hct 26.3 % (37.0-47.0) L 02/18/25 05:55
Plt Count 56 10^3/uL (130-400) L 02/18/25 05:55
PT 16.7 Sec (11.4-14.6) H 02/18/25 05:55
INR 1.32 02/18/25 05:55
APTT 63.6 Sec (23.4-35.0) H 02/18/25 05:55
Sodium 135 mmol/L (135-145) 02/18/25 05:55
Potassium 3.8 mmol/L (3.5-5.1) 02/18/25 05:55
BUN 14 mg/dl (7-17) 02/18/25 05:55
Creatinine 1.0 mg/dL (0.6-1.0) 02/18/25 05:55
Glucose 139 mg/dl (70-99) H 02/18/25 05:55
Vital Signs and I&O:
Vital Signs
Temp Pulse Resp BP Pulse Ox
96.4 F L 84 21 66/54 89
02/18/25 11:00 02/18/25 11:25 02/18/25 11:25 02/18/25 11:22 02/18/25 11:00
Vital Signs
Temp Pulse Resp BP Pulse Ox
96.4 F L 84 21 66/54 89
02/18/25 11:00 02/18/25 11:25 02/18/25 11:25 02/18/25 11:22 02/18/25 11:00
Intake & Output
02/16/25 02/17/25 02/18/25 02/19/25
06:59 06:59 06:59 06:59
Intake Total 3390.1 / 3459.6 3150.6 / 3213.1 3754.4 / 3911.6 591.4 / 591.4
Output Total 2465 / 2540 4514 / 4679 3872 / 4017 858 / 858
Balance 925.1 / 919.6 -1363.4 / -1465.9 -117.6 / -105.4 -266.6 / -266.6
Physical Exam
Physical Exam
GEN: No distress, awake
HEENT: supple, anicteric, mmm
LUNGS: CTA, no wheezes/rales
CV: Reg, S1/S2, 1/6 syst LSB, no gallop
ABD: soft, BS+, NT/ND
EXT: No edema
NEURO: Gross non-focal
SKIN: sternotomy
--- NOTE | 2025-02-18 12:42 | W.PN.INTV ---
Today's Communication / Plan
Recommendations
- BiPAP initiation
- Stat ABG
- Goals of care discussions
Assessment
-
Status post: Dr. Cochran 02/12/2025-coronary artery bypass grafting x 3 [initially the ADAMS was grafted to a very atretic LAD that required patch repair, ultimately there was significant hemorrhaging from here and Dr. Cochran opted to ligate the ADAMS and
perform a vein patch repair of the RV/anastomosis, Ao to RSVG to OM 1, RSVG off of the rdz of OM1 to a large diagonal vessel, Ao to RSVG to mid to distal RCA]
NSTEMI with CAD, s/p CABG 02/2025
Severe MR, s/p Chordal sparing mitral valve replacement
s/p Impella LVAD placement
Respiratory failure, reintubated 02/14
Cardiogenic shock
Acute HFrEF, LV EF 24% with RV dysfunction and severe TR
Dental abscess--OMFS s/p 2 teeth removal-this admission
Hemoptysis 02/17/2025
RLL atelectasis vs Pneumonia with Pseudomonas on BAL and Tracheal aspirate
Conditions present prior admission:
Scoliosis
Chronic anemia
History of coronary artery disease
Moderate MR
History of SVT
Hypertension
Uterine cancer status post hysterectomy
Hyperlipidemia
Osteoporosis
History of polymyalgia rheumatica/giant cell arteritis
Recent skin cancer status post right leg Mohs surgery with Dr. Noguera
Cervical radiculopathy
Overview 02/18: Patient extubated, on mid-flow, no further hemoptysis, heparin infusion resumed. Current infusion include epinephrine, heparin, amiodarone, dobutamine and Levophed. CRRT continuing. Currently on 8 L supplemental oxygen. MAP of
64, saturating 87 to 89%. PA pressure 57/25, mean 34. Patient noted to have increased work of breathing.
Assessment and plan:
#1. Acute respiratory distress 02/18
- Patient examined post extubation, was noted to be on mid flow, increased work of breathing with supra sternal retraction
- Patient also appeared somewhat encephalopathic and progressively more agonal breathing noted
- CODE STATUS confirmed, DNI, placed patient emergently on BiPAP. Stat ABG drawn
- Updated family at bedside, poor prognosis. Updated CT surgery service.
- Follow-up ABG suggestive of worsening respiratory acidosis with pCO2 up to 74, pH 7.13
- Goals of care discussions ongoing.
Addendum: Reviewed CT surgery correspondence reviewed. Family opted for comfort focused care and patient .
Critical care statement: A total of 38�minutes of critical care time was provided for this patient today. This includes management of unstable vital signs, evaluation of the patient at bedside, reviewing the patient�s pertinent medical records
including ventilator settings, arterial blood gases, radiographs, microbiology, laboratory evaluations and��discussion with primary team, critical care nursing, and respiratory therapy.
Subjective Dataa
Subjective Data
Date of Service:
Date of Service: February 18, 2025
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
Subjective:
Patient seen postextubation, on mid flow. Noted to have increased work of breathing
Review of Systems
Genitourinary: Other (With increased respiratory distress and near agonal breathing, unable to provide a detailed review of system)
Objective Data
Data Reviewed
Vital Signs / I&O / Oxygen:
Vital Signs
Temp Pulse Resp BP Pulse Ox
96.4 F L 84 21 66/54 89
02/18/25 11:00 02/18/25 11:25 02/18/25 11:25 02/18/25 11:22 02/18/25 11:00
Intake and Output
02/17/25 02/18/25 02/19/25
06:59 06:59 06:59
Intake Total 3150.6 / 3213.1 3754.4 / 3911.6 591.4 / 591.4
Output Total 4514 / 4679 3872 / 4017 858 / 858
Balance -1363.4 / -1465.9 -117.6 / -105.4 -266.6 / -266.6
SaO2 [CPAP] 99
SaO2 [A/C] 97
SaO2 [CPAP/PSV] 97
SaO2 [SIMV] 96
SaO2 89
Nasal Cannula flow liters per 8
minute
Physical Exam
General: Respiratory Distress (Mild respiratory distress noted)
HEENT: Normocephalic and Other (Extubated)
Cardiovascular: S1-S2 and Peripheral Edema
Respiratory: Rhonchi (Bilateral diffuse rhonchi), Accessory Resp Muscle Use and Chest Tube (No excessive drainage, no air leak)
GI: Soft and Non Distended
Neurology: Awake and Other
Labs/Micro/Reports
Laboratory Results
02/17/25 02/18/25 02/18/25
17:21 00:15 05:55
PT 19.3 H 17.6 H 16.7 H
INR 1.60 1.42 1.32
APTT 98.8 H 71.4 H 63.6 H
pH 7.37 7.41 7.38
pCO2 40 H 39 H 40 H
pO2 109 H 96 107
HCO3 23.1 24.7 23.7
O2 Delivery Level
02/18/25 02/18/25 02/18/25
08:45 09:46 11:22
PT
INR
APTT
pH 7.37 7.33 L 7.13 L*
pCO2 43 H 44 H 74 H*
pO2 104 79 L 40 L*
HCO3 24.9 23.2 24.6
O2 Delivery Level
Microbiology
02/16/25 11:43 Blood/Venous Blood Culture - Preliminary
No Growth in 48 hours- Final report to follow
02/16/25 10:48 Blood/Venous Blood Culture - Preliminary
No Growth in 48 hours- Final report to follow
02/16/25 04:02 Tracheal Aspirate Respiratory Culture - Final
Pseudomonas aeruginosa
02/16/25 04:02 Tracheal Aspirate Gram Stain - Final
02/17/25 09:03 Bronch Right Lower Lobe Respiratory Culture - Preliminary
Pseudomonas aeruginosa
02/17/25 09:03 Bronch Right Lower Lobe Gram Stain - Preliminary
02/16/25 09:35 Urine Urine Culture - Final
NO GROWTH
[2025-02-18] MEDS: NOVOLOG FLEXPEN-LOW RESISTANCE SC (13:31)
--- NOTE | 2025-02-18 14:42 | CHAP ---
Emotional and spiritual support provided. End of life prayers shared.
--- NOTE | 2025-02-18 15:43 | W.DCSUMMARY ---
Discharge Summary
Discharge Data
Date of Admission: 02/06/25
Date of Discharge: 02/18/25
-
Pending Results: No
Hospital Course
Primary care physician: Kelby Souza
Outpatient dumper operator: Merly Herrera
Inpatient consultants: [facility], pulmonary sales performance analyst, nephrology
Procedures:
1. Mitral valve replacement, CABG x 3, left atrial appendage clip, central Impella 5.5
Primary Diagnosis:
1. NSTEMI with heart failure and severe functional mitral valve insufficiency with acute on chronic congestive heart failure with depressed EF of 20%
Secondary Diagnoses:
1. Functional tricuspid valve insufficiency, moderate to severe
2. Malnourished
3. SVT
4. CARLO with CRRT 02/14
5. Osteoporosis
6. History of chronic steroid use
7. Hypertension
8. Scoliosis
9. Coronary artery disease
10. Acute right ventricular dysfunction
11. Acute post op blood loss anemia
12. Acute post-op thrombocytopenia
13. Acute postop hypovolemia with subsequent hypervolemia
14. Acute postop cardiogenic shock, requiring Impella and inotropic support
15 Acute post-op hypoxic respiratory failure requiring reintubation 02/14/25
16. Acute postop hemoptysis S/p bronchoscopy 02/17
17. Pseudomonas pneumonia
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 She was found to have elevated troponins in the emergency room and was taken
for left heart catheterization which revealed multivessel coronary disease. Right heart catheterization aborted due to SVT with acute hypoxia and hypotension.
Hospital course: VIOLA reported an EF of 25-30% with severe mitral regurgitation, mild�moderate aortic insufficiency, and severe TR. Incidental CT chest finding of left upper lobe nodular consolidation measuring 1.6 cm. Dental evaluation required
tooth extraction on 02/09/2025. On 02/11/2025, patient was transferred to CVICU for preoperative optimization with dobutamine infusion. On 02/12/2025. Patient underwent mitral valve replacement #27 mm tissue, CABG x 3 (SVG to diagonal, SVG to OM, SVG
to RCA), and central Impella 5.5 placement using tunneled graft by Dr. Otto Cochran. For further details, please see operative report. IntraOp VIOLA reported an EF of 10-15% with mean mitral valve gradient of 2 mmHg and mild�moderate tricuspid
regurgitation. Patient required 5 PRBC, 3 platelet, and 3 FFP IntraOp. Return to CVICU on Levophed at 10, epinephrine at 6, dobutamine 5, Precedex, and insulin. Impella at P8 with 4.5 L of flow. On postoperative day 1, patient received 1 PRBC to
maintain hemoglobin greater than 9. Repeat TTE reported an EF of 20-25%. Impella was weaned to P6 . Patient developed mild respiratory acidosis and was started on CPAP. Echocardiogram reported RV function okay. Started on stress dose steroids
at 150 mg and then 50 mg every 8 x 4. Postoperative to, low urine output persistent despite Bumex drip. Urology was consulted and right subclavian dialysis catheter was placed and patient started on CRRT. Postoperative day #3, patient required 3
Amio boluses and cardioversion for SVT. She converted to sinus bradycardia. Repeat TTE reported EF of 24% with moderately decreased RV function and severe TR, no MR. Patient was started on inhaled Flolan due to RV dysfunction. Epinephrine
remained at 2.5, dobutamine at 5, Levophed for. Patient received 1 PRBC, 1 platelet and 25% albumin. On Postoperative day #4, ultrafiltration run between 150 to 200 cc/h in order to remove more volume during the day. Heparin was initiated with
goal PTT of 60-90. Coulter was removed decreased to 0.03. Postoperative day #5, patient went bronchoscopy with pulmonary sales performance analyst for his diffuse segment of secretions and agree looking mucosa. Decision was made to keep patient intubated.
Therefore, sedation was changed to propofol and fentanyl. Flolan was discontinued. Heparin was held. Nebs were added. Attempted to wean Impella to P5 but became hypotensive. Therefore Impella was increased to P6 with improvement in BP/cardiac
index. Platelets decreased to 76,000 and Plavix was held. HIT assay was sent. Pseudomonas was noted on tracheal aspirate and cefepime initiated. Patient tolerated ultrafiltration at 225 cc/h times few hours later required decreasing to 150 cc an
hour for hypotension. Repeat platelet count of 65,000 was treated with multiple platelet transfusion. On postoperative day #6, platelets were 56,000 and aspirin was held. Patient extubated at 0915 with initial O2 sat 98%/pO2 79. Patient required
frequent suctioning for copious secretions. Daughters and I had discussion with patient regarding wishes if respiratory status worsens. Patient adamantly stated she did not want to be reintubated. DNI status entered. Pleural chest tube was
discontinued. PE tube attempt unsuccessful with x-ray reporting tip in distal left lung with tiny left pneumothorax. Feeding tube was removed. Patient became hypotensive requiring Levophed up to 20 and respiratory status worsened, requiring
BiPAP. Family notified of worsening condition and made patient DNR/comfort care. CRRT and pressors were discontinued. Patient was pronounced at 12:09 PM. Certificate entered via [employer]- case #[id number].
Home medication changes:
Discharge Plan
-
Patient Disposition:
Date/Time
Date/Time: 02/18/25 12:09
Discharge Date and Time
Discharge Date/Time: 02/18/25 12:09
Print Language: BULGARIAN
--- NOTE | 2025-02-20 14:31 | W.PN.NEPH.HD ---
Assessment
-
Patient was seen on the on CRRT stable on pressor support
Progress Note - Hemodialysis
-
Date of Service: February 17, 2025
--- NOTE | 2025-02-20 14:33 | W.PN.NEPH.PH ---
Today's Communication / Plan
-
SPORTS MEDICINE PHYSICIAN
Assessment/Plan
-
IMP:
CARLO
Acute HFrEF, new onset
CAD multiple vessel disease
s/p Coronary artery bypass grafting x 3 [initially the ADASM was grafted to a very atretic LAD that required patch repair, ultimately there was significant hemorrhaging from here and ligate the ADAMS s/p a vein patch repair of the RV/anastomosis 02/12
dental abscess--OMFS s/p 2 teeth removal
recent skin cancer surgery right leg (Moh's with Dr. Noguera)
SVT--Symptomatic during [facility]-- on amiodarone
Moderate MR by VIOLA 02/09/2025 and severe MR by echo 02/05/25
Cervical radiculopathy
Anemia of chronic disease
Essential hypertension
Severe scoliosis
Uterine cancer status post hysterectomy
Hyperlipidemia
Osteoporosis
History of polymyalgia rheumatica/giant cell arteritis
mild hyponatremia
Echo 02/05/2025: Global hypokinesis, EF 25-30%, severe hypokinesis in the anteroseptal, anterior, apical and inferolateral segments, severe MR, pulmonary artery systolic pressure 59 mmHg, severe TR, dilated atria
Plan:
remains on pressors for hypotension, titrate for MAP>60
remains vol overload and anuric with bustamante
Continue CRRT
All parameters reviewed
poor prognosis
d/w nursing
CC time spent 31min
-
-
Date of Service: February 20, 2025
CC / HPI / ROS
-
Chief Complaint:
CARLO
History of Present Illness:
CARLO/Cr now on CRRT
Patient seen on the with no note completed on the
Review of Systems:
awake, on 8lit mid flow O2
last night fever, now on zach hugger
Labs
-
Labs:
WBC Cancelled 02/18/25 20:00
RBC Cancelled 02/18/25 20:00
Hgb Cancelled 02/18/25 20:00
Hct Cancelled 02/18/25 20:00
Plt Count Cancelled 02/18/25 20:00
Sodium Cancelled 02/18/25 18:00
Potassium Cancelled 02/18/25 18:00
Chloride Cancelled 02/18/25 18:00
Carbon Dioxide Cancelled 02/18/25 18:00
BUN Cancelled 02/18/25 18:00
Creatinine Cancelled 02/18/25 18:00
eGFR Cancelled 02/18/25 18:00
Glucose Cancelled 02/18/25 18:00
Calcium Cancelled 02/18/25 18:00
Phosphorus Cancelled 02/18/25 18:00
Izt-O-Sdlrtngauzp Pept Cancelled 02/05/25 10:39
Albumin 3.1 g/dl (3.5-5.0) L 02/18/25 05:55
Physical Exam
-
Vital Signs:
Vital Signs
Temp Pulse Resp BP Pulse Ox
96.4 F L 0 0 64/56 66
02/18/25 11:00 02/18/25 12:05 02/18/25 12:05 02/18/25 11:33 02/18/25 11:50
== END 2025-02-18 12:09 | disposition expired | DRG 1 ==
LOC: CVICU 06:58
PROVIDERS: Anesthesiology; Clinical Nurse Specialist Acute Care; Internal Medicine; Internal Medicine Cardiovascular Disease; Internal Medicine Interventional Cardiology; Internal Medicine Nephrology; Nurse Practitioner; Nurse Practitioner Adult Health; Nurse Practitioner Primary Care; Physician Assistant Medical; Specialist; ADMITTING PHYSICIAN Hospitalist; ATTENDING PHYSICIAN Thoracic Surgery (Cardiothoracic Vascular Surgery); CONSULT PHYSICIAN Internal Medicine; CONSULT PHYSICIAN Internal Medicine Cardiovascular Disease; CONSULT PHYSICIAN Internal Medicine Critical Care Medicine; EMERGENCY PHYSICIAN Emergency Medicine; FAMILY PHYSICIAN Internal Medicine Geriatric Medicine; OTHER PHYSICIAN Dentist Oral and Maxillofacial Surgery
PROC: B2151ZZ Fluoroscopy of Left Heart using Low Osmolar Contrast (ICD-10-PCS; 2025-02-06)
PROC: B41D1ZZ Fluoroscopy of Aorta and Bilateral Lower Extremity Arteries using Low Osmolar Contrast (ICD-10-PCS; 2025-02-06)
PROC: B2111ZZ Fluoroscopy of Multiple Coronary Arteries using Low Osmolar Contrast (ICD-10-PCS; 2025-02-06)
PROC: 4A023N7 Measurement of Cardiac Sampling and Pressure, Left Heart, Percutaneous Approach (ICD-10-PCS; 2025-02-06)
PROC: 0CDXXZ1 Extraction of Lower Tooth, Multiple, External Approach (ICD-10-PCS; 2025-02-09)
PROC: B24BZZ4 Ultrasonography of Heart with Aorta, Transesophageal (ICD-10-PCS; 2025-02-12)
PROC: 30233N1 Transfusion of Nonautologous Red Blood Cells into Peripheral Vein, Percutaneous Approach (ICD-10-PCS; 2025-02-12)
PROC: X2HX0F9 Insertion of Conduit to Short-term External Heart Assist System into Thoracic Aorta, Ascending, Open Approach, New Technology Group 9 (ICD-10-PCS; 2025-02-12)
PROC: 06BQ4ZZ Excision of Left Saphenous Vein, Percutaneous Endoscopic Approach (ICD-10-PCS; 2025-02-12)
PROC: 02RG08Z Replacement of Mitral Valve with Zooplastic Tissue, Open Approach (ICD-10-PCS; 2025-02-12)
PROC: 02HA0RZ Insertion of Short-term External Heart Assist System into Heart, Open Approach (ICD-10-PCS; 2025-02-12)
PROC: 5A0221D Assistance with Cardiac Output using Impeller Pump, Continuous (ICD-10-PCS; 2025-02-12)
PROC: 5A1221Z Performance of Cardiac Output, Continuous (ICD-10-PCS; 2025-02-12)
PROC: 02L70CK Occlusion of Left Atrial Appendage with Extraluminal Device, Open Approach (ICD-10-PCS; 2025-02-12)
PROC: 30233K1 Transfusion of Nonautologous Frozen Plasma into Peripheral Vein, Percutaneous Approach (ICD-10-PCS; 2025-02-12)
PROC: 021209W Bypass Coronary Artery, Three Arteries from Aorta with Autologous Venous Tissue, Open Approach (ICD-10-PCS; 2025-02-12)
PROC: 06BP4ZZ Excision of Right Saphenous Vein, Percutaneous Endoscopic Approach (ICD-10-PCS; 2025-02-12)
PROC: 02U Heart and Great Vessels, Supplement (ICD-10-PCS; 2025-02-12)
PROC: 30233R1 Transfusion of Nonautologous Platelets into Peripheral Vein, Percutaneous Approach (ICD-10-PCS; 2025-02-12)
PROC: 5A09357 Assistance with Respiratory Ventilation, Less than 24 Consecutive Hours, Continuous Positive Airway Pressure (ICD-10-PCS; 2025-02-13)
PROC: 5A1D90Z Performance of Urinary Filtration, Continuous, Greater than 18 hours Per Day (ICD-10-PCS; 2025-02-14)
PROC: 0BH17EZ Insertion of Endotracheal Airway into Trachea, Via Natural or Artificial Opening (ICD-10-PCS; 2025-02-14)
PROC: 5A1945Z Respiratory Ventilation, 24-96 Consecutive Hours (ICD-10-PCS; 2025-02-14)
PROC: 02HV33Z Insertion of Infusion Device into Superior Vena Cava, Percutaneous Approach (ICD-10-PCS; 2025-02-14)
PROC: 0B9F8ZX Drainage of Right Lower Lung Lobe, Via Natural or Artificial Opening Endoscopic, Diagnostic (ICD-10-PCS; 2025-02-17)
DX: I21.4 Non-ST elevation (NSTEMI) myocardial infarction (principal); I50.21 Acute systolic (congestive) heart failure; T81.11XA Postprocedural cardiogenic shock, initial encounter; J95.821 Acute postprocedural respiratory failure; J15.1 Pneumonia due to Pseudomonas; J95.1 Acute pulmonary insufficiency following thoracic surgery; N17.9 Acute kidney failure, unspecified; I47.10 Supraventricular tachycardia, unspecified; D62 Acute posthemorrhagic anemia; E87.1 Hypo-osmolality and hyponatremia; E46 Unspecified protein-calorie malnutrition; I97.51 Accidental puncture and laceration of a circulatory system organ or structure during a circulatory system procedure; E87.29 Other acidosis; R04.2 Hemoptysis; J98.11 Atelectasis; D68.32 Hemorrhagic disorder due to extrinsic circulating anticoagulants; Z51.5 Encounter for palliative care; I08.3 Combined rheumatic disorders of mitral, aortic and tricuspid valves; I25.10 Atherosclerotic heart disease of native coronary artery without angina pectoris; I11.0 Hypertensive heart disease with heart failure; Z66 Do not resuscitate; K04.7 Periapical abscess without sinus; Y83.2 Surgical operation with anastomosis, bypass or graft as the cause of abnormal reaction of the patient, or of later complication, without mention of misadventure at the time of the procedure; D69.59 Other secondary thrombocytopenia; E86.1 Hypovolemia; R00.1 Bradycardia, unspecified; I48.0 Paroxysmal atrial fibrillation; M81.0 Age-related osteoporosis without current pathological fracture; I71.40 Abdominal aortic aneurysm, without rupture, unspecified; I27.20 Pulmonary hypertension, unspecified; M41.9 Scoliosis, unspecified; E78.00 Pure hypercholesterolemia, unspecified; D63.8 Anemia in other chronic diseases classified elsewhere; I25.5 Ischemic cardiomyopathy; M31.5 Giant cell arteritis with polymyalgia rheumatica; K21.9 Gastro-esophageal reflux disease without esophagitis; M79.7 Fibromyalgia; R73.03 Prediabetes; M54.12 Radiculopathy, cervical region; T45.515A Adverse effect of anticoagulants, initial encounter; Z68.20 Body mass index [BMI] 20.0-20.9, adult; Z85.828 Personal history of other malignant neoplasm of skin; Z85.42 Personal history of malignant neoplasm of other parts of uterus; Z79.52 Long term (current) use of systemic steroids; I25.2 Old myocardial infarction; Z79.82 Long term (current) use of aspirin; Z86.16 Personal history of COVID-19; Z82.49 Family history of ischemic heart disease and other diseases of the circulatory system
CPT/HCPCS: 70355; 71045; 71046; 71250; 71275; 74018; 80048; 80053; 80061; 80076; 81003; 81015; 82248; 82330; 82565; 82570; 82607; 82746; 82805; 82810; 82947; 82962; 83036; 83520; 83605; 83615; 83735; 83880; 84100; 84132; 84300; 84302; 84439; 84443; 84478; 84484; 84520; 85014; 85018; 85025; 85027; 85049; 85379; 85384; 85610; 85730; 86022; 86850; 86900; 86901; 86920; 86927; 87040; 87070; 87077; 87086; 87186; 87205; 93005; 93306; 93308; 93312; 93320; 93321; 93325; 93458; 93880; 94002; 94003; 94640; 94644; 94645; 94660; 96374; 97161; 97165; 99152; 99153; 99285; C1768; C1769; C1894; G0278; J0153; J0282; J1250; J1325; J1939; P9016; P9045; P9047; P9058; P9059; P9073; Q9967